=== PATIENT | female | born 1955 | race African-American/Black ===

== ENCOUNTER 2016-12-21 00:20 | Emergency (ER) | payer OTHER ==
[2016-12-21] MEDS ORDERED: HYDROCHLOROTHIAZIDE 25 MG TABLET (FP) PO ONE (00:42)
--- NOTE | 2016-12-21 00:42 | PDOC ---
[id number] 61 year old female with significant medical hx of HTN who was sent from [facility] detox for hypertension. The patient states she hasn't taken her blood pressure medication in three days. Today she went to detox from heroin use ; her last use was four bags of heroin ingested intranasally yesterday. Upon checking into detox, her blood pressure was found high and she was sent to the ED. The patient complains of photophobia and mild headache. She offers no other complaints. The patient states that she has been withdrawing from methadone treatment and relapsed with heroin use. Social Hx: Heroin use. Tobacco smoker for 30 years, now down to 1 per day. Denies ETOH use. <Lila Almanza - Last Filed: 12/21/16 00:45> <Mayda Douglas - Last Filed: 12/25/16 16:52> - General Stated Complaint: BLOOD PRESSURE PROBLEM Time Seen by Provider: 12/21/16 00:36 Past History <Lila Almanza - Last Filed: 12/21/16 00:45> - Past Medical History Anemia: No Asthma: Yes Cancer: No Cardiac Disorders: No CVA: No COPD: No CHF: No Dementia: No Diabetes: No GI Disorders: No Disorders: No HTN: Yes Hypercholesterolemia: No Liver Disease: No Psychiatric Problems: Yes (ANXIETY) Suicide Attempt (Hx): No Seizures: Yes Thyroid Disease: No - Psycho/Social/Smoking Cessation Hx Anxiety: Yes Suicidal Ideation: No Smoking Status: Yes Smoking History: Current every day smoker Have you smoked in the past 12 months: Yes Number of Cigarettes Smoked Daily: 3 Cigars Per Day: 0 'Breaking Loose' booklet given: 12/20/16 Hx Alcohol Use: No Drug/Substance Use Hx: Yes Substance Use Type: Opiates, Tranquilizers Hx Substance Use Treatment: Yes <Mayda Douglas - Last Filed: 12/25/16 16:52> - Past Medical History Allergies/Adverse Reactions: Allergies Allergy/AdvReac Type Severity Reaction Status Date / Time No Known Allergies Allergy Verified 12/21/16 00:57 Home Medications: Ambulatory Orders Valsartan/Hydrochlorothiazide [Diovan Hct 80-12.5 mg Tablet] 1 combo PO DAILY Review of Systems - Review of Systems Comments:: 12/21/16 00:50 CONSTITUTIONAL: Absent: fever, chills, diaphoresis, generalized weakness, malaise, loss of appetite HEENT: Absent: rhinorrhea, nasal congestion, throat pain, throat swelling, difficulty swallowing, mouth swelling, ear pain, eye pain, visual changes CARDIOVASCULAR: Absent: chest pain, syncope, palpitations, irregular heart rate, lightheadedness , peripheral edema RESPIRATORY: Absent: cough, shortness of breath, dyspnea with exertion, orthopnea, wheezing, stridor, hemoptysis GASTROINTESTINAL: Absent: abdominal pain, abdominal distension, nausea, vomiting, diarrhea, constipation, melena, hematochezia GENITOURINARY: Absent: dysuria, frequency, urgency, hesitancy, hematuria, flank pain, genital pain MUSCULOSKELETAL: Absent: myalgia, arthralgia, joint swelling SKIN: Absent: rash, itching, pallor HEMATOLOGIC/IMMUNOLOGIC: Absent: easy bleeding, easy bruising, lymphadenopathy, frequent infections ENDOCRINE: Absent: unexplained weight gain, unexplained weight loss, heat intolerance, cold intolerance NEUROLOGIC: Present: headache, photophobia Absent: focal weakness or paresthesia, dizziness, unsteady gait, seizure, mental status changes, bladder or bowel incontinence. PSYCHIATRIC: Absent: anxiety, depression, suicidal or homicidal ideation, hallucinations <Lila Almanza - Last Filed: 12/21/16 00:45> *Physical Exam - Physical Exam Comments: 12/21/16 00:51 GENERAL: Well developed, well nourished. Awake and alert. No acute distress. HEENT: Normocephalic, atraumatic. PERRLA, EOMI. No conjunctival pallor. Sclera are non- icteric. Moist mucous membranes. Oropharynx is clear. NECK: Supple. Full ROM. No JVD. Carotid pulses 2+ and symmetric, without bruits. No thyromegaly. No lymphadenopathy. CARDIOVASCULAR: Regular rate and rhythm. No murmurs, rubs, or gallops. Distal pulses are 2+ and symmetric. PULMONARY: No evidence of respiratory distress. Lungs clear to auscultation bilaterally. No wheezing, rales or rhonchi. ABDOMINAL: Soft. Non-tender. Non-distended. No rebound or guarding. No organomegaly. Normoactive bowel sounds. MUSCULOSKELETAL: Normal range of motion at all joints. No bony deformities or tenderness. No CVA tenderness. EXTREMITIES: No cyanosis. No clubbing. No edema. No calf tenderness. SKIN: Warm and dry. Normal capillary refill. No rashes. No jaundice. NEUROLOGICAL: Alert, awake, appropriate. Cranial nerves 2-12 intact. Normal speech. PSYCHIATRIC: Cooperative. Good eye contact. Appropriate mood and affect. <Lila Almanza - Last Filed: 12/21/16 00:45> Medical Decision Making - Medical Decision Making 12/21/16 01:26 61-year-old brought in by ambulance from [facility] because of elevated blood pressure. She normally takes hydrochlorothiazide and Diovan but has not taken any of her medications for 3 days. She denies any shortness of breath or chest pain. Does complain of a mild headache Last heroin use yesterday when she had 3 bags -pt given diovan 106mg and HCTZ 25mg plan-discharge back to [facility] at 7am when her bed will be available <Mayda Douglas - Last Filed: 12/25/16 16:52> *DC/Admit/Observation/Transfer - Attestations Scribe Attestion: 12/21/16 00:51 Documentation prepared by Lila Almanza, acting as medical receptionist for Mayda Douglas MD. <Lila Almanza - Last Filed: 12/21/16 00:45> <Mayda Douglas - Last Filed: 12/25/16 16:52> Diagnosis at time of Disposition: Hypertension - Discharge Dispostion Disposition: HOME Condition at time of disposition: Guarded - Referrals Referrals: Osmany Zayas MD [Staff Physician] - - Patient Instructions Printed Discharge Instructions: DI for High Blood Pressure
[2016-12-21] MEDS ORDERED: VALSARTAN 160 MG TABLET (UD) PO ONE (00:50)
[2016-12-21 00:57] VITALS: TEMP 98.1; BMI 24.2
[2016-12-21] MEDS ORDERED: VALSARTAN 80 MG TABLET (UD) ONE ×2 (00:58→00:59)
[2016-12-21] MEDS ORDERED: HYDROCHLOROTHIAZIDE 25 MG TABLET (FP) ONE (00:58)
[2016-12-21 08:05] VITALS: BP 162/83; PULSE 70
--- NOTE | 2016-12-21 08:09 | PDOC ---
*Physical Exam - Vital Signs Last Vital Signs Temp Pulse Resp BP Pulse Ox 98.1 F 70 19 162/83 100 12/21/16 00:48 12/21/16 08:04 12/21/16 08:04 12/21/16 08:04 12/21/16 08:04 ED Treatment Course - Medications Given in the ED: ED Medications Discontinued Medications Generic Name Dose Route Start Last Admin Trade Name Flory PRN Reason Stop Dose Admin Hydrochlorothiazide 25 mg 12/21/16 00:42 12/21/16 01:10 Hctz - PO 12/21/16 00:43 25 mg ONCE ONE Administration Valsartan 160 mg 12/21/16 00:50 12/21/16 01:10 Diovan - PO 12/21/16 00:51 160 mg ONCE ONE Administration Medical Decision Making - Medical Decision Making 12/21/16 08:05 Received signout on this 61y/o F with HTN sent from [facility] admissions for elevated BP. Pt has been asx, BP improved after home meds. Pt feels well. D/W Dr. Gerardo Candelaria and [facility] admission, pt can return for admission assessment. *DC/Admit/Observation/Transfer Diagnosis at time of Disposition: Hypertension Qualifiers: Hypertension type: essential hypertension Qualified Code(s): I10 - Essential ( primary) hypertension - Discharge Dispostion Disposition: HOME Condition at time of disposition: Guarded - Referrals Referrals: Osmany Zayas MD [Staff Physician] - - Patient Instructions Printed Discharge Instructions: DI for High Blood Pressure - Post Discharge Activity
== END 2016-12-21 08:22 | disposition home or self-care (01) ==
LOC: JER 00:20 → SUPCPDRO 00:20 → JER 08:22
DX: I10 Essential (primary) hypertension (principal); F41.9 Anxiety disorder, unspecified; F17.210 Nicotine dependence, cigarettes, uncomplicated; J45.909 Unspecified asthma, uncomplicated; F11.90 Opioid use, unspecified, uncomplicated
CPT/HCPCS: 99281-25

== ENCOUNTER 2016-12-21 08:39 | Inpatient (IN) | payer OTHER ==
[2016-12-21 11:35] VITALS: BMI 24.2
--- NOTE | 2016-12-21 13:04 | HP ---
COWS - Scale Resting Pulse: 0= [place] 80 or Below Sweatin=Flushed/Facial Moisture Restless Observation: 1= Difficult to Sit Still Pupil Size: 0= Normal to Room Light Bone or Joint Aches: 2= Severe Diffuse Aches Runny Nose/ Eye Tearin= Runny Nose/Eyes GI Upset > 30mins: 2= Nausea/Diarrhea Tremor Observation: 2= Slight Tremor Visible Yawning Observation: 2= >3x During Session Anxiety or Irritability: 2=Irritable/Anxious Goose Flesh Skin: 3=Piloerection COWS Score: 18 CIWA Score - CIWA Score Nausea/Vomitin-Mild Nausea/No Vomiting Muscle Tremors: 4-Moderate,w/Arms Extend Anxiety: 3 Agitation: 4-Moderately Restless Paroxysmal Sweats: 3 Orientation: 0-Oriented Tacttile Disturbances: 0-None Auditory Disturbances: 0-None Visual Disturbances: 0-None Headache: 2-Mild CIWA-Ar Total Score: 17 Admission ROS BHS - HPI Chief Complaint: I am here to detox and get the help I need. Allergies/Adverse Reactions: Allergies Allergy/AdvReac Type Severity Reaction Status Date / Time No Known Allergies Allergy Verified 12/21/16 11:53 History of Present Illness: pt is a 61yr old female with a history of heroin and xanax dependence seeking detox for treatment. Exam Limitations: No Limitations - Ebola screening Have you traveled outside of the country in the last 21 days: No Have you had contact with anyone from an Ebola affected area: No Have you been sick,other than usual withdrawal symptoms: No - Review of Systems Constitutional: Chills, Diaphoresis, Loss of Appetite, Night Sweats, Changes in sleep, Unintentional Wgt. Loss EENT: reports: Tearing, Nose Congestion Respiratory: reports: No Symptoms reported Cardiac: reports: No Symptoms Reported GI: reports: Poor Appetite, Poor Fluid Intake : reports: No Symptoms Reported Musculoskeletal: reports: Back Pain, Joint Pain, Muscle Pain Integumentary: reports: Flushing, Sweating Neuro: reports: Tingling, Tremors Endocrine: reports: Excessive Sweating, Flushing, Intolerance to Cold, Intolerance to Heat Hematology: reports: No Symptoms Reported Psychiatric: reports: Judgement Intact, Mood/Affect Appropiate, Orientated x3, Agitated, Anxious Other Systems: Reviewed and Negative Patient History - Patient Medical History Hx Anemia: No Hx Asthma: Yes Hx Chronic Obstructive Pulmonary Disease (COPD): No Hx Cancer: No Hx Cardiac Disorders: No Hx Congestive Heart Failure: No Hx Hypertension: Yes Hx Hypercholesterolemia: No Hx Pacemaker: No HX Cerebrovascular Accident: No Hx Seizures: No Hx Dementia: No Hx Diabetes: No Hx Gastrointestinal Disorders: No Hx Liver Disease: No Hx Genitourinary Disorders: No Hx Sexually Transmitted Disorders: No Hx Renal Disease (ESRD): No Hx Thyroid Disease: No Hx Human Immunodeficiency Virus (HIV): No (negative) Hx Hepatitis C: No (negative) Hx Depression: Yes Hx Suicide Attempt: No (denies) Hx Bipolar Disorder: No Hx Schizophrenia: No - Patient Surgical History Past Surgical History: Yes Hx Neurologic Surgery: No Hx Cataract Extraction: No Hx Cardiac Surgery: No Hx Lung Surgery: No Hx Breast Surgery: No Hx Breast Biopsy: No Hx Abdominal Surgery: No Hx Appendectomy: No Hx Cholecystectomy: No Hx Genitourinary Surgery: No Hx Section: Yes (1987) Hx Orthopedic Surgery: No Anesthesia Reaction: No - PPD History Previous Implant?: Yes Documented Results: Positive w/o proof PPD to be Administered?: No - Reproductive History Patient is a Female of Child Bearing Age (11 -55 yrs old): No - Smoking Cessation Smoking history: Current every day smoker Have you smoked in the past 12 months: Yes Aproximately how many cigarettes per day: 1 Cigars Per Day: 0 Hx Chewing Tobacco Use: No Initiated information on smoking cessation: Yes 'Breaking Loose' booklet given: 12/21/16 - Substance & Tx. History Hx Alcohol Use: No Hx Substance Use: Yes Substance Use Type: Heroin, Tranquilizers Hx Substance Use Treatment: Yes - Substances Abused Heroin Route: Inhalation Frequency: Daily Amount used: 4 bags Age of first use: 21 Date of Last Use: 12/20/16 Xanax Route: Oral Frequency: Daily Amount used: 4 mg. Age of first use: 61 Date of Last Use: 12/19/16 Family Disease History - Family Disease History Family Disease History: Diabetes: Brother Admission Physical Exam BHS - Vital Signs Vital Signs: Vital Signs - 24 hr 12/21/16 11:32 Temperature 98 F Pulse Rate 72 Respiratory 20 Rate Blood Pressure 186/97 - Physical General Appearance: Yes: Appropriately Dressed, Moderate Distress, Tremorous, Irritable, Sweating, Anxious HEENTM: Yes: Normal Voice, Nasal Congestion, Rhinorrhea Respiratory: Yes: Lungs Clear, Normal Breath Sounds Neck: Yes: No masses,lesions,Nodules Breast: Yes: Within Normal Limits Cardiology: Yes: Regular Rhythm, Regular Rate, S1, S2 Abdominal: Yes: Normal Bowel Sounds, Non Tender, Soft Genitourinary: Yes: Within Normal Limits Back: Yes: Normal Inspection Musculoskeletal: Yes: Back pain, Muscle Pain Extremities: Yes: Tremors Neurological: Yes: Fully Oriented, Alert, Normal Response Integumentary: Yes: Diaphoresis Lymphatic: Yes: Within Normal Limits - Diagnostic (1) Nicotine dependence Current Visit: Yes Status: Chronic Qualifiers: Nicotine product type: cigarettes Substance use status: uncomplicated Qualified Code(s): F17.210 - Nicotine dependence, cigarettes, uncomplicated (2) Opioid dependence with withdrawal Current Visit: Yes Status: Chronic (3) Positive PPD, treated Current Visit: Yes Status: Inactive (4) Hypertension Current Visit: Yes Status: Chronic Qualifiers: Hypertension type: essential hypertension Qualified Code(s): I10 - Essential (primary) hypertension (5) Sedative, hypnotic or anxiolytic dependence with withdrawal, uncomplicated Current Visit: Yes Status: Chronic (6) Asthma Current Visit: Yes Status: Inactive Qualifiers: Asthma complication type: uncomplicated Cleared for Admission S - Detox or Rehab [facility] Level of Care: Medically Managed Detox Regimen/Protocol: Methadone/Valium BHS Breath Alcohol Content Breath Alcohol Content: 0 Urine Pregancy Test - Result Urine Test Results: Negative- NO Line Present Urine Drug Screen - Results Drug Screen Negative: No Urine Drug Screen Results: OPI-Opiates, BZO-Benzodiazepines
[2016-12-21] MEDS ORDERED: P-EPHED 60MG/TRIPROLIDI 2.5MG TABLET PO PRN (13:10)
[2016-12-21] MEDS ORDERED: MAGNESIUM HYDROX 2400MG/30ML ORAL SUSPENSION 30 ML CUP PO PRN (13:10)
[2016-12-21] MEDS ORDERED: LOPERAMIDE HCL 2 MG CAPSULE PO PRN (13:10)
[2016-12-21] MEDS ORDERED: diazePAM 5 MG TABLET PO PRN (13:10)
[2016-12-21] MEDS ORDERED: MAG HYDROX/AL HYDROX/SIMETH 30 ML UNIT-DOSE CUP PO PRN (13:10)
[2016-12-21] MEDS ORDERED: NICOTINE POLACRILEX 2 MG GUM BC PRN (13:10)
[2016-12-21] MEDS ORDERED: hydrOXYzine PAMOATE 50 MG CAPSULE (FP) PO PRN (13:10)
[2016-12-21] MEDS ORDERED: MENTHOL/PHENOL 1 EACH UD MM PRN (13:10)
[2016-12-21] MEDS ORDERED: MAGNESIUM CITRATE 300 ML BOTTLE PO PRN (13:10)
[2016-12-21] MEDS ORDERED: guaiFENesin/D-METHORPHAN HB 10 ML UNIT-DOSE CUPS PO PRN (13:10)
[2016-12-21] MEDS ORDERED: IBUPROFEN 400 MG TABLET (FP) PO PRN (13:10)
[2016-12-21] MEDS ORDERED: ACETAMINOPHEN 325 MG TABLET (FP) PO PRN (13:10)
[2016-12-21] MEDS: diazePAM 5 MG TABLET PO SCH ×2 (13:54→22:14)
[2016-12-21] MEDS ORDERED: METHADONE HCL 10 MG TABLET (FOR DETOX USE ONLY) PO ONE ×2 (14:00→23:00)
[2016-12-21] MEDS ORDERED: diazePAM 5 MG TABLET PO ONE (14:00)
[2016-12-21] MEDS: LOSARTAN 50MG/HCTZ 12.5MG 1 TAB (FP) PO SCH (14:58)
[2016-12-21 18:15] LABS: URINE APPEARANCE SLCLOUDY; URINE BILIRUBIN NEGATIVE (NEGATIVE); URINE COLOR YELLOW; URINE GLUCOSE (UA) NEGATIVE (NEGATIVE); URINE KETONE 1+ (NEGATIVE); URINE NITRITE NEGATIVE (NEGATIVE); URINE PROTEIN NEGATIVE (NEGATIVE); URINE UROBILINOGEN NEGATIVE E.U./dl (0.2-1.0)
[2016-12-21 18:32] LABS: URINE BLOOD 1+ (NEGATIVE); URINE LEUK ESTERASE 3+ (NEGATIVE)
[2016-12-21 18:45] LABS: URINE BACTERIA RARE /hpf (NONE SEEN); URINE MUCUS RARE; URINE RBC 28 /hpf (0-3); URINE WBC 9 /hpf (3-5)
[2016-12-21] MEDS: THIAMINE HCL 100 MG TABLET (FP) PO SCH (22:13)
[2016-12-21] MEDS: diphenhydrAMINE HCL 50 MG CAPSULE PO PRN (22:13)
[2016-12-22] MEDS: diazePAM 5 MG TABLET PO SCH ×3 (05:13→22:18)
--- NOTE | 2016-12-22 08:46 | CONSULT ---
[facility] Psychiatric Consult - Data Date of interview: 12/22/16 Admission source: [facility] Identifying data: This is 61 years old female with no psychiatric hospitalization history intoxicated with: Opioids and Nicotine, Xanax Substance Abuse History: - Smoking Cessation. Smoking history: Current every day smoker. Have you smoked in the past 12 months: Yes. Aproximately how many cigarettes per day: 1. Cigars Per Day: 0. Hx Chewing Tobacco Use: No. Initiated information on smoking cessation: Yes. 'Breaking Loose' booklet given : 12/21/16. - Substance & Tx. History. Hx Alcohol Use: No. Hx Substance Use: Yes. Substance Use Type: Heroin, Tranquilizers. Hx Substance Use Treatment: Yes. - Substances Abused. Heroin. Route: Inhalation. Frequency: Daily. Amount used: 4 bags. Age of first use: 21. Date of Last Use: 12/20/16. Xanax. Route: Oral. Frequency: Daily. Amount used: 4 mg. Age of first use: 61. Date of Last Use: 12/19/16 Medical History: HTN, Asthma, Seizure history, PPD+ history Psychiatric History: Patient reports history of deporession, reports no medications taking prior to admission Physical/Sexual Abuse/Trauma History: Denies Additional Comment: Observation. Detox Unit Carte Protocol Mental Status Exam - Mental Status Exam Alert and Oriented to: Person Cognitive Function: Fair Patient Appearance: Unkempt Mood: Sad Affect: Flat Patient Behavior: Sedated Speech Pattern: Delayed Voice Loudness: Mildly Soft/Quiet Thought Process: Circumstantial Thought Disorder: Being Controlled Hallucinations: Denies Suicidal Ideation: Denies Homicidal Ideation: Denies Sleep: Difficulty falling asleep Appetite: Fair Muscle strength/Tone: Mild Hypotonicity Gait/Station: Shuffling Additional Comments: Observation. Detox Unit Carte Protocol Psychiatric Findings - Problem List ([place] 1, 2,3) (1) Nicotine dependence Current Visit: Yes Status: Chronic Qualifiers: Nicotine product type: cigarettes Substance use status: uncomplicated Qualified Code(s): F17.210 - Nicotine dependence, cigarettes, uncomplicated (2) Opioid dependence with withdrawal Current Visit: Yes Status: Chronic (3) Sedative, hypnotic or anxiolytic dependence with withdrawal, uncomplicated Current Visit: Yes Status: Chronic (4) Depression (emotion) Current Visit: No Status: Suspected Qualifiers: Depression Type: dysthymia Qualified Code(s): F34.1 - Dysthymic disorder (5) Drug-induced mood disorder Current Visit: Yes Status: Acute - Initial Treatment Plan Initial Treatment Plan: Observation. Detox Unit Carte Protocol
[2016-12-22] MEDS ORDERED: METHADONE HCL 10 MG TABLET (FOR DETOX USE ONLY) PO SCH (10:00)
[2016-12-22 10:16] LABS: MCH 28.2 pg (25.7-33.7); MCHC 32.9 g/dl (32.0-36.0); MEAN CELL VOLUME 85.7 fl (80-96); MEAN PLT VOLUME 9.5 fl (7.5-11.1); PLATELET COUNT 373 K/MM3 (134-434); WHITE BLOOD COUNT 9.7 K/mm3 (4.0-10.0)
[2016-12-22] MEDS: LOSARTAN 50MG/HCTZ 12.5MG 1 TAB (FP) PO SCH (10:34)
[2016-12-22] MEDS: NICOTINE 7 MG/24 HOURS TOPICAL PATCH TD SCH (10:35)
[2016-12-22] MEDS: PRENATAL VITAMINS W/ FOLIC ACID TABLET (FP) PO SCH (10:35)
[2016-12-22 10:40] LABS: ALBUMIN 4.3 g/dl (3.4-5.0); BILIRUBIN,TOTAL 0.7 mg/dL (0.2-1.0); CALCIUM 10.4 mg/dL (8.5-10.1); COCKROFT - GAULT 49.4785; TOT PROT 9.2 g/dl (6.4-8.2)
--- NOTE | 2016-12-22 12:26 | PN ---
[facility] CIWA - CIWA Score Nausea/Vomitin Muscle Tremors: 3 Anxiety: 3 Agitation: 2 Paroxysmal Sweats: 3 Orientation: 0-Oriented Tacttile Disturbances: 1-Very Mild Itch/Numbness Auditory Disturbances: 0-None Visual Disturbances: 0-None Headache: 0-None Present CIWA-Ar Total Score: 14 S COWS - Scale Resting Pulse: 1= [place] 81-100 Sweatin= Chills/Flushing Restless Observation: 1= Difficult to Sit Still Pupil Size: 1= Pupils >than Normal Bone or Joint Aches: 1= Mild Discomfort Runny Nose/ Eye Tearin= Nasal Congestion GI Upset > 30mins: 1= Stomach Cramp Tremor Observation of Outstretched Hands: 2= Slight Tremor Visible Yawning Observation: 0= None Anxiety or Irritability: 2=Irritable/Anxious Goose Flesh Skin: 0=Smooth Skin COWS Score: 11 [facility] Progress Note (SOAP) Subjective: interrupted sleep, sweats chills Objective: 12/22/16 12:24 Vital Signs Temperature 97.5 F L 12/22/16 09:59 Pulse Rate 90 12/22/16 09:59 Respiratory Rate 16 12/22/16 09:59 Blood Pressure 120/65 12/22/16 09:59 O2 Sat by Pulse Oximetry (%) Laboratory Tests 12/21/16 12/22/16 12/22/16 14:00 06:00 06:00 WBC 9.7 RBC 4.77 D Hgb 13.4 D Hct 40.9 D MCV 85.7 MCHC 32.9 RDW 14.0 Plt Count 373 MPV 9.5 D Sodium 141 Potassium 3.4 L D Chloride 100 Carbon Dioxide 26 Anion Gap 15 BUN 13 D Creatinine 1.0 Creat Clearance w eGFR 56.00 Random Glucose 115 H D Calcium 10.4 H D Total Bilirubin 0.7 D AST 30 ALT 49 D Alkaline Phosphatase 151 H D Total Protein 9.2 H D Albumin 4.3 D Urine Color Yellow Urine Appearance Slcloudy Urine pH 6.0 Ur Specific [place] 1.011 Urine Protein Negative Urine Glucose (UA) Negative Urine Ketones 1+ H Urine Blood 1+ H Urine Nitrite Negative Urine Bilirubin Negative Urine Urobilinogen Negative Ur Leukocyte Esterase 3+ H Urine RBC 28 Urine WBC 9 Ur Epithelial Cells Moderate Urine Bacteria Rare Urine Mucus Rare RPR Titer 12/22/16 06:00 WBC RBC Hgb Hct MCV MCHC RDW Plt Count MPV Sodium Potassium Chloride Carbon Dioxide Anion Gap BUN Creatinine Creat Clearance w eGFR Random Glucose Calcium Total Bilirubin AST ALT Alkaline Phosphatase Total Protein Albumin Urine Color Urine Appearance Urine pH Ur Specific [place] Urine Protein Urine Glucose (UA) Urine Ketones Urine Blood Urine Nitrite Urine Bilirubin Urine Urobilinogen Ur Leukocyte Esterase Urine RBC Urine WBC Ur Epithelial Cells Urine Bacteria Urine Mucus RPR Titer Nonreactive 01/26/17 09:18 pt aox3 in and ambulating Assessment: 12/22/16 12:25 withdrawal sx;s hypokalemia Plan: cont, detox increase fluids kdur 20meg/d x 3
--- NOTE | 2016-12-22 13:36 | EKG ---
Test Reason : Blood Pressure : / mmHG Vent. Rate : 081 BPM Atrial Rate : 081 BPM P-R Int : 138 ms QRS Dur : 090 ms QT Int : 428 ms P-R-T Axes : 059 003 030 degrees QTc Int : 497 ms NORMAL SINUS RHYTHM WITH SINUS ARRHYTHMIA RIGHT ATRIAL ENLARGEMENT MINIMAL VOLTAGE CRITERIA FOR LVH, MAY BE NORMAL VARIANT PROLONGED QT ABNORMAL ECG WHEN COMPARED WITH ECG OF 10-MAR-2012 20:54, NONSPECIFIC T WAVE ABNORMALITY, IMPROVED IN ANTEROLATERAL LEADS Confirmed by DOM DASILVA MD ([id number]) on 12/22/2016 1:36:09 PM Referred By: Confirmed By:DOM DASILVA MD
[2016-12-22] MEDS: POTASSIUM CHLORIDE TABS 20 MEQ TABLET.ER (FP) PO SCH (14:10)
[2016-12-22] MEDS: diphenhydrAMINE HCL 50 MG CAPSULE PO PRN (22:18)
[2016-12-22] MEDS: THIAMINE HCL 100 MG TABLET (FP) PO SCH (22:18)
[2016-12-23] MEDS ORDERED: diazePAM 5 MG TABLET PO SCH (10:00)
[2016-12-23] MEDS ORDERED: METHADONE HCL 5 MG TABLET (FOR DETOX USE ONLY) PO SCH (10:00)
[2016-12-23] MEDS: NICOTINE 7 MG/24 HOURS TOPICAL PATCH TD SCH (10:46)
[2016-12-23] MEDS: POTASSIUM CHLORIDE TABS 20 MEQ TABLET.ER (FP) PO SCH (10:47)
[2016-12-23] MEDS: PRENATAL VITAMINS W/ FOLIC ACID TABLET (FP) PO SCH (10:47)
[2016-12-23] MEDS: LOSARTAN 50MG/HCTZ 12.5MG 1 TAB (FP) PO SCH (10:47)
[2016-12-23 10:59] VITALS: BP 147/66; PULSE 91; TEMP 98
--- NOTE | 2016-12-23 11:50 | DS ---
[facility] Detox Discharge Summary Admission Date: 12/21/16 Discharge Date: 12/23/16 - History Present History: Opioid Dependence, Sedative Dependence - Physical Exam Results Vital Signs: Vital Signs Temperature 98.0 F 12/23/16 10:58 Pulse Rate 91 H 12/23/16 10:58 Respiratory Rate 18 12/23/16 10:58 Blood Pressure 147/66 12/23/16 10:58 O2 Sat by Pulse Oximetry (%) - Medication Discharge Medications: Ambulatory Orders Valsartan/Hydrochlorothiazide [Diovan Hct 80-12.5 mg Tablet] 1 combo PO DAILY - Diagnosis (1) Nicotine dependence Status: Chronic Qualifiers: Nicotine product type: cigarettes Substance use status: uncomplicated Qualified Code(s): F17.210 - Nicotine dependence, cigarettes, uncomplicated (2) Opioid dependence with withdrawal Status: Chronic (3) Positive PPD, treated Status: Inactive (4) Hypertension Status: Chronic Qualifiers: Hypertension type: essential hypertension Qualified Code(s): I10 - Essential (primary) hypertension (5) Sedative, hypnotic or anxiolytic dependence with withdrawal, uncomplicated Status: Chronic (6) Asthma Status: Inactive Qualifiers: Asthma complication type: uncomplicated - AMA Did Patient Leave Against Medical Advice: Yes (I am not ready )
[2016-12-25] MEDS ORDERED: METHADONE HCL 10 MG TABLET (FOR DETOX USE ONLY) PO SCH (10:00)
[2016-12-25] MEDS ORDERED: diazePAM 5 MG TABLET PO SCH (10:00)
[2016-12-26] MEDS ORDERED: METHADONE HCL 5 MG TABLET (FOR DETOX USE ONLY) PO SCH (06:00)
== END 2016-12-23 11:35 | disposition left against medical advice (07) | DRG 770 ==
LOC: YASAS 08:39 → Y6N 12:36
PROVIDERS: ADMIT Internal Medicine Addiction Medicine; ATTEND Internal Medicine Addiction Medicine
PROC: HZ2ZZZZ Detoxification Services for Substance Abuse Treatment (ICD-10-PCS; principal; 2016-12-23)
DX: F11.23 Opioid dependence with withdrawal (principal); F13.230 Sedative, hypnotic or anxiolytic dependence with withdrawal, uncomplicated; F17.210 Nicotine dependence, cigarettes, uncomplicated; F34.1 Dysthymic disorder; I10 Essential (primary) hypertension; J45.909 Unspecified asthma, uncomplicated; R76.11 Nonspecific reaction to tuberculin skin test without active tuberculosis
CPT/HCPCS: 36415; 71010-TC; 80053; 81003; 81015; 85027; 86593; 93005; 93010

== ENCOUNTER 2017-02-13 20:09 | Inpatient (IN) | payer OTHER ==
[2017-02-13 21:24] VITALS: BMI 30.7
--- NOTE | 2017-02-13 21:45 | HP ---
COWS - Scale Resting Pulse: 0= [place] 80 or Below Sweatin= Chills/Flushing Restless Observation: 3= Extraneous Movement Pupil Size: 0= Normal to Room Light Bone or Joint Aches: 2= Severe Diffuse Aches Runny Nose/ Eye Tearin= Runny Nose/Eyes GI Upset > 30mins: 2= Nausea/Diarrhea Tremor Observation: 2= Slight Tremor Visible Yawning Observation: 0= None Anxiety or Irritability: 2=Irritable/Anxious Goose Flesh Skin: 0=Smooth Skin COWS Score: 14 CIWA Score - CIWA Score Nausea/Vomitin-Mild Nausea/No Vomiting Muscle Tremors: 4-Moderate,w/Arms Extend Anxiety: 4-Mod. Anxious/Guarded Agitation: 4-Moderately Restless Paroxysmal Sweats: 1-Minimal Palms Moist Orientation: 0-Oriented Tacttile Disturbances: 0-None Auditory Disturbances: 0-None Visual Disturbances: 0-None Headache: 0-None Present CIWA-Ar Total Score: [address] [facility] - HPI Chief Complaint: WITHDRAWAL SX Allergies/Adverse Reactions: Allergies Allergy/AdvReac Type Severity Reaction Status Date / Time No Known Allergies Allergy Verified 12/21/16 11:53 History of Present Illness: 61 YEARS OLD FEMALE WITH LONG HISTORY OF XANAX OPIUM NICOTINE DEPENDENCE HAS HYPERTENSION AND ASTHMA AND DEPRESSION IS ADMITTED TO DETOX Exam Limitations: No Limitations - Ebola screening Have you traveled outside of the country in the last 21 days: No ([place]) Have you had contact with anyone from an Ebola affected area: No Have you been sick,other than usual withdrawal symptoms: No Do you have a fever: No - Review of Systems Constitutional: Chills, Changes in sleep, Weight Stable EENT: reports: Dental Problems (BROKEN DENTURE UPPER AND LOWER) Respiratory: reports: No Symptoms reported Cardiac: reports: No Symptoms Reported GI: reports: Nausea, Poor Fluid Intake, Abdominal cramping : reports: No Symptoms Reported Musculoskeletal: reports: Back Pain, Joint Pain, Muscle Pain, Neck Pain Integumentary: reports: No Symptoms Reported Neuro: reports: Tremors Endocrine: reports: No Symptoms Reported Hematology: reports: No Symptoms Reported Psychiatric: reports: Judgement Intact, Orientated x3, Depressed Other Systems: Reviewed and Negative Patient History - Patient Medical History Hx Anemia: No Hx Asthma: Yes Hx Chronic Obstructive Pulmonary Disease (COPD): No Hx Cancer: No Hx Cardiac Disorders: No Hx Congestive Heart Failure: No Hx Hypertension: Yes Hx Hypercholesterolemia: No Hx Pacemaker: No HX Cerebrovascular Accident: No Hx Seizures: No Hx Dementia: No Hx Diabetes: No Hx Gastrointestinal Disorders: No Hx Liver Disease: No Hx Genitourinary Disorders: No Hx Sexually Transmitted Disorders: No Hx Renal Disease (ESRD): No Hx Thyroid Disease: No Hx Human Immunodeficiency Virus (HIV): No (negative) Hx Hepatitis C: No (negative) Hx Depression: Yes Hx Suicide Attempt: No (denies) Hx Bipolar Disorder: No Hx Schizophrenia: No - Patient Surgical History Past Surgical History: Yes Hx Neurologic Surgery: No Hx Cataract Extraction: No Hx Cardiac Surgery: No Hx Lung Surgery: No Hx Breast Surgery: No Hx Breast Biopsy: No Hx Abdominal Surgery: No Hx Appendectomy: No Hx Cholecystectomy: No Hx Genitourinary Surgery: No Hx Section: Yes (1987) Hx Orthopedic Surgery: No Anesthesia Reaction: No - PPD History Previous Implant?: Yes Documented Results: Positive w/proof Implanted On Prior [facility] Admission?: No PPD to be Administered?: No - Smoking Cessation Smoking history: Current every day smoker Have you smoked in the past 12 months: Yes Aproximately how many cigarettes per day: 1 Cigars Per Day: 0 Hx Chewing Tobacco Use: No Initiated information on smoking cessation: Yes 'Breaking Loose' booklet given: 02/13/17 - Substance & Tx. History Hx Alcohol Use: No Hx Substance Use: Yes Substance Use Type: Opiates, Tranquilizers Hx Substance Use Treatment: Yes (12/21-12/23/16 [facility]) - Substances Abused Alprazolam (Xanax) Route: Oral Frequency: Daily Amount used: 4-6 MG Age of first use: 59 Date of Last Use: 02/12/17 Heroin Route: Inhalation Frequency: Daily Amount used: 5 BAGS Age of first use: 18 Date of Last Use: 02/06/17 Family Disease History - Family Disease History Family Disease History: Diabetes: Brother, Other: Father (), Mother ( ) Admission Physical Exam [facility] - Vital Signs Vital Signs: Vital Signs - 24 hr 02/13/17 21:20 Temperature 98.2 F Pulse Rate 63 Respiratory 20 Rate Blood Pressure 114/98 - Physical General Appearance: Yes: Appropriately Dressed, Moderate Distress, Obese, Tremorous, Irritable, Sweating, Anxious HEENTM: Yes: Hearing grossly Normal, Normal ENT Inspection, Normocephalic, Normal Voice Respiratory: Yes: Chest Non-Tender, Lungs Clear, Normal Breath Sounds, No Respiratory Distress, No Accessory Muscle Use Neck: Yes: Supple, Trachea in good position Breast: Yes: Breasts Symetrical Cardiology: Yes: Regular Rhythm, Regular Rate, S1, S2 Abdominal: Yes: Non Tender, Soft, Increased Bowel Sounds Genitourinary: Yes: Within Normal Limits Back: Yes: Normal Inspection Musculoskeletal: Yes: full range of Motion, Gait Steady, Back pain, Muscle Pain Extremities: Yes: Normal Inspection, Normal Range of Motion, Non-Tender, Tremors Neurological: Yes: Fully Oriented, Alert, Motor Strength 5/5, Normal Response, Depressed Affect Integumentary: Yes: Warm Lymphatic: Yes: Within Normal Limits - Diagnostic (1) Hypertension Current Visit: Yes Status: Chronic Qualifiers: Hypertension type: essential hypertension Qualified Code(s): I10 - Essential (primary) hypertension (2) Nicotine dependence Current Visit: Yes Status: Acute Qualifiers: Nicotine product type: cigarettes Substance use status: in withdrawal Qualified Code(s): F17.213 - Nicotine dependence, cigarettes, with withdrawal (3) Opioid dependence with withdrawal Current Visit: Yes Status: Acute (4) Sedative, hypnotic or anxiolytic dependence with withdrawal, uncomplicated Current Visit: Yes Status: Acute (5) Depression (emotion) Current Visit: Yes Status: Suspected Qualifiers: Depression Type: dysthymia Qualified Code(s): F34.1 - Dysthymic disorder (6) Asthma Current Visit: Yes Status: Chronic Qualifiers: Asthma severity: mild intermittent Asthma complication type: uncomplicated Qualified Code(s): J45.20 - Mild intermittent asthma, uncomplicated Cleared for Admission S - Detox or Rehab [facility] Level of Care: Medically Managed Detox Regimen/Protocol: Methadone/Valium [facility] Breath Alcohol Content Breath Alcohol Content: 0 Urine Pregancy Test - Result Urine Test Results: Negative- NO Line Present Urine Drug Screen - Results Drug Screen Negative: No Urine Drug Screen Results: OPI-Opiates, BZO-Benzodiazepines
[2017-02-13] MEDS ORDERED: ACETAMINOPHEN 325 MG TABLET (FP) PO PRN (21:49)
[2017-02-13] MEDS ORDERED: MAG HYDROX/AL HYDROX/SIMETH 30 ML UNIT-DOSE CUP PO PRN (21:49)
[2017-02-13] MEDS ORDERED: guaiFENesin/D-METHORPHAN HB 10 ML UNIT-DOSE CUPS PO PRN (21:49)
[2017-02-13] MEDS ORDERED: METHADONE HCL 10 MG TABLET (FOR DETOX USE ONLY) PO ONE ×2 (21:49→23:00)
[2017-02-13] MEDS ORDERED: IBUPROFEN 400 MG TABLET (FP) PO PRN (21:49)
[2017-02-13] MEDS ORDERED: NICOTINE POLACRILEX 2 MG GUM BC PRN (21:49)
[2017-02-13] MEDS ORDERED: diazePAM 5 MG TABLET PO ONE (21:49)
[2017-02-13] MEDS ORDERED: MAGNESIUM HYDROX 2400MG/30ML ORAL SUSPENSION 30 ML CUP PO PRN (21:49)
[2017-02-13] MEDS ORDERED: LOPERAMIDE HCL 2 MG CAPSULE PO PRN (21:49)
[2017-02-13] MEDS ORDERED: P-EPHED 60MG/TRIPROLIDI 2.5MG TABLET PO PRN (21:49)
[2017-02-13] MEDS ORDERED: MAGNESIUM CITRATE 300 ML BOTTLE PO PRN (21:49)
[2017-02-13] MEDS ORDERED: MENTHOL/PHENOL 1 EACH UD MM PRN (21:49)
[2017-02-13] MEDS ORDERED: ALBUTEROL SO4 6.7 GM HFA INHALER IH PRN (21:54)
[2017-02-13] MEDS ORDERED: VALSARTAN 80 MG TABLET (UD) PO SCH (22:00)
[2017-02-13] MEDS: diazePAM 5 MG TABLET PO SCH (23:10)
[2017-02-13] MEDS: HYDROCHLOROTHIAZIDE 12.5 MG CAPSULE (FP) PO SCH (23:11)
[2017-02-13] MEDS: THIAMINE HCL 100 MG TABLET (FP) PO SCH (23:11)
[2017-02-13] MEDS ORDERED: VALSARTAN 40 MG TABLET (FP) PO SCH (23:22)
[2017-02-13] MEDS: diphenhydrAMINE HCL 50 MG CAPSULE PO PRN (23:34)
[2017-02-14] MEDS: diazePAM 5 MG TABLET PO SCH ×3 (05:58→22:14)
[2017-02-14 09:50] LABS: MCH 28.2 pg (25.7-33.7); MEAN CELL VOLUME 85.4 fl (80-96); MEAN PLT VOLUME 8.3 fl (7.5-11.1); PLATELET COUNT 361 K/MM3 (134-434); RDW 14.2 % (11.6-15.6); WHITE BLOOD COUNT 7.2 K/mm3 (4.0-10.0)
[2017-02-14] MEDS ORDERED: METHADONE HCL 10 MG TABLET (FOR DETOX USE ONLY) PO SCH (10:00)
[2017-02-14 10:04] LABS: ALBUMIN 3.8 g/dl (3.4-5.0); ALK PHOS 106 U/L (45-117); ANION GAP 9 (8-16); BILIRUBIN,TOTAL 0.5 mg/dL (0.2-1.0); CALCIUM 9.2 mg/dL (8.5-10.1); CO2 30 mmol/L (21-32); CREATININE 1.1 mg/dL (0.55-1.02); GLUCOSE,RANDOM 86 mg/dL (74-106); SGOT/AST 17 U/L (15-37); SGPT/ALT 21 U/L (12-78); TOT PROT 7.9 g/dl (6.4-8.2)
[2017-02-14] MEDS: PRENATAL VITAMINS W/ FOLIC ACID TABLET (FP) PO SCH (10:32)
[2017-02-14] MEDS: ASPIRIN 81 MG CHEWABLE TABLETS PO SCH (10:32)
[2017-02-14] MEDS: HYDROCHLOROTHIAZIDE 12.5 MG CAPSULE (FP) PO SCH (10:32)
[2017-02-14] MEDS: diazePAM 5 MG TABLET PO PRN (10:32)
--- NOTE | 2017-02-14 10:32 | PN ---
[facility] CIWA - CIWA Score Nausea/Vomitin Muscle Tremors: 2 Anxiety: 2 Agitation: 2 Paroxysmal Sweats: 3 Orientation: 0-Oriented Tacttile Disturbances: 1-Very Mild Itch/Numbness Auditory Disturbances: 0-None Visual Disturbances: 0-None Headache: 0-None Present CIWA-Ar Total Score: 12 S COWS - Scale Resting Pulse: 0= [place] 80 or Below Sweatin= Chills/Flushing Restless Observation: 1= Difficult to Sit Still Pupil Size: 1= Pupils >than Normal Bone or Joint Aches: 2= Severe Diffuse Aches Runny Nose/ Eye Tearin= Nasal Congestion GI Upset > 30mins: 1= Stomach Cramp Tremor Observation of Outstretched Hands: 1= Tremor [place], Not Seen Yawning Observation: 0= None Anxiety or Irritability: 2=Irritable/Anxious Goose Flesh Skin: 0=Smooth Skin COWS Score: 10 S Progress Note (SOAP) Subjective: interrupted sleep, sweats, Objective: 02/14/17 10:30 Vital Signs Temperature 98.1 F 02/14/17 09:37 Pulse Rate 71 02/14/17 09:37 Respiratory Rate 16 02/14/17 09:37 Blood Pressure 134/67 02/14/17 09:37 O2 Sat by Pulse Oximetry (%) Laboratory Tests 02/14/17 07:00 WBC 7.2 RBC 4.08 Hgb 11.5 D Hct 34.9 MCV 85.4 MCHC 33.0 RDW 14.2 Plt Count 361 MPV 8.3 D pending labs pt aox3 in nad lying in bed Assessment: 02/14/17 10:31 withdrawal sx;s Plan: cont detox increase fluids f/up pending labs
[2017-02-14] MEDS: VALSARTAN 80 MG TABLET (UD) PO SCH (10:33)
[2017-02-14] MEDS: NICOTINE 14 MG/24 HOURS TOPICAL PATCH TD SCH (10:33)
[2017-02-14 14:07] LABS: URINE APPEARANCE CLEAR; URINE BILIRUBIN NEGATIVE (NEGATIVE); URINE BLOOD NEGATIVE (NEGATIVE); URINE COLOR LTYELLOW; URINE GLUCOSE (UA) NEGATIVE (NEGATIVE); URINE KETONE NEGATIVE (NEGATIVE); URINE NITRITE NEGATIVE (NEGATIVE); URINE PROTEIN NEGATIVE (NEGATIVE); URINE UROBILINOGEN NEGATIVE E.U./dl (0.2-1.0)
[2017-02-14 14:18] LABS: URINE LEUK ESTERASE 3+ (NEGATIVE)
[2017-02-14 14:39] LABS: URINE HYALINE CAST 3 /lpf; URINE MUCUS RARE; URINE RBC 10 /hpf (0-3); URINE WBC 6 /hpf (3-5)
--- NOTE | 2017-02-14 14:46 | EKG ---
Test Reason : Blood Pressure : / mmHG Vent. Rate : 057 BPM Atrial Rate : 057 BPM P-R Int : 148 ms QRS Dur : 094 ms QT Int : 420 ms P-R-T Axes : 064 023 031 degrees QTc Int : 408 ms SINUS BRADYCARDIA WITH SINUS ARRHYTHMIA OTHERWISE NORMAL ECG WHEN COMPARED WITH ECG OF 21-DEC-2016 13:31, VENT. RATE HAS DECREASED Confirmed by NELL SANCHEZ MD ([id number]) on 02/14/2017 2:46:08 PM Referred By: Sarah Beth Eli Confirmed By:NELL SANCHEZ MD
[2017-02-14] MEDS: THIAMINE HCL 100 MG TABLET (FP) PO SCH (22:14)
[2017-02-14] MEDS: diphenhydrAMINE HCL 50 MG CAPSULE PO PRN (22:14)
[2017-02-15] MEDS: diazePAM 5 MG TABLET PO PRN (07:09)
--- NOTE | 2017-02-15 09:09 | CONSULT ---
[facility] Psychiatric Consult - Data Date of interview: 02/15/17 Admission source: [facility] Identifying data: This is 61 years old female with no psychiatric hospitalization history , intoxicated with Alcohol, Opioids , Nicotine Substance Abuse History: - Smoking Cessation. Smoking history: Current every day smoker. Have you smoked in the past 12 months: Yes. Aproximately how many cigarettes per day: 1. Cigars Per Day: 0. Hx Chewing Tobacco Use: No. Initiated information on smoking cessation: Yes. 'Breaking Loose' booklet given : 02/13/17. - Substance & Tx. History. Hx Alcohol Use: No. Hx Substance Use: Yes. Substance Use Type: Opiates, Tranquilizers. Hx Substance Use Treatment: Yes (12/21-12/23/16 [facility]). - Substances Abused. Alprazolam (Xanax). Route : Oral. Frequency: Daily. Amount used: 4-6 MG. Age of first use: 59. Date of Last Use: 02/12/17. Heroin. Route: Inhalation. Frequency: Daily. Amount used: 5 BAGS. Age of first use: 18. Date of Last Use: 02/06/17 Medical History: PPD + history, aSTHMA, HTN, Seizure history Psychiatric History: Patient reports history of depression, reports no medications taking prior to admission, Physical/Sexual Abuse/Trauma History: Denies Additional Comment: Observation. Detox Unit Care Protocol Mental Status Exam - Mental Status Exam Alert and Oriented to: Person Cognitive Function: Fair Patient Appearance: Unkempt Mood: Sad Affect: Flat Patient Behavior: Sedated Speech Pattern: Delayed Voice Loudness: Mildly Soft/Quiet Thought Process: Circumstantial Thought Disorder: Being Controlled Hallucinations: Denies Suicidal Ideation: Denies Homicidal Ideation: Denies Insight/Judgement: Fair Sleep: Difficulty falling asleep Appetite: Fair Muscle strength/Tone: Mild Hypotonicity Gait/Station: Shuffling Additional Comments: Observation. Detox Unit Care Protocol Psychiatric Findings - Problem List ([place] 1, 2,3) (1) Nicotine dependence Status: Acute Qualifiers: Nicotine product type: cigarettes Substance use status: in withdrawal Qualified Code(s): F17.213 - Nicotine dependence, cigarettes, with withdrawal (2) Hypertension Status: Chronic Qualifiers: Hypertension type: essential hypertension Qualified Code(s): I10 - Essential (primary) hypertension (3) Opioid dependence with withdrawal Status: Chronic (4) Sedative, hypnotic or anxiolytic dependence with withdrawal, uncomplicated Status: Chronic (5) Drug-induced mood disorder Status: Acute - Initial Treatment Plan Initial Treatment Plan: Observation. Detox Unit Care Protocol
[2017-02-15 09:52] VITALS: BP 130/69; PULSE 64; TEMP 98.1
[2017-02-15] MEDS ORDERED: diazePAM 5 MG TABLET PO SCH (10:00)
[2017-02-15] MEDS ORDERED: METHADONE HCL 5 MG TABLET (FOR DETOX USE ONLY) PO SCH (10:00)
[2017-02-15] MEDS: ASPIRIN 81 MG CHEWABLE TABLETS PO SCH (10:08)
[2017-02-15] MEDS: PRENATAL VITAMINS W/ FOLIC ACID TABLET (FP) PO SCH (10:08)
[2017-02-15] MEDS: HYDROCHLOROTHIAZIDE 12.5 MG CAPSULE (FP) PO SCH (10:08)
[2017-02-15] MEDS: VALSARTAN 80 MG TABLET (UD) PO SCH (10:08)
[2017-02-15] MEDS: NICOTINE 14 MG/24 HOURS TOPICAL PATCH TD SCH (10:09)
--- NOTE | 2017-02-15 12:46 | DS ---
[facility] Detox Discharge Summary Admission Date: 02/13/17 - History Present History: Opioid Dependence, Sedative Dependence - Physical Exam Results Vital Signs: Vital Signs Temperature 98.1 F 02/15/17 09:51 Pulse Rate 64 02/15/17 09:51 Respiratory Rate 18 02/15/17 09:51 Blood Pressure 130/69 02/15/17 09:51 O2 Sat by Pulse Oximetry (%) - Treatment Hospital Course: Detox Protocol Followed - Medication Discharge Medications: Ambulatory Orders Valsartan/Hydrochlorothiazide [Diovan Hct 80-12.5 mg Tablet] 1 combo PO DAILY - Diagnosis (1) Nicotine dependence Current Visit: Yes Status: Acute Qualifiers: Nicotine product type: cigarettes Substance use status: in withdrawal Qualified Code(s): F17.213 - Nicotine dependence, cigarettes, with withdrawal (2) Opioid dependence with withdrawal Current Visit: Yes Status: Chronic (3) Sedative, hypnotic or anxiolytic dependence with withdrawal, uncomplicated Current Visit: Yes Status: Chronic (4) Asthma Current Visit: Yes Status: Chronic Qualifiers: Asthma severity: mild intermittent Asthma complication type: uncomplicated Qualified Code(s): J45.20 - Mild intermittent asthma, uncomplicated (5) Hypertension Current Visit: Yes Status: Chronic Qualifiers: Hypertension type: essential hypertension Qualified Code(s): I10 - Essential (primary) hypertension (6) Depression (emotion) Current Visit: Yes Status: Suspected Qualifiers: Depression Type: dysthymia Qualified Code(s): F34.1 - Dysthymic disorder (7) Asthmatic bronchitis Current Visit: Yes Status: Chronic - AMA Did Patient Leave Against Medical Advice: Yes (i'm leaving to go to [place] with my daughter. )
[2017-02-17] MEDS ORDERED: METHADONE HCL 10 MG TABLET (FOR DETOX USE ONLY) PO SCH (10:00)
[2017-02-17] MEDS ORDERED: diazePAM 5 MG TABLET PO SCH (10:00)
[2017-02-18] MEDS ORDERED: METHADONE HCL 5 MG TABLET (FOR DETOX USE ONLY) PO SCH (06:00)
== END 2017-02-15 11:41 | disposition left against medical advice (07) | DRG 770 ==
LOC: YASAS 20:09 → Y6N 22:02
PROVIDERS: ADMIT Internal Medicine; ATTEND Internal Medicine
PROC: HZ2ZZZZ Detoxification Services for Substance Abuse Treatment (ICD-10-PCS; principal; 2017-02-13)
DX: F11.23 Opioid dependence with withdrawal (principal); F13.230 Sedative, hypnotic or anxiolytic dependence with withdrawal, uncomplicated; F17.213 Nicotine dependence, cigarettes, with withdrawal; F34.1 Dysthymic disorder; J45.20 Mild intermittent asthma, uncomplicated; I10 Essential (primary) hypertension; E66.9 Obesity, unspecified; Z86.69 Personal history of other diseases of the nervous system and sense organs
CPT/HCPCS: 36415; 80053; 81003; 81015; 85027; 86593; 93005; 93010

== ENCOUNTER 2017-03-17 09:43 | Inpatient (IN) | payer OTHER ==
[2017-03-17 13:42] VITALS: BMI 28.7
--- NOTE | 2017-03-17 14:05 | HP ---
COWS - Scale Resting Pulse: 0= [place] 80 or Below Sweatin= Chills/Flushing Restless Observation: 3= Extraneous Movement Pupil Size: 2= Moderately Dilated Bone or Joint Aches: 4=Acute Joint/Muscle Pain Runny Nose/ Eye Tearin= Nasal Congestion GI Upset > 30mins: 1= Stomach Cramp Tremor Observation: 1= Tremor [place], Not Seen Yawning Observation: 4= Several Times/Minute Anxiety or Irritability: 2=Irritable/Anxious Goose Flesh Skin: 0=Smooth Skin COWS Score: 19 CIWA Score - CIWA Score Nausea/Vomitin (N/V/D) Muscle Tremors: 4-Moderate,w/Arms Extend Anxiety: 4-Mod. Anxious/Guarded Agitation: 4-Moderately Restless Paroxysmal Sweats: 1-Minimal Palms Moist Orientation: 0-Oriented Tacttile Disturbances: 3-Moderate Itch/Numb/Burn Auditory Disturbances: 0-None Visual Disturbances: 0-None Headache: 0-None Present CIWA-Ar Total Score: 21 Admission ROS S - HPI Chief Complaint: DETOX TX FOR HEROIN AND XANAX DEPENDENCE Allergies/Adverse Reactions: Allergies Allergy/AdvReac Type Severity Reaction Status Date / Time No Known Allergies Allergy Verified 02/13/17 22:33 History of Present Illness: 61 Y/O AA/FEMALE WITH A HX OF HEROIN AND XANAX DEPENDENCE SEEKING DETOX [place] Exam Limitations: No Limitations - Ebola screening Have you traveled outside of the country in the last 21 days: No Have you had contact with anyone from an Ebola affected area: No Have you been sick,other than usual withdrawal symptoms: No Do you have a fever: No - Review of Systems Constitutional: Chills, Loss of Appetite, Night Sweats, Changes in sleep, Unintentional Wgt. Loss EENT: reports: Blurred Vision (WEARS GLASSES), Tearing, Dental Problems ( MISSING TEETH/UPPER/LOWER DENTURES) Respiratory: reports: Shortness of Breath (HX ASTHMA), Wheezing Cardiac: reports: Palpitations GI: reports: Constipated, Diarrhea, Nausea, Vomiting, Abdominal cramping : reports: Urgency Musculoskeletal: reports: Muscle Pain, Joint Stiffness (ESPECIALLY FINGERS) Integumentary: reports: No Symptoms Reported Neuro: reports: Headache, Seizure (EPISODE 13 YRS AGO.) Endocrine: reports: No Symptoms Reported Hematology: reports: Anemia (MANY YEARS AGO) Psychiatric: reports: Orientated x3, Anxious, Depressed Other Systems: Reviewed and Negative Patient History - Patient Medical History Hx Anemia: No Hx Asthma: Yes (MDI) Hx Chronic Obstructive Pulmonary Disease (COPD): No Hx Cancer: No Hx Cardiac Disorders: No Hx Congestive Heart Failure: No Hx Hypertension: Yes (ON MED) Hx Hypercholesterolemia: No Hx Pacemaker: No HX Cerebrovascular Accident: No Hx Seizures: No Hx Dementia: No Hx Diabetes: No Hx Gastrointestinal Disorders: No Hx Liver Disease: No Hx Genitourinary Disorders: No Hx Sexually Transmitted Disorders: No Hx Renal Disease (ESRD): No Hx Thyroid Disease: No Hx Human Immunodeficiency Virus (HIV): No (NEGATIVE HX) Hx Hepatitis C: No (NEGATIVE) Hx Depression: Yes (AND ANXIETY; NOT CURRENTLY ON MED) Hx Suicide Attempt: No (DENIES) Hx Bipolar Disorder: No Hx Schizophrenia: No - Patient Surgical History Past Surgical History: Yes Hx Neurologic Surgery: No Hx Cataract Extraction: No Hx Cardiac Surgery: No Hx Lung Surgery: No Hx Breast Surgery: No Hx Breast Biopsy: No Hx Abdominal Surgery: No Hx Appendectomy: No Hx Cholecystectomy: No Hx Genitourinary Surgery: No Hx Section: Yes (1987) Hx Orthopedic Surgery: No Anesthesia Reaction: No - PPD History Previous Implant?: Yes Documented Results: Positive w/proof Implanted On Prior [facility] Admission?: No Results: CXR(-)12/22/16 PPD to be Administered?: No - Reproductive History Patient is a Female of Child Bearing Age (11 -55 yrs old): Yes (POST MENOPAUSAL WOMAN) LMP comment: 13 YRS AGO Patient : No - Smoking Cessation Smoking history: Current every day smoker Have you smoked in the past 12 months: Yes Aproximately how many cigarettes per day: 1 Cigars Per Day: 0 Hx Chewing Tobacco Use: No Initiated information on smoking cessation: Yes 'Breaking Loose' booklet given: 03/17/17 - Substance & Tx. History Hx Alcohol Use: No (DENIES) Hx Substance Use: Yes (HEROIN/XANAX) Substance Use Type: Heroin, Tranquilizers Hx Substance Use Treatment: Yes (LAST TX AT [facility]) - Substances Abused Alprazolam (Xanax) Route: Oral Frequency: Daily Amount used: 5 STIX Age of first use: 60 Date of Last Use: 03/16/17 Heroin Route: Inhalation Frequency: Daily Amount used: 3-4 BAGS Age of first use: 33 Date of Last Use: 03/16/17 Family Disease History - Family Disease History Family Disease History: Diabetes: Brother, Other: Father (), Mother ( ) Admission Physical Exam [facility] - Vital Signs Vital Signs: Vital Signs - 24 hr 03/17/17 13:39 Temperature 97.6 F Pulse Rate 80 Respiratory 20 Rate Blood Pressure 155/87 - Physical General Appearance: Yes: Moderate Distress, Irritable, Anxious HEENTM: Yes: EOMI, Normocephalic, MEÑO, Pharynx Normal Respiratory: Yes: Chest Non-Tender, Lungs Clear, Normal Breath Sounds, No Respiratory Distress Neck: Yes: No masses,lesions,Nodules, Supple, Trachea in good position Breast: Yes: Breast Exam Deferred Cardiology: Yes: Regular Rhythm, Regular Rate, S1, S2 Abdominal: Yes: Normal Bowel Sounds, Non Tender, Soft, Protuberent Genitourinary: Yes: Other (N/C) Back: Yes: Within Normal Limits Musculoskeletal: Yes: full range of Motion, Gait Steady Extremities: Yes: Normal Range of Motion, Non-Tender Neurological: Yes: freight brakeman II-XII NML intact, Fully Oriented, Alert Integumentary: Yes: Dry, Warm Lymphatic: Yes: Within Normal Limits - Diagnostic (1) Nicotine dependence Current Visit: Yes Status: Acute Qualifiers: Nicotine product type: cigarettes Substance use status: in withdrawal Qualified Code(s): F17.213 - Nicotine dependence, cigarettes, with withdrawal (2) Asthma Current Visit: Yes Status: Chronic Qualifiers: Asthma severity: mild intermittent Asthma complication type: uncomplicated Qualified Code(s): J45.20 - Mild intermittent asthma, uncomplicated (3) Hypertension Current Visit: Yes Status: Chronic Qualifiers: Hypertension type: essential hypertension Qualified Code(s): I10 - Essential (primary) hypertension (4) Opioid dependence with withdrawal Current Visit: Yes Status: Acute (5) Sedative, hypnotic or anxiolytic dependence with withdrawal, uncomplicated Current Visit: Yes Status: Acute (6) Anxiety and depression Current Visit: Yes Status: Chronic Cleared for Admission [facility] - Detox or Rehab [facility] Level of Care: Medically Managed Detox Regimen/Protocol: Methadone/Valium S Breath Alcohol Content Breath Alcohol Content: 0 Urine Pregancy Test - Result Urine Test Results: Negative- NO Line Present Urine Drug Screen - Results Drug Screen Negative: No Urine Drug Screen Results: OPI-Opiates, BZO-Benzodiazepines
[2017-03-17] MEDS ORDERED: LOPERAMIDE HCL 2 MG CAPSULE PO PRN (16:44)
[2017-03-17] MEDS ORDERED: P-EPHED 60MG/TRIPROLIDI 2.5MG TABLET PO PRN (16:44)
[2017-03-17] MEDS ORDERED: diphenhydrAMINE HCL 50 MG CAPSULE PO PRN (16:44)
[2017-03-17] MEDS ORDERED: guaiFENesin/D-METHORPHAN HB 10 ML UNIT-DOSE CUPS PO PRN (16:44)
[2017-03-17] MEDS ORDERED: MAGNESIUM HYDROX 2400MG/30ML ORAL SUSPENSION 30 ML CUP PO PRN (16:44)
[2017-03-17] MEDS ORDERED: IBUPROFEN 400 MG TABLET (FP) PO PRN (16:44)
[2017-03-17] MEDS ORDERED: ACETAMINOPHEN 325 MG TABLET (FP) PO PRN (16:44)
[2017-03-17] MEDS ORDERED: MENTHOL/PHENOL 1 EACH UD MM PRN (16:44)
[2017-03-17] MEDS ORDERED: MAGNESIUM CITRATE 300 ML BOTTLE PO PRN (16:44)
[2017-03-17] MEDS ORDERED: MAG HYDROX/AL HYDROX/SIMETH 30 ML UNIT-DOSE CUP PO PRN (16:44)
[2017-03-17] MEDS ORDERED: hydrOXYzine PAMOATE 25 MG CAPSULE (FP) PO PRN (16:44)
[2017-03-17] MEDS ORDERED: diazePAM 5 MG TABLET PO ONE (17:00)
[2017-03-17] MEDS ORDERED: METHADONE HCL 10 MG TABLET (FOR DETOX USE ONLY) PO ONE ×2 (17:00→23:00)
[2017-03-17] MEDS: THIAMINE HCL 100 MG TABLET (FP) PO SCH (22:26)
[2017-03-17] MEDS: diazePAM 5 MG TABLET PO SCH (22:26)
[2017-03-17 22:38] LABS: URINE APPEARANCE CLEAR; URINE BILIRUBIN NEGATIVE (NEGATIVE); URINE BLOOD NEGATIVE (NEGATIVE); URINE COLOR LTYELLOW; URINE GLUCOSE (UA) NEGATIVE (NEGATIVE); URINE KETONE NEGATIVE (NEGATIVE); URINE NITRITE NEGATIVE (NEGATIVE); URINE PROTEIN NEGATIVE (NEGATIVE); URINE UROBILINOGEN NEGATIVE mg/dL (0.2-1.0)
[2017-03-17 22:46] LABS: URINE LEUK ESTERASE 3+ (NEGATIVE)
[2017-03-17 23:19] LABS: URINE BACTERIA RARE /hpf (NONE SEEN); URINE HYALINE CAST 1 /lpf; URINE RBC 8 /hpf (0-3); URINE WBC 3 /hpf (3-5)
[2017-03-18] MEDS: diazePAM 5 MG TABLET PO SCH ×3 (05:54→22:33)
[2017-03-18] MEDS ORDERED: METHADONE HCL 10 MG TABLET (FOR DETOX USE ONLY) PO SCH (10:00)
[2017-03-18] MEDS: VALSARTAN 80 MG TABLET (UD) PO SCH (10:45)
[2017-03-18] MEDS: cloNIDine HCL 0.1 MG TABLET PO SCH ×2 (10:45→22:33)
[2017-03-18] MEDS: HYDROCHLOROTHIAZIDE 25 MG TABLET (FP) PO SCH (10:45)
[2017-03-18] MEDS: CYCLOBENZAPRINE HCL 10 MG TABLET (FP) PO PRN ×2 (10:45→22:33)
[2017-03-18] MEDS: PRENATAL VITAMINS W/ FOLIC ACID TABLET (FP) PO SCH (10:45)
[2017-03-18] MEDS: diazePAM 5 MG TABLET PO PRN (10:46)
[2017-03-18 10:58] LABS: ALBUMIN 3.9 g/dl (3.4-5.0); ANION GAP 7 (8-16); CALCIUM 9.5 mg/dL (8.5-10.1); CO2 29 mmol/L (21-32); CREATININE 1.1 mg/dL (0.55-1.02); GLUCOSE,RANDOM 126 mg/dL (74-106); SGOT/AST 16 U/L (15-37); SGPT/ALT 36 U/L (12-78)
[2017-03-18 11:00] LABS: ALK PHOS 115 U/L (45-117); BILIRUBIN,TOTAL 0.3 mg/dL (0.2-1.0)
[2017-03-18 11:02] LABS: MCHC 32.5 g/dl (32.0-36.0); MEAN CELL VOLUME 86.2 fl (80-96); MEAN PLT VOLUME 9.3 fl (7.5-11.1); PLATELET COUNT 306 K/MM3 (134-434); RDW 14.1 % (11.6-15.6); WHITE BLOOD COUNT 6.3 K/mm3 (4.0-10.0)
--- NOTE | 2017-03-18 14:59 | CONSULT ---
[facility] Psychiatric Consult - Data Date of interview: 03/18/17 Admission source: [facility] Identifying data: [facility]admission to [facility] [place] for this 61 y/o AA female seeking detox treatment on for xanax and heroin dependence.Patient is single,a mother of two,domiciled,retired from [employer] and supported on her pension benefits. Substance Abuse History: Presents with a history of xanax abuse (started at age 60) and heroin (onset at age 28).Uses both substances daily.Just prior to this [facility] visit. Medical History: Bronchial asthma and hypertension. Psychiatric History: Patient denies. Physical/Sexual Abuse/Trauma History: Patient denies. Additional Comment: Urine Drug Screen Results: OPI-Opiates, BZO- Benzodiazepines.Noted. Mental Status Exam - Mental Status Exam Alert and Oriented to: Time, Place, Person Cognitive Function: Good Patient Appearance: Well Groomed Mood: Hopeful, Euthymic Affect: Appropriate, Normal Range Patient Behavior: Fatigued, Appropriate, Cooperative Speech Pattern: Clear Voice Loudness: Normal Thought Process: Intact, Goal Oriented Thought Disorder: Not Present Hallucinations: Denies Suicidal Ideation: Denies Homicidal Ideation: Denies Insight/Judgement: Poor Sleep: Poorly, Difficulty falling asleep Appetite: Good Muscle strength/Tone: Normal Gait/Station: Normal Psychiatric Findings - Problem List ([place] 1, 2,3) (1) Opioid dependence with withdrawal Current Visit: Yes Status: Acute (2) Sedative, hypnotic or anxiolytic dependence with withdrawal, uncomplicated Current Visit: Yes Status: Acute (3) Nicotine dependence Current Visit: Yes Status: Acute Qualifiers: Nicotine product type: cigarettes Substance use status: in withdrawal Qualified Code(s): F17.213 - Nicotine dependence, cigarettes, with withdrawal (4) Drug-induced mood disorder Current Visit: Yes Status: Acute (5) Asthma Current Visit: Yes Status: Chronic Qualifiers: Asthma severity: mild intermittent Asthma complication type: uncomplicated Qualified Code(s): J45.20 - Mild intermittent asthma, uncomplicated (6) Insomnia Current Visit: Yes Status: Acute - Initial Treatment Plan Initial Treatment Plan: Psychoeducation.Detoxification.Ambien 5 mg po hs.Patient is made aware of potential for parasomnias.She agrees with careplan.Observation.
--- NOTE | 2017-03-18 15:21 | PN ---
[facility] CIWA - CIWA Score Nausea/Vomitin Muscle Tremors: 3 Anxiety: 3 Agitation: 2 Paroxysmal Sweats: 1-Minimal Palms Moist Orientation: 0-Oriented Tacttile Disturbances: 1-Very Mild Itch/Numbness Auditory Disturbances: 1-Very Mild Visual Disturbances: 1-Very Mild Sensitivity Headache: 2-Mild CIWA-Ar Total Score: 17 BHS COWS - Scale Resting Pulse: 0= IN 80 or Below Sweatin= Chills/Flushing Restless Observation: 3= Extraneous Movement Pupil Size: 1= Pupils >than Normal Bone or Joint Aches: 2= Severe Diffuse Aches Runny Nose/ Eye Tearin= Runny Nose/Eyes GI Upset > 30mins: 2= Nausea/Diarrhea Tremor Observation of Outstretched Hands: 2= Slight Tremor Visible Yawning Observation: 1= 1-2x During Session Anxiety or Irritability: 2=Irritable/Anxious Goose Flesh Skin: 0=Smooth Skin COWS Score: 16 S Progress Note (SOAP) Subjective: alert,irritable,anxious,interrupted sleep,tremor,pain in the body and back Objective: 03/18/17 15:19 Vital Signs Temperature 98.2 F 03/18/17 14:32 Pulse Rate 54 L 03/18/17 14:32 Respiratory Rate 16 03/18/17 14:32 Blood Pressure 108/63 03/18/17 14:32 O2 Sat by Pulse Oximetry (%) ekg sinus bradycardia 58/min no chest pain,no sob,no dizziness Laboratory Last Values WBC 6.3 K/mm3 (4.0-10.0) 03/18/17 06:00 RBC 4.22 M/mm3 (3.60-5.2) 03/18/17 06:00 Hgb 11.8 GM/dL (10.7-15.3) 03/18/17 06:00 Hct 36.4 % (32.4-45.2) 03/18/17 06:00 MCV 86.2 fl (80-96) 03/18/17 06:00 MCH 28.0 pg (25.7-33.7) 03/18/17 06:00 MCHC 32.5 g/dl (32.0-36.0) 03/18/17 06:00 RDW 14.1 % (11.6-15.6) 03/18/17 06:00 Plt Count 306 K/MM3 (134-434) 03/18/17 06:00 MPV 9.3 fl (7.5-11.1) D 03/18/17 06:00 Sodium 141 mmol/L (136-145) 03/18/17 06:00 Potassium 4.4 mmol/L (3.5-5.1) D 03/18/17 06:00 Chloride 105 mmol/L (98-107) 03/18/17 06:00 Carbon Dioxide 29 mmol/L (21-32) 03/18/17 06:00 Anion Gap 7 (8-16) L 03/18/17 06:00 BUN 14 mg/dL (7-18) D 03/18/17 06:00 Creatinine 1.1 mg/dL (0.55-1.02) H 03/18/17 06:00 Creat Clearance w eGFR 50.17 (>60) 03/18/17 06:00 Random Glucose 126 mg/dL (74-106) H D 03/18/17 06:00 Calcium 9.5 mg/dL (8.5-10.1) 03/18/17 06:00 Total Bilirubin 0.3 mg/dL (0.2-1.0) D 03/18/17 06:00 AST 16 U/L (15-37) 03/18/17 06:00 ALT 36 U/L (12-78) D 03/18/17 06:00 Alkaline Phosphatase 115 U/L (45-117) 03/18/17 06:00 Total Protein 8.0 g/dl (6.4-8.2) 03/18/17 06:00 Albumin 3.9 g/dl (3.4-5.0) 03/18/17 06:00 Urine Color Ltyellow 03/17/17 16:15 Urine Appearance Clear 03/17/17 16:15 Urine pH 6.0 (5.0-8.0) 03/17/17 16:15 Ur Specific [place] 1.015 (1.005-1.025) 03/17/17 16:15 Urine Protein Negative (NEGATIVE) 03/17/17 16:15 Urine Glucose (UA) Negative (NEGATIVE) 03/17/17 16:15 Urine Ketones Negative (NEGATIVE) 03/17/17 16:15 Urine Blood Negative (NEGATIVE) 03/17/17 16:15 Urine Nitrite Negative (NEGATIVE) 03/17/17 16:15 Urine Bilirubin Negative (NEGATIVE) 03/17/17 16:15 Urine Urobilinogen Negative mg/dL (0.2-1.0) 03/17/17 16:15 Ur Leukocyte Esterase 3+ (NEGATIVE) H 03/17/17 16:15 Urine RBC 8 /hpf (0-3) 03/17/17 16:15 Urine WBC 3 /hpf (3-5) 03/17/17 16:15 Ur Epithelial Cells Rare /hpf (FEW) 03/17/17 16:15 Urine Bacteria Rare /hpf (NONE SEEN) 03/17/17 16:15 Hyaline Casts 1 /lpf 03/17/17 16:15 RPR Titer Nonreactive (NONREACTIVE) 03/18/17 06:00 Assessment: 03/18/17 15:21 withdrawal symptom Plan: continue detox,repeat ua,fasting blood glucose in am
[2017-03-18] MEDS: ZOLPIDEM TARTRATE 5 MG TABLET PO SCH (22:33)
[2017-03-18] MEDS: THIAMINE HCL 100 MG TABLET (FP) PO SCH (22:33)
[2017-03-19] MEDS ORDERED: METHADONE HCL 5 MG TABLET (FOR DETOX USE ONLY) PO SCH (10:00)
[2017-03-19] MEDS: diazePAM 5 MG TABLET PO SCH ×2 (10:31→22:14)
[2017-03-19] MEDS: HYDROCHLOROTHIAZIDE 25 MG TABLET (FP) PO SCH (10:31)
[2017-03-19] MEDS: PRENATAL VITAMINS W/ FOLIC ACID TABLET (FP) PO SCH (10:31)
[2017-03-19] MEDS: cloNIDine HCL 0.1 MG TABLET PO SCH ×2 (10:31→22:14)
[2017-03-19] MEDS: VALSARTAN 80 MG TABLET (UD) PO SCH (10:31)
[2017-03-19] MEDS: CYCLOBENZAPRINE HCL 10 MG TABLET (FP) PO PRN (10:31)
--- NOTE | 2017-03-19 11:50 | PN ---
[facility] CIWA - CIWA Score Nausea/Vomitin Muscle Tremors: 3 Anxiety: 2 Agitation: 2 Paroxysmal Sweats: 1-Minimal Palms Moist Orientation: 0-Oriented Tacttile Disturbances: 1-Very Mild Itch/Numbness Auditory Disturbances: 1-Very Mild Visual Disturbances: 1-Very Mild Sensitivity Headache: 2-Mild CIWA-Ar Total Score: 16 BHS COWS - Scale Resting Pulse: 0= [place] 80 or Below Sweatin= Chills/Flushing Restless Observation: 3= Extraneous Movement Pupil Size: 1= Pupils >than Normal Bone or Joint Aches: 2= Severe Diffuse Aches Runny Nose/ Eye Tearin= Runny Nose/Eyes GI Upset > 30mins: 2= Nausea/Diarrhea Tremor Observation of Outstretched Hands: 2= Slight Tremor Visible Yawning Observation: 1= 1-2x During Session Anxiety or Irritability: 2=Irritable/Anxious Goose Flesh Skin: 0=Smooth Skin COWS Score: 16 S Progress Note (SOAP) Subjective: ALERT,IRRITABLE,ANXIOUS,INTERRUPTED SLEEP,PAIN IN THE BODY AND BACK,EXTREMITY Objective: 03/19/17 11:47 Vital Signs Temperature 97.5 F L 03/19/17 10:00 Pulse Rate 53 L 03/19/17 10:00 Respiratory Rate 16 03/19/17 10:00 Blood Pressure 136/70 03/19/17 10:00 O2 Sat by Pulse Oximetry (%) Laboratory Last Values WBC 6.3 K/mm3 (4.0-10.0) 03/18/17 06:00 RBC 4.22 M/mm3 (3.60-5.2) 03/18/17 06:00 Hgb 11.8 GM/dL (10.7-15.3) 03/18/17 06:00 Hct 36.4 % (32.4-45.2) 03/18/17 06:00 MCV 86.2 fl (80-96) 03/18/17 06:00 MCH 28.0 pg (25.7-33.7) 03/18/17 06:00 MCHC 32.5 g/dl (32.0-36.0) 03/18/17 06:00 RDW 14.1 % (11.6-15.6) 03/18/17 06:00 Plt Count 306 K/MM3 (134-434) 03/18/17 06:00 MPV 9.3 fl (7.5-11.1) D 03/18/17 06:00 Sodium 141 mmol/L (136-145) 03/18/17 06:00 Potassium 4.4 mmol/L (3.5-5.1) D 03/18/17 06:00 Chloride 105 mmol/L (98-107) 03/18/17 06:00 Carbon Dioxide 29 mmol/L (21-32) 03/18/17 06:00 Anion Gap 7 (8-16) L 03/18/17 06:00 BUN 14 mg/dL (7-18) D 03/18/17 06:00 Creatinine 1.1 mg/dL (0.55-1.02) H 03/18/17 06:00 Creat Clearance w eGFR 50.17 (>60) 03/18/17 06:00 Random Glucose 126 mg/dL (74-106) H D 03/18/17 06:00 Calcium 9.5 mg/dL (8.5-10.1) 03/18/17 06:00 Total Bilirubin 0.3 mg/dL (0.2-1.0) D 03/18/17 06:00 AST 16 U/L (15-37) 03/18/17 06:00 ALT 36 U/L (12-78) D 03/18/17 06:00 Alkaline Phosphatase 115 U/L (45-117) 03/18/17 06:00 Total Protein 8.0 g/dl (6.4-8.2) 03/18/17 06:00 Albumin 3.9 g/dl (3.4-5.0) 03/18/17 06:00 Urine Color Ltyellow 03/17/17 16:15 Urine Appearance Clear 03/17/17 16:15 Urine pH 6.0 (5.0-8.0) 03/17/17 16:15 Ur Specific [place] 1.015 (1.005-1.025) 03/17/17 16:15 Urine Protein Negative (NEGATIVE) 03/17/17 16:15 Urine Glucose (UA) Negative (NEGATIVE) 03/17/17 16:15 Urine Ketones Negative (NEGATIVE) 03/17/17 16:15 Urine Blood Negative (NEGATIVE) 03/17/17 16:15 Urine Nitrite Negative (NEGATIVE) 03/17/17 16:15 Urine Bilirubin Negative (NEGATIVE) 03/17/17 16:15 Urine Urobilinogen Negative mg/dL (0.2-1.0) 03/17/17 16:15 Ur Leukocyte Esterase 3+ (NEGATIVE) H 03/17/17 16:15 Urine RBC 8 /hpf (0-3) 03/17/17 16:15 Urine WBC 3 /hpf (3-5) 03/17/17 16:15 Ur Epithelial Cells Rare /hpf (FEW) 03/17/17 16:15 Urine Bacteria Rare /hpf (NONE SEEN) 03/17/17 16:15 Hyaline Casts 1 /lpf 03/17/17 16:15 RPR Titer Nonreactive (NONREACTIVE) 03/18/17 06:00 Assessment: 03/19/17 11:50 WITHDRAWAL SYMPTOM Plan: CONTINUE DETOX,REPEAT UA
[2017-03-19 12:38] LABS: URINE APPEARANCE CLEAR; URINE BILIRUBIN NEGATIVE (NEGATIVE); URINE BLOOD NEGATIVE (NEGATIVE); URINE COLOR STRAW; URINE GLUCOSE (UA) NEGATIVE (NEGATIVE); URINE KETONE NEGATIVE (NEGATIVE); URINE NITRITE NEGATIVE (NEGATIVE); URINE PROTEIN NEGATIVE (NEGATIVE); URINE UROBILINOGEN NEGATIVE mg/dL (0.2-1.0)
[2017-03-19 12:41] LABS: URINE LEUK ESTERASE 3+ (NEGATIVE)
[2017-03-19 12:43] LABS: URINE BACTERIA RARE /hpf (NONE SEEN); URINE HYALINE CAST 1 /lpf; URINE MUCUS RARE; URINE RBC 8 /hpf (0-3); URINE WBC 7 /hpf (3-5)
[2017-03-19] MEDS: diazePAM 5 MG TABLET PO PRN (13:55)
[2017-03-19] MEDS: ZOLPIDEM TARTRATE 5 MG TABLET PO SCH (22:13)
[2017-03-19] MEDS: THIAMINE HCL 100 MG TABLET (FP) PO SCH (22:14)
[2017-03-20] MEDS: diazePAM 5 MG TABLET PO PRN ×2 (05:38→14:25)
--- NOTE | 2017-03-20 08:53 | PN ---
S Progress Note (SOAP) Subjective: ALERT,IRRITABLE,ANXIOUS,INTERRUPTED SLEEP,PAIN IN THE BODY AND BACK Objective: 03/20/17 08:51 Vital Signs Temperature 97.7 F 03/20/17 06:21 Pulse Rate 50 L 03/20/17 06:21 Respiratory Rate 16 03/20/17 06:21 Blood Pressure 125/75 03/20/17 06:21 O2 Sat by Pulse Oximetry (%) Assessment: 03/20/17 08:52 WITHDRAWAL SYMPTOM Plan: CONTINUE DETOX,LESS WITHDRAWAL,METHADONE ADJUSTED
[2017-03-20] MEDS ORDERED: METHADONE HCL 10 MG TABLET (FOR DETOX USE ONLY) PO ONE (10:00)
[2017-03-20] MEDS: HYDROCHLOROTHIAZIDE 25 MG TABLET (FP) PO SCH (10:14)
[2017-03-20] MEDS: PRENATAL VITAMINS W/ FOLIC ACID TABLET (FP) PO SCH (10:14)
[2017-03-20] MEDS: cloNIDine HCL 0.1 MG TABLET PO SCH ×2 (10:14→22:07)
[2017-03-20] MEDS: VALSARTAN 80 MG TABLET (UD) PO SCH (10:14)
[2017-03-20] MEDS: CYCLOBENZAPRINE HCL 10 MG TABLET (FP) PO PRN ×2 (10:14→22:07)
[2017-03-20] MEDS: diazePAM 5 MG TABLET PO SCH ×2 (10:15→22:07)
--- NOTE | 2017-03-20 12:01 | EKG ---
Test Reason : Blood Pressure : / mmHG Vent. Rate : 058 BPM Atrial Rate : 058 BPM P-R Int : 128 ms QRS Dur : 090 ms QT Int : 426 ms P-R-T Axes : 013 009 016 degrees QTc Int : 418 ms SINUS BRADYCARDIA OTHERWISE NORMAL ECG WHEN COMPARED WITH ECG OF 13-FEB-2017 22:20, NO SIGNIFICANT CHANGE WAS FOUND Confirmed by DOM DASILVA MD ([id number]) on 03/20/2017 12:01:52 PM Referred By: Confirmed By:DOM DASILVA MD
[2017-03-20] MEDS: ZOLPIDEM TARTRATE 5 MG TABLET PO SCH (22:06)
[2017-03-20] MEDS: THIAMINE HCL 100 MG TABLET (FP) PO SCH (22:07)
[2017-03-21] MEDS ORDERED: METHADONE HCL 5 MG TABLET (FOR DETOX USE ONLY) PO ONE (06:00)
[2017-03-21 06:14] VITALS: BP 136/68; PULSE 42; TEMP 97.7
--- NOTE | 2017-03-21 08:42 | DS ---
[facility] Detox Discharge Summary Admission Date: 03/17/17 Discharge Date: 03/21/17 - History Present History: Opioid Dependence, Sedative Dependence - Physical Exam Results Vital Signs: Vital Signs Temperature 97.7 F 03/21/17 06:00 Pulse Rate 42 L 03/21/17 06:00 Respiratory Rate 16 03/21/17 06:00 Blood Pressure 136/68 03/21/17 06:00 O2 Sat by Pulse Oximetry (%) - Treatment Hospital Course: Detox Protocol Followed, Detoxed Safely, Responded well, Discharged Condition Good, Rehab Referral Accepted - Medication Discharge Medications: Ambulatory Orders Valsartan/Hydrochlorothiazide [Diovan Hct 80-12.5 mg Tablet] 1 combo PO DAILY - Diagnosis (1) Drug-induced mood disorder Current Visit: Yes Status: Chronic (2) Insomnia Current Visit: Yes Status: Chronic Qualifiers: Insomnia type: primary Qualified Code(s): F51.01 - Primary insomnia (3) Nicotine dependence Current Visit: Yes Status: Chronic Qualifiers: Nicotine product type: cigarettes Substance use status: uncomplicated Qualified Code(s): F17.210 - Nicotine dependence, cigarettes, uncomplicated (4) Opioid dependence with withdrawal Current Visit: Yes Status: Chronic (5) Sedative, hypnotic or anxiolytic dependence with withdrawal, uncomplicated Current Visit: Yes Status: Chronic (6) Anxiety and depression Current Visit: Yes Status: Chronic (7) Asthma Current Visit: Yes Status: Chronic Qualifiers: Asthma severity: mild intermittent Asthma complication type: uncomplicated Qualified Code(s): J45.20 - Mild intermittent asthma, uncomplicated (8) Hypertension Current Visit: Yes Status: Chronic Qualifiers: Hypertension type: essential hypertension Qualified Code(s): I10 - Essential (primary) hypertension (9) Asthmatic bronchitis Current Visit: No Status: Chronic (10) Depression (emotion) Current Visit: No Status: Suspected Qualifiers: Depression Type: dysthymia Qualified Code(s): F34.1 - Dysthymic disorder - AMA Did Patient Leave Against Medical Advice: No (pt is going to speak to Salima to start MMTP)
[2017-03-21] MEDS ORDERED: diazePAM 5 MG TABLET PO SCH (10:00)
[2017-03-21] MEDS ORDERED: METHADONE HCL 10 MG TABLET (FOR DETOX USE ONLY) PO SCH (10:00)
[2017-03-22] MEDS ORDERED: METHADONE HCL 5 MG TABLET (FOR DETOX USE ONLY) PO SCH (06:00)
== END 2017-03-21 09:02 | disposition home or self-care (01) | DRG 773 ==
LOC: YASAS 09:43 → Y6N 15:53
PROVIDERS: ADMIT Internal Medicine Addiction Medicine; ATTEND Internal Medicine Addiction Medicine
PROC: HZ2ZZZZ Detoxification Services for Substance Abuse Treatment (ICD-10-PCS; principal; 2017-03-21)
DX: F11.23 Opioid dependence with withdrawal (principal); F13.230 Sedative, hypnotic or anxiolytic dependence with withdrawal, uncomplicated; F17.210 Nicotine dependence, cigarettes, uncomplicated; F19.24 Other psychoactive substance dependence with psychoactive substance-induced mood disorder; F41.8 Other specified anxiety disorders; I10 Essential (primary) hypertension; F51.01 Primary insomnia; F34.1 Dysthymic disorder; J45.20 Mild intermittent asthma, uncomplicated
CPT/HCPCS: 36415; 80053; 81003; 81015; 85027; 86593; 93005; 93010

== ENCOUNTER 2017-05-16 23:00 | Emergency (ER) | payer OTHER ==
[2017-05-16 23:22] VITALS: TEMP 97.9; BMI 29.2
[2017-05-16] MEDS ORDERED: cloNIDine HCL 0.1 MG TABLET PO ONE (23:25)
[2017-05-16] MEDS ORDERED: HYDROCHLOROTHIAZIDE 25 MG TABLET (FP) PO ONE (23:26)
[2017-05-16] MEDS ORDERED: VALSARTAN 160 MG TABLET (UD) PO ONE (23:28)
[2017-05-16] MEDS ORDERED: cloNIDine HCL 0.1 MG TABLET ONE (23:31)
[2017-05-16] MEDS ORDERED: HYDROCHLOROTHIAZIDE 25 MG TABLET (FP) ONE (23:31)
[2017-05-16] MEDS ORDERED: VALSARTAN 80 MG TABLET (UD) ONE (23:31)
--- NOTE | 2017-05-16 23:36 | PDOC ---
History of Present Illness - General History Source: Patient Exam Limitations: No Limitations - History of Present Illness Initial Comments: 05/17/17 00:02 Patient is a 61 year old female, from [facility], with a significant past medical history of opiate nicotine dependence,seizure,hypertension, asthma, anxiety and depression who presents to the ED with complaints of high blood pressure of 210/200 that began earlier tonight. Patient reports sudden onset of hypertension that began today with no relief. She reports taking garlic to subside her HTN. Patient has not been compliant with her medication Denies chest pain, SOB. Denies fever, chills. Denies nausea, vomiting. Jorge L any other symptoms. Allergies: None Social history: No alcohol, No smoking. No illicit drugs. Surgical history: No surgeries. PMD: Dr. Moore. <Joe Hardy - Last Filed: 05/17/17 00:02> <Mayda Douglas - Last Filed: 05/17/17 00:40> - General Chief Complaint: Blood Pressure Problem Stated Complaint: HYPERTENSION Time Seen by Provider: 05/16/17 23:18 Past History <Joe Hardy - Last Filed: 05/17/17 00:02> - Past Medical History Anemia: No Asthma: Yes (MDI) Cancer: No Cardiac Disorders: No CVA: No COPD: No CHF: No Dementia: No Diabetes: No GI Disorders: No Disorders: No HTN: Yes (ON MED) Hypercholesterolemia: No Kidney Stones: No Liver Disease: No Psychiatric Problems: Yes (ANXIETY) Seizures: No Thyroid Disease: No - Surgical History Abdominal Surgery: No Appendectomy: No Cardiac Surgery: No Cholecystectomy: No Lung Surgery: No Neurologic Surgery: No Orthopedic Surgery: No - Reproductive History PID: No - Immunization History Immunization Up to Date: No - Suicide/Smoking/Psychosocial Hx Smoking Status: Yes Smoking History: Current every day smoker Have you smoked in the past 12 months: Yes Number of Cigarettes Smoked Daily: 1 Cigars Per Day: 0 Information on smoking cessation initiated: No 'Breaking Loose' booklet given: 03/17/17 Hx Alcohol Use: Yes Drug/Substance Use Hx: Yes (HEROIN/XANAX) Substance Use Type: Heroin, Tranquilizers Hx Substance Use Treatment: Yes (LAST TX AT [facility]) <Mayda Douglas - Last Filed: 05/17/17 00:40> - Past Medical History Allergies/Adverse Reactions: Allergies Allergy/AdvReac Type Severity Reaction Status Date / Time No Known Drug Allergies Allergy Verified 05/16/17 23:18 NKDA Allergy Uncoded 05/16/17 23:18 Home Medications: Ambulatory Orders Valsartan/Hydrochlorothiazide [Diovan Hct 80-12.5 mg Tablet] 1 combo PO DAILY Review of Systems - Review of Systems Able to Perform ROS?: Yes Comments:: 05/17/17 00:02 CONSTITUTIONAL: Absent: fever, chills, diaphoresis, generalized weakness, malaise, loss of appetite HEENT: Absent: rhinorrhea, nasal congestion, throat pain, throat swelling, difficulty swallowing, mouth swelling, ear pain, eye pain, visual Changes CARDIOVASCULAR: +HTN Absent: chest pain, syncope, palpitations, irregular heart rate, lightheadedness , peripheral edema RESPIRATORY: Absent: cough, shortness of breath, dyspnea with exertion, orthopnea, wheezing, stridor, hemoptysis GASTROINTESTINAL: Absent: abdominal pain, abdominal distension, nausea, vomiting, diarrhea, constipation, melena, hematochezia GENITOURINARY: Absent: dysuria, frequency, urgency, hesitancy, hematuria, flank pain, genital pain MUSCULOSKELETAL: Absent: myalgia, arthralgia, joint swelling SKIN: Absent: rash, itching, pallor HEMATOLOGIC/IMMUNOLOGIC: Absent: easy bleeding, easy bruising, lymphadenopathy, frequent infections ENDOCRINE: Absent: unexplained weight gain, unexplained weight loss, heat intolerance, cold intolerance NEUROLOGIC: Absent: headache, focal weakness or paresthesias, dizziness, unsteady gait, seizure, mental status changes, bladder or bowel incontinence PSYCHIATRIC: Absent: anxiety, depression, suicidal or homicidal ideation, hallucinations. All Other Systems: Reviewed and Negative <Joe Hardy - Last Filed: 05/17/17 00:02> *Physical Exam - Vital Signs Last Vital Signs Temp Pulse Resp BP Pulse Ox 97.9 F 73 17 210/100 98 05/16/17 23:18 05/16/17 23:18 05/16/17 23:18 05/16/17 23:18 05/16/17 23:18 - Physical Exam Comments: 05/17/17 00:02 GENERAL: + Non-compliant with medications. +Completely Asymptomatic. Well developed, well nourished. Awake and alert. No acute distress. HEENT: Normocephalic, atraumatic. PERRLA, EOMI. No conjunctival pallor. Sclera are non- icteric. Moist mucous membranes. Oropharynx is clear. NECK: Supple. Full ROM. No JVD. Carotid pulses 2+ and symmetric, without bruits. No thyromegaly. No lymphadenopathy. CARDIOVASCULAR: +BP 188/99. +HTN Regular rate and rhythm. No murmurs, rubs, or gallops. Distal pulses are 2+ and symmetric. PULMONARY: No evidence of respiratory distress. Lungs clear to auscultation bilaterally. No wheezing, rales or rhonchi. ABDOMINAL: Soft. Non-tender. Non-distended. No rebound or guarding. No organomegaly. Normoactive bowel sounds. MUSCULOSKELETAL Normal range of motion at all joints. No bony deformities or tenderness. No CVA tenderness. EXTREMITIES: NO pitting edema. No cyanosis. No clubbing. No edema. No calf tenderness. SKIN: Warm and dry. Normal capillary refill. No rashes. No jaundice. NEUROLOGICAL: +Opioid depention. +Anxiety. Alert, awake, appropriate. Cranial nerves 2-12 intact. No deficits to light touch and temperature in face, upper extremities and lower extremities. No motor deficits in the in face, upper extremities and lower extremities. Normoreflexic in the upper and lower extremities. Normal speech. Toes are down- going bilaterally. Gait is normal without ataxia. PSYCHIATRIC: Cooperative. Good eye contact. Appropriate mood and affect. <Joe Hardy - Last Filed: 05/17/17 00:02> - Vital Signs Last Vital Signs Temp Pulse Resp BP Pulse Ox 97.9 F 73 17 210/100 98 05/16/17 23:18 05/16/17 23:18 05/16/17 23:18 05/16/17 23:18 05/16/17 23:18 <Mayda Douglas - Last Filed: 05/17/17 00:40> ED Treatment Course - Medications Given in the ED: ED Medications Discontinued Medications Generic Name Dose Route Start Last Admin Trade Name Freq PRN Reason Stop Dose Admin Clonidine 0.2 mg 05/16/17 23:25 05/16/17 23:35 Catapres - PO 05/16/17 23:26 0.2 mg ONCE ONE Administration Hydrochlorothiazide 25 mg 05/16/17 23:26 05/16/17 23:35 Hctz - PO 05/16/17 23:27 25 mg ONCE ONE Administration Valsartan 160 mg 05/16/17 23:28 05/16/17 23:35 Diovan - PO 05/16/17 23:29 160 mg ONCE ONE Administration <Joe Hardy - Last Filed: 05/17/17 00:02> - Medications Given in the ED: ED Medications Discontinued Medications Generic Name Dose Route Start Last Admin Trade Name Flory PRN Reason Stop Dose Admin Clonidine 0.2 mg 05/16/17 23:25 05/16/17 23:35 Catapres - PO 05/16/17 23:26 0.2 mg ONCE ONE Administration Hydrochlorothiazide 25 mg 05/16/17 23:26 05/16/17 23:35 Hctz - PO 05/16/17 23:27 25 mg ONCE ONE Administration Valsartan 160 mg 05/16/17 23:28 05/16/17 23:35 Diovan - PO 05/16/17 23:29 160 mg ONCE ONE Administration <Mayda Douglas - Last Filed: 05/17/17 00:40> Medical Decision Making - Medical Decision Making 05/16/17 23:37 61 yo female was at [facility] and had her bp taken and it was elevated to 200/110 -she has no symptoms -she DENIES headache,visual changes,nausea or vomiting or chest pain She has been noncompliant and she has not take her diovan/ hydrochlorthoazide medications in some time -she said she was drinking "garlic water " to control her blood pressure repeat blood pressure was 189/99 -pt will be given diovan,HCTZ and then will retake her BP plan d/c home when BP decreases 05/17/17 00:38 her WI=817/90 pt totally asymptomatic -she was encouraged to take her regular blood pressure medications <Mayda Douglas - Last Filed: 05/17/17 00:40> *DC/Admit/Observation/Transfer - Attestations Scribe Attestion: 05/17/17 00:03 Documentation prepared by Joe Hardy, acting as hospital medical biller for Mayda Douglas MD/DO. <Joe Hardy - Last Filed: 05/17/17 00:02> <Mayda Douglas - Last Filed: 05/17/17 00:40> Diagnosis at time of Disposition: Hypertension Qualifiers: Hypertension type: essential hypertension Qualified Code(s): I10 - Essential ( primary) hypertension - Discharge Dispostion Disposition: HOME Condition at time of disposition: Stable - Referrals Referrals: Rehana Moore [Primary Care Provider] - - Patient Instructions Printed Discharge Instructions: DI for High Blood Pressure Additional Instructions: it is very important to take your regular blood pressure medications
[2017-05-17 00:38] VITALS: BP 160/90; PULSE 68
== END 2017-05-17 00:53 | disposition home or self-care (01) ==
LOC: JER 23:00
DX: I10 Essential (primary) hypertension (principal); F10.20 Alcohol dependence, uncomplicated; F17.210 Nicotine dependence, cigarettes, uncomplicated
CPT/HCPCS: 99282-25

== ENCOUNTER 2017-05-17 02:02 | Inpatient (IN) | payer OTHER ==
--- NOTE | 2017-05-17 02:11 | HP ---
COWS - Scale Resting Pulse: 0= [place] 80 or Below Sweatin= Chills/Flushing Restless Observation: 5= Unable to Sit Still Pupil Size: 1= Pupils >than Normal Bone or Joint Aches: 4=Acute Joint/Muscle Pain Runny Nose/ Eye Tearin= Runny Nose/Eyes GI Upset > 30mins: 2= Nausea/Diarrhea Tremor Observation: 2= Slight Tremor Visible Yawning Observation: 0= None Anxiety or Irritability: 2=Irritable/Anxious Goose Flesh Skin: 0=Smooth Skin COWS Score: 19 CIWA Score - CIWA Score Nausea/Vomitin Muscle Tremors: 3 Anxiety: 3 Agitation: 3 Paroxysmal Sweats: No Perspiration Orientation: 1-Uncertain about Date Tacttile Disturbances: 0-None Auditory Disturbances: 0-None Visual Disturbances: 0-None Headache: 2-Mild CIWA-Ar Total Score: 15 Admission ROS S - HPI Chief Complaint: c/o withdrawal sx's; seeking detox Allergies/Adverse Reactions: Allergies Allergy/AdvReac Type Severity Reaction Status Date / Time No Known Drug Allergies Allergy Verified 05/16/17 23:18 NKDA Allergy Uncoded 05/16/17 23:18 History of Present Illness: 61 Y.O FEMALE WITH OPIATE AND BENZO DEPENDENCE ADMITTED TO DETOX. CLIENT RETURNS FROM [facility] AFTER BEING SENT THERE FOR ELEVATED B/P. SHE WAS EVALUATED/ TX'ED AND MEDICALLY CLEAR. CLIENT IS A POOR HISTORIAN AND NON COMPLIANT WITH MEDS. SHE IS SELF REFERRED. REPORTS LONGEST CLEAN TIME 4 YEARS RELAPSING EARLIER THIS YEAR. DENIES ANY DETOX SERVICES SINCE LAST ADMISSION Exam Limitations: No Limitations - Ebola screening Have you traveled outside of the country in the last 21 days: No Have you had contact with anyone from an Ebola affected area: No Have you been sick,other than usual withdrawal symptoms: No Do you have a fever: No - Review of Systems Constitutional: Chills, Malaise, Night Sweats, Changes in sleep EENT: reports: Dental Problems (MISSING TEETH) Respiratory: reports: No Symptoms reported Cardiac: reports: No Symptoms Reported GI: reports: Diarrhea : reports: No Symptoms Reported Musculoskeletal: reports: Back Pain, Joint Pain Integumentary: reports: No Symptoms Reported Neuro: reports: No Symptoms reported Endocrine: reports: No Symptoms Reported Hematology: reports: No Symptoms Reported Psychiatric: reports: Anxious Other Systems: Reviewed and Negative Patient History - Patient Medical History Hx Anemia: No Hx Asthma: No Hx Chronic Obstructive Pulmonary Disease (COPD): No Hx Cancer: No Hx Cardiac Disorders: No Hx Congestive Heart Failure: No Hx Hypertension: Yes (NON COMPLIANT W/ MEDS) Hx Hypercholesterolemia: No Hx Pacemaker: No HX Cerebrovascular Accident: No Hx Seizures: No Hx Dementia: No Hx Diabetes: No Hx Gastrointestinal Disorders: No Hx Liver Disease: No Hx Genitourinary Disorders: No Hx Sexually Transmitted Disorders: No Hx Renal Disease (ESRD): No Hx Thyroid Disease: No Hx Human Immunodeficiency Virus (HIV): No Hx Hepatitis C: No Hx Depression: Yes (AND ANXIETY; NOT CURRENTLY ON MED) Hx Suicide Attempt: No Hx Bipolar Disorder: No Hx Schizophrenia: No Other Medical History: DENIES - Patient Surgical History Past Surgical History: Yes Hx Neurologic Surgery: No Hx Cataract Extraction: No Hx Cardiac Surgery: No Hx Lung Surgery: No Hx Breast Surgery: No Hx Breast Biopsy: No Hx Abdominal Surgery: No Hx Appendectomy: No Hx Cholecystectomy: No Hx Genitourinary Surgery: No Hx Section: Yes (1987) Hx Orthopedic Surgery: No Anesthesia Reaction: No - PPD History Previous Implant?: Yes Documented Results: Positive w/o proof Implanted On Prior [facility] Admission?: No Results: CXR(-)12/22/16 PPD to be Administered?: No - Smoking Cessation Smoking history: Current every day smoker Have you smoked in the past 12 months: Yes Aproximately how many cigarettes per day: 3 Cigars Per Day: 0 Hx Chewing Tobacco Use: No Initiated information on smoking cessation: Yes 'Breaking Loose' booklet given: 05/17/17 - Substance & Tx. History Hx Alcohol Use: No Hx Substance Use: Yes Substance Use Type: Heroin, Tranquilizers (XANAX) Hx Substance Use [facility]: [facility] - Substances Abused HEROIN Route: Inhalation Frequency: Daily Amount used: 3 BAGS Age of first use: 26 Date of Last Use: 05/16/17 XANA Route: Oral Frequency: 3-6 times per week Amount used: 4MG Age of first use: 60 Date of Last Use: 05/16/17 Family Disease History - Family Disease History Family Disease History: Diabetes: Brother, Other: Father (), Mother ( ) Admission Physical Exam BHS - Physical General Appearance: Yes: Appropriately Dressed, Irritable, Anxious HEENTM: Yes: EOMI, Normocephalic, MEÑO, Pharynx Normal, Other (EDENTULOUS) Respiratory: Yes: Chest Non-Tender, Lungs Clear, Normal Breath Sounds, No Respiratory Distress, No Accessory Muscle Use Neck: Yes: No masses,lesions,Nodules, Supple, Trachea in good position Breast: Yes: Breast Exam Deferred Cardiology: Yes: Regular Rhythm, Regular Rate, S1, S2 Abdominal: Yes: Normal Bowel Sounds, Non Tender, Soft, Surgical Scar Genitourinary: Yes: Within Normal Limits Back: Yes: Normal Inspection Musculoskeletal: Yes: full range of Motion, Gait Steady, Joint Stiffness Extremities: Yes: Normal Capillary Refill, Normal Range of Motion, Non-Tender, Tremors Neurological: Yes: mechanic recovery II-XII NML intact, Fully Oriented, Alert, Motor Strength 5/5 Integumentary: Yes: Normal Color, Dry, Warm Lymphatic: Yes: Within Normal Limits - Diagnostic (1) Hypertension Current Visit: No Status: Chronic Qualifiers: Hypertension type: essential hypertension Qualified Code(s): I10 - Essential (primary) hypertension (2) Nicotine dependence Current Visit: No Status: Chronic Qualifiers: Nicotine product type: cigarettes Substance use status: uncomplicated Qualified Code(s): F17.210 - Nicotine dependence, cigarettes, uncomplicated (3) Opioid dependence with withdrawal Current Visit: No Status: Chronic (4) Sedative, hypnotic or anxiolytic dependence with withdrawal, uncomplicated Current Visit: No Status: Chronic Cleared for Admission S - Detox or Rehab [facility] Level of Care: Medically Managed Detox Regimen/Protocol: Methadone/Valium S Breath Alcohol Content Breath Alcohol Content: 0 Vital Signs - Vital Signs Vital Signs Refused: No Temperature: 96.4 F Temperature Source: Oral Pulse Rate: 67 Respiratory Rate: 20 Blood Pressure: 158/93 BP Location: Right Arm Blood Pressure Position: Sitting - Height Height: 4 ft 11 in - Weight Weight: 64.41 kg Weight Measurement Method: Standing Scale Body Mass Index (BMI): 28.6 Urine Pregancy Test - Test Device Lot Number: [id number] Expiration Date: 11/25/18 - Control Horizontal Line in Upper Control Window?: Yes - Result Urine Test Results: Negative- NO Line Present Urine Drug Screen - Test Device Lot Number: [id number] Expiration Date: 05/31/19 - Control Is Test Valid: Yes - Results Drug Screen Negative: No Urine Drug Screen Results: OPI-Opiates, BZO-Benzodiazepines
[2017-05-17 02:18] VITALS: BMI 28.6
[2017-05-17] MEDS ORDERED: MAGNESIUM CITRATE 300 ML BOTTLE PO PRN (02:18)
[2017-05-17] MEDS ORDERED: IBUPROFEN 400 MG TABLET (FP) PO PRN (02:18)
[2017-05-17] MEDS ORDERED: diazePAM 5 MG TABLET PO ONE (02:18)
[2017-05-17] MEDS ORDERED: ACETAMINOPHEN 325 MG TABLET (FP) PO PRN (02:18)
[2017-05-17] MEDS ORDERED: guaiFENesin/D-METHORPHAN HB 10 ML UNIT-DOSE CUPS PO PRN (02:18)
[2017-05-17] MEDS ORDERED: MAGNESIUM HYDROX 2400MG/30ML ORAL SUSPENSION 30 ML CUP PO PRN (02:18)
[2017-05-17] MEDS ORDERED: LOPERAMIDE HCL 2 MG CAPSULE PO PRN (02:18)
[2017-05-17] MEDS ORDERED: hydrOXYzine PAMOATE 50 MG CAPSULE (FP) PO PRN (02:18)
[2017-05-17] MEDS ORDERED: NICOTINE POLACRILEX 2 MG GUM BC PRN (02:18)
[2017-05-17] MEDS ORDERED: METHADONE HCL 10 MG TABLET (FOR DETOX USE ONLY) PO ONE ×3 (02:18→23:00)
[2017-05-17] MEDS ORDERED: MENTHOL/PHENOL 1 EACH UD MM PRN (02:18)
[2017-05-17] MEDS ORDERED: diazePAM 5 MG TABLET PO PRN (02:18)
[2017-05-17] MEDS ORDERED: diphenhydrAMINE HCL 50 MG CAPSULE PO PRN (02:18)
[2017-05-17] MEDS ORDERED: MAG HYDROX/AL HYDROX/SIMETH 30 ML UNIT-DOSE CUP PO PRN (02:18)
[2017-05-17] MEDS ORDERED: P-EPHED 60MG/TRIPROLIDI 2.5MG TABLET PO PRN (02:18)
[2017-05-17] MEDS: diazePAM 5 MG TABLET PO SCH ×3 (07:26→22:23)
--- NOTE | 2017-05-17 09:23 | CONSULT ---
[facility] Psychiatric Consult - Data Date of interview: 05/17/17 Admission source: [facility] Identifying data: This is 61 years old female with psychiatric hospitalization history intoxicated with: Opiopids, Xanax and Nicotine Substance Abuse History: Smoking history: Current every day smoker. Have you smoked in the past 12 months: Yes. Aproximately how many cigarettes per day: 3. Cigars Per Day: 0. Hx Chewing Tobacco Use: No. Initiated information on smoking cessation: Yes. 'Breaking Loose' booklet given: 05/17/17. - Substance & Tx. History. Hx Alcohol Use: No. Hx Substance Use: Yes. Substance Use Type : Heroin, Tranquilizers (XANAX). Hx Substance Use Treatment: Yes ([facility] - Substances Abused. HEROIN. Route: Inhalation. Frequency: Daily. Amount used: 3 BAGS. Age of first use: 26. Date of Last Use: 05/16/17. XANA. Route: Oral. Frequency: 3-6 times per week. Amount used: 4MG. Age of first use: 60. Date of Last Use: 05/16/17 Medical History: Weight loss history Psychiatric History: Patient reprots history of depression, reports no medications takijng prior to admission, reports psychiatric admission on 2016 at [facility] for deprssed mood, denies suicidal history, reports no medications taking prior to admission Physical/Sexual Abuse/Trauma History: Denies Additional Comment: Observation. Detox Unit Carte Protocol Mental Status Exam - Mental Status Exam Alert and Oriented to: Person Cognitive Function: Fair Patient Appearance: Unkempt Mood: Sad Affect: Flat Patient Behavior: Sedated Speech Pattern: Delayed Voice Loudness: Mildly Soft/Quiet Thought Process: Circumstantial Thought Disorder: Being Controlled Hallucinations: Denies Suicidal Ideation: Denies Homicidal Ideation: Denies Insight/Judgement: Fair Sleep: Difficulty falling asleep Appetite: Weight loss Muscle strength/Tone: Mild Hypotonicity Gait/Station: Normal Additional Comments: Observation. Detox Unit Carte Protocol Psychiatric Findings - Problem List ([employer] 1, 2,3) (1) Anxiety and depression Current Visit: No Status: Chronic (2) Drug-induced mood disorder Current Visit: No Status: Chronic (3) Nicotine dependence Current Visit: No Status: Chronic Qualifiers: Nicotine product type: cigarettes Substance use status: uncomplicated Qualified Code(s): F17.210 - Nicotine dependence, cigarettes, uncomplicated (4) Opioid dependence with withdrawal Current Visit: No Status: Chronic (5) Sedative, hypnotic or anxiolytic dependence with withdrawal, uncomplicated Current Visit: No Status: Chronic - Initial Treatment Plan Initial Treatment Plan: Observation. Detox Unit Carte Protocol
[2017-05-17 10:11] LABS: MCH 28.2 pg (25.7-33.7); MCHC 33.2 g/dl (32.0-36.0); MEAN CELL VOLUME 85.2 fl (80-96); PLATELET COUNT 350 K/MM3 (134-434); RDW 13.7 % (11.6-15.6); WHITE BLOOD COUNT 7.1 K/mm3 (4.0-10.0)
[2017-05-17] MEDS: HYDROCHLOROTHIAZIDE 12.5 MG CAPSULE (FP) PO SCH (10:29)
[2017-05-17] MEDS: NICOTINE 14 MG/24 HOURS TOPICAL PATCH TD SCH (10:29)
[2017-05-17] MEDS: PRENATAL VITAMINS W/ FOLIC ACID TABLET (FP) PO SCH (10:29)
[2017-05-17] MEDS: cloNIDine HCL 0.1 MG TABLET PO SCH ×2 (10:30→22:23)
[2017-05-17 10:31] LABS: ALBUMIN 3.9 g/dl (3.4-5.0); ALK PHOS 106 U/L (45-117); ANION GAP 5 (8-16); BILIRUBIN,TOTAL 0.5 mg/dL (0.2-1.0); CALCIUM 9.8 mg/dL (8.5-10.1); CO2 31 mmol/L (21-32); CREATININE 0.8 mg/dL (0.55-1.02); GLUCOSE,RANDOM 98 mg/dL (74-106); SGOT/AST 23 U/L (15-37); SGPT/ALT 30 U/L (12-78); TOT PROT 8.1 g/dl (6.4-8.2)
--- NOTE | 2017-05-17 11:29 | PN ---
S CIWA - CIWA Score Nausea/Vomitin Muscle Tremors: 3 Anxiety: 3 Agitation: 2 Paroxysmal Sweats: 1-Minimal Palms Moist Orientation: 0-Oriented Tacttile Disturbances: 1-Very Mild Itch/Numbness Auditory Disturbances: 1-Very Mild Visual Disturbances: 1-Very Mild Sensitivity Headache: 2-Mild CIWA-Ar Total Score: 17 BHS COWS - Scale Resting Pulse: 0= [place] 80 or Below Sweatin= Chills/Flushing Restless Observation: 3= Extraneous Movement Pupil Size: 1= Pupils >than Normal Bone or Joint Aches: 2= Severe Diffuse Aches Runny Nose/ Eye Tearin= Nasal Congestion GI Upset > 30mins: 3= Vomiting/Diarrhea Tremor Observation of Outstretched Hands: 2= Slight Tremor Visible Yawning Observation: 1= 1-2x During Session Anxiety or Irritability: 2=Irritable/Anxious Goose Flesh Skin: 0=Smooth Skin COWS Score: 16 BHS Progress Note (SOAP) Subjective: alert,irritable,anxious,interrupted sleep,pain in the body and back Objective: 05/17/17 11:27 Vital Signs Temperature 97.9 F 05/17/17 09:30 Pulse Rate 71 05/17/17 09:30 Respiratory Rate 16 05/17/17 09:30 Blood Pressure 146/94 05/17/17 09:30 O2 Sat by Pulse Oximetry (%) Laboratory Last Values WBC 7.1 K/mm3 (4.0-10.0) 05/17/17 07:00 RBC 4.16 M/mm3 (3.60-5.2) 05/17/17 07:00 Hgb 11.7 GM/dL (10.7-15.3) 05/17/17 07:00 Hct 35.4 % (32.4-45.2) 05/17/17 07:00 MCV 85.2 fl (80-96) 05/17/17 07:00 MCH 28.2 pg (25.7-33.7) 05/17/17 07:00 MCHC 33.2 g/dl (32.0-36.0) 05/17/17 07:00 RDW 13.7 % (11.6-15.6) 05/17/17 07:00 Plt Count 350 K/MM3 (134-434) 05/17/17 07:00 MPV 9.0 fl (7.5-11.1) 05/17/17 07:00 Sodium 141 mmol/L (136-145) 05/17/17 07:00 Potassium 4.0 mmol/L (3.5-5.1) 05/17/17 07:00 Chloride 105 mmol/L (98-107) 05/17/17 07:00 Carbon Dioxide 31 mmol/L (21-32) 05/17/17 07:00 Anion Gap 5 (8-16) L 05/17/17 07:00 BUN 12 mg/dL (7-18) 05/17/17 07:00 Creatinine 0.8 mg/dL (0.55-1.02) D 05/17/17 07:00 Creat Clearance w eGFR > 60 (>60) 05/17/17 07:00 Random Glucose 98 mg/dL (74-106) D 05/17/17 07:00 Calcium 9.8 mg/dL (8.5-10.1) 05/17/17 07:00 Total Bilirubin 0.5 mg/dL (0.2-1.0) D 05/17/17 07:00 AST 23 U/L (15-37) D 05/17/17 07:00 ALT 30 U/L (12-78) 05/17/17 07:00 Alkaline Phosphatase 106 U/L (45-117) 05/17/17 07:00 Total Protein 8.1 g/dl (6.4-8.2) 05/17/17 07:00 Albumin 3.9 g/dl (3.4-5.0) 05/17/17 07:00 labs pending Assessment: 05/17/17 11:29 withdrawal symptom Plan: continue detox
[2017-05-17] MEDS: VALSARTAN 80 MG TABLET (UD) PO SCH (12:26)
[2017-05-17] MEDS ORDERED: THIAMINE HCL 100 MG TABLET (FP) PO SCH (22:00)
[2017-05-18] MEDS: diazePAM 5 MG TABLET PO SCH (05:20)
[2017-05-18 09:45] VITALS: BP 149/76; PULSE 70; TEMP 98.1
[2017-05-18] MEDS ORDERED: METHADONE HCL 10 MG TABLET (FOR DETOX USE ONLY) PO SCH (10:00)
[2017-05-18] MEDS: cloNIDine HCL 0.1 MG TABLET PO SCH (10:22)
[2017-05-18] MEDS: HYDROCHLOROTHIAZIDE 12.5 MG CAPSULE (FP) PO SCH (10:22)
[2017-05-18] MEDS: VALSARTAN 80 MG TABLET (UD) PO SCH (10:22)
[2017-05-18] MEDS: NICOTINE 14 MG/24 HOURS TOPICAL PATCH TD SCH (10:22)
[2017-05-18] MEDS: PRENATAL VITAMINS W/ FOLIC ACID TABLET (FP) PO SCH (10:22)
--- NOTE | 2017-05-18 11:13 | PN ---
S CIWA - CIWA Score Nausea/Vomitin Muscle Tremors: 3 Anxiety: 3 Agitation: 2 Paroxysmal Sweats: 1-Minimal Palms Moist Orientation: 0-Oriented Tacttile Disturbances: 1-Very Mild Itch/Numbness Auditory Disturbances: 1-Very Mild Visual Disturbances: 1-Very Mild Sensitivity Headache: 2-Mild CIWA-Ar Total Score: 17 BHS COWS - Scale Resting Pulse: 0= [place] 80 or Below Sweatin= Chills/Flushing Restless Observation: 3= Extraneous Movement Pupil Size: 1= Pupils >than Normal Bone or Joint Aches: 2= Severe Diffuse Aches Runny Nose/ Eye Tearin= Nasal Congestion GI Upset > 30mins: 2= Nausea/Diarrhea Tremor Observation of Outstretched Hands: 2= Slight Tremor Visible Yawning Observation: 1= 1-2x During Session Anxiety or Irritability: 2=Irritable/Anxious Goose Flesh Skin: 0=Smooth Skin COWS Score: 15 BHS Progress Note (SOAP) Subjective: alert,irritable,anxious,interrupted sleep,pain in the body and back Objective: 05/18/17 11:12 Vital Signs Temperature 98.1 F 05/18/17 09:45 Pulse Rate 70 05/18/17 09:45 Respiratory Rate 20 05/18/17 09:45 Blood Pressure 149/76 05/18/17 09:45 O2 Sat by Pulse Oximetry (%) Laboratory Last Values WBC 7.1 K/mm3 (4.0-10.0) 05/17/17 07:00 RBC 4.16 M/mm3 (3.60-5.2) 05/17/17 07:00 Hgb 11.7 GM/dL (10.7-15.3) 05/17/17 07:00 Hct 35.4 % (32.4-45.2) 05/17/17 07:00 MCV 85.2 fl (80-96) 05/17/17 07:00 MCH 28.2 pg (25.7-33.7) 05/17/17 07:00 MCHC 33.2 g/dl (32.0-36.0) 05/17/17 07:00 RDW 13.7 % (11.6-15.6) 05/17/17 07:00 Plt Count 350 K/MM3 (134-434) 05/17/17 07:00 MPV 9.0 fl (7.5-11.1) 05/17/17 07:00 Sodium 141 mmol/L (136-145) 05/17/17 07:00 Potassium 4.0 mmol/L (3.5-5.1) 05/17/17 07:00 Chloride 105 mmol/L (98-107) 05/17/17 07:00 Carbon Dioxide 31 mmol/L (21-32) 05/17/17 07:00 Anion Gap 5 (8-16) L 05/17/17 07:00 BUN 12 mg/dL (7-18) 05/17/17 07:00 Creatinine 0.8 mg/dL (0.55-1.02) D 05/17/17 07:00 Creat Clearance w eGFR > 60 (>60) 05/17/17 07:00 Random Glucose 98 mg/dL (74-106) D 05/17/17 07:00 Calcium 9.8 mg/dL (8.5-10.1) 05/17/17 07:00 Total Bilirubin 0.5 mg/dL (0.2-1.0) D 05/17/17 07:00 AST 23 U/L (15-37) D 05/17/17 07:00 ALT 30 U/L (12-78) 05/17/17 07:00 Alkaline Phosphatase 106 U/L (45-117) 05/17/17 07:00 Total Protein 8.1 g/dl (6.4-8.2) 05/17/17 07:00 Albumin 3.9 g/dl (3.4-5.0) 05/17/17 07:00 RPR Titer Nonreactive (NONREACTIVE) 05/17/17 07:00 Assessment: 05/18/17 11:12 withdrawal symptom Plan: continue detox
--- NOTE | 2017-05-18 11:17 | PN ---
S Progress Note Note: patient did not want to complete treatment,seen by counselor,did not want to give reason,signed release ama
--- NOTE | 2017-05-18 11:22 | DS ---
[facility] Detox Discharge Summary Admission Date: 05/17/17 Discharge Date: 05/18/17 - History Present History: Opioid Dependence, Sedative Dependence Additional Comments: patient did not want to complete treatment,seen by counselor,did not want to give reason,signed release ama Pertinent Past History: hypertension nicotine dependence - Physical Exam Results Vital Signs: Vital Signs Temperature 98.1 F 05/18/17 09:45 Pulse Rate 70 05/18/17 09:45 Respiratory Rate 20 05/18/17 09:45 Blood Pressure 149/76 05/18/17 09:45 O2 Sat by Pulse Oximetry (%) Pertinent Admission Physical Exam Findings: withdrawal symptom - Treatment Patient has Accepted a Rehab Referral to: declined - Medication Discharge Medications: Ambulatory Orders Valsartan/Hydrochlorothiazide [Diovan Hct 80-12.5 mg Tablet] 1 combo PO DAILY - Diagnosis (1) Opioid dependence with withdrawal Current Visit: No Status: Chronic (2) Asthma Current Visit: No Status: Chronic Qualifiers: Asthma severity: mild intermittent Asthma complication type: uncomplicated Qualified Code(s): J45.20 - Mild intermittent asthma, uncomplicated (3) Hypertension Current Visit: No Status: Chronic Qualifiers: Hypertension type: essential hypertension Qualified Code(s): I10 - Essential (primary) hypertension (4) Sedative, hypnotic or anxiolytic dependence with withdrawal, uncomplicated Current Visit: No Status: Chronic - AMA Did Patient Leave Against Medical Advice: Yes
--- NOTE | 2017-05-18 16:01 | EKG ---
Test Reason : Blood Pressure : / mmHG Vent. Rate : 046 BPM Atrial Rate : 046 BPM P-R Int : 140 ms QRS Dur : 096 ms QT Int : 494 ms P-R-T Axes : 062 020 047 degrees QTc Int : 432 ms SINUS BRADYCARDIA OTHERWISE NORMAL ECG WHEN COMPARED WITH ECG OF 17-MAR-2017 15:56, NO SIGNIFICANT CHANGE WAS FOUND Confirmed by DOM DASILVA MD ([id number]) on 05/18/2017 4:01:23 PM Referred By: Confirmed By:DOM DASILVA MD
[2017-05-19] MEDS ORDERED: diazePAM 5 MG TABLET PO SCH (10:00)
[2017-05-19] MEDS ORDERED: METHADONE HCL 5 MG TABLET (FOR DETOX USE ONLY) PO SCH (10:00)
[2017-05-21] MEDS ORDERED: diazePAM 5 MG TABLET PO SCH (10:00)
[2017-05-21] MEDS ORDERED: METHADONE HCL 10 MG TABLET (FOR DETOX USE ONLY) PO SCH (10:00)
[2017-05-22] MEDS ORDERED: METHADONE HCL 5 MG TABLET (FOR DETOX USE ONLY) PO SCH (06:00)
== END 2017-05-18 11:30 | disposition left against medical advice (07) | DRG 770 ==
LOC: YASAS 02:02 → Y6N 02:06
PROVIDERS: ADMIT Internal Medicine; ATTEND Internal Medicine
PROC: HZ2ZZZZ Detoxification Services for Substance Abuse Treatment (ICD-10-PCS; principal; 2017-05-17)
DX: F11.23 Opioid dependence with withdrawal (principal); F13.230 Sedative, hypnotic or anxiolytic dependence with withdrawal, uncomplicated; F17.210 Nicotine dependence, cigarettes, uncomplicated; F19.24 Other psychoactive substance dependence with psychoactive substance-induced mood disorder; F41.8 Other specified anxiety disorders; I10 Essential (primary) hypertension; J45.20 Mild intermittent asthma, uncomplicated
CPT/HCPCS: 36415; 80053; 85027; 86593; 93005; 93010

== ENCOUNTER 2017-07-21 10:27 | Inpatient (IN) | payer OTHER ==
[2017-07-21 11:03] VITALS: BMI 30.1
--- NOTE | 2017-07-21 13:16 | HP ---
COWS - Scale Resting Pulse: 1= [place] 81-100 Sweatin= Chills/Flushing Restless Observation: 3= Extraneous Movement Pupil Size: 0= Normal to Room Light Bone or Joint Aches: 4=Acute Joint/Muscle Pain Runny Nose/ Eye Tearin= Nasal Congestion GI Upset > 30mins: 3= Vomiting/Diarrhea Tremor Observation: 1= Tremor [place], Not Seen Yawning Observation: 1= 1-2x During Session Anxiety or Irritability: 2=Irritable/Anxious Goose Flesh Skin: 0=Smooth Skin COWS Score: 17 CIWA Score - CIWA Score Nausea/Vomitin (DIARRHEA) Muscle Tremors: 4-Moderate,w/Arms Extend Anxiety: 4-Mod. Anxious/Guarded Agitation: 4-Moderately Restless Paroxysmal Sweats: 1-Minimal Palms Moist Orientation: 0-Oriented Tacttile Disturbances: 3-Moderate Itch/Numb/Burn Auditory Disturbances: 0-None Visual Disturbances: 0-None Headache: 0-None Present CIWA-Ar Total Score: 18 Admission ROS S - HPI Chief Complaint: DETOX TX FOR WITHDRAWAL SX Allergies/Adverse Reactions: Allergies Allergy/AdvReac Type Severity Reaction Status Date / Time No Known Drug Allergies Allergy Verified 07/21/17 12:35 NKDA Allergy Uncoded 05/16/17 23:18 Exam Limitations: No Limitations - Ebola screening Have you traveled outside of the country in the last 21 days: No (N) Have you had contact with anyone from an Ebola affected area: No Have you been sick,other than usual withdrawal symptoms: No Do you have a fever: No - Review of Systems Constitutional: Chills, Loss of Appetite, Night Sweats, Changes in sleep EENT: reports: Tearing, Nose Congestion, Dental Problems (MISSING TEETH) Respiratory: reports: No Symptoms reported Cardiac: reports: Lightheadedness GI: reports: Diarrhea, Nausea, Poor Appetite, Poor Fluid Intake, Vomiting : reports: No Symptoms Reported Musculoskeletal: reports: Back Pain, Joint Pain, Muscle Pain Integumentary: reports: No Symptoms Reported Neuro: reports: Seizure (ALCOHOL RELATED.), Tremors, Dizziness Endocrine: reports: No Symptoms Reported Hematology: reports: No Symptoms Reported Psychiatric: reports: Orientated x3, Anxious, Depressed Other Systems: Reviewed and Negative Patient History - Patient Medical History Hx Anemia: No Hx Asthma: No Hx Chronic Obstructive Pulmonary Disease (COPD): No Hx Cancer: No Hx Cardiac Disorders: No Hx Congestive Heart Failure: No Hx Hypertension: Yes (HYDROCHLOROTHIAZIDE DAILY) Hx Hypercholesterolemia: No Hx Pacemaker: No HX Cerebrovascular Accident: No Hx Seizures: Yes (alcohol related-last episode was in 2006) Hx Dementia: No Hx Diabetes: No Hx Gastrointestinal Disorders: No Hx Liver Disease: No Hx Genitourinary Disorders: No Hx Sexually Transmitted Disorders: No (DENIES) Hx Renal Disease (ESRD): No Hx Thyroid Disease: No Hx Human Immunodeficiency Virus (HIV): No (NEGATIVE HX) Hx Hepatitis C: No Hx Depression: Yes (NO MEDS NOW BUT YEARS AGO) Hx Suicide Attempt: No (DENIES) Hx Bipolar Disorder: No Hx Schizophrenia: No - Patient Surgical History Past Surgical History: Yes Hx Neurologic Surgery: No Hx Cataract Extraction: No Hx Cardiac Surgery: No Hx Lung Surgery: No Hx Breast Surgery: No Hx Breast Biopsy: No Hx Abdominal Surgery: No Hx Appendectomy: No Hx Cholecystectomy: No Hx Genitourinary Surgery: No Hx Section: Yes (1987) Hx Orthopedic Surgery: No Anesthesia Reaction: No - PPD History Previous Implant?: Yes Documented Results: Positive w/o proof Implanted On Prior [facility] Admission?: No Results: CXR(-)12/22/16 - Reproductive History Patient : No - Smoking Cessation Smoking history: Current every day smoker Have you smoked in the past 12 months: Yes Aproximately how many cigarettes per day: 3 Cigars Per Day: 0 Hx Chewing Tobacco Use: No Initiated information on smoking cessation: Yes 'Breaking Loose' booklet given: 07/21/17 - Substance & Tx. History Hx Alcohol Use: Yes (BEER/VODKA) Hx Substance Use: Yes (XANAX/HEROIN) Substance Use Type: Alcohol, Heroin, Tranquilizers Hx Substance Use Treatment: Yes (LAST TX AT [facility]) - Substances Abused Heroin Route: Inhalation Frequency: Daily Amount used: 3 bags Age of first use: 21 Date of Last Use: 07/20/17 Alcohol-beer/vodka Route: Oral Frequency: 3-6 times per week Amount used: 2 (40 oz.)/1 pt. Age of first use: 61 Date of Last Use: 07/19/17 Xanax Route: Oral Frequency: 1-2 times per week Amount used: 4 mg. Age of first use: 62 Date of Last Use: 07/19/17 Family Disease History - Family Disease History Family Disease History: Diabetes: Brother, Other: Father (), Mother ( ) Admission Physical Exam [facility] - Vital Signs Vital Signs: Vital Signs - 24 hr 07/21/17 10:54 Temperature 97.9 F Pulse Rate 98 H Respiratory 18 Rate Blood Pressure 150/90 - Physical General Appearance: Yes: Moderate Distress, Irritable, Anxious HEENTM: Yes: EOMI, Normocephalic, MEÑO, Pharynx Normal Respiratory: Yes: Chest Non-Tender, Lungs Clear, Normal Breath Sounds, No Respiratory Distress Breast: Yes: Breast Exam Deferred Cardiology: Yes: Regular Rhythm, Regular Rate, S1, S2 Abdominal: Yes: Normal Bowel Sounds, Non Tender Genitourinary: Yes: Other (N/C) Back: Yes: Within Normal Limits Musculoskeletal: Yes: full range of Motion, Gait Steady Extremities: Yes: Normal Range of Motion, Non-Tender Neurological: Yes: fuel storage technician II-XII NML intact, Fully Oriented, Alert, Motor Strength 5/5 Integumentary: Yes: Dry, Warm Lymphatic: Yes: Within Normal Limits - Diagnostic (1) Asthma Current Visit: Yes Status: Chronic Qualifiers: Asthma severity: mild intermittent Asthma complication type: uncomplicated (2) Hypertension Current Visit: Yes Status: Chronic Qualifiers: Hypertension type: essential hypertension Qualified Code(s): I10 - Essential (primary) hypertension (3) Nicotine dependence Current Visit: Yes Status: Acute Qualifiers: Nicotine product type: cigarettes Substance use status: in withdrawal Qualified Code(s): F17.213 - Nicotine dependence, cigarettes, with withdrawal (4) Opioid dependence with withdrawal Current Visit: Yes Status: Acute (5) Sedative, hypnotic or anxiolytic dependence with withdrawal, uncomplicated Current Visit: Yes Status: Acute (6) Alcohol dependence with uncomplicated withdrawal Current Visit: Yes Status: Acute Cleared for Admission [facility] - Detox or Rehab [facility] Level of Care: Medically Managed Detox Regimen/Protocol: Methadone/Librium [facility] Breath Alcohol Content Breath Alcohol Content: 0 Urine Pregancy Test - Result Urine Test Results: Negative- NO Line Present Urine Drug Screen - Results Drug Screen Negative: No Urine Drug Screen Results: OPI-Opiates, BZO-Benzodiazepines
[2017-07-21] MEDS ORDERED: IBUPROFEN 400 MG TABLET (FP) PO PRN (13:33)
[2017-07-21] MEDS ORDERED: MAGNESIUM CITRATE 300 ML BOTTLE PO PRN (13:33)
[2017-07-21] MEDS ORDERED: MAGNESIUM HYDROX 2400MG/30ML ORAL SUSPENSION 30 ML CUP PO PRN (13:33)
[2017-07-21] MEDS ORDERED: P-EPHED 60MG/TRIPROLIDI 2.5MG TABLET PO PRN (13:33)
[2017-07-21] MEDS ORDERED: NICOTINE POLACRILEX 2 MG GUM BC PRN (13:33)
[2017-07-21] MEDS ORDERED: MAG HYDROX/AL HYDROX/SIMETH 30 ML UNIT-DOSE CUP PO PRN (13:33)
[2017-07-21] MEDS ORDERED: LOPERAMIDE HCL 2 MG CAPSULE PO PRN (13:33)
[2017-07-21] MEDS ORDERED: MENTHOL/PHENOL 1 EACH UD MM PRN (13:33)
[2017-07-21] MEDS ORDERED: chlordiazePOXIDE HCL 25 MG CAPSULE PO PRN (13:33)
[2017-07-21] MEDS ORDERED: ACETAMINOPHEN 325 MG TABLET (FP) PO PRN (13:33)
[2017-07-21] MEDS ORDERED: guaiFENesin/D-METHORPHAN HB 10 ML UNIT-DOSE CUPS PO PRN (13:33)
[2017-07-21] MEDS ORDERED: VALSARTAN PO SCH ×2 (13:45)
[2017-07-21] MEDS ORDERED: [UNRECOGNIZED DRUG - OTHER] PO SCH ×2 (13:45)
[2017-07-21] MEDS ORDERED: METHADONE HCL 10 MG TABLET (FOR DETOX USE ONLY) PO ONE ×2 (14:15→23:00)
[2017-07-21] MEDS ORDERED: VALSARTAN 80 MG TABLET (UD) PO ONE (14:15)
[2017-07-21] MEDS ORDERED: HYDROCHLOROTHIAZIDE 12.5 MG CAPSULE (FP) PO ONE (14:15)
[2017-07-21] MEDS: NICOTINE 14 MG/24 HOURS TOPICAL PATCH TD SCH (15:29)
[2017-07-21] MEDS ORDERED: ONDANSETRON *ODT* 4 MG TABLET SL ONE (16:45)
[2017-07-21] MEDS ORDERED: RANITIDINE HCL 150 MG TABLET (FP) PO ONE (16:45)
--- NOTE | 2017-07-21 17:04 | CONSULT ---
[facility] Psychiatric Consult - Data Date of interview: 07/21/17 Admission source: [facility] Identifying data: One of multiple admissions to [facility] for this 62 y/o AA female seeking detox treatment on for alcohol,xanax and heroin dependence.Patient is single,a mother of two,domiciled,a retiree from [employer],currently unemployed and supported on her pension benefits. Substance Abuse History: Discussed with patient in this session.Ms Browne endorses active use of heroin,alcohol and xanax as detailed in [facility] report.See details below: Smoking history: Current every day smoker. Have you smoked in the past 12 months: Yes. Aproximately how many cigarettes per day: 3. Cigars Per Day: 0. Hx Chewing Tobacco Use: No. Initiated information on smoking cessation: Yes. 'Breaking Loose' booklet given: 07/21/17. - Substance & Tx. History. Hx Alcohol Use: Yes (BEER/VODKA). Hx Substance Use: Yes (XANAX/HEROIN ). Substance Use Type: Alcohol, Heroin, Tranquilizers. Hx Substance Use Treatment: Yes (LAST TX AT [facility]). - Substances Abused. Heroin. Route: Inhalation. Frequency: Daily. Amount used: 3 bags. Age of first use: 21. Date of Last Use: 07/20/17. Alcohol-beer/vodka. Route: Oral. Frequency: 3- 6 times per week. Amount used: 2 (40 oz.)/1 pt. Age of first use: 61. Date of Last Use: 07/19/17. Xanax. Route: Oral. Frequency: 1-2 times per week. Amount used: 4 mg. Age of first use: 62. Date of Last Use: 07/19/17 Medical History: Hypertension,bronchial asthma and a distant history of seizures (withdrawal-related). Psychiatric History: Patient denies history of psychiatric hospitalizations but she admits to past treatment with xanax and amitryptiline.Brief course of OPD care as per self-report (year not recalled).Ms Browne endorses a heavy dependence on heroin,alcohol and xanax.Dnies history of suicide attempts. Physical/Sexual Abuse/Trauma History: Patient denies. Additional Comment: Urine Drug Screen Results: OPI-Opiates, BZO- Benzodiazepines.Noted. Mental Status Exam - Mental Status Exam Alert and Oriented to: Time, Place, Person Cognitive Function: Good Patient Appearance: Well Groomed (petite,small habitus) Mood: Hopeful, Euthymic Affect: Appropriate, Normal Range Patient Behavior: Fatigued, Appropriate, Cooperative Speech Pattern: Clear Voice Loudness: Normal Thought Process: Intact, Goal Oriented Thought Disorder: Not Present Hallucinations: Denies Suicidal Ideation: Denies Homicidal Ideation: Denies Insight/Judgement: Poor Sleep: Poorly, Difficulty falling asleep Appetite: Good Muscle strength/Tone: Normal Gait/Station: Normal Psychiatric Findings - Problem List ([place] 1, 2,3) (1) Alcohol dependence with uncomplicated withdrawal Current Visit: Yes Status: Acute (2) Opioid dependence with withdrawal Current Visit: Yes Status: Acute (3) Sedative, hypnotic or anxiolytic dependence with withdrawal, uncomplicated Current Visit: Yes Status: Acute (4) Nicotine dependence Current Visit: Yes Status: Acute Qualifiers: Nicotine product type: cigarettes Substance use status: in withdrawal Qualified Code(s): F17.213 - Nicotine dependence, cigarettes, with withdrawal (5) Drug-induced mood disorder Current Visit: Yes Status: Acute (6) Insomnia Current Visit: Yes Status: Acute Qualifiers: Insomnia type: primary Qualified Code(s): F51.01 - Primary insomnia - Initial Treatment Plan Initial Treatment Plan: Psychoeducation.Detoxification.Sleep hygiene.Ambien 5 mg po hs prn (patient's request).Patient is made aware of risk of parasomnias.Agrees with careplan.Observation.
[2017-07-21] MEDS: chlordiazePOXIDE HCL 25 MG CAPSULE PO SCH ×2 (17:34→22:26)
[2017-07-21] MEDS: ZOLPIDEM TARTRATE 5 MG TABLET PO PRN (22:26)
[2017-07-21] MEDS: THIAMINE HCL 100 MG TABLET (FP) PO SCH (22:27)
[2017-07-22 02:01] LABS: URINE APPEARANCE SLCLOUDY; URINE BILIRUBIN NEGATIVE (NEGATIVE); URINE BLOOD NEGATIVE (NEGATIVE); URINE COLOR YELLOW; URINE GLUCOSE (UA) NEGATIVE (NEGATIVE); URINE KETONE NEGATIVE (NEGATIVE); URINE NITRITE NEGATIVE (NEGATIVE); URINE PROTEIN NEGATIVE (NEGATIVE); URINE UROBILINOGEN NEGATIVE mg/dL (0.2-1.0)
[2017-07-22] MEDS: chlordiazePOXIDE HCL 25 MG CAPSULE PO SCH ×4 (05:29→22:24)
[2017-07-22] MEDS ORDERED: METHADONE HCL 10 MG TABLET (FOR DETOX USE ONLY) PO SCH (10:00)
[2017-07-22] MEDS: VALSARTAN 80 MG TABLET (UD) PO SCH (10:37)
[2017-07-22] MEDS: HYDROCHLOROTHIAZIDE 12.5 MG CAPSULE (FP) PO SCH (10:37)
[2017-07-22] MEDS: PRENATAL VITAMINS W/ FOLIC ACID TABLET (FP) PO SCH (10:37)
[2017-07-22] MEDS: NICOTINE 14 MG/24 HOURS TOPICAL PATCH TD SCH (10:39)
[2017-07-22 10:51] LABS: ALBUMIN 4.2 g/dl (3.4-5.0); ALK PHOS 120 U/L (45-117); ANION GAP 8 (8-16); BILIRUBIN,TOTAL 0.5 mg/dL (0.2-1.0); CALCIUM 9.6 mg/dL (8.5-10.1); CO2 28 mmol/L (21-32); CREATININE 1.2 mg/dL (0.55-1.02); GLUCOSE,RANDOM 97 mg/dL (74-106); SGOT/AST 14 U/L (15-37); SGPT/ALT 19 U/L (12-78); TOT PROT 8.8 g/dl (6.4-8.2)
[2017-07-22 11:16] LABS: WHITE BLOOD COUNT 10.9 K/mm3 (4.0-10.0)
[2017-07-22 11:23] LABS: MCH 28.7 pg (25.7-33.7); MCHC 33.3 g/dl (32.0-36.0); RDW 13.5 % (11.6-15.6)
[2017-07-22 11:25] LABS: PLATELET COUNT 348 K/MM3 (134-434)
[2017-07-22 12:15] LABS: URINE LEUK ESTERASE Negative (NEGATIVE)
--- NOTE | 2017-07-22 14:46 | PN ---
[facility] CIWA - CIWA Score Nausea/Vomitin Muscle Tremors: 3 Anxiety: 3 Agitation: 2 Paroxysmal Sweats: 1-Minimal Palms Moist Orientation: 0-Oriented Tacttile Disturbances: 1-Very Mild Itch/Numbness Auditory Disturbances: 1-Very Mild Visual Disturbances: 1-Very Mild Sensitivity Headache: 2-Mild CIWA-Ar Total Score: 17 BHS COWS - Scale Resting Pulse: 0= [place] 80 or Below Sweatin= Chills/Flushing Restless Observation: 3= Extraneous Movement Pupil Size: 1= Pupils >than Normal Bone or Joint Aches: 2= Severe Diffuse Aches Runny Nose/ Eye Tearin= Runny Nose/Eyes GI Upset > 30mins: 2= Nausea/Diarrhea Tremor Observation of Outstretched Hands: 2= Slight Tremor Visible Yawning Observation: 2= >3x During Session Anxiety or Irritability: 2=Irritable/Anxious Goose Flesh Skin: 0=Smooth Skin COWS Score: 17 S Progress Note (SOAP) Subjective: alert,irritable,anxious,tremor,pain in the body and back, Objective: 07/22/17 14:43 Vital Signs Temperature 98.1 F 07/22/17 11:39 Pulse Rate 58 L 07/22/17 11:39 Respiratory Rate 16 07/22/17 11:39 Blood Pressure 108/72 07/22/17 11:39 O2 Sat by Pulse Oximetry (%) ekg sinus bradycardia with sinus arrhythmia no chest pain,no sob,no dizziness Laboratory Last Values WBC 10.9 K/mm3 (4.0-10.0) H D 07/22/17 06:00 Corrected WBC (auto) 10.90 K/mm3 07/22/17 06:00 RBC 4.43 M/mm3 (3.60-5.2) 07/22/17 06:00 Hgb 12.7 GM/dL (10.7-15.3) 07/22/17 06:00 Hct 38.1 % (32.4-45.2) 07/22/17 06:00 MCV 86.0 fl (80-96) 07/22/17 06:00 MCH 28.7 pg (25.7-33.7) 07/22/17 06:00 MCHC 33.3 g/dl (32.0-36.0) 07/22/17 06:00 RDW 13.5 % (11.6-15.6) 07/22/17 06:00 Plt Count 348 K/MM3 (134-434) 07/22/17 06:00 MPV 10.0 fl (7.5-11.1) D 07/22/17 06:00 Sodium 139 mmol/L (136-145) 07/22/17 06:00 Potassium 4.5 mmol/L (3.5-5.1) 07/22/17 06:00 Chloride 103 mmol/L (98-107) 07/22/17 06:00 Carbon Dioxide 28 mmol/L (21-32) 07/22/17 06:00 Anion Gap 8 (8-16) 07/22/17 06:00 BUN 10 mg/dL (7-18) 07/22/17 06:00 Creatinine 1.2 mg/dL (0.55-1.02) H D 07/22/17 06:00 Creat Clearance w eGFR 45.23 (>60) 07/22/17 06:00 Random Glucose 97 mg/dL (74-106) 07/22/17 06:00 Calcium 9.6 mg/dL (8.5-10.1) 07/22/17 06:00 Total Bilirubin 0.5 mg/dL (0.2-1.0) 07/22/17 06:00 AST 14 U/L (15-37) L D 07/22/17 06:00 ALT 19 U/L (12-78) D 07/22/17 06:00 Alkaline Phosphatase 120 U/L (45-117) H 07/22/17 06:00 Total Protein 8.8 g/dl (6.4-8.2) H 07/22/17 06:00 Albumin 4.2 g/dl (3.4-5.0) 07/22/17 06:00 Urine Color Yellow 07/21/17 18:11 Urine Appearance Slcloudy 07/21/17 18:11 Urine pH 8.0 (5.0-8.0) D 07/21/17 18:11 Ur Specific [place] 1.011 (1.001-1.035) 07/21/17 18:11 Urine Protein Negative (NEGATIVE) 07/21/17 18:11 Urine Glucose (UA) Negative (NEGATIVE) 07/21/17 18:11 Urine Ketones Negative (NEGATIVE) 07/21/17 18:11 Urine Blood Negative (NEGATIVE) 07/21/17 18:11 Urine Nitrite Negative (NEGATIVE) 07/21/17 18:11 Urine Bilirubin Negative (NEGATIVE) 07/21/17 18:11 Urine Urobilinogen Negative mg/dL (0.2-1.0) 07/21/17 18:11 Ur Leukocyte Esterase Negative (NEGATIVE) 07/21/17 18:11 RPR Titer Nonreactive (NONREACTIVE) 07/22/17 06:00 Assessment: 07/22/17 14:46 withdrawal symptom Plan: continue detox,encourage oral fluid
[2017-07-22] MEDS: cloNIDine HCL 0.1 MG TABLET PO SCH ×2 (15:06→22:25)
[2017-07-22] MEDS: THIAMINE HCL 100 MG TABLET (FP) PO SCH (22:24)
[2017-07-22] MEDS: CYCLOBENZAPRINE HCL 10 MG TABLET (FP) PO PRN (22:24)
[2017-07-22] MEDS: ZOLPIDEM TARTRATE 5 MG TABLET PO PRN (22:25)
[2017-07-23] MEDS: chlordiazePOXIDE HCL 25 MG CAPSULE PO SCH ×2 (05:33→10:46)
[2017-07-23] MEDS: METHADONE HCL 5 MG TABLET (FOR DETOX USE ONLY) PO SCH (10:45)
[2017-07-23] MEDS: NICOTINE 14 MG/24 HOURS TOPICAL PATCH TD SCH (10:46)
[2017-07-23] MEDS: HYDROCHLOROTHIAZIDE 12.5 MG CAPSULE (FP) PO SCH (10:46)
[2017-07-23] MEDS: CYCLOBENZAPRINE HCL 10 MG TABLET (FP) PO PRN (10:46)
[2017-07-23] MEDS: VALSARTAN 80 MG TABLET (UD) PO SCH (10:46)
[2017-07-23] MEDS: PRENATAL VITAMINS W/ FOLIC ACID TABLET (FP) PO SCH (10:46)
[2017-07-23] MEDS: cloNIDine HCL 0.1 MG TABLET PO SCH ×2 (10:46→22:33)
--- NOTE | 2017-07-23 11:14 | PN ---
[facility] CIWA - CIWA Score Nausea/Vomitin Muscle Tremors: 3 Anxiety: 3 Agitation: 2 Paroxysmal Sweats: 1-Minimal Palms Moist Orientation: 0-Oriented Tacttile Disturbances: 1-Very Mild Itch/Numbness Auditory Disturbances: 1-Very Mild Visual Disturbances: 0-None Headache: 2-Mild CIWA-Ar Total Score: 16 BHS COWS - Scale Resting Pulse: 0= [place] 80 or Below Sweatin= Chills/Flushing Restless Observation: 3= Extraneous Movement Pupil Size: 1= Pupils >than Normal Bone or Joint Aches: 2= Severe Diffuse Aches Runny Nose/ Eye Tearin= Runny Nose/Eyes GI Upset > 30mins: 2= Nausea/Diarrhea Tremor Observation of Outstretched Hands: 2= Slight Tremor Visible Yawning Observation: 1= 1-2x During Session Anxiety or Irritability: 2=Irritable/Anxious Goose Flesh Skin: 0=Smooth Skin COWS Score: 16 [facility] Progress Note (SOAP) Subjective: alert,irritable,anxious,interrupted sleep,tremor,pain in the body and back Objective: 07/23/17 11:12 Vital Signs Temperature 98 F 07/23/17 09:47 Pulse Rate 71 07/23/17 09:47 Respiratory Rate 16 07/23/17 09:47 Blood Pressure 103/67 07/23/17 09:47 O2 Sat by Pulse Oximetry (%) 07/23/17 11:13 Laboratory Last Values WBC 10.9 K/mm3 (4.0-10.0) H D 07/22/17 06:00 Corrected WBC (auto) 10.90 K/mm3 07/22/17 06:00 RBC 4.43 M/mm3 (3.60-5.2) 07/22/17 06:00 Hgb 12.7 GM/dL (10.7-15.3) 07/22/17 06:00 Hct 38.1 % (32.4-45.2) 07/22/17 06:00 MCV 86.0 fl (80-96) 07/22/17 06:00 MCH 28.7 pg (25.7-33.7) 07/22/17 06:00 MCHC 33.3 g/dl (32.0-36.0) 07/22/17 06:00 RDW 13.5 % (11.6-15.6) 07/22/17 06:00 Plt Count 348 K/MM3 (134-434) 07/22/17 06:00 MPV 10.0 fl (7.5-11.1) D 07/22/17 06:00 Sodium 139 mmol/L (136-145) 07/22/17 06:00 Potassium 4.5 mmol/L (3.5-5.1) 07/22/17 06:00 Chloride 103 mmol/L (98-107) 07/22/17 06:00 Carbon Dioxide 28 mmol/L (21-32) 07/22/17 06:00 Anion Gap 8 (8-16) 07/22/17 06:00 BUN 10 mg/dL (7-18) 07/22/17 06:00 Creatinine 1.2 mg/dL (0.55-1.02) H D 07/22/17 06:00 Creat Clearance w eGFR 45.23 (>60) 07/22/17 06:00 Random Glucose 97 mg/dL (74-106) 07/22/17 06:00 Calcium 9.6 mg/dL (8.5-10.1) 07/22/17 06:00 Total Bilirubin 0.5 mg/dL (0.2-1.0) 07/22/17 06:00 AST 14 U/L (15-37) L D 07/22/17 06:00 ALT 19 U/L (12-78) D 07/22/17 06:00 Alkaline Phosphatase 120 U/L (45-117) H 07/22/17 06:00 Total Protein 8.8 g/dl (6.4-8.2) H 07/22/17 06:00 Albumin 4.2 g/dl (3.4-5.0) 07/22/17 06:00 Urine Color Yellow 07/21/17 18:11 Urine Appearance Slcloudy 07/21/17 18:11 Urine pH 8.0 (5.0-8.0) D 07/21/17 18:11 Ur Specific [place] 1.011 (1.001-1.035) 07/21/17 18:11 Urine Protein Negative (NEGATIVE) 07/21/17 18:11 Urine Glucose (UA) Negative (NEGATIVE) 07/21/17 18:11 Urine Ketones Negative (NEGATIVE) 07/21/17 18:11 Urine Blood Negative (NEGATIVE) 07/21/17 18:11 Urine Nitrite Negative (NEGATIVE) 07/21/17 18:11 Urine Bilirubin Negative (NEGATIVE) 07/21/17 18:11 Urine Urobilinogen Negative mg/dL (0.2-1.0) 07/21/17 18:11 Ur Leukocyte Esterase Negative (NEGATIVE) 07/21/17 18:11 RPR Titer Nonreactive (NONREACTIVE) 07/22/17 06:00 Assessment: 07/23/17 11:13 withdrawal symptom Plan: continue detox,encourage oral fluid,repeat cbc in am
[2017-07-23] MEDS: chlordiazePOXIDE 5 MG CAPSULE PO SCH ×2 (18:13→22:33)
[2017-07-23] MEDS: THIAMINE HCL 100 MG TABLET (FP) PO SCH (22:33)
[2017-07-23] MEDS: ZOLPIDEM TARTRATE 5 MG TABLET PO PRN (22:33)
[2017-07-24] MEDS: chlordiazePOXIDE 5 MG CAPSULE PO SCH ×2 (05:44→10:34)
[2017-07-24 09:59] LABS: EOSINOPHIL 1.7 % (0-4.5); MCH 28.1 pg (25.7-33.7); MCHC 32.5 g/dl (32.0-36.0); MEAN CELL VOLUME 86.5 fl (80-96); MEAN PLT VOLUME 8.3 fl (7.5-11.1); NEUTROPHILS 29.4 % (42.8-82.8); PLATELET COUNT 328 K/MM3 (134-434); RDW 13.8 % (11.6-15.6); WHITE BLOOD COUNT 6.8 K/mm3 (4.0-10.0)
[2017-07-24] MEDS: METHADONE HCL 5 MG TABLET (FOR DETOX USE ONLY) PO SCH (10:26)
[2017-07-24] MEDS: PRENATAL VITAMINS W/ FOLIC ACID TABLET (FP) PO SCH (10:26)
[2017-07-24] MEDS: HYDROCHLOROTHIAZIDE 12.5 MG CAPSULE (FP) PO SCH (10:26)
[2017-07-24] MEDS: VALSARTAN 80 MG TABLET (UD) PO SCH (10:26)
[2017-07-24] MEDS: cloNIDine HCL 0.1 MG TABLET PO SCH (10:27)
--- NOTE | 2017-07-24 11:42 | PN ---
BHS Progress Note (SOAP) Subjective: weak sweats chills interrupted sleep Objective: 07/24/17 11:41 Vital Signs Temperature 97.9 F 07/24/17 09:41 Pulse Rate 70 07/24/17 09:41 Respiratory Rate 18 07/24/17 09:41 Blood Pressure 115/54 07/24/17 09:41 O2 Sat by Pulse Oximetry (%) repeated labs pending aaox3 lying in bed no acute distress Assessment: 07/24/17 11:41 withdrawal sx Plan: continue detox increase fluids f/u pending labs
[2017-07-24 13:18] VITALS: BP 99/54; PULSE 65; TEMP 97.7
[2017-07-24] MEDS: NICOTINE 14 MG/24 HOURS TOPICAL PATCH TD SCH (13:37)
[2017-07-24] MEDS ORDERED: chlordiazePOXIDE HCL 10 MG CAPSULE PO SCH (17:00)
--- NOTE | 2017-07-25 00:05 | DS ---
[facility] Detox Discharge Summary Admission Date: 07/21/17 Discharge Date: 07/24/17 - History Present History: Alcohol Dependence, Opioid Dependence, Sedative Dependence Pertinent Past History: asthma hypertension - Physical Exam Results Vital Signs: Vital Signs Temperature 97.7 F 07/24/17 13:18 Pulse Rate 65 07/24/17 13:18 Respiratory Rate 16 07/24/17 13:18 Blood Pressure 99/54 07/24/17 13:18 O2 Sat by Pulse Oximetry (%) Pertinent Admission Physical Exam Findings: withdrawal sx Laboratory Last Values WBC 6.8 K/mm3 (4.0-10.0) D 07/24/17 07:00 Corrected WBC (auto) 10.90 K/mm3 07/22/17 06:00 RBC 3.91 M/mm3 (3.60-5.2) 07/24/17 07:00 Hgb 11.0 GM/dL (10.7-15.3) D 07/24/17 07:00 Hct 33.8 % (32.4-45.2) 07/24/17 07:00 MCV 86.5 fl (80-96) 07/24/17 07:00 MCH 28.1 pg (25.7-33.7) 07/24/17 07:00 MCHC 32.5 g/dl (32.0-36.0) 07/24/17 07:00 RDW 13.8 % (11.6-15.6) 07/24/17 07:00 Plt Count 328 K/MM3 (134-434) 07/24/17 07:00 MPV 8.3 fl (7.5-11.1) D 07/24/17 07:00 Neutrophils % 29.4 % (42.8-82.8) L D 07/24/17 07:00 Lymphocytes % 62.6 % (8-40) H D 07/24/17 07:00 Monocytes % 5.3 % (3.8-10.2) 07/24/17 07:00 Eosinophils % 1.7 % (0-4.5) 07/24/17 07:00 Basophils % 1.0 % (0-2.0) 07/24/17 07:00 Sodium 139 mmol/L (136-145) 07/22/17 06:00 Potassium 4.5 mmol/L (3.5-5.1) 07/22/17 06:00 Chloride 103 mmol/L (98-107) 07/22/17 06:00 Carbon Dioxide 28 mmol/L (21-32) 07/22/17 06:00 Anion Gap 8 (8-16) 07/22/17 06:00 BUN 10 mg/dL (7-18) 07/22/17 06:00 Creatinine 1.2 mg/dL (0.55-1.02) H D 07/22/17 06:00 Creat Clearance w eGFR 45.23 (>60) 07/22/17 06:00 Random Glucose 97 mg/dL (74-106) 07/22/17 06:00 Calcium 9.6 mg/dL (8.5-10.1) 07/22/17 06:00 Total Bilirubin 0.5 mg/dL (0.2-1.0) 07/22/17 06:00 AST 14 U/L (15-37) L D 07/22/17 06:00 ALT 19 U/L (12-78) D 07/22/17 06:00 Alkaline Phosphatase 120 U/L (45-117) H 07/22/17 06:00 Total Protein 8.8 g/dl (6.4-8.2) H 07/22/17 06:00 Albumin 4.2 g/dl (3.4-5.0) 07/22/17 06:00 Urine Color Yellow 07/21/17 18:11 Urine Appearance Slcloudy 07/21/17 18:11 Urine pH 8.0 (5.0-8.0) D 07/21/17 18:11 Ur Specific [place] 1.011 (1.001-1.035) 07/21/17 18:11 Urine Protein Negative (NEGATIVE) 07/21/17 18:11 Urine Glucose (UA) Negative (NEGATIVE) 07/21/17 18:11 Urine Ketones Negative (NEGATIVE) 07/21/17 18:11 Urine Blood Negative (NEGATIVE) 07/21/17 18:11 Urine Nitrite Negative (NEGATIVE) 07/21/17 18:11 Urine Bilirubin Negative (NEGATIVE) 07/21/17 18:11 Urine Urobilinogen Negative mg/dL (0.2-1.0) 07/21/17 18:11 Ur Leukocyte Esterase Negative (NEGATIVE) 07/21/17 18:11 RPR Titer Nonreactive (NONREACTIVE) 07/22/17 06:00 lab noted - Treatment Hospital Course: Detox Protocol Followed, Responded well - Medication Discharge Medications: Ambulatory Orders Valsartan/Hydrochlorothiazide [Diovan Hct 80-12.5 mg Tablet] 1 combo PO DAILY - Diagnosis (1) Nicotine dependence Status: Acute Qualifiers: Nicotine product type: cigarettes Substance use status: in withdrawal Qualified Code(s): F17.213 - Nicotine dependence, cigarettes, with withdrawal (2) Alcohol dependence with uncomplicated withdrawal Status: Acute (3) Asthma Status: Chronic Qualifiers: Asthma severity: mild Asthma complication type: uncomplicated (4) Hypertension Status: Chronic Qualifiers: Hypertension type: essential hypertension Qualified Code(s): I10 - Essential (primary) hypertension - AMA Did Patient Leave Against Medical Advice: Yes
--- NOTE | 2017-07-25 01:05 | EKG ---
Test Reason : Blood Pressure : / mmHG Vent. Rate : 058 BPM Atrial Rate : 058 BPM P-R Int : 124 ms QRS Dur : 096 ms QT Int : 428 ms P-R-T Axes : 023 004 021 degrees QTc Int : 420 ms SINUS BRADYCARDIA WITH SINUS ARRHYTHMIA OTHERWISE NORMAL ECG WHEN COMPARED WITH ECG OF 17-MAY-2017 11:05, NO SIGNIFICANT CHANGE WAS FOUND Confirmed by NELL SANCHEZ MD ([id number]) on 07/25/2017 1:05:14 AM Referred By: Confirmed By:NELL SANCHEZ MD
[2017-07-25] MEDS ORDERED: METHADONE HCL 10 MG TABLET (FOR DETOX USE ONLY) PO SCH (10:00)
[2017-07-26] MEDS ORDERED: METHADONE HCL 5 MG TABLET (FOR DETOX USE ONLY) PO SCH (06:00)
== END 2017-07-24 17:41 | disposition left against medical advice (07) | DRG 770 ==
LOC: YASAS 10:27 → Y6N 13:19
PROVIDERS: ADMIT Internal Medicine; ATTEND Internal Medicine
PROC: HZ2ZZZZ Detoxification Services for Substance Abuse Treatment (ICD-10-PCS; principal; 2017-07-21)
DX: F11.23 Opioid dependence with withdrawal (principal); F10.230 Alcohol dependence with withdrawal, uncomplicated; F13.230 Sedative, hypnotic or anxiolytic dependence with withdrawal, uncomplicated; F17.213 Nicotine dependence, cigarettes, with withdrawal; F19.24 Other psychoactive substance dependence with psychoactive substance-induced mood disorder; F41.8 Other specified anxiety disorders; F34.1 Dysthymic disorder; J45.30 Mild persistent asthma, uncomplicated; I10 Essential (primary) hypertension; G47.00 Insomnia, unspecified; R00.1 Bradycardia, unspecified; I49.9 Cardiac arrhythmia, unspecified; Z86.69 Personal history of other diseases of the nervous system and sense organs
CPT/HCPCS: 36415; 80053; 81003; 85025; 85027; 86593; 93005; 93010

== ENCOUNTER 2017-09-12 10:23 | Inpatient (IN) | payer OTHER ==
[2017-09-12 12:49] VITALS: BMI 27.0
--- NOTE | 2017-09-12 13:26 | HP ---
COWS - Scale Resting Pulse: 0= [place] 80 or Below Sweatin=Flushed/Facial Moisture Restless Observation: 1= Difficult to Sit Still Pupil Size: 0= Normal to Room Light Bone or Joint Aches: 2= Severe Diffuse Aches Runny Nose/ Eye Tearin= Runny Nose/Eyes GI Upset > 30mins: 2= Nausea/Diarrhea Tremor Observation: 2= Slight Tremor Visible Yawning Observation: 2= >3x During Session Anxiety or Irritability: 2=Irritable/Anxious Goose Flesh Skin: 3=Piloerection COWS Score: 18 CIWA Score - CIWA Score Nausea/Vomitin-Mild Nausea/No Vomiting Muscle Tremors: 4-Moderate,w/Arms Extend Anxiety: 4-Mod. Anxious/Guarded Agitation: 4-Moderately Restless Paroxysmal Sweats: 3 Orientation: 0-Oriented Tacttile Disturbances: 0-None Auditory Disturbances: 0-None Visual Disturbances: 0-None Headache: 0-None Present CIWA-Ar Total Score: 16 Admission ROS S - HPI Chief Complaint: I am here to detox. Allergies/Adverse Reactions: Allergies Allergy/AdvReac Type Severity Reaction Status Date / Time No Known Drug Allergies Allergy Verified 09/12/17 13:17 NKDA Allergy Uncoded 09/12/17 13:17 History of Present Illness: pt is a 62yr old female with a history of heroin, xananx and alcohol dependence seeking detox for treatment. Exam Limitations: No Limitations - Ebola screening Have you traveled outside of the country in the last 21 days: No Have you had contact with anyone from an Ebola affected area: No Have you been sick,other than usual withdrawal symptoms: No Do you have a fever: No - Review of Systems Constitutional: Chills, Diaphoresis, Loss of Appetite, Night Sweats, Changes in sleep EENT: reports: Tearing, Nose Congestion Respiratory: reports: No Symptoms reported, Cough Cardiac: reports: Lightheadedness GI: reports: Diarrhea, Nausea, Poor Appetite, Poor Fluid Intake : reports: No Symptoms Reported Musculoskeletal: reports: Back Pain Integumentary: reports: Flushing, Sweating Neuro: reports: Headache, Tingling, Tremors Endocrine: reports: Excessive Sweating, Flushing, Intolerance to Cold, Intolerance to Heat Hematology: reports: No Symptoms Reported Psychiatric: reports: Judgement Intact, Mood/Affect Appropiate, Orientated x3, Agitated, Anxious Other Systems: Reviewed and Negative Patient History - Patient Medical History Hx Anemia: No Hx Asthma: No Hx Chronic Obstructive Pulmonary Disease (COPD): No Hx Cancer: No Hx Cardiac Disorders: No Hx Congestive Heart Failure: No Hx Hypertension: Yes (HYDROCHLOROTHIAZIDE DAILY) Hx Hypercholesterolemia: No Hx Pacemaker: No HX Cerebrovascular Accident: No Hx Seizures: Yes (alcohol related-last episode was in 2006) Hx Dementia: No Hx Diabetes: No Hx Gastrointestinal Disorders: No Hx Liver Disease: No Hx Genitourinary Disorders: No Hx Sexually Transmitted Disorders: No (DENIES) Hx Renal Disease (ESRD): No Hx Thyroid Disease: No Hx Human Immunodeficiency Virus (HIV): No (NEGATIVE HX) Hx Hepatitis C: No Hx Depression: Yes (NO MEDS NOW BUT YEARS AGO) Hx Suicide Attempt: No (DENIES) Hx Bipolar Disorder: No Hx Schizophrenia: No - Patient Surgical History Past Surgical History: Yes Hx Neurologic Surgery: No Hx Cataract Extraction: No Hx Cardiac Surgery: No Hx Lung Surgery: No Hx Breast Surgery: No Hx Breast Biopsy: No Hx Abdominal Surgery: No Hx Appendectomy: No Hx Cholecystectomy: No Hx Genitourinary Surgery: No Hx Section: Yes (1987) Hx Orthopedic Surgery: No Anesthesia Reaction: No - PPD History Previous Implant?: No Documented Results: Positive w/proof Results: CXR(-)12/22/16 PPD to be Administered?: No - Reproductive History Patient is a Female of Child Bearing Age (11 -55 yrs old): No - Smoking Cessation Smoking history: Current every day smoker Have you smoked in the past 12 months: Yes Aproximately how many cigarettes per day: 3 Cigars Per Day: 0 Hx Chewing Tobacco Use: No Initiated information on smoking cessation: Yes 'Breaking Loose' booklet given: 09/12/17 - Substance & Tx. History Hx Alcohol Use: Yes Hx Substance Use: Yes Substance Use Type: Alcohol, Heroin, Tranquilizers Hx Substance Use Treatment: Yes (last detox [facility] 06/2017) - Substances Abused Heroin Route: Inhalation Frequency: Daily Amount used: 3 BAGS Age of first use: 34 Date of Last Use: 09/11/17 Alcohol Route: Oral Frequency: Daily Amount used: 2-3 16 OZ BEERS Age of first use: 62 Date of Last Use: 09/11/17 Alprazolam (Xanax) Route: Oral Frequency: Daily Amount used: 4MG Age of first use: 60 Date of Last Use: 09/10/17 Family Disease History - Family Disease History Family Disease History: Diabetes: Brother, Other: Father (), Mother ( ) Admission Physical Exam [facility] - Vital Signs Vital Signs: Vital Signs - 24 hr 09/12/17 12:40 Temperature 97.4 F L Pulse Rate 84 Respiratory 18 Rate Blood Pressure 161/99 - Physical General Appearance: Yes: Appropriately Dressed, Moderate Distress, Tremorous, Irritable, Sweating, Anxious HEENTM: Yes: Normal Voice, Nasal Congestion, Rhinorrhea Respiratory: Yes: Lungs Clear, Normal Breath Sounds, No Respiratory Distress Neck: Yes: No masses,lesions,Nodules Breast: Yes: Within Normal Limits Cardiology: Yes: Regular Rhythm, Regular Rate, S1, S2 Abdominal: Yes: Normal Bowel Sounds, Non Tender, Soft Genitourinary: Yes: Within Normal Limits Back: Yes: Normal Inspection Musculoskeletal: Yes: full range of Motion, Back pain Extremities: Yes: Normal Capillary Refill, Normal Inspection, Non-Tender, Tremors Neurological: Yes: Fully Oriented, Alert, Normal Response Integumentary: Yes: Normal Color, Diaphoresis Lymphatic: Yes: Within Normal Limits - Diagnostic (1) Alcohol dependence with uncomplicated withdrawal Current Visit: Yes Status: Chronic (2) Nicotine dependence Current Visit: Yes Status: Chronic Qualifiers: Nicotine product type: cigarettes Substance use status: uncomplicated Qualified Code(s): F17.210 - Nicotine dependence, cigarettes, uncomplicated (3) Asthma Current Visit: Yes Status: Chronic Qualifiers: Asthma severity: mild Asthma persistence: unspecified Asthma complication type: uncomplicated Qualified Code(s): J45.909 - Unspecified asthma, uncomplicated (4) Hypertension Current Visit: Yes Status: Chronic Qualifiers: Hypertension type: essential hypertension (5) Opioid dependence with withdrawal Current Visit: Yes Status: Chronic (6) Sedative, hypnotic or anxiolytic dependence with withdrawal, uncomplicated Current Visit: Yes Status: Chronic Cleared for Admission S - Detox or Rehab [facility] Level of Care: Medically Managed Detox Regimen/Protocol: Methadone/Valium [facility] Breath Alcohol Content Breath Alcohol Content: 0 Urine Drug Screen - Results Drug Screen Negative: No Urine Drug Screen Results: OPI-Opiates, BZO-Benzodiazepines
[2017-09-12] MEDS ORDERED: MENTHOL/PHENOL 1 EACH UD MM PRN (13:38)
[2017-09-12] MEDS ORDERED: guaiFENesin/D-METHORPHAN HB 10 ML UNIT-DOSE CUPS PO PRN (13:38)
[2017-09-12] MEDS ORDERED: ACETAMINOPHEN 325 MG TABLET (FP) PO PRN (13:38)
[2017-09-12] MEDS ORDERED: NICOTINE POLACRILEX 4 MG GUM BUC PRN (13:38)
[2017-09-12] MEDS ORDERED: P-EPHED 60MG/TRIPROLIDI 2.5MG TABLET PO PRN (13:38)
[2017-09-12] MEDS ORDERED: hydrOXYzine PAMOATE 50 MG CAPSULE (FP) PO PRN (13:38)
[2017-09-12] MEDS ORDERED: MAGNESIUM HYDROX 2400MG/30ML ORAL SUSPENSION 30 ML CUP PO PRN (13:38)
[2017-09-12] MEDS ORDERED: IBUPROFEN 400 MG TABLET (FP) PO PRN (13:38)
[2017-09-12] MEDS ORDERED: MAG HYDROX/AL HYDROX/SIMETH 30 ML UNIT-DOSE CUP PO PRN (13:38)
[2017-09-12] MEDS ORDERED: MAGNESIUM CITRATE 300 ML BOTTLE PO PRN (13:38)
[2017-09-12] MEDS ORDERED: LOPERAMIDE HCL 2 MG CAPSULE PO PRN (13:38)
[2017-09-12] MEDS ORDERED: VALSARTAN PO SCH (13:45)
[2017-09-12] MEDS ORDERED: [UNRECOGNIZED DRUG - OTHER] PO SCH (13:45)
[2017-09-12] MEDS ORDERED: diazePAM 5 MG TABLET PO ONE (14:24)
[2017-09-12] MEDS ORDERED: LIDOCAINE 5% TOPICAL PATCH TP ONE (14:26)
[2017-09-12] MEDS ORDERED: METHADONE HCL 10 MG TABLET (FOR DETOX USE ONLY) PO ONE ×2 (14:27→23:00)
[2017-09-12] MEDS: HYDROCHLOROTHIAZIDE 12.5 MG CAPSULE (FP) PO SCH (15:30)
[2017-09-12] MEDS: VALSARTAN 80 MG TABLET (UD) PO SCH (15:30)
[2017-09-12] MEDS: diazePAM 5 MG TABLET PO PRN (18:29)
[2017-09-12] MEDS: THIAMINE HCL 100 MG TABLET (FP) PO SCH (22:38)
[2017-09-12] MEDS: diazePAM 5 MG TABLET PO SCH (22:39)
[2017-09-12] MEDS: CYCLOBENZAPRINE HCL 10 MG TABLET (FP) PO PRN (22:39)
[2017-09-12] MEDS: LIDOCAINE PATCH REMOVAL MC SCH (22:58)
[2017-09-12 23:30] LABS: URINE APPEARANCE CLOUDY; URINE BILIRUBIN NEGATIVE (NEGATIVE); URINE BLOOD 1+ (NEGATIVE); URINE COLOR YELLOW; URINE GLUCOSE (UA) NEGATIVE (NEGATIVE); URINE KETONE 1+ (NEGATIVE); URINE NITRITE NEGATIVE (NEGATIVE); URINE UROBILINOGEN 4.0 E.U/dl mg/dL (0.2-1.0)
[2017-09-12 23:36] LABS: URINE LEUK ESTERASE 3+ (NEGATIVE); URINE PROTEIN 2+ (NEGATIVE)
[2017-09-12 23:43] LABS: EPI CELLS MANY /HPF (FEW); URINE MUCUS RARE
[2017-09-13] MEDS: diazePAM 5 MG TABLET PO SCH ×3 (06:29→22:39)
--- NOTE | 2017-09-13 09:55 | PN ---
[facility] CIWA - CIWA Score Nausea/Vomitin Muscle Tremors: 3 Anxiety: 3 Agitation: 1-Slight > Activity Paroxysmal Sweats: 3 Orientation: 0-Oriented Tacttile Disturbances: 0-None Auditory Disturbances: 0-None Visual Disturbances: 1-Very Mild Sensitivity Headache: 0-None Present CIWA-Ar Total Score: 14 S COWS - Scale Resting Pulse: 0= [place] 80 or Below Sweatin= Chills/Flushing Restless Observation: 1= Difficult to Sit Still Pupil Size: 0= Normal to Room Light Bone or Joint Aches: 2= Severe Diffuse Aches Runny Nose/ Eye Tearin= None GI Upset > 30mins: 2= Nausea/Diarrhea Tremor Observation of Outstretched Hands: 2= Slight Tremor Visible Yawning Observation: 2= >3x During Session Anxiety or Irritability: 2=Irritable/Anxious Goose Flesh Skin: 3=Piloerection COWS Score: 15 [facility] Progress Note (SOAP) Subjective: Alert, irritable, body aches, interrupted sleep, chills, sweats, nausea Objective: 09/13/17 10:24 Last Vital Signs Temp Pulse Resp BP Pulse Ox 98.1 F 46 L 20 142/70 09/13/17 08:08 09/13/17 08:08 09/13/17 08:08 09/13/17 08:08 Laboratory Tests 09/12/17 19:44 Urine Color Yellow Urine Appearance Cloudy Urine pH 7.0 Ur Specific [place] 1.014 Urine Protein 2+ H Urine Glucose (UA) Negative Urine Ketones 1+ H Urine Blood 1+ H Urine Nitrite Negative Urine Bilirubin Negative Urine Urobilinogen 4.0 e.u/dl H Ur Leukocyte Esterase 3+ H Urine WBC (Auto) 170 Urine RBC (Auto) 23 Ur Epithelial Cells Many Urine Mucus Rare Labs noted Assessment: 09/13/17 10:25 withdrawal symptoms Plan: Continue detox Increase fluids
[2017-09-13] MEDS ORDERED: METHADONE HCL 10 MG TABLET (FOR DETOX USE ONLY) PO SCH (10:00)
[2017-09-13] MEDS: PRENATAL VITAMINS W/ FOLIC ACID TABLET (FP) PO SCH (10:36)
[2017-09-13] MEDS: VALSARTAN 80 MG TABLET (UD) PO SCH (10:36)
[2017-09-13] MEDS: HYDROCHLOROTHIAZIDE 12.5 MG CAPSULE (FP) PO SCH (10:36)
[2017-09-13 10:38] LABS: CHLORIDE 102 mmol/L (98-107); POTASSIUM 3.6 mmol/L (3.5-5.1); SODIUM 138 mmol/L (136-145)
[2017-09-13 10:39] LABS: HEMATOCRIT 37.8 % (32.4-45.2); HEMOGLOBIN 12.2 GM/dL (10.7-15.3); MCH 28.1 pg (25.7-33.7); MCHC 32.4 g/dl (32.0-36.0); MEAN CELL VOLUME 86.8 fl (80-96); MEAN PLT VOLUME 9.3 fl (7.5-11.1); PLATELET COUNT 368 K/MM3 (134-434); RBC 4.35 M/mm3 (3.60-5.2); RDW 13.3 % (11.6-15.6); WHITE BLOOD COUNT 6.4 K/mm3 (4.0-10.0)
--- NOTE | 2017-09-13 10:40 | EKG ---
Test Reason : Blood Pressure : / mmHG Vent. Rate : 069 BPM Atrial Rate : 069 BPM P-R Int : 150 ms QRS Dur : 094 ms QT Int : 418 ms P-R-T Axes : 066 014 059 degrees QTc Int : 447 ms SINUS RHYTHM WITH MARKED SINUS ARRHYTHMIA OTHERWISE NORMAL ECG WHEN COMPARED WITH ECG OF 21-JUL-2017 15:50, NO SIGNIFICANT CHANGE WAS FOUND Confirmed by WENDI VALDEZ, ADELA ([id number]) on 09/13/2017 10:40:21 AM Referred By: Confirmed By:ADELA ADAME MD
[2017-09-13] MEDS: NICOTINE 21 MG/24 HOURS TOPICAL PATCH TD SCH (10:43)
[2017-09-13] MEDS: LIDOCAINE 5% TOPICAL PATCH TP SCH (10:43)
[2017-09-13 10:51] LABS: ALBUMIN 4.4 g/dl (3.4-5.0); ALK PHOS 115 U/L (45-117); ANION GAP 10 (8-16); BILIRUBIN,TOTAL 0.6 mg/dL (0.2-1.0); BLOOD UREA NITROGEN 9 mg/dL (7-18); CALCIUM 9.1 mg/dL (8.5-10.1); CO2 26 mmol/L (21-32); CREATININE 0.9 mg/dL (0.55-1.02); GLUCOSE,RANDOM 92 mg/dL (74-106); SGOT/AST 14 U/L (15-37); SGPT/ALT 17 U/L (12-78); TOT PROT 8.8 g/dl (6.4-8.2)
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
[2017-09-13] MEDS ORDERED: ZOLPIDEM TARTRATE 5 MG TABLET PO PRN (22:00)
[2017-09-13] MEDS: CYCLOBENZAPRINE HCL 10 MG TABLET (FP) PO PRN (22:39)
[2017-09-13] MEDS: THIAMINE HCL 100 MG TABLET (FP) PO SCH (22:39)
[2017-09-13] MEDS: LIDOCAINE PATCH REMOVAL MC SCH (22:49)
[2017-09-14] MEDS: METHADONE HCL 5 MG TABLET (FOR DETOX USE ONLY) PO SCH (10:55)
[2017-09-14] MEDS: HYDROCHLOROTHIAZIDE 12.5 MG CAPSULE (FP) PO SCH (10:55)
[2017-09-14] MEDS: PRENATAL VITAMINS W/ FOLIC ACID TABLET (FP) PO SCH (10:56)
[2017-09-14] MEDS: diazePAM 5 MG TABLET PO SCH ×2 (10:56→22:32)
[2017-09-14] MEDS: VALSARTAN 80 MG TABLET (UD) PO SCH (10:56)
[2017-09-14] MEDS: NICOTINE 21 MG/24 HOURS TOPICAL PATCH TD SCH (11:01)
[2017-09-14] MEDS: LIDOCAINE 5% TOPICAL PATCH TP SCH (11:01)
--- NOTE | 2017-09-14 11:07 | PN ---
S CIWA - CIWA Score Nausea/Vomitin-Mild Nausea/No Vomiting Muscle Tremors: 3 Anxiety: 3 Agitation: 0-Normal Activity Paroxysmal Sweats: 2 Orientation: 0-Oriented Tacttile Disturbances: 1-Very Mild Itch/Numbness Auditory Disturbances: 0-None Visual Disturbances: 1-Very Mild Sensitivity Headache: 1-Very Mild CIWA-Ar Total Score: 12 [facility] COWS - Scale Resting Pulse: 0= GA 80 or Below Sweatin= Chills/Flushing Restless Observation: 1= Difficult to Sit Still Pupil Size: 0= Normal to Room Light Bone or Joint Aches: 1= Mild Discomfort Runny Nose/ Eye Tearin= Nasal Congestion GI Upset > 30mins: 2= Nausea/Diarrhea Tremor Observation of Outstretched Hands: 2= Slight Tremor Visible Yawning Observation: 2= >3x During Session Anxiety or Irritability: 1=Feels Anxious/Irritable Goose Flesh Skin: 0=Smooth Skin COWS Score: 11 S Progress Note (SOAP) Subjective: Interrupted sleep, anxious, decrease appetite, body aches, chills, dark urine, fatigue Objective: 09/14/17 11:06 Last Vital Signs Temp Pulse Resp BP Pulse Ox 97.7 F 70 18 138/83 09/14/17 09:31 09/14/17 09:31 09/14/17 09:31 09/14/17 09:31 Laboratory Last Values WBC 6.4 K/mm3 (4.0-10.0) 09/13/17 05:45 RBC 4.35 M/mm3 (3.60-5.2) 09/13/17 05:45 Hgb 12.2 GM/dL (10.7-15.3) D 09/13/17 05:45 Hct 37.8 % (32.4-45.2) 09/13/17 05:45 MCV 86.8 fl (80-96) 09/13/17 05:45 MCH 28.1 pg (25.7-33.7) 09/13/17 05:45 MCHC 32.4 g/dl (32.0-36.0) 09/13/17 05:45 RDW 13.3 % (11.6-15.6) 09/13/17 05:45 Plt Count 368 K/MM3 (134-434) 09/13/17 05:45 MPV 9.3 fl (7.5-11.1) D 09/13/17 05:45 Sodium 138 mmol/L (136-145) 09/13/17 05:45 Potassium 3.6 mmol/L (3.5-5.1) 09/13/17 05:45 Chloride 102 mmol/L (98-107) 09/13/17 05:45 Carbon Dioxide 26 mmol/L (21-32) 09/13/17 05:45 Anion Gap 10 (8-16) 09/13/17 05:45 BUN 9 mg/dL (7-18) 09/13/17 05:45 Creatinine 0.9 mg/dL (0.55-1.02) 09/13/17 05:45 Creat Clearance w eGFR > 60 (>60) 09/13/17 05:45 Random Glucose 92 mg/dL (74-106) 09/13/17 05:45 Calcium 9.1 mg/dL (8.5-10.1) 09/13/17 05:45 Total Bilirubin 0.6 mg/dL (0.2-1.0) 09/13/17 05:45 AST 14 U/L (15-37) L 09/13/17 05:45 ALT 17 U/L (12-78) 09/13/17 05:45 Alkaline Phosphatase 115 U/L (45-117) 09/13/17 05:45 Total Protein 8.8 g/dl (6.4-8.2) H 09/13/17 05:45 Albumin 4.4 g/dl (3.4-5.0) 09/13/17 05:45 Urine Color Yellow 09/12/17 19:44 Urine Appearance Cloudy 09/12/17 19:44 Urine pH 7.0 (5.0-8.0) 09/12/17 19:44 Ur Specific [place] 1.014 (1.001-1.035) 09/12/17 19:44 Urine Protein 2+ (NEGATIVE) H 09/12/17 19:44 Urine Glucose (UA) Negative (NEGATIVE) 09/12/17 19:44 Urine Ketones 1+ (NEGATIVE) H 09/12/17 19:44 Urine Blood 1+ (NEGATIVE) H 09/12/17 19:44 Urine Nitrite Negative (NEGATIVE) 09/12/17 19:44 Urine Bilirubin Negative (NEGATIVE) 09/12/17 19:44 Urine Urobilinogen 4.0 e.u/dl mg/dL (0.2-1.0) H 09/12/17 19:44 Ur Leukocyte Esterase 3+ (NEGATIVE) H 09/12/17 19:44 Urine WBC (Auto) 170 /hpf (3-5) 09/12/17 19:44 Urine RBC (Auto) 23 /hpf (0-3) 09/12/17 19:44 Ur Epithelial Cells Many /HPF (FEW) 09/12/17 19:44 Urine Mucus Rare 09/12/17 19:44 RPR Titer Nonreactive (NONREACTIVE) 09/13/17 05:45 09/14/17 11:08 Labs noted. Hematuria, repeat U/A, Culture, Abx tx . 09/14/17 11:21 Assessment: 09/14/17 11:22 Patient AOx3 Ambulatory No sign or symptoms of acute distress Plan: 1. Continue Detox 2. UTI with Hematuria: Increase Fluids, keep water pitcher by the bedside Repeat U/A Urine Culture Bactrim 100mg BID Continue to monitor
[2017-09-14] MEDS: SULFAMETHOXAZOLE/TRIMETHOPRIM 800MG/160MG D.S. TABLET PO SCH ×2 (13:04→22:31)
[2017-09-14] MEDS: diazePAM 5 MG TABLET PO PRN (15:18)
--- NOTE | 2017-09-14 17:02 | PN ---
[facility] Progress Note Note: Psychiatric nurse practitioner: Spoke to patient bedside concerning Ambien 5mg . Pt reports poor sleep and requesting Ambien to be increased to 10mg. Pt. reports favorable effect from previously taking Ambien 10mg. Benefits and side effects (sleep walking) discussed. Ambien increased to 10mg.
[2017-09-14 20:14] LABS: URINE APPEARANCE CLOUDY; URINE BILIRUBIN NEGATIVE (NEGATIVE); URINE BLOOD NEGATIVE (NEGATIVE); URINE COLOR LTYELLOW; URINE GLUCOSE (UA) NEGATIVE (NEGATIVE); URINE KETONE NEGATIVE (NEGATIVE); URINE NITRITE NEGATIVE (NEGATIVE); URINE PROTEIN NEGATIVE (NEGATIVE); URINE UROBILINOGEN NEGATIVE mg/dL (0.2-1.0)
[2017-09-14 20:46] LABS: URINE LEUK ESTERASE 3+ (NEGATIVE)
[2017-09-14 21:45] LABS: EPI CELLS FEW /HPF (FEW); URINE BACTERIA RARE /hpf (NONE SEEN); URINE HYALINE CAST 10 /lpf; URINE MUCUS RARE
[2017-09-14] MEDS: CYCLOBENZAPRINE HCL 10 MG TABLET (FP) PO PRN (22:31)
[2017-09-14] MEDS: ZOLPIDEM TARTRATE 10 MG TABLET (PARK CARE ONLY) PO PRN (22:31)
[2017-09-14] MEDS: THIAMINE HCL 100 MG TABLET (FP) PO SCH (22:32)
[2017-09-14] MEDS: LIDOCAINE PATCH REMOVAL MC SCH (22:32)
[2017-09-15] MEDS: SULFAMETHOXAZOLE/TRIMETHOPRIM 800MG/160MG D.S. TABLET PO SCH ×2 (11:01→22:41)
[2017-09-15] MEDS: PRENATAL VITAMINS W/ FOLIC ACID TABLET (FP) PO SCH (11:02)
[2017-09-15] MEDS: METHADONE HCL 5 MG TABLET (FOR DETOX USE ONLY) PO SCH (11:02)
[2017-09-15] MEDS: diazePAM 5 MG TABLET PO SCH ×2 (11:02→22:40)
[2017-09-15] MEDS: VALSARTAN 80 MG TABLET (UD) PO SCH (11:02)
[2017-09-15] MEDS: HYDROCHLOROTHIAZIDE 12.5 MG CAPSULE (FP) PO SCH (11:02)
[2017-09-15] MEDS: LIDOCAINE 5% TOPICAL PATCH TP SCH (11:02)
[2017-09-15] MEDS: NICOTINE 21 MG/24 HOURS TOPICAL PATCH TD SCH (11:03)
--- NOTE | 2017-09-15 13:12 | PN ---
[facility] Progress Note (SOAP) Subjective: feels better sweats interrupted sleep Objective: 09/15/17 13:11 Vital Signs Temperature 97.9 F 09/15/17 10:00 Pulse Rate 70 09/15/17 10:00 Respiratory Rate 18 09/15/17 10:00 Blood Pressure 136/82 09/15/17 10:00 O2 Sat by Pulse Oximetry (%) [id number] ambulating no acute distress Assessment: 09/15/17 13:11 withdrawals sx Plan: continue detox increase fluids d/c in am
[2017-09-15] MEDS: CYCLOBENZAPRINE HCL 10 MG TABLET (FP) PO PRN (22:41)
[2017-09-15] MEDS: ZOLPIDEM TARTRATE 10 MG TABLET (PARK CARE ONLY) PO PRN (22:41)
[2017-09-15] MEDS: THIAMINE HCL 100 MG TABLET (FP) PO SCH (22:43)
[2017-09-15] MEDS: LIDOCAINE PATCH REMOVAL MC SCH (22:43)
[2017-09-16 06:32] VITALS: TEMP 98
[2017-09-16] MEDS: SULFAMETHOXAZOLE/TRIMETHOPRIM 800MG/160MG D.S. TABLET PO SCH (09:07)
[2017-09-16] MEDS: VALSARTAN 80 MG TABLET (UD) PO SCH (09:07)
[2017-09-16] MEDS: PRENATAL VITAMINS W/ FOLIC ACID TABLET (FP) PO SCH (09:08)
[2017-09-16] MEDS: HYDROCHLOROTHIAZIDE 12.5 MG CAPSULE (FP) PO SCH (09:08)
[2017-09-16] MEDS: LIDOCAINE 5% TOPICAL PATCH TP SCH (09:09)
[2017-09-16] MEDS: NICOTINE 21 MG/24 HOURS TOPICAL PATCH TD SCH (09:09)
[2017-09-16] MEDS ORDERED: diazePAM 5 MG TABLET PO SCH (10:00)
[2017-09-16] MEDS ORDERED: METHADONE HCL 10 MG TABLET (FOR DETOX USE ONLY) PO SCH (10:00)
[2017-09-16 11:02] VITALS: BP 128/69; PULSE 67
--- NOTE | 2017-09-16 12:22 | DS ---
[facility] Detox Discharge Summary Admission Date: 09/12/17 Discharge Date: 09/16/17 - History Present History: Alcohol Dependence, Opioid Dependence, Sedative Dependence Pertinent Past History: Asthma HTN - Physical Exam Results Vital Signs: Vital Signs Temperature 98 F 09/16/17 11:01 Pulse Rate 67 09/16/17 11:01 Respiratory Rate 16 09/16/17 11:01 Blood Pressure 128/69 09/16/17 11:01 O2 Sat by Pulse Oximetry (%) Pertinent Admission Physical Exam Findings: withdrawal symptoms - Treatment Hospital Course: Detox Protocol Followed, Detoxed Safely, Responded well, Discharged Condition Good, Rehab Referral Accepted Patient has Accepted a Rehab Referral to: Patient to follow up with self help groups - Medication Discharge Medications: Ambulatory Orders Valsartan/Hydrochlorothiazide [Diovan Hct 80-12.5 mg Tablet -] 1 combo PO DAILY 03/10/12 Sulfamethoxazole/Trimethoprim [Bactrim DS -] 1 each PO BID #2 tablet 09/16/17 - Diagnosis (1) Alcohol dependence with uncomplicated withdrawal Status: Chronic (2) Asthma Status: Chronic Qualifiers: Asthma severity: mild Asthma persistence: unspecified Asthma complication type: uncomplicated Qualified Code(s): J45.909 - Unspecified asthma, uncomplicated (3) Hypertension Status: Chronic Qualifiers: Hypertension type: essential hypertension (4) Nicotine dependence Status: Chronic Qualifiers: Nicotine product type: cigarettes Substance use status: uncomplicated Qualified Code(s): F17.210 - Nicotine dependence, cigarettes, uncomplicated (5) Opioid dependence with withdrawal Status: Acute (6) Sedative, hypnotic or anxiolytic dependence with withdrawal, uncomplicated Status: Chronic (7) Urinary tract infection with hematuria Status: Acute Qualifiers: Urinary tract infection type: site unspecified Qualified Code(s): N39.0 - Urinary tract infection, site not specified; R31.9 - Hematuria, unspecified; R31.9 - Hematuria, unspecified - AMA Did Patient Leave Against Medical Advice: No
[2017-09-17] MEDS ORDERED: METHADONE HCL 5 MG TABLET (FOR DETOX USE ONLY) PO SCH (06:00)
== END 2017-09-16 11:23 | disposition home or self-care (01) | DRG 773 ==
LOC: YASAS 10:23 → Y6N 14:21
PROVIDERS: ADMIT Internal Medicine; ATTEND Internal Medicine
PROC: HZ2ZZZZ Detoxification Services for Substance Abuse Treatment (ICD-10-PCS; principal; 2017-09-12)
DX: F11.23 Opioid dependence with withdrawal (principal); F13.230 Sedative, hypnotic or anxiolytic dependence with withdrawal, uncomplicated; F10.230 Alcohol dependence with withdrawal, uncomplicated; F17.210 Nicotine dependence, cigarettes, uncomplicated; F51.01 Primary insomnia; I10 Essential (primary) hypertension; J45.909 Unspecified asthma, uncomplicated; N39.0 Urinary tract infection, site not specified; R31.9 Hematuria, unspecified; Z86.69 Personal history of other diseases of the nervous system and sense organs
CPT/HCPCS: 36415; 80053; 81003; 81015; 85027; 86593; 87086; 93005; 93010

== ENCOUNTER 2018-02-14 12:40 | Inpatient (IN) | payer OTHER ==
[2018-02-14 13:36] VITALS: BMI 26.2
--- NOTE | 2018-02-14 15:02 | PN ---
[facility] Progress Note Note: 62 y/o f pt comes to [facility] for detox from heroin, alcohol and xanax. Pt states she last used heroin yesterday evening , alcohol this am and xanax 3 days ago. Vital Signs Temperature 100.1 F H 02/14/18 13:30 Pulse Rate 84 02/14/18 13:30 Respiratory Rate 18 02/14/18 13:30 Blood Pressure 186/113 02/14/18 13:30 O2 Sat by Pulse Oximetry (%) repeat bp 196/112, p 85, Pt reports h/o htn on diovan-hctz 80/12.mg/d and asa 81mg/d; last took meds yesterday. imp: uncontrolled htn low grade temp. 101.1 withdrawal sx's Plan: ED referral - pt signed out to Dr. Lopez [id number] activated -transported to ED.
--- NOTE | 2018-02-14 21:12 | PN ---
[facility] Progress Note Note: Reports received from Dr. Gonzales at [facility], patient medically cleared to return for evaluation for detox.
--- NOTE | 2018-02-15 00:01 | HP ---
COWS - Scale Resting Pulse: 1= [place] 81-100 Sweatin=Flushed/Facial Moisture Restless Observation: 0= Sits Still Pupil Size: 1= Pupils >than Normal Bone or Joint Aches: 4=Acute Joint/Muscle Pain Runny Nose/ Eye Tearin= Runny Nose/Eyes GI Upset > 30mins: 1= Stomach Cramp Tremor Observation: 2= Slight Tremor Visible Yawning Observation: 0= None Anxiety or Irritability: 0= None Goose Flesh Skin: 0=Smooth Skin COWS Score: 13 Admission [facility] Chief Complaint: Heroin and benzodiazepine withdrawal symptoms Allergies/Adverse Reactions: Allergies Allergy/AdvReac Type Severity Reaction Status Date / Time No Known Drug Allergies Allergy Verified 02/14/18 23:11 History of Present Illness: 62 years old female with a 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 Patient has been to previous detox and reports 2 years of sobriety. She has medical history of HTN, seizures, asthma, depression and anxiety. She denies suicide attempt and suicidal ideation at this time Exam Limitations: No Limitations - Ebola screening Have you traveled outside of the country in the last 21 days: No Have you had contact with anyone from an Ebola affected area: No Have you been sick,other than usual withdrawal symptoms: No Do you have a fever: No - Review of Systems Constitutional: Chills, Loss of Appetite, Malaise, Night Sweats, Changes in sleep EENT: reports: No Symptoms Reported Respiratory: reports: No Symptoms reported Cardiac: reports: No Symptoms Reported GI: reports: Nausea, Poor Appetite, Poor Fluid Intake, Abdominal cramping : reports: No Symptoms Reported Musculoskeletal: reports: Back Pain, Muscle Pain, Muscle Weakness, Neck Pain Integumentary: reports: Dryness Neuro: reports: Headache, Tremors Endocrine: reports: No Symptoms Reported Hematology: reports: No Symptoms Reported Psychiatric: reports: Orientated x3, Anxious, Depressed Other Systems: Reviewed and Negative Patient History - Patient Medical History Hx Anemia: No Hx Asthma: Yes (ALBUTEROL) Hx Chronic Obstructive Pulmonary Disease (COPD): No Hx Cancer: No Hx Cardiac Disorders: No Hx Congestive Heart Failure: No Hx Hypertension: Yes (HYDROCHLOROTHIAZIDE ) Hx Hypercholesterolemia: No Hx Pacemaker: No HX Cerebrovascular Accident: No Hx Seizures: Yes (alcohol related-last episode was in 2006- NOT ON MEDICATION) Hx Dementia: No Hx Diabetes: No Hx Gastrointestinal Disorders: No Hx Liver Disease: No Hx Genitourinary Disorders: No Hx Sexually Transmitted Disorders: No Hx Renal Disease (ESRD): No Hx Thyroid Disease: No Hx Human Immunodeficiency Virus (HIV): No (NEGATIVE HX LAST 2015) Hx Hepatitis C: No Hx Depression: Yes (SEROQUEL) Hx Suicide Attempt: No Hx Bipolar Disorder: No Hx Schizophrenia: No Other Medical History: ANXIETY - SEROQUEL - Patient Surgical History Past Surgical History: Yes Hx Neurologic Surgery: No Hx Cataract Extraction: No Hx Cardiac Surgery: No Hx Lung Surgery: No Hx Breast Surgery: No Hx Breast Biopsy: No Hx Abdominal Surgery: No Hx Appendectomy: No Hx Cholecystectomy: No Hx Genitourinary Surgery: No Hx Section: Yes (1987) Hx Orthopedic Surgery: No Anesthesia Reaction: No - PPD History Previous Implant?: Yes (PPD POSITIVE. TREATED WITH INH) Documented Results: Positive w/o proof Results: CXR(-)12/22/16 - Reproductive History Patient is a Female of Child Bearing Age (11 -55 yrs old): Yes LMP comment: MENOPAUSAL Patient : No - Smoking Cessation Smoking history: Current every day smoker Have you smoked in the past 12 months: Yes Aproximately how many cigarettes per day: 1 Cigars Per Day: 0 Hx Chewing Tobacco Use: No Initiated information on smoking cessation: Yes 'Breaking Loose' booklet given: 02/15/18 - Substance & Tx. History Hx Alcohol Use: No Hx Substance Use: Yes Substance Use Type: Cocaine, Heroin, Opiates Hx Substance Use Treatment: Yes ([facility]) - Substances Abused Alprazolam (Xanax) Route: Oral Frequency: Daily Amount used: 4mg Age of first use: 55 Date of Last Use: 02/12/18 Heroin Route: Inhalation Frequency: Daily Amount used: 4 bags Age of first use: 58 Date of Last Use: 02/13/18 Family Disease History - Family Disease History Family Disease History: Diabetes: Brother, Other: Father (), Mother ( ) Admission Physical Exam BHS - Vital Signs Vital Signs: Vital Signs - 24 hr 02/14/18 13:30 Temperature 100.1 F H Pulse Rate 84 Respiratory 18 Rate Blood Pressure 186/113 - Physical General Appearance: Yes: Moderate Distress, Tremorous, Irritable, Sweating, Anxious HEENTM: Yes: EOMI, Normal ENT Inspection, Normocephalic, Normal Voice, MEÑO Respiratory: Yes: Lungs Clear, Normal Breath Sounds, No Respiratory Distress Neck: Yes: Supple Breast: Yes: Breast Exam Deferred Cardiology: Yes: Regular Rhythm, Regular Rate, S1, S2 Abdominal: Yes: Normal Bowel Sounds, Soft Back: Yes: Normal Inspection Musculoskeletal: Yes: Back pain, Muscle Pain Extremities: Yes: Normal Inspection Neurological: Yes: Alert, Normal Mood/Affect Integumentary: Yes: Warm Lymphatic: Yes: Within Normal Limits - Diagnostic (1) Anxiety and depression Current Visit: Yes Status: Chronic (2) Asthma Current Visit: Yes Status: Chronic Qualifiers: Asthma severity: mild Asthma persistence: unspecified Asthma complication type: uncomplicated Qualified Code(s): J45.909 - Unspecified asthma, uncomplicated (3) Asthmatic bronchitis Current Visit: Yes Status: Chronic (4) Hypertension Current Visit: Yes Status: Chronic Qualifiers: Hypertension type: essential hypertension Qualified Code(s): I10 - Essential (primary) hypertension (5) Nicotine dependence Current Visit: Yes Status: Chronic Qualifiers: Nicotine product type: cigarettes Substance use status: uncomplicated Qualified Code(s): F17.210 - Nicotine dependence, cigarettes, uncomplicated (6) Opioid dependence with withdrawal Current Visit: Yes Status: Chronic (7) Sedative, hypnotic or anxiolytic dependence with withdrawal, uncomplicated Current Visit: Yes Status: Chronic BHS Breath Alcohol Content Breath Alcohol Content: 0.027 Urine Pregancy Test - Result Urine Test Results: Negative- NO Line Present Urine Drug Screen - Results Drug Screen Negative: No Urine Drug Screen Results: PAL-Cocaine, OPI-Opiates, BZO-Benzodiazepines, OXY- Oxycodone
[2018-02-15] MEDS ORDERED: LOPERAMIDE HCL 2 MG CAPSULE PO PRN (00:09)
[2018-02-15] MEDS ORDERED: MENTHOL/PHENOL 1 EACH UD MM PRN (00:09)
[2018-02-15] MEDS ORDERED: IBUPROFEN 400 MG TABLET (FP) PO PRN (00:09)
[2018-02-15] MEDS ORDERED: guaiFENesin/D-METHORPHAN HB 10 ML UNIT-DOSE CUPS PO PRN (00:09)
[2018-02-15] MEDS ORDERED: MAG HYDROX/AL HYDROX/SIMETH 30 ML UNIT-DOSE CUP PO PRN (00:09)
[2018-02-15] MEDS ORDERED: ACETAMINOPHEN 325 MG TABLET (FP) PO PRN (00:09)
[2018-02-15] MEDS ORDERED: diazePAM 5 MG TABLET PO ONE (00:09)
[2018-02-15] MEDS ORDERED: P-EPHED 60MG/TRIPROLIDI 2.5MG TABLET PO PRN (00:09)
[2018-02-15] MEDS ORDERED: METHADONE HCL 10 MG TABLET (FOR DETOX USE ONLY) PO ONE ×3 (00:09→23:00)
[2018-02-15] MEDS ORDERED: MAGNESIUM HYDROX 2400MG/30ML ORAL SUSPENSION 30 ML CUP PO PRN (00:09)
[2018-02-15] MEDS ORDERED: NICOTINE POLACRILEX 2 MG GUM BC PRN (00:09)
[2018-02-15] MEDS ORDERED: diazePAM 5 MG TABLET PO PRN (00:09)
[2018-02-15] MEDS ORDERED: MAGNESIUM CITRATE 300 ML BOTTLE PO PRN (00:09)
[2018-02-15] MEDS: diazePAM 5 MG TABLET PO SCH ×2 (06:08→14:20)
--- NOTE | 2018-02-15 09:35 | PN ---
[facility] CIWA - CIWA Score Nausea/Vomitin-Mild Nausea/No Vomiting Muscle Tremors: 4-Moderate,w/Arms Extend Anxiety: 3 Agitation: 3 Paroxysmal Sweats: 1-Minimal Palms Moist Orientation: 0-Oriented Tacttile Disturbances: 0-None Auditory Disturbances: 0-None Visual Disturbances: 0-None Headache: 0-None Present CIWA-Ar Total Score: 12 S COWS - Scale Resting Pulse: 0= [place] 80 or Below Sweatin= Chills/Flushing Restless Observation: 1= Difficult to Sit Still Pupil Size: 0= Normal to Room Light Bone or Joint Aches: 2= Severe Diffuse Aches Runny Nose/ Eye Tearin= Nasal Congestion GI Upset > 30mins: 2= Nausea/Diarrhea Tremor Observation of Outstretched Hands: 2= Slight Tremor Visible Yawning Observation: 1= 1-2x During Session Anxiety or Irritability: 2=Irritable/Anxious Goose Flesh Skin: 0=Smooth Skin COWS Score: 12 [facility] Progress Note (SOAP) Subjective: anxiety restlessness irritable low energy joints pain body aches Objective: 02/15/18 09:41 Vital Signs Temperature 98.1 F 02/15/18 06:48 Pulse Rate 50 L 02/15/18 06:48 Respiratory Rate 18 02/15/18 06:48 Blood Pressure 146/72 02/15/18 06:48 O2 Sat by Pulse Oximetry (%) lab results unable to be pasted into today's progress note 02/15/18 09:45 Assessment: 02/15/18 09:48 benzo and opiate withdrawal sx Plan: continue detox ensure psy referral
[2018-02-15 09:58] LABS: URINE APPEARANCE CLEAR; URINE BILIRUBIN NEGATIVE (<2.0 mg/dL); URINE COLOR LTYELLOW; URINE GLUCOSE (UA) NEGATIVE (NEGATIVE); URINE KETONE NEGATIVE (NEGATIVE); URINE NITRITE NEGATIVE (NEGATIVE); URINE UROBILINOGEN 4.0 E.U/dl mg/dL (0.2-1.0)
[2018-02-15] MEDS ORDERED: NICOTINE 14 MG/24 HOURS TOPICAL PATCH TD SCH (10:00)
[2018-02-15] MEDS ORDERED: [UNRECOGNIZED DRUG - OTHER] PO SCH (10:00)
[2018-02-15] MEDS ORDERED: PRENATAL VITAMINS W/ FOLIC ACID TABLET (FP) PO SCH (10:00)
[2018-02-15] MEDS ORDERED: ASPIRIN 81 MG CHEWABLE TABLETS PO SCH (10:00)
[2018-02-15] MEDS ORDERED: VALSARTAN PO SCH (10:00)
[2018-02-15 10:08] LABS: URINE LEUK ESTERASE 3+ (NEGATIVE); URINE PROTEIN 1+ (NEGATIVE)
[2018-02-15 10:15] VITALS: TEMP 98.2
--- NOTE | 2018-02-15 10:36 | CONSULT ---
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 Patient has been to previous detox and reports 2 years of sobriety. Substance Abuse History: - Smoking Cessation. Smoking history: Current every day smoker. Have you smoked in the past 12 months: Yes. Aproximately how many cigarettes per day: 1. Cigars Per Day: 0. Hx Chewing Tobacco Use: No. Initiated information on smoking cessation: Yes. 'Breaking Loose' booklet given : 02/15/18. - Substance & Tx. History. Hx Alcohol Use: No. Hx Substance Use: Yes. Substance Use Type: Cocaine, Heroin, Opiates. Hx Substance Use Treatment : Yes ([facility]). - Substances Abused. Alprazolam (Xanax). Route: Oral. Frequency: Daily. Amount used: 4mg. Age of first use: 55. Date of Last Use: 02/12/18. Heroin. Route: Inhalation. Frequency: Daily. Amount used: 4 bags. Age of first use: 58. Date of Last Use: 02/13/18 Medical History: She has medical history of HTN, GERD, LBP, Weight loss, seizures, asthma, She denies suicide attempt and suicidal ideation at this time Psychiatric History: Patient reports history od anxiety and insimnia, reports taking prior to admission:'. Seroquel 100mg po qhs Physical/Sexual Abuse/Trauma History: Denies Additional Comment: Seroquel 100mg po qhs Mental Status Exam - Mental Status Exam Alert and Oriented to: Place, Person Cognitive Function: Fair Patient Appearance: Unkempt Mood: Apprehensive Affect: Mood Congruent Speech Pattern: Delayed Voice Loudness: Normal Thought Process: Goal Oriented Thought Disorder: Being Controlled Hallucinations: Denies Suicidal Ideation: Denies Homicidal Ideation: Denies Insight/Judgement: Fair Sleep: Fair Appetite: Fair Muscle strength/Tone: Mild Hypertonicity Gait/Station: Normal Additional Comments: Seroquel 100mg po qhs Psychiatric Findings - Problem List ([place] 1, 2,3) (1) Anxiety and depression Current Visit: Yes Status: Chronic (2) Asthma Current Visit: Yes Status: Chronic Qualifiers: Asthma severity: mild Asthma persistence: unspecified Asthma complication type: uncomplicated Qualified Code(s): J45.909 - Unspecified asthma, uncomplicated (3) Asthmatic bronchitis Current Visit: Yes Status: Chronic (4) Hypertension Current Visit: Yes Status: Chronic Qualifiers: Hypertension type: essential hypertension Qualified Code(s): I10 - Essential (primary) hypertension (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 Current Visit: Yes Status: Chronic (6) Nicotine dependence Current Visit: Yes Status: Chronic Qualifiers: Nicotine product type: cigarettes Substance use status: uncomplicated Qualified Code(s): F17.210 - Nicotine dependence, cigarettes, uncomplicated (7) Opioid dependence with withdrawal Current Visit: Yes Status: Chronic (8) Sedative, hypnotic or anxiolytic dependence with withdrawal, uncomplicated Current Visit: Yes Status: Chronic (9) Drug-induced mood disorder Current Visit: No Status: Acute (10) Drug-induced mood disorder Current Visit: No Status: Acute (11) Hypertensive urgency Current Visit: No Status: Acute (12) Urinary tract infection with hematuria Current Visit: No Status: Acute Qualifiers: Urinary tract infection type: site unspecified Qualified Code(s): N39.0 - Urinary tract infection, site not specified; R31.9 - Hematuria, unspecified; R31.9 - Hematuria, unspecified (13) Weight loss Current Visit: No Status: Acute (14) Alcohol dependence with uncomplicated withdrawal Current Visit: No Status: Chronic - Initial Treatment Plan Initial Treatment Plan: Seroquel 100mg po qhs
[2018-02-15 10:58] LABS: EPI CELLS RARE /HPF (FEW); URINE HYALINE CAST 3 /lpf
[2018-02-15] MEDS ORDERED: HYDROCHLOROTHIAZIDE 12.5 MG CAPSULE (FP) PO SCH ×2 (11:00)
[2018-02-15] MEDS ORDERED: VALSARTAN 80 MG TABLET (UD) PO SCH (11:00)
--- NOTE | 2018-02-15 11:58 | EKG ---
Test Reason : Blood Pressure : / mmHG Vent. Rate : 056 BPM Atrial Rate : 056 BPM P-R Int : 146 ms QRS Dur : 094 ms QT Int : 468 ms P-R-T Axes : 055 009 037 degrees QTc Int : 451 ms SINUS BRADYCARDIA OTHERWISE NORMAL ECG WHEN COMPARED WITH ECG OF 14-FEB-2018 19:39, NONSPECIFIC T WAVE ABNORMALITY NO LONGER EVIDENT IN ANTERIOR LEADS Confirmed by VIDYA VALDEZ, DOM ([id number]) on 02/15/2018 11:58:42 AM Referred By: Confirmed By:DOM DASILVA MD
[2018-02-15 13:24] VITALS: BP 125/70; PULSE 56
--- NOTE | 2018-02-15 17:10 | PN ---
[facility] Progress Note Note: Vital Signs Temperature 98.2 F 02/15/18 13:23 Pulse Rate 56 L 02/15/18 13:23 Respiratory Rate 16 02/15/18 13:23 Blood Pressure 125/70 02/15/18 13:23 O2 Sat by Pulse Oximetry (%) Patient wishes to leave AMA, because she will like Percocet for her back pain. Alternative pain treatment was offered an patient declined. Patient reports she asked her son to pick her up and take her to [facility]. Patient currently stable, no suicidal / homicidal ideation. Patient advise on the risk of not completing treatment which can include . patient verbalizes understanding.
--- NOTE | 2018-02-15 17:10 | DS ---
[facility] Detox Discharge Summary Admission Date: 02/14/18 Discharge Date: 02/15/18 - History Present History: Opioid Dependence, Sedative Dependence Additional Comments: Patient left AMA. Patient medically stable, no suicidal / homicidal ideation. Patient to follow up with PMD upon discharge. If worsening symptoms are present to seek medical attention at local Ed, urgent care or PMD. Pertinent Past History: Vital Signs Temperature 98.2 F 02/15/18 13:23 Pulse Rate 56 L 02/15/18 13:23 Respiratory Rate 16 02/15/18 13:23 Blood Pressure 125/70 02/15/18 13:23 O2 Sat by Pulse Oximetry (%) Laboratory Last Values Urine Color Ltyellow 02/15/18 08:00 Urine Appearance Clear 02/15/18 08:00 Urine pH 7.0 (5.0-8.0) 02/15/18 08:00 Ur Specific [place] 1.012 (1.001-1.035) 02/15/18 08:00 Urine Protein 1+ (NEGATIVE) H 02/15/18 08:00 Urine Glucose (UA) Negative (NEGATIVE) 02/15/18 08:00 Urine Ketones Negative (NEGATIVE) 02/15/18 08:00 Urine Blood Negative (NEGATIVE) 02/15/18 08:00 Urine Nitrite Negative (NEGATIVE) 02/15/18 08:00 Urine Bilirubin Negative (<2.0 mg/dL) 02/15/18 08:00 Urine Urobilinogen 4.0 e.u/dl mg/dL (0.2-1.0) H 02/15/18 08:00 Ur Leukocyte Esterase 3+ (NEGATIVE) H 02/15/18 08:00 Urine WBC (Auto) 37 /hpf (3-5) 02/15/18 08:00 Urine RBC (Auto) None /hpf (0-3) 02/15/18 08:00 Ur Epithelial Cells Rare /HPF (FEW) 02/15/18 08:00 Hyaline Casts 3 /lpf 02/15/18 08:00 RPR Titer Nonreactive (NONREACTIVE) 02/15/18 08:00 - Physical Exam Results Vital Signs: Vital Signs Temperature 98.2 F 02/15/18 13:23 Pulse Rate 56 L 02/15/18 13:23 Respiratory Rate 16 02/15/18 13:23 Blood Pressure 125/70 02/15/18 13:23 O2 Sat by Pulse Oximetry (%) Pertinent Admission Physical Exam Findings: Asthma HTN - Medication Discharge Medications: Ambulatory Orders Valsartan/Hydrochlorothiazide [Diovan Hct 80-12.5 mg Tablet -] 1 combo PO DAILY 03/10/12 Aspirin [ASA -] 81 mg PO DAILY #30 tab.chew 11/17/17 Quetiapine Fumarate [Seroquel] 100 mg PO HS #30 tablet 02/15/18 - Diagnosis (1) Anxiety and depression Current Visit: Yes Status: Chronic (2) Asthma Current Visit: Yes Status: Chronic Qualifiers: Asthma severity: mild Asthma persistence: unspecified Asthma complication type: uncomplicated Qualified Code(s): J45.909 - Unspecified asthma, uncomplicated (3) Hypertension Current Visit: Yes Status: Chronic Qualifiers: Hypertension type: essential hypertension Qualified Code(s): I10 - Essential (primary) hypertension (4) Nicotine dependence Current Visit: Yes Status: Chronic Qualifiers: Nicotine product type: cigarettes Substance use status: uncomplicated Qualified Code(s): F17.210 - Nicotine dependence, cigarettes, uncomplicated (5) Opioid dependence with withdrawal Current Visit: Yes Status: Chronic (6) Sedative, hypnotic or anxiolytic dependence with withdrawal, uncomplicated Current Visit: Yes Status: Chronic - AMA Did Patient Leave Against Medical Advice: Yes
[2018-02-15] MEDS ORDERED: THIAMINE HCL 100 MG TABLET (FP) PO SCH (22:00)
[2018-02-15] MEDS ORDERED: MELATONIN 5 MG TABLETS PO PRN (22:00)
[2018-02-15] MEDS ORDERED: QUEtiapine FUMARATE 100 MG TABLET (FP) PO SCH (22:00)
[2018-02-16] MEDS ORDERED: METHADONE HCL 10 MG TABLET (FOR DETOX USE ONLY) PO SCH (10:00)
[2018-02-17] MEDS ORDERED: diazePAM 5 MG TABLET PO SCH (10:00)
[2018-02-17] MEDS ORDERED: METHADONE HCL 5 MG TABLET (FOR DETOX USE ONLY) PO SCH (10:00)
[2018-02-19] MEDS ORDERED: diazePAM 5 MG TABLET PO SCH (10:00)
[2018-02-19] MEDS ORDERED: METHADONE HCL 10 MG TABLET (FOR DETOX USE ONLY) PO SCH (10:00)
[2018-02-20] MEDS ORDERED: METHADONE HCL 5 MG TABLET (FOR DETOX USE ONLY) PO SCH (06:00)
== END 2018-02-15 18:07 | disposition left against medical advice (07) | DRG 770 ==
LOC: YASAS 12:40 → Y6N 23:22
PROVIDERS: ADMIT Family Medicine Addiction Medicine; ATTEND Family Medicine Addiction Medicine
PROC: HZ2ZZZZ Detoxification Services for Substance Abuse Treatment (ICD-10-PCS; principal; 2018-02-14)
DX: F11.23 Opioid dependence with withdrawal (principal); F13.230 Sedative, hypnotic or anxiolytic dependence with withdrawal, uncomplicated; F17.210 Nicotine dependence, cigarettes, uncomplicated; F41.8 Other specified anxiety disorders; F19.24 Other psychoactive substance dependence with psychoactive substance-induced mood disorder; F51.05 Insomnia due to other mental disorder; I10 Essential (primary) hypertension; J45.909 Unspecified asthma, uncomplicated; N39.0 Urinary tract infection, site not specified; R31.9 Hematuria, unspecified; R63.4 Abnormal weight loss; Z68.27 Body mass index [BMI] 27.0-27.9, adult
CPT/HCPCS: 36415; 81003; 81015; 86593; 93005; 93010

== ENCOUNTER 2018-02-14 15:09 | Emergency (ER) | payer OTHER ==
[2018-02-14 15:31] VITALS: TEMP 98.3; BMI 25.4
--- NOTE | 2018-02-14 15:50 | PDOC ---
History of Present Illness - General Chief Complaint: Blood Pressure Problem Stated Complaint: HIGH BP Time Seen by Provider: 02/14/18 15:50 - History of Present Illness Initial Comments: 62 year old female, from [facility], with PMH of opiate/ nicotine dependence , seizure, HTN, asthma, anxiety and depression who presents to the ED with complaints of high blood pressure of 190s /100s. She states that she did not take her medication this AM because she was in a lopez to get to detox for heroin abuse (insufflation, last use yesterday). Denies any symptoms including headache, fevers, chills, nausea, visual symptoms, chest pain, urianry symptoms , or other issues. She has history of HTN urgency in the setting of medication non-compliance. 02/14/18 15:51 Past History - Past Medical History Allergies/Adverse Reactions: Allergies Allergy/AdvReac Type Severity Reaction Status Date / Time No Known Drug Allergies Allergy Verified 02/14/18 15:31 Home Medications: Ambulatory Orders Valsartan/Hydrochlorothiazide [Diovan Hct 80-12.5 mg Tablet -] 1 combo PO DAILY 03/10/12 Quetiapine Fumarate [Seroquel] 100 mg PO HS #30 tablet 11/13/17 Amoxicillin - [Amoxicillin 500mg Capsule -] 500 mg PO TID #15 capsule 11/17/17 Aspirin [ASA -] 81 mg PO DAILY #30 tab.chew 11/17/17 Anemia: No Asthma: No Cancer: No Cardiac Disorders: No CVA: No COPD: No CHF: No Dementia: No Diabetes: No GI Disorders: No Disorders: No HTN: Yes (HYDROCHLOROTHIAZIDE DAILY) Hypercholesterolemia: No Kidney Stones: No Liver Disease: No Psychiatric Problems: Yes (ANXIETY) Seizures: Yes (alcohol related-last episode was in 2006) Thyroid Disease: No - Surgical History Abdominal Surgery: No Appendectomy: No Cardiac Surgery: No Cholecystectomy: No Lung Surgery: No Neurologic Surgery: No Orthopedic Surgery: No - Reproductive History PID: No - Immunization History Immunization Up to Date: No - Suicide/Smoking/Psychosocial Hx Smoking Status: Yes Smoking History: Current every day smoker Have you smoked in the past 12 months: Yes Number of Cigarettes Smoked Daily: 1 Cigars Per Day: 0 Information on smoking cessation initiated: No 'Breaking Loose' booklet given: 11/12/17 Hx Alcohol Use: No Drug/Substance Use Hx: Yes Substance Use Type: Alcohol, Heroin, Tranquilizers Hx Substance Use Treatment: Yes ([facility] 09/12/17 TO 09/16/17) Review of Systems - Review of Systems Constitutional: No: Chills, Diaphoresis, Fever HEENTM: No: Blurred Vision, Tearing Respiratory: No: Cough, Shortness of Breath Cardiac (ROS): No: Chest Pain, Irregular Heart Rate ABD/GI: No: Diarrhea, Nausea, Poor Appetite, Vomiting : No: Dysuria, Discharge, Hematuria Musculoskeletal: No: Joint Pain, Muscle Pain Integumentary: No: Bruising, Erythema, Flushing Neurological: No: Headache, Numbness, Paresthesia, Tingling Psychiatric: No: Anxiety, Depression, Frequent Crying Hematologic/Lymphatic: No: Anemia, Blood Clots *Physical Exam - Vital Signs Last Vital Signs Temp Pulse Resp BP Pulse Ox 98.3 F 78 20 188/93 95 02/14/18 15:29 02/14/18 15:29 02/14/18 15:29 02/14/18 15:29 02/14/18 15:29 - Physical Exam General Appearance: Yes: Nourished, Appropriately Dressed. No: Apparent Distress HEENT: positive: EOMI, MEÑO, Normal ENT Inspection, Normal Voice Neck: positive: Trachea midline, Normal Thyroid, Supple. negative: Tender, Rigid Respiratory/Chest: positive: Lungs Clear, Normal Breath Sounds. negative: Chest Tender, Respiratory Distress, Accessory Muscle Use Cardiovascular: positive: Regular Rhythm, Regular Rate Gastrointestinal/Abdominal: positive: Normal Bowel Sounds, Flat, Soft. negative : Tender Musculoskeletal: positive: Normal Inspection. negative: CVA Tenderness Extremity: positive: Normal Capillary Refill, Normal Inspection, Normal Range of Motion. negative: Tender Integumentary: positive: Normal Color, Dry, Warm Neurologic: positive: crew supervisor II-XII NML intact, Fully Oriented, Alert, Normal Mood/ Affect, Normal Response, Motor Strength 5/5 ED Treatment Course - LABORATORY CBC & Chemistry Diagram: 02/14/18 17:50 02/14/18 16:59 Medical Decision Making - Medical Decision Making 62 year old medically non-compliant female presenting with elevated blood pressure and labs WNL without symptoms of end organ ischemia. Patient's pressures improved after 10 PO hydral, home dose diavan 80, and amlodipine 5MG. Her Utox retunred positive for cocaine, benzos, and opiates. Spoke to LABORATORY ANIMAL CARETAKER at [facility] and we relayed the fact that she was medically stable for admission for heroin detox. 02/14/18 21:12 *DC/Admit/Observation/Transfer Diagnosis at time of Disposition: Hypertensive urgency, Nonadherence to medication - Discharge Dispostion Disposition: HOME Condition at time of disposition: Improved Decision to Admit order: No - Referrals Referrals: [facility] [place] [Provider Group] - Patient Instructions Printed Discharge Instructions: DI for High Blood Pressure Additional Instructions: You need to take you blood pressure medication and stop using drugs. Please get better in rehab. Please return to the ED if you have new or worsening symptoms. - Post Discharge Activity
--- NOTE | 2018-02-14 16:07 | PDOC ---
Attending Attestation - HPI HPI: 02/14/18 17:21 The patient is a 62 year old female brought via EMS from [facility], with a significant past medical history of opiate/ nicotine dependence, seizure, HTN , asthma, anxiety and depression, who presents to the emergency department complaining of high blood pressure as high as 216/99. But she denies any Semitic complaints. She notes that she has not taken her blood pressure meds since this morning due to her lopez to get to detox (last use yesterday). She notes that she has been using 2 bags of heroin every day for the past year since her mom . Currently her blood pressure is 180/102 after being giving medication. The patient denies chest pain, shortness of breath, headache or dizziness. Denies fever, chills, nausea, vomiting, diarrhea and constipation. Denies dysuria, frequency, urgency and hematuria. Allergies: None Past surgical history: None reported Social History: Alcohol, Heroin, Tranquilizers - Physicial Exam PE: 02/14/18 17:21 Constitutional: Awake, alert, oriented. No acute distress. Head: Normocephalic. Atraumatic Eyes: PERRL. EOMI. Conjunctivae are not pale. ENT: Mucous membranes are moist and intact. Posterior pharynx without exudates or erythema. Uvula midline. Neck: Supple. Full ROM. No lymphadenopathy. Cardiovascular: Regular rate. Regular rhythm. S1, S2 regular. Distal pulses are 2+ and symmetric. Pulmonary/Chest: No evidence of respiratory distress. Clear to auscultation bilaterally No wheezing, rales or rhonchi. Abdominal: Soft and non-distended. There is no tenderness. No rebound, guarding or rigidity. No organomegaly. No palpable masses. Good bowel sounds. Back: No CVA tenderness. Musculoskeletal: No edema. No cyanosis. No clubbing. Full range of motion in all extremities. Nocalf tenderness. Radial/pedal pulses are intact and 2+ bilaterally Skin: Skin is warm and dry. No petechiae. No purpura. Neurological: Alert and oriented to person, place, and time. Cranial nerves II -XII are grossly intact. Normal speech. Strength is grossly symmetric. No sensory deficits. Psychiatric: Good eye contact. Normal interaction, affect and behavior. <Ethan Mckay - Last Filed: 02/14/18 17:21> - Resident Resident Name: ChristianArnaud - ED Attending Attestation I have performed the following: I have examined & evaluated the patient, The case was reviewed & discussed with the resident, I agree w/resident's findings & plan, Exceptions are as noted - Medical Decision Making 02/14/18 16:07 I, Dr. Gely Chapman, DO, attest that this document has been prepared under my direction and personally reviewed by me in its entirety. I further attest, that it accurately reflects all work, treatment, procedures and medical decision -making performed by me. 02/14/18 17:17 62yo female sent from [facility] for medical clearance for elevated BP -hx of heroin use, uses 2 bags a day -has been using x 1 year since her mother at 89yo -bp elevated, has missed 2 days of her bp meds -will check labs, repeat bp checks -will dose bp med in the ED 02/14/18 17:25 02/14/18 21:40 pts labs reviewed and stable bp improved tox screen + cocaine, benzo, opiates discussed with [facility] and accepted for detox 02/14/18 21:41 noncompliant with BP meds <Gely Chapman - Last Filed: 02/14/18 21:41> Heart Score/ECG Review - ECG Intrepretation Comment:: 02/14/18 19:43 sinus at 61 with sinus arrythmia, nl axis, nl interval, no acute st/t wave findings <Gely Chapman - Last Filed: 02/14/18 21:41>
[2018-02-14] MEDS ORDERED: VALSARTAN 80 MG TABLET (UD) PO ONE (16:15)
[2018-02-14] MEDS ORDERED: VALSARTAN 80 MG TABLET (UD) ONE (16:44)
[2018-02-14 18:11] LABS: BASO % 0.3 % (0-2.0); HEMATOCRIT 36.7 % (32.4-45.2); HEMOGLOBIN 12.2 GM/dL (10.7-15.3); LYMPH % 22.1 % (8-40); MCH 28.5 pg (25.7-33.7); MCHC 33.2 g/dl (32.0-36.0); MEAN CELL VOLUME 85.7 fl (80-96); MEAN PLT VOLUME 8.5 fl (7.5-11.1); MONO % 4.4 % (3.8-10.2); NEUT % 73.2 % (42.8-82.8); PLATELET COUNT 475 K/MM3 (134-434); RBC 4.28 M/mm3 (3.60-5.2); RDW 13.5 % (11.6-15.6); WHITE BLOOD COUNT 8.4 K/mm3 (4.0-10.0)
[2018-02-14 18:12] LABS: URINE APPEARANCE CLEAR; URINE BILIRUBIN NEGATIVE (<2.0 mg/dL); URINE COLOR YELLOW; URINE GLUCOSE (UA) NEGATIVE (NEGATIVE); URINE KETONE NEGATIVE (NEGATIVE); URINE LEUK ESTERASE NEGATIVE (NEGATIVE); URINE NITRITE NEGATIVE (NEGATIVE); URINE PROTEIN 2+ (NEGATIVE)
[2018-02-14 18:26] LABS: INR 1.1 (0.82-1.09); PROTHROMBIN TIME (PATIENT) 12.4 SEC (9.7-13.0)
[2018-02-14 18:27] LABS: URINE HYALINE CAST 3 /lpf
[2018-02-14 18:32] LABS: METHADONE, UR NEGATIVE ng/ml (CUTOFF=300); PHENCYCLIDINE,URINE NEGATIVE ng/ml (CUTOFF=25); URINE AMPHETAMINES NEGATIVE ng/ml (CUTOFF=500); URINE BARBITURATES NEGATIVE ng/ml (CUTOFF=200)
[2018-02-14 18:33] LABS: URINE BENZODIAZEPINES POSITIVE ng/ml (CUTOFF=200)
[2018-02-14 18:34] LABS: COCAINE, UR POSITIVE ng/ml (CUTOFF=300); OPIATES, URI POSITIVE ng/ml (CUTOFF=300)
[2018-02-14 18:55] LABS: ALBUMIN 4.1 g/dl (3.4-5.0); ANION GAP 10 (8-16); BLOOD UREA NITROGEN 16 mg/dL (7-18); CALCIUM 9.4 mg/dL (8.5-10.1); CHLORIDE 105 mmol/L (98-107); CO2 26 mmol/L (21-32); GLUCOSE,RANDOM 93 mg/dL (74-106); POTASSIUM 4.4 mmol/L (3.5-5.1); SODIUM 141 mmol/L (136-145)
[2018-02-14 19:00] LABS: ALK PHOS 114 U/L (45-117); BILIRUBIN,TOTAL 0.4 mg/dL (0.2-1.0); CREATININE 1.1 mg/dL (0.55-1.02); SGOT/AST 25 U/L (15-37); SGPT/ALT 29 U/L (12-78); TOT PROT 9.2 g/dl (6.4-8.2)
[2018-02-14] MEDS ORDERED: amLODIPine BESYLATE 5 MG TABLET (FP) PO ONE (19:00)
[2018-02-14] MEDS ORDERED: hydrALAZINE HCL 20 MG/ML VIAL IVPUSH ONE (19:03)
[2018-02-14] MEDS ORDERED: hydrALAZINE HCL 20 MG/ML VIAL ONE (20:03)
[2018-02-14] MEDS ORDERED: amLODIPine BESYLATE 5 MG TABLET (FP) ONE (20:03)
[2018-02-14] MEDS ORDERED: hydrALAZINE HCL 10 MG TABLET PO ONE (20:13)
[2018-02-14 20:15] VITALS: BP 187/77; PULSE 65
[2018-02-14] MEDS ORDERED: hydrALAZINE HCL 25 MG TABLET (FP) ONE (20:17)
[2018-02-14] MEDS ORDERED: hydrALAZINE HCL 25 MG TABLET (FP) PO ONE (20:18)
--- NOTE | 2018-02-15 11:53 | EKG ---
Test Reason : Blood Pressure : / mmHG Vent. Rate : 061 BPM Atrial Rate : 061 BPM P-R Int : 146 ms QRS Dur : 094 ms QT Int : 426 ms P-R-T Axes : 060 009 040 degrees QTc Int : 428 ms POOR DATA QUALITY, INTERPRETATION MAY BE ADVERSELY AFFECTED NORMAL SINUS RHYTHM WITH SINUS ARRHYTHMIA POSSIBLE LEFT ATRIAL ENLARGEMENT BORDERLINE ECG WHEN COMPARED WITH ECG OF 12-NOV-2017 11:13, NO SIGNIFICANT CHANGE WAS FOUND Confirmed by DOM DASILVA MD ([id number]) on 02/15/2018 11:53:27 AM Referred By: Confirmed By:DOM DASILVA MD
== END 2018-02-14 22:43 | disposition home or self-care (01) ==
LOC: JER 15:09
DX: I16.0 Hypertensive urgency (principal); F41.9 Anxiety disorder, unspecified
CPT/HCPCS: 36415; 70450-TC; 80053; 80307; 81003; 81015; 82550; 82553; 84484; 85025; 85610; 93005; 93010; 99284-25

== ENCOUNTER 2019-10-06 11:27 | Inpatient (IN) | payer MEDICARE, OTHER ==
[2019-10-06 12:58] VITALS: BMI 32.3
--- NOTE | 2019-10-06 15:19 | HP ---
COWS - Scale Resting Pulse: 0= [place] 80 or Below Sweatin= Chills/Flushing Restless Observation: 1= Difficult to Sit Still Pupil Size: 1= Pupils >than Normal Bone or Joint Aches: 1= Mild Discomfort Runny Nose/ Eye Tearin= Nasal Congestion GI Upset > 30mins: 2= Nausea/Diarrhea Tremor Observation: 2= Slight Tremor Visible Yawning Observation: 1= 1-2x During Session Anxiety or Irritability: 1=Feels Anxious/Irritable Goose Flesh Skin: 3=Piloerection COWS Score: 14 CIWA Score Nausea/Vomitin Muscle Tremors: 2 Anxiety: 2 Agitation: 2 Paroxysmal Sweats: 2 Orientation: 0-Oriented Tacttile Disturbances: 2-Mild Itch/Numbness/Burn Auditory Disturbances: 0-None Visual Disturbances: 0-None Headache: 2-Mild CIWA-Ar Total Score: 14 - Admission Criteria OASAS Guidelines: Admission for Medically Managed Detox: Requires at least one of the followin. CIWA greater than 12 2. Seizures within the past 24 hours 3. Delirium tremens within the past 24 hours 4. Hallucinations within the past 24 hours 5. Acute intervention needed for co occurring medical disorder 6. Acute intervention needed for co occurring psychiatric disorder 7. Severe withdrawal that cannot be handled at a lower level of care (continued vomiting, continued diarrhea, abnormal vital signs) requiring intravenous medication and/or fluids 8. Patient presents the following: CIWA greater than 12 Admission Criteria Met: Admission criteria met Admitting History and Physical - Smoking History Smoking history: Current every day smoker Have you smoked in the past 12 months: Yes Aproximately how many cigarettes per day: 3 - Alcohol/Substance Use Hx Alcohol Use: Yes (BEER/RUM) Admission ROS [facility] Chief Complaint: I need to detox off the benzos, heroin and alcohol Allergies/Adverse Reactions: Allergies Allergy/AdvReac Type Severity Reaction Status Date / Time No Known Drug Allergies Allergy Verified 10/06/19 12:52 History of Present Illness: 64 year old woman with alcohol, heroin and xanax use presents for detox. Her last detox at [facility] was from 04/24/18-04/27/18. She signed out AMA after 3 days' stay. She is on methadone maintenance 60mg at [facility] and continues to use heroin. Exam Limitations: No Limitations - Ebola screening Have you traveled outside of the country in the last 21 days: No Have you had contact with anyone from an Ebola affected area: No Have you been sick,other than usual withdrawal symptoms: No Do you have a fever: No - Review of Systems Constitutional: Chills, Loss of Appetite, Changes in sleep EENT: reports: Nose Congestion, Dental Problems (edentulous) Respiratory: reports: No Symptoms reported Cardiac: reports: No Symptoms Reported GI: reports: Diarrhea, Nausea, Poor Appetite, Abdominal cramping : reports: No Symptoms Reported Musculoskeletal: reports: Back Pain, Joint Pain, Muscle Pain Integumentary: reports: Sweating Neuro: reports: Headache, Numbness, Tremors Endocrine: reports: No Symptoms Reported Hematology: reports: No Symptoms Reported Psychiatric: reports: Anxious (not on medication), Depressed (not on medication) Other Systems: Reviewed and Negative Patient History - Patient Medical History Hx Anemia: No Hx Asthma: Yes (MDI) Hx Chronic Obstructive Pulmonary Disease (COPD): No Hx Cancer: No Hx Cardiac Disorders: No Hx Congestive Heart Failure: No Hx Hypertension: Yes Hx Hypercholesterolemia: No Hx Pacemaker: No HX Cerebrovascular Accident: No Hx Seizures: Yes Hx Dementia: No Hx Diabetes: No Hx Gastrointestinal Disorders: No Hx Liver Disease: No Hx Genitourinary Disorders: No Hx Sexually Transmitted Disorders: No Hx Renal Disease (ESRD): No Hx Thyroid Disease: No Hx Human Immunodeficiency Virus (HIV): No Hx Hepatitis C: No Hx Depression: Yes Hx Suicide Attempt: No Hx Bipolar Disorder: No Hx Schizophrenia: No - Patient Surgical History Past Surgical History: Yes Hx Neurologic Surgery: No Hx Cataract Extraction: No Hx Cardiac Surgery: No Hx Lung Surgery: No Hx Breast Surgery: No Hx Breast Biopsy: No Hx Abdominal Surgery: No Hx Appendectomy: No Hx Cholecystectomy: No Hx Genitourinary Surgery: No Hx Section: Yes (1987) Hx Orthopedic Surgery: No Anesthesia Reaction: No - PPD History Previous Implant?: No Implanted On Prior R Admission?: No Results: CXR(-)12/22/16 PPD to be Administered?: No - Smoking Cessation Smoking history: Current every day smoker Have you smoked in the past 12 months: Yes Aproximately how many cigarettes per day: 10 Cigars Per Day: 0 Hx Chewing Tobacco Use: No Initiated information on smoking cessation: Yes 'Breaking Loose' booklet given: 10/06/19 - Substances abused Alcohol Substance route: Oral Frequency: Daily Amount used: 3 (12oz beers) Age of first use: 28 Date of last use: 10/05/19 Heroin Substance route: Inhalation Frequency: Daily Amount used: 3 bags Age of first use: 21 Date of last use: 10/06/19 Alprazolam (Xanax) Substance route: Oral Frequency: Daily Amount used: 3 bars Age of first use: 55 Date of last use: 10/05/19 Admission Physical Exam [facility] - Vital Signs Vital Signs: Vital Signs - 24 hr 10/06/19 12:54 Temperature 97.6 F Pulse Rate 61 Respiratory 16 Rate Blood Pressure 155/65 - Physical General Appearance: Yes: No Apparent Distress HEENTM: Yes: EOMI, Hearing grossly Normal, Normocephalic, Pharynx Normal, Other (edentulous-missing dentures) Respiratory: Yes: Chest Non-Tender, Lungs Clear, Normal Breath Sounds, No Respiratory Distress, No Accessory Muscle Use Neck: Yes: No masses,lesions,Nodules, Supple Breast: Yes: Breast Exam Deferred Cardiology: Yes: Regular Rhythm, Regular Rate, S1, S2 Abdominal: Yes: Normal Bowel Sounds, Soft Genitourinary: Yes: Within Normal Limits Back: Yes: Normal Inspection Musculoskeletal: Yes: Back pain, Muscle Pain, Muscle weakness Extremities: Yes: Tremors Neurological: Yes: slurry man II-XII NML intact, Fully Oriented, Alert, Normal Mood/ Affect, Normal Response Integumentary: Yes: Moist Lymphatic: Yes: Within Normal Limits - Diagnostic (1) Alcohol dependence with uncomplicated withdrawal Current Visit: Yes Status: Acute (2) Asthma Current Visit: Yes Status: Chronic Qualifiers: Asthma severity: mild Asthma persistence: intermittent Asthma complication type: uncomplicated Qualified Code(s): J45.20 - Mild intermittent asthma, uncomplicated (3) Hypertension Current Visit: Yes Status: Chronic Qualifiers: Hypertension type: essential hypertension Qualified Code(s): I10 - Essential (primary) hypertension (4) Nicotine dependence Current Visit: Yes Status: Acute Qualifiers: Nicotine product type: cigarettes Substance use status: uncomplicated Qualified Code(s): F17.210 - Nicotine dependence, cigarettes, uncomplicated (5) Sedative, hypnotic or anxiolytic dependence with withdrawal, uncomplicated Current Visit: No Status: Chronic (6) History of positive PPD Current Visit: Yes Status: Chronic Comment: TREATED (7) Methadone maintenance therapy patient Current Visit: Yes Status: Chronic Cleared for Admission [facility] - Detox or Rehab [facility] Level of Care: Medically Managed Detox Regimen/Protocol: Ativan Claeared for Rehab Admission: No Breathalyzer - Breathalyzer Breathalyzer: 0 Urine Drug Screen - Test Device Lot number: [id number] Expiration date: 07/27/21 - Control Is test valid?: Yes - Results Drug screen NEGATIVE: No Urine drug screen results: PAL-Cocaine, MOP-Opiates, MTD-Methadone, BZO- Benzodiazepines Inpatient Rehab Admission - Rehab Decision to Admit Inpatient rehab admission?: No
[2019-10-06] MEDS ORDERED: MAGNESIUM CITRATE 300 ML BOTTLE PO PRN (15:27)
[2019-10-06] MEDS ORDERED: NICOTINE POLACRILEX 2 MG GUM BUC PRN (15:27)
[2019-10-06] MEDS ORDERED: MAG HYDROX/AL HYDROX/SIMETH 30 ML UNIT-DOSE CUP PO PRN (15:27)
[2019-10-06] MEDS ORDERED: MENTHOL/PHENOL 1 EACH UD MM PRN (15:27)
[2019-10-06] MEDS ORDERED: METHOCARBAMOL 500 MG TABLET PO PRN (15:27)
[2019-10-06] MEDS ORDERED: LORazepam 1 MG TABLET PO PRN (15:27)
[2019-10-06] MEDS ORDERED: BISMUTH SUBSALICYLATE 524 MG/30 ML UD PO PRN (15:27)
[2019-10-06] MEDS ORDERED: MAGNESIUM HYDROX 2400MG/30ML ORAL SUSPENSION 30 ML CUP PO PRN (15:27)
[2019-10-06] MEDS ORDERED: ACETAMINOPHEN 325 MG TABLET (FP) PO PRN ×2 (15:27)
[2019-10-06] MEDS ORDERED: IBUPROFEN 400 MG TABLET (FP) PO PRN (15:27)
[2019-10-06] MEDS ORDERED: ALBUTEROL SO4 HFA INHALER IH PRN (15:29)
[2019-10-06] MEDS: NICOTINE 7 MG/24 HOURS TOPICAL PATCH TD SCH (17:36)
[2019-10-06] MEDS: LORazepam 2 MG TABLET PO SCH ×2 (17:39→22:33)
[2019-10-06] MEDS: hydrOXYzine PAMOATE 25 MG CAPSULE (FP) PO PRN (17:39)
[2019-10-06] MEDS: MELATONIN 5 MG TABLETS PO PRN (22:33)
[2019-10-06] MEDS: THIAMINE HCL 100 MG TABLET (FP) PO SCH (22:33)
[2019-10-07] MEDS: LORazepam 2 MG TABLET PO SCH ×4 (06:40→22:27)
[2019-10-07] MEDS ORDERED: METHADONE HCL 10 MG TABLET PO ONE (08:45)
[2019-10-07] MEDS ORDERED: METHADONE 40 MG, METHADONE 20 MG PO ONE (09:00)
[2019-10-07] MEDS ORDERED: METHADONE HCL 10 MG TABLET ONE (09:29)
[2019-10-07] MEDS ORDERED: METHADONE HCL 40 MG DISPERSABLE TABLET ONE (09:30)
[2019-10-07] MEDS ORDERED: [UNRECOGNIZED DRUG - OTHER] PO SCH (10:00)
[2019-10-07] MEDS ORDERED: VALSARTAN PO SCH (10:00)
[2019-10-07 10:16] LABS: HEMATOCRIT 32.5 % (32.4-45.2); HEMOGLOBIN 10.8 GM/dL (10.7-15.3); MCH 28.9 pg (25.7-33.7); MCHC 33.2 g/dl (32.0-36.0); MEAN CELL VOLUME 87.1 fl (80-96); MEAN PLT VOLUME 8.7 fl (7.5-11.1); PLATELET COUNT 337 K/MM3 (134-434); RBC 3.73 M/mm3 (3.60-5.2); RDW 15.2 % (11.6-15.6); WHITE BLOOD COUNT 5.5 K/mm3 (4.0-10.0)
[2019-10-07 10:22] LABS: ALBUMIN 3.3 g/dl (3.4-5.0); BILIRUBIN,TOTAL 0.8 mg/dL (0.2-1); BLOOD UREA NITROGEN 8.4 mg/dL (7-18); CREATININE 1.1 mg/dL (0.55-1.3); POTASSIUM 4.3 mmol/L (3.5-5.1); TOT PROT 7.7 g/dl (6.4-8.2)
[2019-10-07] MEDS: HYDROCHLOROTHIAZIDE 12.5 MG CAPSULE (FP) PO SCH (11:14)
[2019-10-07] MEDS: NICOTINE 7 MG/24 HOURS TOPICAL PATCH TD SCH (11:15)
[2019-10-07] MEDS: PRENATAL VITAMINS W/ FOLIC ACID TABLET (FP) PO SCH (11:15)
--- NOTE | 2019-10-07 11:50 | PN ---
S CIWA - CIWA Score Nausea/Vomitin-No Nausea/No Vomiting Muscle Tremors: 3 Anxiety: 2 Agitation: 3 Paroxysmal Sweats: 2 Orientation: 0-Oriented Tacttile Disturbances: 0-None Auditory Disturbances: 0-None Visual Disturbances: 0-None Headache: 2-Mild CIWA-Ar Total Score: 12 S Progress Note (SOAP) Subjective: sweats headache restless interrupted sleep Objective: 10/07/19 11:49 Vital Signs Temperature 98.1 F 10/07/19 09:33 Pulse Rate 56 L 10/07/19 09:33 Respiratory Rate 18 10/07/19 09:33 Blood Pressure 145/94 10/07/19 09:33 O2 Sat by Pulse Oximetry (%) Laboratory Tests 10/07/19 10/07/19 10/07/19 08:00 08:00 08:00 WBC 5.5 RBC 3.73 Hgb 10.8 Hct 32.5 MCV 87.1 MCH 28.9 MCHC 33.2 RDW 15.2 Plt Count 337 MPV 8.7 Sodium 138 Potassium 4.3 Chloride 102 Carbon Dioxide 30 Anion Gap 5 L BUN 8.4 Creatinine 1.1 Est GFR (CKD-EPI)AfAm 60.59 Est GFR (CKD-EPI)NonAf 52.28 Random Glucose 105 Calcium 9.0 Total Bilirubin 0.8 AST 15 ALT 16 Alkaline Phosphatase 133 H Total Protein 7.7 Albumin 3.3 L RPR Titer Nonreactive aaox3 lying in bed no acute distress Assessment: 10/07/19 11:50 withdrawals Plan: continue detox tylenol/motrin for KERN
[2019-10-07] MEDS: VALSARTAN 80 MG TABLET (UD) PO SCH (15:55)
[2019-10-07] MEDS: hydrOXYzine PAMOATE 25 MG CAPSULE (FP) PO PRN (22:26)
[2019-10-07] MEDS: THIAMINE HCL 100 MG TABLET (FP) PO SCH (22:26)
[2019-10-07] MEDS: MELATONIN 5 MG TABLETS PO PRN (22:27)
[2019-10-08] MEDS ORDERED: METHADONE HCL 10 MG TABLET ONE (05:01)
[2019-10-08] MEDS ORDERED: METHADONE HCL 40 MG DISPERSABLE TABLET ONE (05:02)
[2019-10-08] MEDS: LORazepam 1 MG TABLET PO SCH ×4 (05:31→22:14)
[2019-10-08] MEDS: METHADONE 40 MG, METHADONE 20 MG PO SCH (05:31)
[2019-10-08] MEDS ORDERED: METHADONE HCL 40 MG DISPERSABLE TABLET PO SCH (06:00)
[2019-10-08] MEDS: VALSARTAN 80 MG TABLET (UD) PO SCH (10:50)
[2019-10-08] MEDS: HYDROCHLOROTHIAZIDE 12.5 MG CAPSULE (FP) PO SCH (10:50)
[2019-10-08] MEDS: NICOTINE 7 MG/24 HOURS TOPICAL PATCH TD SCH (10:51)
[2019-10-08] MEDS: PRENATAL VITAMINS W/ FOLIC ACID TABLET (FP) PO SCH (10:51)
--- NOTE | 2019-10-08 12:20 | PN ---
S CIWA - CIWA Score Nausea/Vomitin-No Nausea/No Vomiting Muscle Tremors: 3 Anxiety: 2 Agitation: 2 Paroxysmal Sweats: 2 Orientation: 0-Oriented Tacttile Disturbances: 0-None Auditory Disturbances: 0-None Visual Disturbances: 0-None Headache: 0-None Present CIWA-Ar Total Score: 9 S Progress Note (SOAP) Subjective: insomnia sweats Objective: 10/08/19 12:19 Vital Signs Temperature 98.1 F 10/08/19 08:44 Pulse Rate 56 L 10/08/19 08:44 Respiratory Rate 19 10/08/19 08:44 Blood Pressure 133/75 10/08/19 08:44 O2 Sat by Pulse Oximetry (%) Laboratory Tests 10/07/19 10/07/19 10/07/19 08:00 08:00 08:00 WBC 5.5 RBC 3.73 Hgb 10.8 Hct 32.5 MCV 87.1 MCH 28.9 MCHC 33.2 RDW 15.2 Plt Count 337 MPV 8.7 Sodium 138 Potassium 4.3 Chloride 102 Carbon Dioxide 30 Anion Gap 5 L BUN 8.4 Creatinine 1.1 Est GFR (CKD-EPI)AfAm 60.59 Est GFR (CKD-EPI)NonAf 52.28 Random Glucose 105 Calcium 9.0 Total Bilirubin 0.8 AST 15 ALT 16 Alkaline Phosphatase 133 H Total Protein 7.7 Albumin 3.3 L RPR Titer Nonreactive aaox3 ambulating no acute distress Assessment: 10/08/19 12:19 withdrawals Plan: continue detox trazadone 50mg qhs only while in detox increase fluids
--- NOTE | 2019-10-08 12:23 | PN ---
S CIWA - CIWA Score Nausea/Vomitin-No Nausea/No Vomiting Muscle Tremors: 2 Anxiety: 2 Agitation: 1-Slight > Activity Paroxysmal Sweats: 1-Minimal Palms Moist Orientation: 0-Oriented Tacttile Disturbances: 0-None Auditory Disturbances: 0-None Visual Disturbances: 0-None Headache: 0-None Present CIWA-Ar Total Score: 6
[2019-10-08] MEDS: hydrOXYzine PAMOATE 25 MG CAPSULE (FP) PO PRN (22:16)
[2019-10-08] MEDS: THIAMINE HCL 100 MG TABLET (FP) PO SCH (23:14)
[2019-10-09] MEDS ORDERED: LORazepam 0.5 MG TABLET PO PRN
[2019-10-09] MEDS ORDERED: METHADONE HCL 40 MG DISPERSABLE TABLET ONE (04:48)
[2019-10-09] MEDS ORDERED: METHADONE HCL 10 MG TABLET ONE (04:48)
[2019-10-09] MEDS: METHADONE 40 MG, METHADONE 20 MG PO SCH (06:04)
[2019-10-09] MEDS: LORazepam 0.5 MG TABLET PO SCH ×4 (06:04→22:44)
[2019-10-09] MEDS: VALSARTAN 80 MG TABLET (UD) PO SCH (10:38)
[2019-10-09] MEDS: HYDROCHLOROTHIAZIDE 12.5 MG CAPSULE (FP) PO SCH (10:38)
[2019-10-09] MEDS: NICOTINE 7 MG/24 HOURS TOPICAL PATCH TD SCH (10:41)
[2019-10-09] MEDS: PRENATAL VITAMINS W/ FOLIC ACID TABLET (FP) PO SCH (10:41)
--- NOTE | 2019-10-09 11:35 | PN ---
S CIWA - CIWA Score Nausea/Vomitin-No Nausea/No Vomiting Muscle Tremors: 2 Anxiety: 1-Mildly Anxious Agitation: 2 Paroxysmal Sweats: No Perspiration Orientation: 0-Oriented Tacttile Disturbances: 0-None Auditory Disturbances: 0-None Visual Disturbances: 0-None Headache: 0-None Present CIWA-Ar Total Score: 5 [facility] Progress Note (SOAP) Subjective: feeling better got better sleep last night Objective: 10/09/19 11:34 Vital Signs Temperature 98.4 F 10/08/19 20:43 Pulse Rate 50 L 10/08/19 20:43 Respiratory Rate 18 10/09/19 03:46 Blood Pressure 142/84 10/08/19 20:43 O2 Sat by Pulse Oximetry (%) aaox3 ambulating no acute distress Assessment: 10/09/19 11:34 mild withdrawals Plan: continue detox d/c in am
[2019-10-09] MEDS: THIAMINE HCL 100 MG TABLET (FP) PO SCH (22:43)
[2019-10-09] MEDS: hydrOXYzine PAMOATE 25 MG CAPSULE (FP) PO PRN (22:45)
[2019-10-10] MEDS ORDERED: LORazepam 0.5 MG TABLET PO ONE (05:00)
[2019-10-10] MEDS ORDERED: METHADONE HCL 10 MG TABLET ONE (06:44)
[2019-10-10] MEDS ORDERED: METHADONE HCL 40 MG DISPERSABLE TABLET ONE (06:45)
[2019-10-10] MEDS: METHADONE 40 MG, METHADONE 20 MG PO SCH (06:46)
[2019-10-10 08:42] VITALS: BP 133/58; PULSE 53; TEMP 98.1
--- NOTE | 2019-10-10 11:00 | PN ---
S CIWA - CIWA Score Nausea/Vomitin-Mild Nausea/No Vomiting Muscle Tremors: 1-None Visible, but [place] Anxiety: 1-Mildly Anxious Agitation: 0-Normal Activity Paroxysmal Sweats: No Perspiration Orientation: 0-Oriented Tacttile Disturbances: 0-None Auditory Disturbances: 0-None Visual Disturbances: 0-None Headache: 1-Very Mild CIWA-Ar Total Score: 4 [facility] Progress Note (SOAP) Subjective: alert,no complaint Objective: 10/10/19 10:59 Vital Signs Temperature 98.1 F 10/10/19 06:22 Pulse Rate 53 L 10/10/19 06:22 Respiratory Rate 17 10/10/19 06:22 Blood Pressure 133/58 L 10/10/19 06:22 O2 Sat by Pulse Oximetry (%) 10/10/19 10:59 detox completed,no withdrawal symptom Assessment: 10/10/19 11:00 no withdrawal Plan: discharge today,follow up with [facility]
--- NOTE | 2019-10-10 11:06 | DS ---
[facility] Detox Discharge Summary Admission Date: 10/06/19 Discharge Date: 10/10/19 - History Present History: Alcohol Dependence, Opioid Dependence, Sedative Dependence, MMTP Additional Comments: alert,oriented x 3 ambulation without difficulty lung clear no abdominal pain stable for discharged follow up with [facility] and medical provider time for discharge 30 mins Pertinent Past History: asthma hypertension - Physical Exam Results Vital Signs: Vital Signs Temperature 98.1 F 10/10/19 06:22 Pulse Rate 53 L 10/10/19 06:22 Respiratory Rate 17 10/10/19 06:22 Blood Pressure 133/58 L 10/10/19 06:22 O2 Sat by Pulse Oximetry (%) Pertinent Admission Physical Exam Findings: withdrawal symptom Vital Signs Temperature 98.1 F 10/10/19 06:22 Pulse Rate 53 L 10/10/19 06:22 Respiratory Rate 17 10/10/19 06:22 Blood Pressure 133/58 L 10/10/19 06:22 O2 Sat by Pulse Oximetry (%) Laboratory Last Values WBC 5.5 K/mm3 (4.0-10.0) 10/07/19 08:00 RBC 3.73 M/mm3 (3.60-5.2) 10/07/19 08:00 Hgb 10.8 GM/dL (10.7-15.3) 10/07/19 08:00 Hct 32.5 % (32.4-45.2) 10/07/19 08:00 MCV 87.1 fl (80-96) 10/07/19 08:00 MCH 28.9 pg (25.7-33.7) 10/07/19 08:00 MCHC 33.2 g/dl (32.0-36.0) 10/07/19 08:00 RDW 15.2 % (11.6-15.6) 10/07/19 08:00 Plt Count 337 K/MM3 (134-434) 10/07/19 08:00 MPV 8.7 fl (7.5-11.1) 10/07/19 08:00 Sodium 138 mmol/L (136-145) 10/07/19 08:00 Potassium 4.3 mmol/L (3.5-5.1) 10/07/19 08:00 Chloride 102 mmol/L (98-107) 10/07/19 08:00 Carbon Dioxide 30 mmol/L (21-32) 10/07/19 08:00 Anion Gap 5 MMOL/L (8-16) L 10/07/19 08:00 BUN 8.4 mg/dL (7-18) 10/07/19 08:00 Creatinine 1.1 mg/dL (0.55-1.3) 10/07/19 08:00 Est GFR (CKD-EPI)AfAm 60.59 10/07/19 08:00 Est GFR (CKD-EPI)NonAf 52.28 10/07/19 08:00 Random Glucose 105 mg/dL (74-106) 10/07/19 08:00 Calcium 9.0 mg/dL (8.5-10.1) 10/07/19 08:00 Total Bilirubin 0.8 mg/dL (0.2-1) 10/07/19 08:00 AST 15 U/L (15-37) 10/07/19 08:00 ALT 16 U/L (13-61) 10/07/19 08:00 Alkaline Phosphatase 133 U/L (45-117) H 10/07/19 08:00 Total Protein 7.7 g/dl (6.4-8.2) 10/07/19 08:00 Albumin 3.3 g/dl (3.4-5.0) L 10/07/19 08:00 RPR Titer Nonreactive (NONREACTIVE) 10/07/19 08:00 - Treatment Hospital Course: Detox Protocol Followed, Detoxed Safely, Responded well, Discharged Condition Good Patient has Accepted a Rehab Referral to: declined - Medication Discharge Medications: Ambulatory Orders Albuterol Sulfate Inhaler - [Ventolin HFA Inhaler -] 2 puff IH Q4H PRN #1 inhaler 04/27/18 Valsartan/Hydrochlorothiazide [Diovan Hct 80-12.5 mg Tablet -] 1 combo PO DAILY #30 tablet 04/27/18 - Diagnosis (1) Alcohol dependence with uncomplicated withdrawal Current Visit: Yes Status: Acute (2) Asthma Current Visit: Yes Status: Chronic Qualifiers: Asthma severity: mild Asthma persistence: intermittent Asthma complication type: uncomplicated Qualified Code(s): J45.20 - Mild intermittent asthma, uncomplicated (3) History of positive PPD Current Visit: Yes Status: Chronic (4) Hypertension Current Visit: Yes Status: Chronic Qualifiers: Hypertension type: essential hypertension Qualified Code(s): I10 - Essential (primary) hypertension (5) Methadone maintenance therapy patient Current Visit: Yes Status: Chronic (6) Insomnia secondary to depression with anxiety Current Visit: No Status: Chronic - AMA Did Patient Leave Against Medical Advice: No
== END 2019-10-10 13:03 | disposition home or self-care (01) | DRG 897 ==
LOC: YASAS 11:27 → Y6N 15:44
PROVIDERS: ADMIT Allergy & Immunology; ATTEND Allergy & Immunology
PROC: HZ2ZZZZ Detoxification Services for Substance Abuse Treatment (ICD-10-PCS; principal; 2019-10-06)
DX: F10.230 Alcohol dependence with withdrawal, uncomplicated (principal); F11.20 Opioid dependence, uncomplicated; J45.22 Mild intermittent asthma with status asthmaticus; F13.230 Sedative, hypnotic or anxiolytic dependence with withdrawal, uncomplicated; F51.05 Insomnia due to other mental disorder; F32.9 Major depressive disorder, single episode, unspecified; I10 Essential (primary) hypertension; R76.11 Nonspecific reaction to tuberculin skin test without active tuberculosis
CPT/HCPCS: 36415; 71045-TC-FY; 80053; 85027; 86593

== ENCOUNTER 2021-02-28 16:31 | Inpatient (IN) | payer OTHER ==
[2021-02-28 18:13] VITALS: BMI 27.0
[2021-03-01] MEDS ORDERED: LOPERAMIDE HCL 2 MG CAPSULE PO PRN (00:50)
[2021-03-01] MEDS ORDERED: guaiFENesin 200 MG/10 ML 10 ML UNIT-DOSE CUPS PO PRN (00:50)
[2021-03-01] MEDS ORDERED: MAGNESIUM CITRATE 300 ML BOTTLE PO PRN (00:50)
[2021-03-01] MEDS ORDERED: IBUPROFEN 400 MG TABLET (FP) PO PRN (00:50)
[2021-03-01] MEDS ORDERED: ACETAMINOPHEN 325 MG TABLET (FP) PO PRN (00:50)
[2021-03-01] MEDS ORDERED: MAG HYDROX/AL HYDROX/SIMETH 30 ML UNIT-DOSE CUP PO PRN (00:50)
[2021-03-01] MEDS ORDERED: NICOTINE POLACRILEX 2 MG GUM BC PRN (00:50)
[2021-03-01] MEDS ORDERED: MAGNESIUM HYDROX 2400MG/30ML ORAL SUSPENSION 30 ML CUP PO PRN (00:50)
[2021-03-01] MEDS ORDERED: P-EPHED 60MG/TRIPROLIDI 2.5MG TABLET PO PRN (00:50)
[2021-03-01] MEDS: hydrOXYzine PAMOATE 25 MG CAPSULE (FP) PO SCH ×5 (06:34→21:33)
[2021-03-01] MEDS ORDERED: NICOTINE 7 MG/24 HOURS TOPICAL PATCH TD SCH (10:00)
[2021-03-01] MEDS: PRENATAL VITAMINS W/ FOLIC ACID TABLET (FP) PO SCH (10:31)
[2021-03-01] MEDS: NICOTINE 7 MG/24 HOURS TOPICAL PATCH TD SCH (10:31)
[2021-03-01] MEDS: MELATONIN 5 MG TABLETS PO SCH (21:32)
[2021-03-01] MEDS: THIAMINE HCL 100 MG TABLET (FP) PO SCH (21:32)
[2021-03-02] MEDS: hydrOXYzine PAMOATE 25 MG CAPSULE (FP) PO SCH ×5 (05:56→21:09)
[2021-03-02] MEDS ORDERED: METHADONE HCL 10 MG TABLET PO ONE (09:13)
[2021-03-02] MEDS ORDERED: METHADONE 40 MG, METHADONE 20 MG PO ONE (09:20)
[2021-03-02] MEDS ORDERED: METHADONE HCL 40 MG DISPERSABLE TABLET ONE (10:15)
[2021-03-02] MEDS ORDERED: METHADONE HCL 10 MG TABLET ONE (10:15)
[2021-03-02] MEDS: NICOTINE 7 MG/24 HOURS TOPICAL PATCH TD SCH (10:16)
[2021-03-02] MEDS: PRENATAL VITAMINS W/ FOLIC ACID TABLET (FP) PO SCH (10:16)
[2021-03-02] MEDS: MELATONIN 5 MG TABLETS PO SCH (21:09)
[2021-03-02] MEDS: THIAMINE HCL 100 MG TABLET (FP) PO SCH (21:09)
[2021-03-03] MEDS ORDERED: METHADONE HCL 10 MG TABLET ONE (04:14)
[2021-03-03] MEDS ORDERED: METHADONE HCL 40 MG DISPERSABLE TABLET ONE (04:14)
[2021-03-03] MEDS ORDERED: METHADONE HCL 10 MG TABLET PO SCH (06:00)
[2021-03-03] MEDS: METHADONE 40 MG, METHADONE 30 MG PO SCH (06:52)
[2021-03-03] MEDS: hydrOXYzine PAMOATE 25 MG CAPSULE (FP) PO SCH ×5 (06:54→21:26)
[2021-03-03] MEDS: PRENATAL VITAMINS W/ FOLIC ACID TABLET (FP) PO SCH (10:27)
[2021-03-03] MEDS: NICOTINE 7 MG/24 HOURS TOPICAL PATCH TD SCH (10:28)
[2021-03-03] MEDS ORDERED: ALBUTEROL SO4 HFA INHALER IH PRN (11:35)
[2021-03-03] MEDS: HYDROCHLOROTHIAZIDE 12.5 MG CAPSULE (FP) PO SCH ×2 (14:31→21:26)
[2021-03-03] MEDS: VALSARTAN 80 MG TABLET PO SCH ×2 (14:31→21:25)
[2021-03-03] MEDS: MELATONIN 5 MG TABLETS PO SCH (21:25)
[2021-03-03] MEDS: THIAMINE HCL 100 MG TABLET (FP) PO SCH (21:25)
[2021-03-04] MEDS ORDERED: METHADONE HCL 40 MG DISPERSABLE TABLET ONE (03:40)
[2021-03-04] MEDS ORDERED: METHADONE HCL 10 MG TABLET ONE (03:40)
[2021-03-04] MEDS: METHADONE 40 MG, METHADONE 30 MG PO SCH (06:58)
[2021-03-04] MEDS: hydrOXYzine PAMOATE 25 MG CAPSULE (FP) PO SCH ×5 (06:58→21:44)
[2021-03-04] MEDS: PRENATAL VITAMINS W/ FOLIC ACID TABLET (FP) PO SCH (10:13)
[2021-03-04] MEDS: VALSARTAN 80 MG TABLET PO SCH ×2 (10:13→21:43)
[2021-03-04] MEDS: NICOTINE 7 MG/24 HOURS TOPICAL PATCH TD SCH (10:13)
[2021-03-04] MEDS: HYDROCHLOROTHIAZIDE 12.5 MG CAPSULE (FP) PO SCH ×2 (10:13→21:44)
[2021-03-04] MEDS: MELATONIN 5 MG TABLETS PO SCH (21:44)
[2021-03-04] MEDS: THIAMINE HCL 100 MG TABLET (FP) PO SCH (21:44)
[2021-03-04] MEDS ORDERED: MIRTAZAPINE 15 MG TABLET (FP) PO SCH (22:00)
[2021-03-05] MEDS ORDERED: METHADONE HCL 10 MG TABLET ONE (04:14)
[2021-03-05] MEDS ORDERED: METHADONE HCL 40 MG DISPERSABLE TABLET ONE (04:14)
[2021-03-05] MEDS: hydrOXYzine PAMOATE 25 MG CAPSULE (FP) PO SCH ×3 (06:27→14:03)
[2021-03-05] MEDS: METHADONE 40 MG, METHADONE 30 MG PO SCH (06:27)
[2021-03-05 08:41] VITALS: TEMP 98
[2021-03-05] MEDS: PRENATAL VITAMINS W/ FOLIC ACID TABLET (FP) PO SCH (10:25)
[2021-03-05] MEDS: VALSARTAN 80 MG TABLET PO SCH (10:26)
[2021-03-05] MEDS: NICOTINE 7 MG/24 HOURS TOPICAL PATCH TD SCH (10:26)
[2021-03-05] MEDS: HYDROCHLOROTHIAZIDE 12.5 MG CAPSULE (FP) PO SCH (10:26)
[2021-03-05 11:46] VITALS: BP 160/74; PULSE 51
== END 2021-03-05 14:35 | disposition left against medical advice (07) | DRG 894 ==
LOC: YASAS 16:31 → Y3W 03-01 00:46
PROVIDERS: ADMIT Allergy & Immunology; ATTEND Allergy & Immunology
PROC: HZ42ZZZ Group Counseling for Substance Abuse Treatment, Cognitive-Behavioral (ICD-10-PCS; principal; 2021-03-01)
DX: F14.20 Cocaine dependence, uncomplicated (principal); F11.20 Opioid dependence, uncomplicated; F13.20 Sedative, hypnotic or anxiolytic dependence, uncomplicated; F19.282 Other psychoactive substance dependence with psychoactive substance-induced sleep disorder; F17.210 Nicotine dependence, cigarettes, uncomplicated; F19.24 Other psychoactive substance dependence with psychoactive substance-induced mood disorder; F51.01 Primary insomnia; F34.1 Dysthymic disorder; I10 Essential (primary) hypertension; J45.20 Mild intermittent asthma, uncomplicated; R76.11 Nonspecific reaction to tuberculin skin test without active tuberculosis; Z62.810 Personal history of physical and sexual abuse in childhood; Z87.440 Personal history of urinary (tract) infections; Z91.410 Personal history of adult physical and sexual abuse; Z91.14 Patient's other noncompliance with medication regimen
CPT/HCPCS: 71046-TC-FY; C9803; U0003; U0005

== ENCOUNTER 2021-05-04 11:05 | Inpatient (IN) | payer OTHER ==
[2021-05-04 11:33] VITALS: BMI 37.5
[2021-05-04] MEDS ORDERED: cloNIDine HCL 0.1 MG TABLET PO ONE (11:45)
[2021-05-04] MEDS ORDERED: IBUPROFEN 400 MG TABLET (FP) PO PRN (15:16)
[2021-05-04] MEDS ORDERED: LOPERAMIDE HCL 2 MG CAPSULE PO PRN (15:16)
[2021-05-04] MEDS ORDERED: P-EPHED 60MG/TRIPROLIDI 2.5MG TABLET PO PRN (15:16)
[2021-05-04] MEDS ORDERED: MAGNESIUM CITRATE 300 ML BOTTLE PO PRN (15:16)
[2021-05-04] MEDS ORDERED: guaiFENesin 200 MG/10 ML 10 ML UNIT-DOSE CUPS PO PRN (15:16)
[2021-05-04] MEDS ORDERED: MAGNESIUM HYDROX 2400MG/30ML ORAL SUSPENSION 30 ML CUP PO PRN (15:16)
[2021-05-04] MEDS ORDERED: MAG HYDROX/AL HYDROX/SIMETH 30 ML UNIT-DOSE CUP PO PRN (15:16)
[2021-05-04] MEDS ORDERED: ACETAMINOPHEN 325 MG TABLET (FP) PO PRN (15:16)
[2021-05-04] MEDS ORDERED: NICOTINE 10 MG CARTRIDGE (INHALER) IH PRN (15:16)
[2021-05-04] MEDS ORDERED: ALBUTEROL SO4 HFA INHALER IH PRN (15:18)
[2021-05-04] MEDS: MELATONIN 5 MG TABLETS PO SCH (22:09)
[2021-05-04] MEDS: THIAMINE HCL 100 MG TABLET (FP) PO SCH (22:10)
[2021-05-04] MEDS: hydrOXYzine PAMOATE 25 MG CAPSULE (FP) PO PRN (22:11)
[2021-05-05] MEDS: hydrOXYzine PAMOATE 25 MG CAPSULE (FP) PO PRN (06:48)
[2021-05-05] MEDS ORDERED: HYDROCHLOROTHIAZIDE 12.5 MG CAPSULE (FP) PO SCH (10:00)
[2021-05-05] MEDS ORDERED: PRENATAL VITAMINS W/ FOLIC ACID TABLET (FP) PO SCH (10:00)
[2021-05-05] MEDS ORDERED: VALSARTAN 80 MG TABLET PO SCH (10:00)
[2021-05-05] MEDS ORDERED: VALSARTAN PO SCH (10:00)
[2021-05-05] MEDS ORDERED: HYDROCHLOROTHIAZIDE PO SCH (10:00)
[2021-05-05] MEDS ORDERED: NICOTINE 7 MG/24 HOURS TOPICAL PATCH TD SCH (10:00)
[2021-05-05] MEDS: THIAMINE HCL 100 MG TABLET (FP) PO SCH (21:25)
[2021-05-05] MEDS: MELATONIN 5 MG TABLETS PO SCH (21:25)
[2021-05-05 22:52] VITALS: TEMP 97.3
[2021-05-05 22:54] VITALS: BP 197/71; PULSE 40
== END 2021-05-06 06:30 | disposition short-term general hospital (02) | DRG 895 ==
LOC: YASAS 11:05 → Y5N 15:44
PROVIDERS: ADMIT Allergy & Immunology; ATTEND Allergy & Immunology
PROC: HZ42ZZZ Group Counseling for Substance Abuse Treatment, Cognitive-Behavioral (ICD-10-PCS; principal; 2021-05-04)
DX: F14.10 Cocaine abuse, uncomplicated (principal); F11.20 Opioid dependence, uncomplicated; F17.210 Nicotine dependence, cigarettes, uncomplicated; F32.9 Major depressive disorder, single episode, unspecified; F51.01 Primary insomnia; F19.24 Other psychoactive substance dependence with psychoactive substance-induced mood disorder; R00.1 Bradycardia, unspecified; I10 Essential (primary) hypertension; J45.20 Mild intermittent asthma, uncomplicated; R76.11 Nonspecific reaction to tuberculin skin test without active tuberculosis; Z91.14 Patient's other noncompliance with medication regimen
CPT/HCPCS: C9803; J0735; U0003; U0005

== ENCOUNTER 2021-05-06 00:03 | Observation (INO) | payer OTHER ==
[2021-05-06 00:14] VITALS: BMI 25.2
[2021-05-06] MEDS ORDERED: hydrALAZINE HCL 25 MG TABLET (FP) PO ONE (02:51)
[2021-05-06] MEDS ORDERED: HYDROCHLOROTHIAZIDE 12.5 MG CAPSULE (FP) PO ONE (02:52)
[2021-05-06] MEDS ORDERED: hydrALAZINE HCL 25 MG TABLET (FP) ONE (03:00)
[2021-05-06 05:07] LABS: EPI CELLS 7 /uL (0-25.1); HYALINE CASTS 0 /uL (0-3.1); PH,URINE 5.5 (5.0-8.0); URINE APPEARANCE CLEAR; URINE BACTERIA 497 /uL (0-1359); URINE BILIRUBIN NEGATIVE (NEGATIVE); URINE COLOR YELLOW; URINE GLUCOSE (UA) NEGATIVE (NEGATIVE); URINE KETONE NEGATIVE (NEGATIVE); URINE LEUK ESTERASE 3+ (NEGATIVE); URINE NITRITE NEGATIVE (NEGATIVE); URINE PROTEIN NEGATIVE (NEGATIVE); URINE RBC 4 /uL (0-23.9); URINE UROBILINOGEN 0.2 mg/dL (0.2-1.0); URINE WBC 141 /uL (0-25.8)
[2021-05-06] MEDS ORDERED: VALSARTAN 160 MG TABLET PO ONE (06:25)
[2021-05-06] MEDS ORDERED: VALSARTAN 80 MG TABLET ONE (06:38)
[2021-05-06] MEDS ORDERED: VALSARTAN 160 MG TABLET PO SCH (10:00)
[2021-05-06] MEDS ORDERED: HYDROCHLOROTHIAZIDE 12.5 MG CAPSULE (FP) PO SCH (10:00)
[2021-05-06] MEDS ORDERED: amLODIPine BESYLATE 5 MG TABLET (FP) PO ONE (14:05)
[2021-05-06] MEDS ORDERED: amLODIPine BESYLATE 2.5 MG TABLET (FP) ONE (14:14)
[2021-05-06 14:18] VITALS: TEMP 98
[2021-05-06 16:54] VITALS: BP 169/84; PULSE 80
[2021-05-07] MEDS ORDERED: VALSARTAN 160 MG TABLET PO SCH (10:00)
[2021-05-07] MEDS ORDERED: amLODIPine BESYLATE 5 MG TABLET (FP) PO SCH (10:00)
[2021-05-07] MEDS ORDERED: HYDROCHLOROTHIAZIDE 25 MG TABLET (FP) PO SCH (10:00)
== END 2021-05-06 16:55 | disposition other institution (70) ==
LOC: JER 00:03 → UNDOADMIN 00:36 → JERBED 00:36 → INTOOBSV 16:25
PROVIDERS: ADMIT Internal Medicine; ATTEND Nurse Practitioner Acute Care
DX: R00.1 Bradycardia, unspecified (principal); I10 Essential (primary) hypertension; F11.20 Opioid dependence, uncomplicated; F10.20 Alcohol dependence, uncomplicated; F14.20 Cocaine dependence, uncomplicated; F32.9 Major depressive disorder, single episode, unspecified; J45.909 Unspecified asthma, uncomplicated; G47.00 Insomnia, unspecified; Z91.14 Patient's other noncompliance with medication regimen; F17.210 Nicotine dependence, cigarettes, uncomplicated
CPT/HCPCS: 71045-TC-FY; 81003; 93005; 93010; 99285-25; G0378

== ENCOUNTER 2021-05-06 17:58 | Inpatient (IN) | payer OTHER ==
[2021-05-06] MEDS ORDERED: P-EPHED 60MG/TRIPROLIDI 2.5MG TABLET PO PRN (19:01)
[2021-05-06] MEDS ORDERED: MAG HYDROX/AL HYDROX/SIMETH 30 ML UNIT-DOSE CUP PO PRN (19:01)
[2021-05-06] MEDS ORDERED: IBUPROFEN 400 MG TABLET (FP) PO PRN (19:01)
[2021-05-06] MEDS ORDERED: MAGNESIUM HYDROX 2400MG/30ML ORAL SUSPENSION 30 ML CUP PO PRN (19:01)
[2021-05-06] MEDS ORDERED: LOPERAMIDE HCL 2 MG CAPSULE PO PRN (19:01)
[2021-05-06] MEDS ORDERED: ACETAMINOPHEN 325 MG TABLET (FP) PO PRN (19:01)
[2021-05-06] MEDS ORDERED: MAGNESIUM CITRATE 300 ML BOTTLE PO PRN (19:01)
[2021-05-06] MEDS ORDERED: guaiFENesin 200 MG/10 ML 10 ML UNIT-DOSE CUPS PO PRN (19:01)
[2021-05-06] MEDS ORDERED: NICOTINE 10 MG CARTRIDGE (INHALER) IH PRN (19:01)
[2021-05-06] MEDS: hydrOXYzine PAMOATE 25 MG CAPSULE (FP) PO SCH (22:23)
[2021-05-06] MEDS: THIAMINE HCL 100 MG TABLET (FP) PO SCH (22:23)
[2021-05-06] MEDS: MELATONIN 5 MG TABLETS PO SCH (22:23)
[2021-05-07] MEDS: hydrOXYzine PAMOATE 25 MG CAPSULE (FP) PO SCH ×5 (06:31→22:01)
[2021-05-07] MEDS ORDERED: PATIENT'S OWN MEDICATION (NON-FORMULARY) (Valsartan/Hydrochlorothiazide [Diovan Hct 160-12 PO SCH (10:00)
[2021-05-07] MEDS: HYDROCHLOROTHIAZIDE 12.5 MG CAPSULE (FP) PO SCH (10:56)
[2021-05-07] MEDS: VALSARTAN 80 MG TABLET PO SCH (10:56)
[2021-05-07] MEDS: NICOTINE 7 MG/24 HOURS TOPICAL PATCH TD SCH (10:57)
[2021-05-07] MEDS: PRENATAL VITAMINS W/ FOLIC ACID TABLET (FP) PO SCH (10:57)
[2021-05-07] MEDS ORDERED: methaDONE HCL 10 MG TABLET PO ONE (11:15)
[2021-05-07 11:21] LABS: HEMATOCRIT 35.4 % (32.4-45.2); HEMOGLOBIN 11.9 GM/dL (10.7-15.3); MCH 29.4 pg (25.7-33.7); MCHC 33.7 g/dl (32.0-36.0); MEAN CELL VOLUME 87.4 fl (80-96); PLATELET COUNT 211 10^3/uL (134-434); RBC 4.05 M/mm3 (3.60-5.2); RDW 12.9 % (11.6-15.6); WHITE BLOOD COUNT 5.3 K/mm3 (4.0-10.0)
[2021-05-07 11:30] LABS: ALBUMIN 3.7 g/dl (3.4-5.0); BLOOD UREA NITROGEN 17.2 mg/dL (7-18); CALCIUM 9.4 mg/dL (8.5-10.1)
[2021-05-07 11:33] LABS: CREATININE 2.1 mg/dL (0.55-1.3)
[2021-05-07 11:35] LABS: BILIRUBIN,TOTAL 0.3 mg/dL (0.2-1)
[2021-05-07 11:38] LABS: TOT PROT 7.9 g/dl (6.4-8.2)
[2021-05-07] MEDS ORDERED: methaDONE HCL 10 MG TABLET ONE (11:54)
[2021-05-07] MEDS ORDERED: methaDONE HCL 40 MG DISPERSABLE TABLET ONE (11:55)
[2021-05-07] MEDS: amLODIPine BESYLATE 5 MG TABLET (FP) PO SCH (22:00)
[2021-05-07] MEDS: THIAMINE HCL 100 MG TABLET (FP) PO SCH (22:00)
[2021-05-07] MEDS: MELATONIN 5 MG TABLETS PO SCH (22:00)
[2021-05-08] MEDS ORDERED: methaDONE HCL 10 MG TABLET PO SCH (06:00)
[2021-05-08] MEDS ORDERED: methaDONE HCL 10 MG TABLET ONE (06:24)
[2021-05-08] MEDS ORDERED: methaDONE HCL 40 MG DISPERSABLE TABLET ONE (06:24)
[2021-05-08] MEDS: hydrOXYzine PAMOATE 25 MG CAPSULE (FP) PO SCH ×5 (06:25→21:26)
[2021-05-08] MEDS: HYDROCHLOROTHIAZIDE 12.5 MG CAPSULE (FP) PO SCH (10:54)
[2021-05-08] MEDS: amLODIPine BESYLATE 5 MG TABLET (FP) PO SCH (10:54)
[2021-05-08] MEDS: PRENATAL VITAMINS W/ FOLIC ACID TABLET (FP) PO SCH (10:54)
[2021-05-08] MEDS: VALSARTAN 80 MG TABLET PO SCH (10:55)
[2021-05-08] MEDS: NICOTINE 7 MG/24 HOURS TOPICAL PATCH TD SCH (10:55)
[2021-05-08] MEDS: MELATONIN 5 MG TABLETS PO SCH (21:26)
[2021-05-08] MEDS: THIAMINE HCL 100 MG TABLET (FP) PO SCH (21:26)
[2021-05-09] MEDS ORDERED: methaDONE HCL 10 MG TABLET ONE (03:32)
[2021-05-09] MEDS ORDERED: methaDONE HCL 40 MG DISPERSABLE TABLET ONE (03:32)
[2021-05-09] MEDS: hydrOXYzine PAMOATE 25 MG CAPSULE (FP) PO SCH ×5 (06:02→21:11)
[2021-05-09] MEDS: NICOTINE 7 MG/24 HOURS TOPICAL PATCH TD SCH (10:08)
[2021-05-09] MEDS: amLODIPine BESYLATE 5 MG TABLET (FP) PO SCH (10:08)
[2021-05-09] MEDS: HYDROCHLOROTHIAZIDE 12.5 MG CAPSULE (FP) PO SCH (10:08)
[2021-05-09] MEDS: PRENATAL VITAMINS W/ FOLIC ACID TABLET (FP) PO SCH (10:08)
[2021-05-09] MEDS: VALSARTAN 80 MG TABLET PO SCH (13:24)
[2021-05-09] MEDS: THIAMINE HCL 100 MG TABLET (FP) PO SCH (21:10)
[2021-05-09] MEDS: MELATONIN 5 MG TABLETS PO SCH (21:10)
[2021-05-10] MEDS ORDERED: methaDONE HCL 10 MG TABLET ONE (02:48)
[2021-05-10] MEDS ORDERED: methaDONE HCL 40 MG DISPERSABLE TABLET ONE (02:48)
[2021-05-10] MEDS: hydrOXYzine PAMOATE 25 MG CAPSULE (FP) PO SCH ×2 (06:21→10:44)
[2021-05-10 07:12] VITALS: BP 139/81; PULSE 51; TEMP 97.5
[2021-05-10] MEDS ORDERED: hydrOXYzine PAMOATE 25 MG CAPSULE (FP) PO PRN (10:24)
[2021-05-10] MEDS: amLODIPine BESYLATE 5 MG TABLET (FP) PO SCH (10:26)
[2021-05-10] MEDS: VALSARTAN 80 MG TABLET PO SCH (10:26)
[2021-05-10] MEDS: HYDROCHLOROTHIAZIDE 12.5 MG CAPSULE (FP) PO SCH (10:26)
[2021-05-10] MEDS: NICOTINE 7 MG/24 HOURS TOPICAL PATCH TD SCH (10:26)
[2021-05-10] MEDS: PRENATAL VITAMINS W/ FOLIC ACID TABLET (FP) PO SCH (10:26)
== END 2021-05-10 14:00 | disposition home or self-care (01) | DRG 895 ==
LOC: YASAS 17:58 → Y5N 18:06
PROVIDERS: ADMIT Allergy & Immunology; ATTEND Allergy & Immunology
PROC: HZ42ZZZ Group Counseling for Substance Abuse Treatment, Cognitive-Behavioral (ICD-10-PCS; principal; 2021-05-06)
DX: F10.20 Alcohol dependence, uncomplicated (principal); F11.20 Opioid dependence, uncomplicated; F14.20 Cocaine dependence, uncomplicated; F17.210 Nicotine dependence, cigarettes, uncomplicated; F41.8 Other specified anxiety disorders; I10 Essential (primary) hypertension; R00.1 Bradycardia, unspecified; Z91.14 Patient's other noncompliance with medication regimen
CPT/HCPCS: 36415; 80053; 85027; 86780

== ENCOUNTER 2021-07-07 17:43 | Inpatient (IN) | payer OTHER ==
[2021-07-07 19:14] VITALS: BMI 26.6
[2021-07-07] MEDS ORDERED: guaiFENesin 200 MG/10 ML 10 ML UNIT-DOSE CUPS PO PRN (20:14)
[2021-07-07] MEDS ORDERED: LOPERAMIDE HCL 2 MG CAPSULE PO PRN (20:14)
[2021-07-07] MEDS ORDERED: P-EPHED 60MG/TRIPROLIDI 2.5MG TABLET PO PRN (20:14)
[2021-07-07] MEDS ORDERED: MAGNESIUM HYDROX 2400MG/30ML ORAL SUSPENSION 30 ML CUP PO PRN (20:14)
[2021-07-07] MEDS ORDERED: MAG HYDROX/AL HYDROX/SIMETH 30 ML UNIT-DOSE CUP PO PRN (20:14)
[2021-07-07] MEDS ORDERED: IBUPROFEN 400 MG TABLET (FP) PO PRN (20:14)
[2021-07-07] MEDS ORDERED: MAGNESIUM CITRATE 300 ML BOTTLE PO PRN (20:14)
[2021-07-07] MEDS ORDERED: ACETAMINOPHEN 325 MG TABLET (FP) PO PRN (20:14)
[2021-07-07] MEDS ORDERED: ALBUTEROL SO4 HFA INHALER IH PRN (20:17)
[2021-07-08] MEDS ORDERED: hydrOXYzine PAMOATE 25 MG CAPSULE (FP) PO ONE (00:41)
[2021-07-08] MEDS: THIAMINE HCL 100 MG TABLET (FP) PO SCH ×2 (00:43→21:32)
[2021-07-08] MEDS: hydrOXYzine PAMOATE 25 MG CAPSULE (FP) PO SCH ×2 (00:43→06:36)
[2021-07-08] MEDS: MELATONIN 5 MG TABLETS PO SCH ×2 (00:43→21:32)
[2021-07-08] MEDS ORDERED: methaDONE HCL 10 MG TABLET PO SCH (09:30)
[2021-07-08] MEDS ORDERED: methaDONE HCL 10 MG TABLET ONE (10:00)
[2021-07-08] MEDS ORDERED: methaDONE HCL 40 MG DISPERSABLE TABLET ONE (10:01)
[2021-07-08] MEDS ORDERED: PATIENT'S OWN MEDICATION (NON-FORMULARY) (Valsartan/Hydrochlorothiazide 1 TAB Tablet) PO SCH (10:15)
[2021-07-08 10:17] LABS: HEMATOCRIT 29.3 % (32.4-45.2); HEMOGLOBIN 9.8 GM/dL (10.7-15.3); MCHC 33.5 g/dl (32.0-36.0); MEAN CELL VOLUME 86.7 fl (80-96); MEAN PLT VOLUME 9.1 fl (7.5-11.1); PLATELET COUNT 188 10^3/uL (134-434); RBC 3.38 M/mm3 (3.60-5.2); RDW 13.4 % (11.6-15.6); WHITE BLOOD COUNT 5.6 K/mm3 (4.0-10.0)
[2021-07-08] MEDS: PRENATAL VITAMINS W/ FOLIC ACID TABLET (FP) PO SCH (10:23)
[2021-07-08] MEDS: methaDONE 40 MG, methaDONE 30 MG PO SCH (10:24)
[2021-07-08 10:29] LABS: ALBUMIN 3.4 g/dl (3.4-5.0)
[2021-07-08 10:32] LABS: BILIRUBIN,TOTAL 0.2 mg/dL (0.2-1); CALCIUM 8.5 mg/dL (8.5-10.1)
[2021-07-08 10:33] LABS: CREATININE 2.3 mg/dL (0.55-1.3)
[2021-07-08 10:34] LABS: TOT PROT 6.8 g/dl (6.4-8.2)
[2021-07-08] MEDS: HYDROCHLOROTHIAZIDE 12.5 MG CAPSULE (FP) PO SCH (11:21)
[2021-07-08] MEDS: VALSARTAN 80 MG TABLET PO SCH (11:21)
[2021-07-08 17:54] LABS: EPI CELLS 18 /uL (0-25.1); HYALINE CASTS 0 /uL (0-3.1); URINE APPEARANCE CLEAR; URINE BACTERIA 830 /uL (0-1359); URINE BILIRUBIN NEGATIVE (NEGATIVE); URINE COLOR YELLOW; URINE GLUCOSE (UA) NEGATIVE (NEGATIVE); URINE KETONE NEGATIVE (NEGATIVE); URINE LEUK ESTERASE 3+ (NEGATIVE); URINE NITRITE NEGATIVE (NEGATIVE); URINE PROTEIN TRACE (NEGATIVE); URINE RBC 0 /uL (0-23.9); URINE UROBILINOGEN 0.2 mg/dL (0.2-1.0); URINE WBC 131 /uL (0-25.8)
[2021-07-08] MEDS: hydrOXYzine PAMOATE 25 MG CAPSULE (FP) PO PRN (21:32)
[2021-07-09] MEDS ORDERED: methaDONE HCL 10 MG TABLET ONE (03:55)
[2021-07-09] MEDS ORDERED: methaDONE HCL 40 MG DISPERSABLE TABLET ONE (03:55)
[2021-07-09] MEDS: methaDONE 40 MG, methaDONE 30 MG PO SCH (06:56)
[2021-07-09] MEDS: PRENATAL VITAMINS W/ FOLIC ACID TABLET (FP) PO SCH (09:41)
[2021-07-09] MEDS: hydrOXYzine PAMOATE 25 MG CAPSULE (FP) PO PRN ×2 (09:42→17:31)
[2021-07-09] MEDS: VALSARTAN 80 MG TABLET PO SCH (09:42)
[2021-07-09] MEDS: HYDROCHLOROTHIAZIDE 12.5 MG CAPSULE (FP) PO SCH (09:42)
[2021-07-09 10:19] LABS: EPI CELLS 20 /uL (0-25.1); HYALINE CASTS 0 /uL (0-3.1); URINE APPEARANCE CLEAR; URINE BACTERIA 230 /uL (0-1359); URINE BILIRUBIN NEGATIVE (NEGATIVE); URINE COLOR YELLOW; URINE GLUCOSE (UA) NEGATIVE (NEGATIVE); URINE KETONE NEGATIVE (NEGATIVE); URINE LEUK ESTERASE 2+ (NEGATIVE); URINE NITRITE NEGATIVE (NEGATIVE); URINE PROTEIN TRACE (NEGATIVE); URINE RBC 3 /uL (0-23.9); URINE UROBILINOGEN 0.2 mg/dL (0.2-1.0); URINE WBC 60 /uL (0-25.8)
[2021-07-09] MEDS ORDERED: cloNIDine HCL 0.1 MG TABLET PO ONE (16:53)
[2021-07-09] MEDS: THIAMINE HCL 100 MG TABLET (FP) PO SCH (21:45)
[2021-07-09] MEDS: MELATONIN 5 MG TABLETS PO SCH (21:45)
[2021-07-10] MEDS ORDERED: methaDONE HCL 10 MG TABLET ONE (03:12)
[2021-07-10] MEDS ORDERED: methaDONE HCL 40 MG DISPERSABLE TABLET ONE (03:12)
[2021-07-10] MEDS ORDERED: cloNIDine HCL 0.1 MG TABLET PO PRN (06:00)
[2021-07-10] MEDS: amLODIPine BESYLATE 5 MG TABLET (FP) PO SCH (09:13)
[2021-07-10] MEDS: VALSARTAN 80 MG TABLET PO SCH (09:18)
[2021-07-10] MEDS: methaDONE 40 MG, methaDONE 30 MG PO SCH (11:28)
[2021-07-10] MEDS: FERROUS SO4 325 MG TABLET (FP) PO SCH (11:28)
[2021-07-10] MEDS: PRENATAL VITAMINS W/ FOLIC ACID TABLET (FP) PO SCH (11:28)
[2021-07-10] MEDS: THIAMINE HCL 100 MG TABLET (FP) PO SCH (21:21)
[2021-07-10] MEDS: MELATONIN 5 MG TABLETS PO SCH (21:21)
[2021-07-11] MEDS ORDERED: methaDONE HCL 10 MG TABLET ONE (03:17)
[2021-07-11] MEDS ORDERED: methaDONE HCL 40 MG DISPERSABLE TABLET ONE (03:18)
[2021-07-11] MEDS: methaDONE 40 MG, methaDONE 30 MG PO SCH (06:29)
[2021-07-11] MEDS: HYDROCHLOROTHIAZIDE 12.5 MG CAPSULE (FP) PO SCH (10:21)
[2021-07-11] MEDS: FERROUS SO4 325 MG TABLET (FP) PO SCH (10:21)
[2021-07-11] MEDS: amLODIPine BESYLATE 5 MG TABLET (FP) PO SCH (10:21)
[2021-07-11] MEDS: PRENATAL VITAMINS W/ FOLIC ACID TABLET (FP) PO SCH (10:21)
[2021-07-11] MEDS: VALSARTAN 80 MG TABLET PO SCH (10:22)
[2021-07-11] MEDS: THIAMINE HCL 100 MG TABLET (FP) PO SCH (21:29)
[2021-07-11] MEDS: MELATONIN 5 MG TABLETS PO SCH (21:29)
[2021-07-12] MEDS ORDERED: methaDONE HCL 10 MG TABLET ONE (02:59)
[2021-07-12] MEDS ORDERED: methaDONE HCL 40 MG DISPERSABLE TABLET ONE (02:59)
[2021-07-12] MEDS: methaDONE 40 MG, methaDONE 30 MG PO SCH (06:15)
[2021-07-12 07:23] VITALS: TEMP 98
[2021-07-12 09:44] VITALS: BP 174/89; PULSE 58
[2021-07-12] MEDS: PRENATAL VITAMINS W/ FOLIC ACID TABLET (FP) PO SCH (10:18)
[2021-07-12] MEDS: FERROUS SO4 325 MG TABLET (FP) PO SCH (10:18)
[2021-07-12] MEDS: VALSARTAN 80 MG TABLET PO SCH (10:18)
[2021-07-12] MEDS: HYDROCHLOROTHIAZIDE 12.5 MG CAPSULE (FP) PO SCH (10:18)
[2021-07-12] MEDS: amLODIPine BESYLATE 5 MG TABLET (FP) PO SCH (10:19)
== END 2021-07-12 10:20 | disposition home or self-care (01) | DRG 895 ==
LOC: YASAS 17:43 → Y5N 23:16
PROVIDERS: ADMIT Allergy & Immunology; ATTEND Allergy & Immunology
PROC: HZ42ZZZ Group Counseling for Substance Abuse Treatment, Cognitive-Behavioral (ICD-10-PCS; principal; 2021-07-07)
DX: F10.20 Alcohol dependence, uncomplicated (principal); F11.20 Opioid dependence, uncomplicated; F14.20 Cocaine dependence, uncomplicated; F17.210 Nicotine dependence, cigarettes, uncomplicated; F51.05 Insomnia due to other mental disorder; F41.8 Other specified anxiety disorders; F32.9 Major depressive disorder, single episode, unspecified; D64.9 Anemia, unspecified; G47.00 Insomnia, unspecified; I10 Essential (primary) hypertension; J45.909 Unspecified asthma, uncomplicated; R00.1 Bradycardia, unspecified; Z91.14 Patient's other noncompliance with medication regimen
CPT/HCPCS: 36415; 80053; 81003; 85027; 86780; 86803; 87811; J0735

== ENCOUNTER 2021-08-11 16:39 | Inpatient (IN) | payer OTHER ==
[2021-08-11 17:15] VITALS: BMI 25.8
[2021-08-11] MEDS ORDERED: MAGNESIUM HYDROX 2400MG/30ML ORAL SUSPENSION 30 ML CUP PO PRN (18:35)
[2021-08-11] MEDS ORDERED: LOPERAMIDE HCL 2 MG CAPSULE PO PRN (18:35)
[2021-08-11] MEDS ORDERED: MAGNESIUM CITRATE 300 ML BOTTLE PO PRN (18:35)
[2021-08-11] MEDS ORDERED: IBUPROFEN 400 MG TABLET (FP) PO PRN (18:35)
[2021-08-11] MEDS ORDERED: P-EPHED 60MG/TRIPROLIDI 2.5MG TABLET PO PRN (18:35)
[2021-08-11] MEDS ORDERED: ACETAMINOPHEN 325 MG TABLET (FP) PO PRN (18:35)
[2021-08-11] MEDS ORDERED: NICOTINE 10 MG CARTRIDGE (INHALER) IH PRN (18:35)
[2021-08-11] MEDS ORDERED: guaiFENesin 200 MG/10 ML 10 ML UNIT-DOSE CUPS PO PRN (18:35)
[2021-08-11] MEDS ORDERED: MAG HYDROX/AL HYDROX/SIMETH 30 ML UNIT-DOSE CUP PO PRN (18:35)
[2021-08-11] MEDS ORDERED: ALBUTEROL SO4 HFA INHALER IH PRN (18:37)
[2021-08-11] MEDS: hydrOXYzine PAMOATE 25 MG CAPSULE (FP) PO SCH (21:54)
[2021-08-11] MEDS: THIAMINE HCL 100 MG TABLET (FP) PO SCH (21:54)
[2021-08-11] MEDS: MELATONIN 5 MG TABLETS PO SCH (21:54)
[2021-08-12] MEDS: hydrOXYzine PAMOATE 25 MG CAPSULE (FP) PO SCH ×5 (06:17→22:05)
[2021-08-12] MEDS ORDERED: methaDONE HCL 10 MG TABLET PO SCH (08:15)
[2021-08-12] MEDS ORDERED: methaDONE HCL 40 MG DISPERSABLE TABLET ONE (08:40)
[2021-08-12] MEDS ORDERED: methaDONE HCL 10 MG TABLET ONE (08:40)
[2021-08-12 10:09] LABS: HEMATOCRIT 29.5 % (32.4-45.2); MCH 29.5 pg (25.7-33.7); MEAN CELL VOLUME 86.8 fl (80-96); MEAN PLT VOLUME 8.4 fl (7.5-11.1); PLATELET COUNT 249 10^3/uL (134-434); RDW 13.2 % (11.6-15.6); WHITE BLOOD COUNT 5.8 K/mm3 (4.0-10.0)
[2021-08-12 10:10] LABS: ALBUMIN 3.2 g/dl (3.4-5.0); CALCIUM 8.9 mg/dL (8.5-10.1)
[2021-08-12 10:11] LABS: BLOOD UREA NITROGEN 20.6 mg/dL (7-18)
[2021-08-12 10:13] LABS: CREATININE 2.4 mg/dL (0.55-1.3)
[2021-08-12 10:15] LABS: BILIRUBIN,TOTAL 0.3 mg/dL (0.2-1)
[2021-08-12] MEDS: methaDONE 40 MG, methaDONE 30 MG PO SCH (10:39)
[2021-08-12] MEDS: HYDROCHLOROTHIAZIDE 12.5 MG CAPSULE (FP) PO SCH (10:41)
[2021-08-12] MEDS: NICOTINE 7 MG/24 HOURS TOPICAL PATCH TD SCH (10:41)
[2021-08-12] MEDS: VALSARTAN 80 MG TABLET PO SCH (10:41)
[2021-08-12] MEDS: amLODIPine BESYLATE 5 MG TABLET (FP) PO SCH (10:42)
[2021-08-12] MEDS: PRENATAL VITAMINS W/ FOLIC ACID TABLET (FP) PO SCH (10:42)
[2021-08-12] MEDS: FERROUS SO4 325 MG TABLET (FP) PO SCH (17:09)
[2021-08-12 19:19] LABS: URINE APPEARANCE CLEAR; URINE BILIRUBIN NEGATIVE (NEGATIVE); URINE COLOR YELLOW; URINE GLUCOSE (UA) NEGATIVE (NEGATIVE); URINE KETONE NEGATIVE (NEGATIVE); URINE LEUK ESTERASE NEGATIVE (NEGATIVE); URINE NITRITE NEGATIVE (NEGATIVE); URINE PROTEIN NEGATIVE (NEGATIVE); URINE UROBILINOGEN 0.2 mg/dL (0.2-1.0)
[2021-08-12] MEDS: MELATONIN 5 MG TABLETS PO SCH (22:05)
[2021-08-12] MEDS: THIAMINE HCL 100 MG TABLET (FP) PO SCH (22:05)
[2021-08-13] MEDS ORDERED: methaDONE HCL 40 MG DISPERSABLE TABLET ONE (02:08)
[2021-08-13] MEDS ORDERED: methaDONE HCL 10 MG TABLET ONE (02:08)
[2021-08-13] MEDS: methaDONE 40 MG, methaDONE 30 MG PO SCH (06:23)
[2021-08-13] MEDS: hydrOXYzine PAMOATE 25 MG CAPSULE (FP) PO SCH ×5 (06:24→21:52)
[2021-08-13] MEDS: FERROUS SO4 325 MG TABLET (FP) PO SCH ×2 (07:19→17:43)
[2021-08-13] MEDS: amLODIPine BESYLATE 5 MG TABLET (FP) PO SCH (11:01)
[2021-08-13] MEDS: PRENATAL VITAMINS W/ FOLIC ACID TABLET (FP) PO SCH (11:02)
[2021-08-13] MEDS: NICOTINE 7 MG/24 HOURS TOPICAL PATCH TD SCH (11:02)
[2021-08-13] MEDS: HYDROCHLOROTHIAZIDE 12.5 MG CAPSULE (FP) PO SCH (11:02)
[2021-08-13] MEDS: VALSARTAN 80 MG TABLET PO SCH (11:03)
[2021-08-13] MEDS: THIAMINE HCL 100 MG TABLET (FP) PO SCH (21:52)
[2021-08-14] MEDS ORDERED: methaDONE HCL 10 MG TABLET ONE (04:22)
[2021-08-14] MEDS ORDERED: methaDONE HCL 40 MG DISPERSABLE TABLET ONE (04:22)
[2021-08-14] MEDS: methaDONE 40 MG, methaDONE 30 MG PO SCH (06:10)
[2021-08-14] MEDS: hydrOXYzine PAMOATE 25 MG CAPSULE (FP) PO SCH ×5 (06:10→21:47)
[2021-08-14] MEDS: FERROUS SO4 325 MG TABLET (FP) PO SCH ×2 (07:02→16:47)
[2021-08-14] MEDS: PRENATAL VITAMINS W/ FOLIC ACID TABLET (FP) PO SCH (10:36)
[2021-08-14] MEDS: amLODIPine BESYLATE 5 MG TABLET (FP) PO SCH (10:36)
[2021-08-14] MEDS: HYDROCHLOROTHIAZIDE 12.5 MG CAPSULE (FP) PO SCH (10:36)
[2021-08-14] MEDS: VALSARTAN 80 MG TABLET PO SCH (10:37)
[2021-08-14] MEDS: NICOTINE 7 MG/24 HOURS TOPICAL PATCH TD SCH (10:37)
[2021-08-14] MEDS: THIAMINE HCL 100 MG TABLET (FP) PO SCH (21:47)
[2021-08-14] MEDS: SUVOREXANT 5 MG TABLET PO PRN (21:49)
[2021-08-15] MEDS ORDERED: methaDONE HCL 10 MG TABLET ONE (03:38)
[2021-08-15] MEDS ORDERED: methaDONE HCL 40 MG DISPERSABLE TABLET ONE (03:38)
[2021-08-15] MEDS: methaDONE 40 MG, methaDONE 30 MG PO SCH (06:46)
[2021-08-15] MEDS: hydrOXYzine PAMOATE 25 MG CAPSULE (FP) PO SCH ×5 (06:46→22:00)
[2021-08-15] MEDS: FERROUS SO4 325 MG TABLET (FP) PO SCH ×2 (07:00→17:24)
[2021-08-15] MEDS: HYDROCHLOROTHIAZIDE 12.5 MG CAPSULE (FP) PO SCH (10:36)
[2021-08-15] MEDS: amLODIPine BESYLATE 5 MG TABLET (FP) PO SCH (10:36)
[2021-08-15] MEDS: VALSARTAN 80 MG TABLET PO SCH (10:37)
[2021-08-15] MEDS: NICOTINE 7 MG/24 HOURS TOPICAL PATCH TD SCH (10:38)
[2021-08-15] MEDS: PRENATAL VITAMINS W/ FOLIC ACID TABLET (FP) PO SCH (10:38)
[2021-08-15] MEDS: THIAMINE HCL 100 MG TABLET (FP) PO SCH (22:00)
[2021-08-15] MEDS: SUVOREXANT 5 MG TABLET PO PRN (22:01)
[2021-08-16] MEDS ORDERED: methaDONE HCL 10 MG TABLET ONE (02:25)
[2021-08-16] MEDS ORDERED: methaDONE HCL 40 MG DISPERSABLE TABLET ONE (02:25)
[2021-08-16] MEDS: methaDONE 40 MG, methaDONE 30 MG PO SCH (06:03)
[2021-08-16] MEDS: hydrOXYzine PAMOATE 25 MG CAPSULE (FP) PO SCH ×5 (06:04→21:54)
[2021-08-16] MEDS: FERROUS SO4 325 MG TABLET (FP) PO SCH ×2 (07:31→17:36)
[2021-08-16 07:39] VITALS: TEMP 98.2
[2021-08-16] MEDS: VALSARTAN 80 MG TABLET PO SCH (11:05)
[2021-08-16] MEDS: HYDROCHLOROTHIAZIDE 12.5 MG CAPSULE (FP) PO SCH (11:05)
[2021-08-16] MEDS: amLODIPine BESYLATE 5 MG TABLET (FP) PO SCH (11:05)
[2021-08-16] MEDS: NICOTINE 7 MG/24 HOURS TOPICAL PATCH TD SCH (11:06)
[2021-08-16] MEDS: PRENATAL VITAMINS W/ FOLIC ACID TABLET (FP) PO SCH (11:07)
[2021-08-16] MEDS: THIAMINE HCL 100 MG TABLET (FP) PO SCH (21:55)
[2021-08-16] MEDS ORDERED: SUVOREXANT 5 MG TABLET PO PRN (22:00)
[2021-08-17] MEDS ORDERED: methaDONE HCL 10 MG TABLET ONE (03:21)
[2021-08-17] MEDS ORDERED: methaDONE HCL 40 MG DISPERSABLE TABLET ONE (03:21)
[2021-08-17] MEDS: methaDONE 40 MG, methaDONE 30 MG PO SCH (06:11)
[2021-08-17] MEDS: hydrOXYzine PAMOATE 25 MG CAPSULE (FP) PO SCH ×2 (06:12→09:15)
[2021-08-17] MEDS: FERROUS SO4 325 MG TABLET (FP) PO SCH (07:47)
[2021-08-17] MEDS: NICOTINE 7 MG/24 HOURS TOPICAL PATCH TD SCH (09:15)
[2021-08-17] MEDS: VALSARTAN 80 MG TABLET PO SCH (09:15)
[2021-08-17] MEDS: amLODIPine BESYLATE 5 MG TABLET (FP) PO SCH (09:15)
[2021-08-17] MEDS: PRENATAL VITAMINS W/ FOLIC ACID TABLET (FP) PO SCH (09:15)
[2021-08-17] MEDS: HYDROCHLOROTHIAZIDE 12.5 MG CAPSULE (FP) PO SCH (09:15)
[2021-08-17 09:41] VITALS: BP 153/95; PULSE 52
== END 2021-08-17 10:35 | disposition home or self-care (01) | DRG 895 ==
LOC: YASAS 16:39 → Y5N 19:40
PROVIDERS: ADMIT Allergy & Immunology; ATTEND Allergy & Immunology
PROC: HZ42ZZZ Group Counseling for Substance Abuse Treatment, Cognitive-Behavioral (ICD-10-PCS; principal; 2021-08-11)
DX: F14.20 Cocaine dependence, uncomplicated (principal); F11.20 Opioid dependence, uncomplicated; F19.282 Other psychoactive substance dependence with psychoactive substance-induced sleep disorder; F17.210 Nicotine dependence, cigarettes, uncomplicated; F41.9 Anxiety disorder, unspecified; F32.A Depression, unspecified; F19.24 Other psychoactive substance dependence with psychoactive substance-induced mood disorder; I10 Essential (primary) hypertension; J45.909 Unspecified asthma, uncomplicated; D64.9 Anemia, unspecified; M54.59 Other low back pain; G89.29 Other chronic pain; Z62.810 Personal history of physical and sexual abuse in childhood
CPT/HCPCS: 36415; 80053; 81003; 85027; 86780; 87811; C9803; U0003; U0005

== ENCOUNTER 2021-11-05 17:26 | Emergency (ER) | payer OTHER ==
[2021-11-05 18:02] VITALS: TEMP 98.2; BMI 23.0
[2021-11-05] MEDS ORDERED: LOSARTAN 50MG/HCTZ 12.5MG 1 TAB PO ONE (18:40)
[2021-11-05] MEDS ORDERED: LOSARTAN POTASSIUM 50 MG TABLET ONE (18:50)
[2021-11-05 20:05] VITALS: BP 217/90; PULSE 82
== END 2021-11-05 20:39 | disposition home or self-care (01) ==
LOC: JER 17:26
DX: I10 Essential (primary) hypertension (principal)
CPT/HCPCS: 93005; 93010; 99283-25

== ENCOUNTER 2021-11-09 13:15 | Inpatient (IN) | payer OTHER ==
[2021-11-09] MEDS ORDERED: SODIUM CHLORIDE 0.9% 1000 ML INFUS.BAG IV ONE (14:03)
[2021-11-09 15:05] LABS: EOS % 0.3 % (0-4.5); HEMATOCRIT 33.9 % (32.4-45.2); HEMOGLOBIN 11.1 GM/dL (10.7-15.3); LYMPH % 33.6 % (8-40); MCHC 32.9 g/dl (32.0-36.0); MEAN CELL VOLUME 85.1 fl (80-96); MEAN PLT VOLUME 8.6 fl (7.5-11.1); MONO % 4.9 % (3.8-10.2); NEUT % 60.2 % (42.8-82.8); PLATELET COUNT 311 10^3/uL (134-434); RBC 3.98 M/mm3 (3.60-5.2); RDW 13.4 % (11.6-15.6); WHITE BLOOD COUNT 5.1 K/mm3 (4.0-10.0)
[2021-11-09 15:27] LABS: ALBUMIN 4.1 g/dl (3.4-5.0); BLOOD UREA NITROGEN 17.9 mg/dL (7-18)
[2021-11-09 15:30] LABS: CREATININE 2.6 mg/dL (0.55-1.3)
[2021-11-09 15:31] LABS: BILIRUBIN,TOTAL 0.9 mg/dL (0.2-1); TOT PROT 8.3 g/dl (6.4-8.2)
[2021-11-09] MEDS ORDERED: ASPIRIN 81 MG CHEWABLE TABLETS PO ONE (15:37)
[2021-11-09] MEDS ORDERED: ACETAMINOPHEN 325 MG TABLET (FP) PO PRN (15:45)
[2021-11-09] MEDS ORDERED: ASPIRIN 81 MG CHEWABLE TABLETS ONE (16:02)
[2021-11-10 01:24] LABS: INR 1.08 (0.83-1.09); PROTHROMBIN TIME (PATIENT) 12.4 SEC (9.7-13.0)
[2021-11-10 04:28] LABS: HEMATOCRIT 32.7 % (32.4-45.2); HEMOGLOBIN 10.8 GM/dL (10.7-15.3); MCHC 33.1 g/dl (32.0-36.0); MEAN CELL VOLUME 84.7 fl (80-96); MEAN PLT VOLUME 8.3 fl (7.5-11.1); PLATELET COUNT 284 10^3/uL (134-434); RBC 3.86 M/mm3 (3.60-5.2); RDW 13.5 % (11.6-15.6); WHITE BLOOD COUNT 5.8 K/mm3 (4.0-10.0)
[2021-11-10 04:29] LABS: VENOUS BASE EXCESS 4.4 mmol/L (-2-2); VENOUS O2 SATURATION 61.5 % (70-80); VENOUS PCO2 50.8 mmHg (38-52); VENOUS PH 7.393 (7.310-7.410)
[2021-11-10 04:50] LABS: CALCIUM 9.7 mg/dL (8.5-10.1)
[2021-11-10 04:51] LABS: ALBUMIN 3.9 g/dl (3.4-5.0); BLOOD UREA NITROGEN 19.1 mg/dL (7-18); MAGNESIUM 2.4 mg/dL (1.8-2.4)
[2021-11-10 04:53] LABS: PHOSPHOROUS 4.2 mg/dL (2.5-4.9)
[2021-11-10 04:54] LABS: CREATININE 2.4 mg/dL (0.55-1.3)
[2021-11-10 04:55] LABS: BILIRUBIN,TOTAL 0.6 mg/dL (0.2-1)
[2021-11-10] MEDS ORDERED: HEPARIN NA (PORCINE) 5,000 UNITS/ML 1ML VIAL IVPUSH PRN ×2 (06:27)
[2021-11-10] MEDS ORDERED: CLOPIDOGREL BISULFATE 300 MG TABLET PO ONE (06:29)
[2021-11-10] MEDS ORDERED: CLOPIDOGREL BISULFATE 300 MG TABLET ONE (06:33)
[2021-11-10] MEDS ORDERED: HEPARIN INFUSION - 25,000 UNITS/500 ML INFUS.BAG IVPB ONE (06:33)
[2021-11-10] MEDS: HEPARIN INFUSION - 25,000 UNITS/500 ML INFUS.BAG IVPB SCH (06:42)
[2021-11-10] MEDS ORDERED: CLOPIDOGREL BISULFATE 75 MG TABLET (FP) ONE (09:35)
[2021-11-10] MEDS ORDERED: amLODIPine BESYLATE 5 MG TABLET (FP) ONE (09:35)
[2021-11-10] MEDS ORDERED: ASPIRIN 81 MG CHEWABLE TABLETS ONE (09:36)
[2021-11-10] MEDS: ASPIRIN 81 MG CHEWABLE TABLETS PO SCH (09:42)
[2021-11-10] MEDS: amLODIPine BESYLATE 5 MG TABLET (FP) PO SCH (09:42)
[2021-11-10] MEDS ORDERED: methaDONE HCL 10 MG TABLET PO SCH (15:45)
[2021-11-10] MEDS ORDERED: hydrALAZINE HCL 25 MG TABLET (FP) ONE ×2 (15:54→22:31)
[2021-11-10] MEDS ORDERED: methaDONE HCL 40 MG DISPERSABLE TABLET ONE (15:54)
[2021-11-10] MEDS ORDERED: methaDONE HCL 10 MG TABLET ONE (15:54)
[2021-11-10] MEDS: hydrALAZINE HCL 25 MG TABLET (FP) PO SCH ×2 (16:01→22:39)
[2021-11-10] MEDS: methaDONE 40 MG, methaDONE 30 MG PO SCH (16:01)
[2021-11-10 18:24] LABS: INR 1.19 (0.83-1.09); PROTHROMBIN TIME (PATIENT) 13.7 SEC (9.7-13.0)
[2021-11-10 18:27] LABS: ACTIVATED PTT 104.6 SECONDS (25.2-36.5)
[2021-11-11 03:04] LABS: ACTIVATED PTT 76.9 SECONDS (25.2-36.5); INR 1.16 (0.83-1.09); PROTHROMBIN TIME (PATIENT) 13.4 SEC (9.7-13.0)
[2021-11-11] MEDS ORDERED: methaDONE HCL 40 MG DISPERSABLE TABLET ONE (05:35)
[2021-11-11] MEDS ORDERED: methaDONE HCL 10 MG TABLET ONE (05:36)
[2021-11-11] MEDS: methaDONE 40 MG, methaDONE 30 MG PO SCH (05:40)
[2021-11-11] MEDS: hydrALAZINE HCL 25 MG TABLET (FP) PO SCH ×3 (05:40→21:57)
[2021-11-11] MEDS: HEPARIN INFUSION - 25,000 UNITS/500 ML INFUS.BAG IVPB SCH ×2 (06:50→06:52)
[2021-11-11] MEDS: CLOPIDOGREL BISULFATE 75 MG TABLET (FP) PO SCH (10:04)
[2021-11-11] MEDS: ASPIRIN 81 MG CHEWABLE TABLETS PO SCH (10:04)
[2021-11-11] MEDS: amLODIPine BESYLATE 5 MG TABLET (FP) PO SCH (10:04)
[2021-11-11 11:49] LABS: HEMATOCRIT 30.9 % (32.4-45.2); HEMOGLOBIN 10.3 GM/dL (10.7-15.3); MCH 28.2 pg (25.7-33.7); MCHC 33.2 g/dl (32.0-36.0); MEAN CELL VOLUME 84.9 fl (80-96); MEAN PLT VOLUME 8.5 fl (7.5-11.1); PLATELET COUNT 290 10^3/uL (134-434); RBC 3.64 M/mm3 (3.60-5.2); RDW 13.5 % (11.6-15.6); WHITE BLOOD COUNT 9.7 K/mm3 (4.0-10.0)
[2021-11-12] MEDS ORDERED: methaDONE HCL 40 MG DISPERSABLE TABLET ONE (05:49)
[2021-11-12] MEDS ORDERED: methaDONE HCL 10 MG TABLET ONE (05:49)
[2021-11-12] MEDS: hydrALAZINE HCL 25 MG TABLET (FP) PO SCH ×3 (05:52→21:42)
[2021-11-12] MEDS: methaDONE 40 MG, methaDONE 30 MG PO SCH (05:52)
[2021-11-12 07:12] LABS: HEMATOCRIT 32.7 % (32.4-45.2); HEMOGLOBIN 11.1 GM/dL (10.7-15.3); MCH 28.7 pg (25.7-33.7); MCHC 33.8 g/dl (32.0-36.0); MEAN CELL VOLUME 84.8 fl (80-96); MEAN PLT VOLUME 8.5 fl (7.5-11.1); PLATELET COUNT 268 10^3/uL (134-434); RBC 3.86 M/mm3 (3.60-5.2); RDW 13.8 % (11.6-15.6); WHITE BLOOD COUNT 9.3 K/mm3 (4.0-10.0)
[2021-11-12 07:33] LABS: ALBUMIN 3.3 g/dl (3.4-5.0); CHOLESTEROL 199 mg/dL (50-200)
[2021-11-12 07:35] LABS: TRIGLYCERIDES 65 mg/dL (0-150)
[2021-11-12 07:36] LABS: LDL CHOLESTEROL (ONLY SJRH) 120 mg/dL (5-100)
[2021-11-12 07:37] LABS: BILIRUBIN,DIRECT 2.4 mg/dL (0.0-0.2); HDL CHOLESTEROL 57 mg/dL (40-60)
[2021-11-12 07:38] LABS: BILIRUBIN,TOTAL 3.2 mg/dL (0.2-1); TOT PROT 7.5 g/dl (6.4-8.2)
[2021-11-12] MEDS: ASPIRIN 81 MG CHEWABLE TABLETS PO SCH (10:15)
[2021-11-12] MEDS: CLOPIDOGREL BISULFATE 75 MG TABLET (FP) PO SCH (10:15)
[2021-11-12] MEDS: amLODIPine BESYLATE 5 MG TABLET (FP) PO SCH (10:25)
[2021-11-12 14:38] VITALS: BMI 20.7
[2021-11-13] MEDS ORDERED: methaDONE HCL 10 MG TABLET ONE (05:47)
[2021-11-13] MEDS ORDERED: methaDONE HCL 40 MG DISPERSABLE TABLET ONE (05:47)
[2021-11-13] MEDS: methaDONE 40 MG, methaDONE 30 MG PO SCH (06:02)
[2021-11-13] MEDS: hydrALAZINE HCL 25 MG TABLET (FP) PO SCH ×3 (06:03→22:24)
[2021-11-13] MEDS: amLODIPine BESYLATE 5 MG TABLET (FP) PO SCH (09:11)
[2021-11-13] MEDS: ASPIRIN 81 MG CHEWABLE TABLETS PO SCH (09:11)
[2021-11-13] MEDS: MULTIVITAMINS (DAILY MVI) TABLET (FP) PO SCH (09:11)
[2021-11-13] MEDS: CLOPIDOGREL BISULFATE 75 MG TABLET (FP) PO SCH (09:11)
[2021-11-14] MEDS ORDERED: methaDONE HCL 10 MG TABLET ONE (05:55)
[2021-11-14] MEDS ORDERED: methaDONE HCL 40 MG DISPERSABLE TABLET ONE (05:55)
[2021-11-14] MEDS: methaDONE 40 MG, methaDONE 30 MG PO SCH (06:09)
[2021-11-14] MEDS: hydrALAZINE HCL 25 MG TABLET (FP) PO SCH ×3 (06:10→21:14)
[2021-11-14] MEDS: ASPIRIN 81 MG CHEWABLE TABLETS PO SCH (10:29)
[2021-11-14] MEDS: CLOPIDOGREL BISULFATE 75 MG TABLET (FP) PO SCH (10:29)
[2021-11-14] MEDS: amLODIPine BESYLATE 5 MG TABLET (FP) PO SCH (10:29)
[2021-11-14] MEDS: MULTIVITAMINS (DAILY MVI) TABLET (FP) PO SCH (10:29)
[2021-11-14 15:17] LABS: CALCIUM 9.1 mg/dL (8.5-10.1)
[2021-11-14 15:19] LABS: ALBUMIN 3.1 g/dl (3.4-5.0); BLOOD UREA NITROGEN 39.8 mg/dL (7-18)
[2021-11-14 15:21] LABS: CREATININE 2.2 mg/dL (0.55-1.3)
[2021-11-14 15:22] LABS: TOT PROT 7.2 g/dl (6.4-8.2)
[2021-11-14 15:23] LABS: BILIRUBIN,TOTAL 0.6 mg/dL (0.2-1)
[2021-11-15] MEDS ORDERED: methaDONE HCL 40 MG DISPERSABLE TABLET ONE (05:53)
[2021-11-15] MEDS ORDERED: methaDONE HCL 10 MG TABLET ONE (05:53)
[2021-11-15] MEDS: methaDONE 40 MG, methaDONE 30 MG PO SCH (06:08)
[2021-11-15] MEDS: hydrALAZINE HCL 25 MG TABLET (FP) PO SCH ×3 (06:08→21:48)
[2021-11-15] MEDS: amLODIPine BESYLATE 5 MG TABLET (FP) PO SCH (09:51)
[2021-11-15] MEDS: MULTIVITAMINS (DAILY MVI) TABLET (FP) PO SCH (09:51)
[2021-11-15] MEDS: ASPIRIN 81 MG CHEWABLE TABLETS PO SCH (09:51)
[2021-11-15] MEDS: CLOPIDOGREL BISULFATE 75 MG TABLET (FP) PO SCH (09:51)
[2021-11-15 13:13] LABS: HEMATOCRIT 30.2 % (32.4-45.2); HEMOGLOBIN 9.8 GM/dL (10.7-15.3); MCH 28.2 pg (25.7-33.7); MCHC 32.5 g/dl (32.0-36.0); MEAN CELL VOLUME 86.7 fl (80-96); MEAN PLT VOLUME 9.2 fl (7.5-11.1); PLATELET COUNT 358 10^3/uL (134-434); RBC 3.48 M/mm3 (3.60-5.2); WHITE BLOOD COUNT 7.3 K/mm3 (4.0-10.0)
[2021-11-15 13:48] LABS: CHLORIDE 100 mmol/L (98-107); SODIUM 140 mmol/L (136-145)
[2021-11-15 13:52] LABS: CALCIUM 9.1 mg/dL (8.5-10.1)
[2021-11-15 13:53] LABS: ALBUMIN 3.2 g/dl (3.4-5.0); ANION GAP 7 MMOL/L (8-16); CO2 33 mmol/L (21-32); GLUCOSE,RANDOM 105 mg/dL (74-106)
[2021-11-15 13:56] LABS: SGOT/AST 59 U/L (15-37); SGPT/ALT 135 U/L (13-61)
[2021-11-15 13:58] LABS: BILIRUBIN,TOTAL 0.6 mg/dL (0.2-1); TOT PROT 7.6 g/dl (6.4-8.2)
[2021-11-15 14:00] LABS: ALK PHOS 252 U/L (45-117)
[2021-11-16] MEDS: MELATONIN 1 MG TABLET PO PRN ×2 (01:00→21:08)
[2021-11-16] MEDS ORDERED: methaDONE HCL 10 MG TABLET ONE (09:55)
[2021-11-16] MEDS ORDERED: methaDONE HCL 40 MG DISPERSABLE TABLET ONE (09:55)
[2021-11-16] MEDS: amLODIPine BESYLATE 5 MG TABLET (FP) PO SCH (10:31)
[2021-11-16] MEDS: hydrALAZINE HCL 25 MG TABLET (FP) PO SCH ×3 (10:31→21:08)
[2021-11-16] MEDS: CLOPIDOGREL BISULFATE 75 MG TABLET (FP) PO SCH (10:31)
[2021-11-16] MEDS: ASPIRIN 81 MG CHEWABLE TABLETS PO SCH (10:31)
[2021-11-16] MEDS: MULTIVITAMINS (DAILY MVI) TABLET (FP) PO SCH (10:32)
[2021-11-16] MEDS: methaDONE 40 MG, methaDONE 30 MG PO SCH (10:32)
[2021-11-17] MEDS ORDERED: methaDONE HCL 10 MG TABLET ONE (06:05)
[2021-11-17] MEDS ORDERED: methaDONE HCL 40 MG DISPERSABLE TABLET ONE (06:05)
[2021-11-17] MEDS: methaDONE 40 MG, methaDONE 30 MG PO SCH (06:14)
[2021-11-17] MEDS: hydrALAZINE HCL 25 MG TABLET (FP) PO SCH (06:14)
[2021-11-17] MEDS: ASPIRIN 81 MG CHEWABLE TABLETS PO SCH (09:19)
[2021-11-17] MEDS: CLOPIDOGREL BISULFATE 75 MG TABLET (FP) PO SCH (09:19)
[2021-11-17] MEDS: amLODIPine BESYLATE 5 MG TABLET (FP) PO SCH (09:19)
[2021-11-17] MEDS: MULTIVITAMINS (DAILY MVI) TABLET (FP) PO SCH (09:19)
[2021-11-17 12:02] VITALS: BP 148/74; PULSE 58; TEMP 98.5
== END 2021-11-17 12:03 | disposition left against medical advice (07) | DRG 917 ==
LOC: JER 13:15 → JERBED 15:41 → OBSVTOIN 11-10 13:43 → J4W 11-11 05:23
PROVIDERS: ADMIT Family Medicine; ATTEND Family Medicine
DX: T40.5X4A Poisoning by cocaine, undetermined, initial encounter (principal); I21.3 ST elevation (STEMI) myocardial infarction of unspecified site; K72.00 Acute and subacute hepatic failure without coma; N18.4 Chronic kidney disease, stage 4 (severe); F11.20 Opioid dependence, uncomplicated; F19.20 Other psychoactive substance dependence, uncomplicated; F14.20 Cocaine dependence, uncomplicated; Y92.89 Other specified places as the place of occurrence of the external cause; I12.9 Hypertensive chronic kidney disease with stage 1 through stage 4 chronic kidney disease, or unspecified chronic kidney disease; I16.0 Hypertensive urgency; F41.8 Other specified anxiety disorders; R00.1 Bradycardia, unspecified; F17.210 Nicotine dependence, cigarettes, uncomplicated
CPT/HCPCS: 36415; 71045-TC-FY; 76700-TC; 80053; 80061; 80076; 82803; 83735; 84100; 84484; 85025; 85027; 85610; 85730; 93005; 93010; 93306-TC; 99285-25; C9803-CS; G0378; J1644; U0003; U0005

== ENCOUNTER 2022-06-08 16:19 | Inpatient (IN) | payer OTHER ==
[2022-06-08 18:00] VITALS: BMI 19.0
[2022-06-08] MEDS ORDERED: guaiFENesin 200 MG/10 ML 10 ML UNIT-DOSE CUPS PO PRN (20:32)
[2022-06-08] MEDS ORDERED: MAG HYDROX/AL HYDROX/SIMETH 30 ML UNIT-DOSE CUP PO PRN (20:32)
[2022-06-08] MEDS ORDERED: MAGNESIUM CITRATE 300 ML BOTTLE PO PRN (20:32)
[2022-06-08] MEDS ORDERED: P-EPHED 60MG/TRIPROLIDI 2.5MG TABLET PO PRN (20:32)
[2022-06-08] MEDS ORDERED: IBUPROFEN 400 MG TABLET (FP) PO PRN (20:32)
[2022-06-08] MEDS ORDERED: LOPERAMIDE HCL 2 MG CAPSULE PO PRN (20:32)
[2022-06-08] MEDS ORDERED: MAGNESIUM HYDROX 2400MG/30ML ORAL SUSPENSION 30 ML CUP PO PRN (20:32)
[2022-06-09] MEDS: THIAMINE HCL 100 MG TABLET (FP) PO SCH ×2 (01:01→21:27)
[2022-06-09] MEDS: PRENATAL VITAMINS W/ FOLIC ACID TABLET (FP) PO SCH (10:51)
[2022-06-09 10:56] LABS: EPI CELLS 5 /uL (0-25.1); HYALINE CASTS 0 /uL (0-3.1); PH,URINE 6.5 (5.0-8.0); URINE APPEARANCE CLEAR; URINE BACTERIA 74 /uL (0-1359); URINE BILIRUBIN NEGATIVE (NEGATIVE); URINE COLOR YELLOW; URINE GLUCOSE (UA) NEGATIVE (NEGATIVE); URINE KETONE NEGATIVE (NEGATIVE); URINE LEUK ESTERASE TRACE (NEGATIVE); URINE NITRITE NEGATIVE (NEGATIVE); URINE PROTEIN 2+ (NEGATIVE); URINE RBC 0 /uL (0-23.9); URINE UROBILINOGEN 0.2 mg/dL (0.2-1.0); URINE WBC 9 /uL (0-25.8)
[2022-06-09] MEDS ORDERED: methaDONE HCL 10 MG TABLET PO ONE (11:49)
[2022-06-09 12:41] LABS: HEMATOCRIT 32.5 % (32.4-45.2); HEMOGLOBIN 10.4 GM/dL (10.7-15.3); MCH 27.9 pg (25.7-33.7); MCHC 31.9 g/dl (32.0-36.0); MEAN CELL VOLUME 87.4 fl (80-96); MEAN PLT VOLUME 9.2 fl (7.5-11.1); PLATELET COUNT 320 10^3/uL (134-434); RBC 3.72 M/mm3 (3.60-5.2); RDW 13.6 % (11.6-15.6)
[2022-06-09 13:11] LABS: ALBUMIN 3.7 g/dl (3.4-5.0); BLOOD UREA NITROGEN 38.8 mg/dL (7-18); CALCIUM 9.3 mg/dL (8.5-10.1)
[2022-06-09 13:15] LABS: CREATININE 2.7 mg/dL (0.55-1.3)
[2022-06-09 13:16] LABS: BILIRUBIN,TOTAL 0.6 mg/dL (0.2-1)
[2022-06-09] MEDS ORDERED: ALBUTEROL SO4 HFA INHALER IH PRN (14:27)
[2022-06-09] MEDS ORDERED: MULTIVITAMINS (DAILY MVI) TABLET (FP) PO SCH (14:45)
[2022-06-09] MEDS: CLOPIDOGREL BISULFATE 75 MG TABLET (FP) PO SCH (16:34)
[2022-06-09] MEDS: amLODIPine BESYLATE 5 MG TABLET (FP) PO SCH (16:34)
[2022-06-09] MEDS: ASPIRIN 81 MG CHEWABLE TABLETS PO SCH (16:34)
[2022-06-09] MEDS: MELATONIN 5 MG TABLETS PO PRN (21:27)
[2022-06-10] MEDS: amLODIPine BESYLATE 5 MG TABLET (FP) PO SCH (10:35)
[2022-06-10] MEDS: CLOPIDOGREL BISULFATE 75 MG TABLET (FP) PO SCH (10:35)
[2022-06-10] MEDS: levETIRAcetam 500 MG TABLET (FP) PO SCH ×2 (10:35→21:39)
[2022-06-10] MEDS: PRENATAL VITAMINS W/ FOLIC ACID TABLET (FP) PO SCH (10:35)
[2022-06-10] MEDS: ASPIRIN 81 MG CHEWABLE TABLETS PO SCH (10:35)
[2022-06-10] MEDS ORDERED: methaDONE HCL 10 MG TABLET PO SCH (12:00)
[2022-06-10] MEDS: hydrALAZINE HCL 25 MG TABLET (FP) PO SCH ×2 (14:06→21:40)
[2022-06-10] MEDS: MELATONIN 5 MG TABLETS PO PRN (21:39)
[2022-06-10] MEDS: THIAMINE HCL 100 MG TABLET (FP) PO SCH (21:40)
[2022-06-11] MEDS: hydrALAZINE HCL 25 MG TABLET (FP) PO SCH ×3 (06:29→21:15)
[2022-06-11] MEDS: ASPIRIN 81 MG CHEWABLE TABLETS PO SCH (09:13)
[2022-06-11] MEDS: PRENATAL VITAMINS W/ FOLIC ACID TABLET (FP) PO SCH (09:13)
[2022-06-11] MEDS: amLODIPine BESYLATE 5 MG TABLET (FP) PO SCH (09:14)
[2022-06-11] MEDS: CLOPIDOGREL BISULFATE 75 MG TABLET (FP) PO SCH (09:14)
[2022-06-11] MEDS: levETIRAcetam 500 MG TABLET (FP) PO SCH ×2 (09:14→21:14)
[2022-06-11] MEDS: THIAMINE HCL 100 MG TABLET (FP) PO SCH (21:14)
[2022-06-11] MEDS: MELATONIN 5 MG TABLETS PO PRN (21:14)
[2022-06-12] MEDS: hydrALAZINE HCL 25 MG TABLET (FP) PO SCH ×3 (06:34→22:33)
[2022-06-12] MEDS: ACETAMINOPHEN 325 MG TABLET (FP) PO PRN ×2 (06:37→14:49)
[2022-06-12] MEDS: amLODIPine BESYLATE 5 MG TABLET (FP) PO SCH (10:15)
[2022-06-12] MEDS: CLOPIDOGREL BISULFATE 75 MG TABLET (FP) PO SCH (10:15)
[2022-06-12] MEDS: ASPIRIN 81 MG CHEWABLE TABLETS PO SCH (10:15)
[2022-06-12] MEDS: levETIRAcetam 500 MG TABLET (FP) PO SCH ×2 (10:15→22:33)
[2022-06-12] MEDS: PRENATAL VITAMINS W/ FOLIC ACID TABLET (FP) PO SCH (10:15)
[2022-06-12] MEDS: MELATONIN 5 MG TABLETS PO PRN (22:33)
[2022-06-12] MEDS: THIAMINE HCL 100 MG TABLET (FP) PO SCH (22:33)
[2022-06-13] MEDS: hydrALAZINE HCL 25 MG TABLET (FP) PO SCH (06:17)
[2022-06-13 07:25] VITALS: RESP 16; TEMP 97.8
[2022-06-13] MEDS: PRENATAL VITAMINS W/ FOLIC ACID TABLET (FP) PO SCH (10:36)
[2022-06-13] MEDS: amLODIPine BESYLATE 5 MG TABLET (FP) PO SCH (10:37)
[2022-06-13] MEDS: ASPIRIN 81 MG CHEWABLE TABLETS PO SCH (10:37)
[2022-06-13] MEDS: levETIRAcetam 500 MG TABLET (FP) PO SCH (10:37)
[2022-06-13] MEDS: CLOPIDOGREL BISULFATE 75 MG TABLET (FP) PO SCH (10:37)
[2022-06-13 10:56] VITALS: BP 140/74; PULSE 61
== END 2022-06-13 14:00 | disposition left against medical advice (07) | DRG 894 ==
LOC: YASAS 16:19 → Y5N 06-09 00:19
PROVIDERS: ADMIT Allergy & Immunology; ATTEND Psychiatry & Neurology Pain Medicine
PROC: HZ42ZZZ Group Counseling for Substance Abuse Treatment, Cognitive-Behavioral (ICD-10-PCS; principal; 2022-06-09)
DX: F14.20 Cocaine dependence, uncomplicated (principal); F11.20 Opioid dependence, uncomplicated; F41.9 Anxiety disorder, unspecified; F32.A Depression, unspecified; G40.909 Epilepsy, unspecified, not intractable, without status epilepticus; I10 Essential (primary) hypertension; J45.909 Unspecified asthma, uncomplicated; R94.4 Abnormal results of kidney function studies; Z28.310 Unvaccinated for COVID-19; Z28.21 Immunization not carried out because of patient refusal
CPT/HCPCS: 36415; 71046-TC-FY; 80053; 80177; 81003; 85027; 86780; 87811; C9803-CS; U0003; U0005

== ENCOUNTER 2022-07-12 22:28 | Inpatient (IN) | payer OTHER ==
[2022-07-12 23:32] VITALS: BMI 19.5
[2022-07-12] MEDS ORDERED: MAG HYDROX/AL HYDROX/SIMETH 30 ML UNIT-DOSE CUP PO PRN (23:59)
[2022-07-12] MEDS ORDERED: MAGNESIUM HYDROX 2400MG/30ML ORAL SUSPENSION 30 ML CUP PO PRN (23:59)
[2022-07-12] MEDS ORDERED: IBUPROFEN 400 MG TABLET (FP) PO PRN (23:59)
[2022-07-12] MEDS ORDERED: MAGNESIUM CITRATE 300 ML BOTTLE PO PRN (23:59)
[2022-07-12] MEDS ORDERED: LOPERAMIDE HCL 2 MG CAPSULE PO PRN (23:59)
[2022-07-12] MEDS ORDERED: NICOTINE 10 MG CARTRIDGE (INHALER) IH PRN (23:59)
[2022-07-12] MEDS ORDERED: guaiFENesin 200 MG/10 ML 10 ML UNIT-DOSE CUPS PO PRN (23:59)
[2022-07-12] MEDS ORDERED: P-EPHED 60MG/TRIPROLIDI 2.5MG TABLET PO PRN (23:59)
[2022-07-13] MEDS: MELATONIN 5 MG TABLETS PO SCH ×2 (03:51→21:18)
[2022-07-13] MEDS: PRENATAL VITAMINS W/ FOLIC ACID TABLET (FP) PO SCH (10:32)
[2022-07-13] MEDS: NICOTINE 14 MG/24 HOURS TOPICAL PATCH TD SCH (10:32)
[2022-07-13] MEDS: ACETAMINOPHEN 325 MG TABLET (FP) PO PRN (10:33)
[2022-07-13 10:56] LABS: HEMATOCRIT 26.7 % (32.4-45.2); HEMOGLOBIN 8.9 GM/dL (10.7-15.3); MCH 29.1 pg (25.7-33.7); MCHC 33.2 g/dl (32.0-36.0); MEAN CELL VOLUME 87.8 fl (80-96); MEAN PLT VOLUME 8.5 fl (7.5-11.1); PLATELET COUNT 215 10^3/uL (134-434); RBC 3.04 M/mm3 (3.60-5.2); RDW 13.6 % (11.6-15.6); WHITE BLOOD COUNT 5.6 K/mm3 (4.0-10.0)
[2022-07-13] MEDS ORDERED: methaDONE HCL 10 MG TABLET PO ONE (11:08)
[2022-07-13] MEDS ORDERED: ALBUTEROL SO4 HFA INHALER IH PRN (11:16)
[2022-07-13 11:36] LABS: ALBUMIN 3.1 g/dl (3.4-5.0); BLOOD UREA NITROGEN 19.6 mg/dL (7-18); CALCIUM 8.5 mg/dL (8.5-10.1)
[2022-07-13 11:40] LABS: CREATININE 2.3 mg/dL (0.55-1.3)
[2022-07-13 11:42] LABS: BILIRUBIN,TOTAL 0.2 mg/dL (0.2-1); TOT PROT 6.4 g/dl (6.4-8.2)
[2022-07-13] MEDS ORDERED: CIPROFLOXACIN HCL 0.3% OPHTH 2.5ML BOTTLE OS SCH ×3 (12:15→14:45)
[2022-07-13] MEDS ORDERED: hydrALAZINE HCL 25 MG TABLET (FP) PO SCH (14:00)
[2022-07-13] MEDS: hydrALAZINE HCL 25 MG TABLET (FP) PO SCH ×2 (14:31→21:19)
[2022-07-13] MEDS: FERROUS SO4 325 MG TABLET (FP) PO SCH (14:31)
[2022-07-13] MEDS: CIPROFLOXACIN HCL 0.3% OPHTH 2.5ML BOTTLE OS SCH ×5 (14:49→23:31)
[2022-07-13 18:03] LABS: EPI CELLS 31 /uL (0-25.1); HYALINE CASTS 1 /uL (0-3.1); URINE APPEARANCE CLEAR; URINE BACTERIA 2640 /uL (0-1359); URINE BILIRUBIN NEGATIVE (NEGATIVE); URINE COLOR YELLOW; URINE GLUCOSE (UA) NEGATIVE (NEGATIVE); URINE KETONE NEGATIVE (NEGATIVE); URINE LEUK ESTERASE 2+ (NEGATIVE); URINE NITRITE NEGATIVE (NEGATIVE); URINE PROTEIN 2+ (NEGATIVE); URINE RBC 5 /uL (0-23.9); URINE WBC 278 /uL (0-25.8)
[2022-07-13] MEDS: THIAMINE HCL 100 MG TABLET (FP) PO SCH (21:18)
[2022-07-13] MEDS: levETIRAcetam 500 MG TABLET (FP) PO SCH (21:20)
[2022-07-14] MEDS: CIPROFLOXACIN HCL 0.3% OPHTH 2.5ML BOTTLE OS SCH ×9 (00:35→21:45)
[2022-07-14] MEDS ORDERED: methaDONE HCL 10 MG TABLET PO SCH (06:00)
[2022-07-14] MEDS: amLODIPine BESYLATE 5 MG TABLET (FP) PO SCH (06:46)
[2022-07-14] MEDS: hydrALAZINE HCL 25 MG TABLET (FP) PO SCH ×3 (06:46→21:42)
[2022-07-14] MEDS ORDERED: amLODIPine BESYLATE 5 MG TABLET (FP) PO SCH (10:00)
[2022-07-14] MEDS: levETIRAcetam 500 MG TABLET (FP) PO SCH ×2 (10:03→21:42)
[2022-07-14] MEDS: FERROUS SO4 325 MG TABLET (FP) PO SCH (10:03)
[2022-07-14] MEDS: CLOPIDOGREL BISULFATE 75 MG TABLET (FP) PO SCH (10:03)
[2022-07-14] MEDS: ASPIRIN 81 MG CHEWABLE TABLETS PO SCH (10:03)
[2022-07-14] MEDS: PRENATAL VITAMINS W/ FOLIC ACID TABLET (FP) PO SCH (10:03)
[2022-07-14] MEDS: NICOTINE 14 MG/24 HOURS TOPICAL PATCH TD SCH (10:09)
[2022-07-14 10:50] LABS: BLOOD UREA NITROGEN 32.7 mg/dL (7-18)
[2022-07-14 10:53] LABS: CREATININE 2.2 mg/dL (0.55-1.3)
[2022-07-14] MEDS: MELATONIN 5 MG TABLETS PO SCH (21:42)
[2022-07-14] MEDS: THIAMINE HCL 100 MG TABLET (FP) PO SCH (21:42)
[2022-07-14] MEDS: ACETAMINOPHEN 325 MG TABLET (FP) PO PRN (21:43)
[2022-07-14] MEDS ORDERED: cloNIDine HCL 0.1 MG TABLET PO ONE (23:55)
[2022-07-15] MEDS: hydrALAZINE HCL 25 MG TABLET (FP) PO SCH ×3 (06:48→21:29)
[2022-07-15] MEDS: amLODIPine BESYLATE 5 MG TABLET (FP) PO SCH (06:48)
[2022-07-15] MEDS: CIPROFLOXACIN HCL 0.3% OPHTH 2.5ML BOTTLE OS SCH ×5 (06:51→21:33)
[2022-07-15] MEDS: ASPIRIN 81 MG CHEWABLE TABLETS PO SCH (10:37)
[2022-07-15] MEDS: FERROUS SO4 325 MG TABLET (FP) PO SCH (10:37)
[2022-07-15] MEDS: levETIRAcetam 500 MG TABLET (FP) PO SCH ×2 (10:37→21:29)
[2022-07-15] MEDS: PRENATAL VITAMINS W/ FOLIC ACID TABLET (FP) PO SCH (10:37)
[2022-07-15] MEDS: CLOPIDOGREL BISULFATE 75 MG TABLET (FP) PO SCH (10:37)
[2022-07-15] MEDS: NICOTINE 14 MG/24 HOURS TOPICAL PATCH TD SCH (10:38)
[2022-07-15] MEDS: CARBAMIDE PEROXIDE 6.5% OTIC 15 ML BOTTLE AS SCH ×2 (12:13→21:34)
[2022-07-15] MEDS ORDERED: CIPROFLOXACIN HCL 0.3% OPHTH 2.5ML BOTTLE OS SCH (15:00)
[2022-07-15] MEDS: BENZOCAINE/MENTH/CETYLPYRD CL 1 EACH LOZENGE MM PRN ×2 (16:40→22:29)
[2022-07-15] MEDS: THIAMINE HCL 100 MG TABLET (FP) PO SCH (21:29)
[2022-07-15] MEDS: MELATONIN 5 MG TABLETS PO SCH (21:37)
[2022-07-16] MEDS: amLODIPine BESYLATE 5 MG TABLET (FP) PO SCH (06:02)
[2022-07-16] MEDS: CIPROFLOXACIN HCL 0.3% OPHTH 2.5ML BOTTLE OS SCH ×5 (06:02→21:05)
[2022-07-16] MEDS: hydrALAZINE HCL 25 MG TABLET (FP) PO SCH ×3 (06:02→21:03)
[2022-07-16] MEDS: ASPIRIN 81 MG CHEWABLE TABLETS PO SCH (10:03)
[2022-07-16] MEDS: FERROUS SO4 325 MG TABLET (FP) PO SCH (10:03)
[2022-07-16] MEDS: CLOPIDOGREL BISULFATE 75 MG TABLET (FP) PO SCH (10:03)
[2022-07-16] MEDS: PRENATAL VITAMINS W/ FOLIC ACID TABLET (FP) PO SCH (10:03)
[2022-07-16] MEDS: levETIRAcetam 500 MG TABLET (FP) PO SCH ×2 (10:03→21:03)
[2022-07-16] MEDS: NICOTINE 14 MG/24 HOURS TOPICAL PATCH TD SCH (10:04)
[2022-07-16] MEDS: CARBAMIDE PEROXIDE 6.5% OTIC 15 ML BOTTLE AS SCH ×2 (10:06→21:04)
[2022-07-16] MEDS: MELATONIN 5 MG TABLETS PO SCH (21:03)
[2022-07-16] MEDS: THIAMINE HCL 100 MG TABLET (FP) PO SCH (21:03)
[2022-07-16] MEDS: BENZOCAINE/MENTH/CETYLPYRD CL 1 EACH LOZENGE MM PRN (21:06)
[2022-07-16] MEDS: ACETAMINOPHEN 325 MG TABLET (FP) PO PRN (23:17)
[2022-07-17] MEDS: hydrALAZINE HCL 25 MG TABLET (FP) PO SCH ×3 (06:33→21:20)
[2022-07-17] MEDS: amLODIPine BESYLATE 5 MG TABLET (FP) PO SCH (06:33)
[2022-07-17] MEDS: CIPROFLOXACIN HCL 0.3% OPHTH 2.5ML BOTTLE OS SCH ×5 (06:36→21:21)
[2022-07-17 07:40] VITALS: RESP 18
[2022-07-17] MEDS: PRENATAL VITAMINS W/ FOLIC ACID TABLET (FP) PO SCH (10:07)
[2022-07-17] MEDS: FERROUS SO4 325 MG TABLET (FP) PO SCH (10:08)
[2022-07-17] MEDS: CARBAMIDE PEROXIDE 6.5% OTIC 15 ML BOTTLE AS SCH ×2 (10:08→21:21)
[2022-07-17] MEDS: ASPIRIN 81 MG CHEWABLE TABLETS PO SCH (10:08)
[2022-07-17] MEDS: levETIRAcetam 500 MG TABLET (FP) PO SCH ×2 (10:08→21:19)
[2022-07-17] MEDS: CLOPIDOGREL BISULFATE 75 MG TABLET (FP) PO SCH (10:08)
[2022-07-17] MEDS: NICOTINE 14 MG/24 HOURS TOPICAL PATCH TD SCH (11:19)
[2022-07-17] MEDS: THIAMINE HCL 100 MG TABLET (FP) PO SCH (21:19)
[2022-07-17] MEDS: MELATONIN 5 MG TABLETS PO SCH (21:20)
[2022-07-17] MEDS: BENZOCAINE/MENTH/CETYLPYRD CL 1 EACH LOZENGE MM PRN (22:47)
[2022-07-18] MEDS: amLODIPine BESYLATE 5 MG TABLET (FP) PO SCH (06:36)
[2022-07-18] MEDS: CIPROFLOXACIN HCL 0.3% OPHTH 2.5ML BOTTLE OS SCH ×3 (06:36→14:04)
[2022-07-18] MEDS: hydrALAZINE HCL 25 MG TABLET (FP) PO SCH ×3 (06:36→21:25)
[2022-07-18] MEDS: FERROUS SO4 325 MG TABLET (FP) PO SCH (10:00)
[2022-07-18] MEDS: PRENATAL VITAMINS W/ FOLIC ACID TABLET (FP) PO SCH (10:00)
[2022-07-18] MEDS: ASPIRIN 81 MG CHEWABLE TABLETS PO SCH (10:00)
[2022-07-18] MEDS: CLOPIDOGREL BISULFATE 75 MG TABLET (FP) PO SCH (10:00)
[2022-07-18] MEDS: NICOTINE 14 MG/24 HOURS TOPICAL PATCH TD SCH (10:01)
[2022-07-18] MEDS: CARBAMIDE PEROXIDE 6.5% OTIC 15 ML BOTTLE AS SCH ×2 (10:03→21:26)
[2022-07-18] MEDS: levETIRAcetam 500 MG TABLET (FP) PO SCH ×2 (10:14→21:25)
[2022-07-18] MEDS ORDERED: cloNIDine HCL 0.1 MG TABLET PO ONE (16:03)
[2022-07-18] MEDS: THIAMINE HCL 100 MG TABLET (FP) PO SCH (21:25)
[2022-07-18] MEDS: MELATONIN 5 MG TABLETS PO SCH (21:26)
[2022-07-19] MEDS: amLODIPine BESYLATE 10 MG TABLET (FP) PO SCH (08:36)
[2022-07-19] MEDS: hydrALAZINE HCL 25 MG TABLET (FP) PO SCH ×3 (08:37→21:16)
[2022-07-19] MEDS: ASPIRIN 81 MG CHEWABLE TABLETS PO SCH (10:14)
[2022-07-19] MEDS: levETIRAcetam 500 MG TABLET (FP) PO SCH ×2 (10:14→21:16)
[2022-07-19] MEDS: CLOPIDOGREL BISULFATE 75 MG TABLET (FP) PO SCH (10:14)
[2022-07-19] MEDS: FERROUS SO4 325 MG TABLET (FP) PO SCH (10:14)
[2022-07-19] MEDS: CARBAMIDE PEROXIDE 6.5% OTIC 15 ML BOTTLE AS SCH ×2 (10:15→21:18)
[2022-07-19] MEDS: NICOTINE 14 MG/24 HOURS TOPICAL PATCH TD SCH (10:15)
[2022-07-19] MEDS: PRENATAL VITAMINS W/ FOLIC ACID TABLET (FP) PO SCH (10:15)
[2022-07-19] MEDS: THIAMINE HCL 100 MG TABLET (FP) PO SCH (21:16)
[2022-07-19] MEDS: MELATONIN 5 MG TABLETS PO SCH (21:16)
[2022-07-20] MEDS: amLODIPine BESYLATE 10 MG TABLET (FP) PO SCH (06:26)
[2022-07-20] MEDS: hydrALAZINE HCL 25 MG TABLET (FP) PO SCH ×3 (06:26→21:25)
[2022-07-20] MEDS: CLOPIDOGREL BISULFATE 75 MG TABLET (FP) PO SCH (10:37)
[2022-07-20] MEDS: ASPIRIN 81 MG CHEWABLE TABLETS PO SCH (10:37)
[2022-07-20] MEDS: levETIRAcetam 500 MG TABLET (FP) PO SCH ×2 (10:37→21:25)
[2022-07-20] MEDS: FERROUS SO4 325 MG TABLET (FP) PO SCH (10:37)
[2022-07-20] MEDS: PRENATAL VITAMINS W/ FOLIC ACID TABLET (FP) PO SCH (10:37)
[2022-07-20] MEDS: NICOTINE 14 MG/24 HOURS TOPICAL PATCH TD SCH (10:38)
[2022-07-20] MEDS: CARBAMIDE PEROXIDE 6.5% OTIC 15 ML BOTTLE AS SCH ×2 (10:38→21:26)
[2022-07-20] MEDS: THIAMINE HCL 100 MG TABLET (FP) PO SCH (21:25)
[2022-07-20] MEDS: MELATONIN 5 MG TABLETS PO SCH (21:26)
[2022-07-21] MEDS: hydrALAZINE HCL 25 MG TABLET (FP) PO SCH ×2 (06:44→14:20)
[2022-07-21] MEDS: amLODIPine BESYLATE 10 MG TABLET (FP) PO SCH (06:44)
[2022-07-21 07:59] VITALS: TEMP 97.5
[2022-07-21] MEDS: NICOTINE 14 MG/24 HOURS TOPICAL PATCH TD SCH (10:15)
[2022-07-21] MEDS: levETIRAcetam 500 MG TABLET (FP) PO SCH (10:15)
[2022-07-21] MEDS: ASPIRIN 81 MG CHEWABLE TABLETS PO SCH (10:15)
[2022-07-21] MEDS: PRENATAL VITAMINS W/ FOLIC ACID TABLET (FP) PO SCH (10:15)
[2022-07-21] MEDS: CLOPIDOGREL BISULFATE 75 MG TABLET (FP) PO SCH (10:15)
[2022-07-21] MEDS: FERROUS SO4 325 MG TABLET (FP) PO SCH (10:15)
[2022-07-21] MEDS: CARBAMIDE PEROXIDE 6.5% OTIC 15 ML BOTTLE AS SCH (10:16)
[2022-07-21 14:22] VITALS: BP 169/73; PULSE 57
== END 2022-07-21 15:15 | disposition home or self-care (01) | DRG 895 ==
LOC: YASAS 22:28 → Y5N 07-13 03:33
PROVIDERS: ADMIT Allergy & Immunology; ATTEND Psychiatry & Neurology Pain Medicine
PROC: HZ42ZZZ Group Counseling for Substance Abuse Treatment, Cognitive-Behavioral (ICD-10-PCS; principal; 2022-07-13)
DX: F10.20 Alcohol dependence, uncomplicated (principal); F14.20 Cocaine dependence, uncomplicated; N30.00 Acute cystitis without hematuria; F19.24 Other psychoactive substance dependence with psychoactive substance-induced mood disorder; F51.05 Insomnia due to other mental disorder; F41.9 Anxiety disorder, unspecified; F32.A Depression, unspecified; I10 Essential (primary) hypertension; J45.909 Unspecified asthma, uncomplicated; G40.909 Epilepsy, unspecified, not intractable, without status epilepticus; M54.50 Low back pain, unspecified; G89.29 Other chronic pain; R76.11 Nonspecific reaction to tuberculin skin test without active tuberculosis; Z62.810 Personal history of physical and sexual abuse in childhood; I25.2 Old myocardial infarction; Z91.14 Patient's other noncompliance with medication regimen; Z72.0 Tobacco use
CPT/HCPCS: 36415; 71046-TC-FY; 80053; 81003; 82565; 84520; 85027; 86780; 93005; 93010; C9803-CS; U0003; U0005

== ENCOUNTER 2022-07-22 13:33 | Observation (INO) | payer OTHER ==
[2022-07-22 14:00] VITALS: BMI 19.3
[2022-07-22] MEDS ORDERED: SODIUM CHLORIDE IV ONE (14:45)
[2022-07-22] MEDS ORDERED: VANCOMYCIN 1 GM in D5W (PRE-DOCKED) 1,000 MG/250 ML IVPB ONE (14:49)
[2022-07-22] MEDS ORDERED: PIPERACILLIN/TAZOB 4.5 GM 4.5 GM in DEXTROSE 5%-WATER 100 ML IVPB ONE (14:50)
[2022-07-22] MEDS ORDERED: ACETAMINOPHEN 1000 MG/100 ML BAG IVPB ONE (15:12)
[2022-07-22] MEDS ORDERED: VANCOMYCIN/WATER FOR INJ (PEG) 1,000 MG/200 ML BAG IVPB ONE (15:13)
[2022-07-22] MEDS ORDERED: PIPERACILLIN/TAZOB 4.5 GM 4.5 GM/100 ML BAG IVPB ONE (15:13)
[2022-07-22] MEDS ORDERED: ACETAMINOPHEN INJECTION 100 ML IVPB ONE (15:14)
[2022-07-22 15:33] LABS: HEMATOCRIT 31.3 % (32.4-45.2); HEMOGLOBIN 10.3 GM/dL (10.7-15.3); MCH 27.8 pg (25.7-33.7); MCHC 32.8 g/dl (32.0-36.0); MEAN CELL VOLUME 84.9 fl (80-96); MEAN PLT VOLUME 7.9 fl (7.5-11.1); PLATELET COUNT 378 10^3/uL (134-434); RBC 3.69 M/mm3 (3.60-5.2); RDW 13.2 % (11.6-15.6)
[2022-07-22 15:41] LABS: INR 1.08 (0.83-1.09); PROTHROMBIN TIME (PATIENT) 12.4 SEC (9.7-13.0)
[2022-07-22 15:43] LABS: ACTIVATED PTT 28.9 SECONDS (25.2-36.5)
[2022-07-22 15:56] LABS: VENOUS BASE EXCESS 2.9 mmol/L (-2-2); VENOUS O2 SATURATION 85.4 % (70-80); VENOUS PCO2 41.6 mmHg (38-52); VENOUS PH 7.436 (7.310-7.410)
[2022-07-22 16:02] LABS: CHLORIDE 106 mmol/L (98-107); SODIUM 143 mmol/L (136-145)
[2022-07-22 16:05] LABS: ANION GAP 9 MMOL/L (8-16); BLOOD UREA NITROGEN 33.8 mg/dL (7-18); CALCIUM 9.5 mg/dL (8.5-10.1); CO2 28 mmol/L (21-32); GLUCOSE,RANDOM 101 mg/dL (74-106); MAGNESIUM 2.5 mg/dL (1.8-2.4)
[2022-07-22 16:06] LABS: LIPASE 44 U/L (73-393)
[2022-07-22 16:08] LABS: CREATININE 2.3 mg/dL (0.55-1.3); PHOSPHOROUS 3.1 mg/dL (2.5-4.9); SGOT/AST 16 U/L (15-37); SGPT/ALT 22 U/L (13-61)
[2022-07-22 16:09] LABS: BILIRUBIN,TOTAL 0.2 mg/dL (0.2-1)
[2022-07-22 16:11] LABS: ALK PHOS 97 U/L (45-117)
[2022-07-22 16:12] LABS: LACTIC ACID 2.6 mmol/L (0.4-2.0)
[2022-07-22] MEDS ORDERED: SODIUM CHLORIDE 0.9% 500 ML INFUS.BAG IV ONE (16:35)
[2022-07-22 16:40] LABS: ANISOCYTOSIS 0; MACROCYTOSIS 0; PLATELET ESTIMATE NORMAL
[2022-07-22 16:43] LABS: ALBUMIN 3.8 g/dl (3.4-5.0); TOT PROT 8.5 g/dl (6.4-8.2)
[2022-07-22] MEDS ORDERED: NALOXONE HCL 0.4 MG/ML VIAL IVPUSH ONE (16:51)
[2022-07-22] MEDS ORDERED: NALOXONE HCL 0.4 MG/ML VIAL ONE (18:42)
[2022-07-22 20:18] LABS: LACTIC ACID 3.6 mmol/L (0.4-2.0)
[2022-07-22] MEDS ORDERED: DEXTROSE 5%-LACTATED RINGERS 1,000 ML IV SCH (22:45)
[2022-07-22 23:07] LABS: EPI CELLS 24 /uL (0-25.1); HYALINE CASTS 0 /uL (0-3.1); URINE APPEARANCE CLEAR; URINE BACTERIA 96 /uL (0-1359); URINE BILIRUBIN NEGATIVE (NEGATIVE); URINE COLOR YELLOW; URINE GLUCOSE (UA) NEGATIVE (NEGATIVE); URINE KETONE NEGATIVE (NEGATIVE); URINE LEUK ESTERASE TRACE (NEGATIVE); URINE NITRITE NEGATIVE (NEGATIVE); URINE PROTEIN 3+ (NEGATIVE); URINE RBC 5 /uL (0-23.9); URINE UROBILINOGEN 0.2 mg/dL (0.2-1.0); URINE WBC 64 /uL (0-25.8)
[2022-07-22 23:18] LABS: OPIATES, URI NEGATIVE (NEGATIVE); PHENCYCLIDINE,URINE NEGATIVE (NEGATIVE); URINE AMPHETAMINES NEGATIVE (NEGATIVE); URINE BARBITURATES NEGATIVE (NEGATIVE); URINE BENZODIAZEPINES NEGATIVE (NEGATIVE)
[2022-07-22 23:33] LABS: COCAINE, UR POSITIVE (NEGATIVE); METHADONE, UR POSITIVE (NEGATIVE)
[2022-07-23] MEDS ORDERED: PIPERACILLIN/TAZOB 3.375 GM 3.375 GM/50 ML BAG IVPB ONE ×3 (00:01→15:08)
[2022-07-23] MEDS: PIPERACILLIN/TAZOB 3.375 GM 3.375 GM in DEXTROSE 5%-WATER - 50 ML IVPB SCH ×5 (00:02→15:07)
[2022-07-23] MEDS ORDERED: hydrALAZINE HCL 20 MG/ML VIAL IVPUSH ONE ×2 (00:23→13:27)
[2022-07-23] MEDS: hydrALAZINE HCL 25 MG TABLET (FP) PO SCH ×4 (00:44→21:05)
[2022-07-23] MEDS ORDERED: amLODIPine BESYLATE 10 MG TABLET (FP) PO ONE (02:47)
[2022-07-23] MEDS: HEPARIN NA (PORCINE) 5,000 UNITS/ML 1ML VIAL SQ SCH ×3 (06:02→21:13)
[2022-07-23 07:03] LABS: BASO % 0.4 % (0-2.0); HEMOGLOBIN 10.2 GM/dL (10.7-15.3); LYMPH % 12.2 % (8-40); MCH 28.2 pg (25.7-33.7); MCHC 32.8 g/dl (32.0-36.0); MEAN CELL VOLUME 85.8 fl (80-96); MEAN PLT VOLUME 8.4 fl (7.5-11.1); MONO % 14.5 % (3.8-10.2); NEUT % 72.9 % (42.8-82.8); PLATELET COUNT 327 10^3/uL (134-434); RBC 3.61 M/mm3 (3.60-5.2); RDW 13.5 % (11.6-15.6); WHITE BLOOD COUNT 6.3 K/mm3 (4.0-10.0)
[2022-07-23 07:25] LABS: BLOOD UREA NITROGEN 31.8 mg/dL (7-18)
[2022-07-23 07:26] LABS: ALBUMIN 3.5 g/dl (3.4-5.0); MAGNESIUM 2.4 mg/dL (1.8-2.4)
[2022-07-23 07:29] LABS: CREATININE 2.2 mg/dL (0.55-1.3)
[2022-07-23 07:30] LABS: BILIRUBIN,TOTAL 0.4 mg/dL (0.2-1); TOT PROT 8.2 g/dl (6.4-8.2)
[2022-07-23] MEDS ORDERED: CLOPIDOGREL BISULFATE 75 MG TABLET (FP) ONE (08:06)
[2022-07-23] MEDS ORDERED: hydrALAZINE HCL 25 MG TABLET (FP) ONE ×2 (08:06→10:15)
[2022-07-23] MEDS: CLOPIDOGREL BISULFATE 75 MG TABLET (FP) PO SCH (08:07)
[2022-07-23] MEDS: LACTATED RINGERS SOLUTION 1,000 ML/1,000 ML INFUS.BAG IV SCH (08:19)
[2022-07-23] MEDS ORDERED: hydrALAZINE HCL 25 MG TABLET (FP) PO ONE (09:24)
[2022-07-23] MEDS ORDERED: CEFTRIAXONE 1 GM/50 ML BAG ONE (09:42)
[2022-07-23] MEDS ORDERED: VANCOMYCIN 1 GM in D5W (PRE-DOCKED) 1,000 MG/250 ML IVPB SCH (10:00)
[2022-07-23] MEDS ORDERED: methaDONE HCL 40 MG DISPERSABLE TABLET ONE (10:14)
[2022-07-23] MEDS ORDERED: methaDONE HCL 10 MG TABLET ONE (10:15)
[2022-07-23] MEDS ORDERED: LORazepam 0.5 MG TABLET PO ONE (12:17)
[2022-07-23] MEDS ORDERED: LORazepam 0.5 MG TABLET ONE (12:28)
[2022-07-23] MEDS ORDERED: hydrALAZINE HCL 50 MG TABLET (FP) ONE ×2 (13:55→20:15)
[2022-07-23] MEDS ORDERED: HEPARIN NA (PORCINE) 5,000 UNITS/ML 1ML VIAL ONE (13:56)
[2022-07-23] MEDS ORDERED: LORazepam 2 MG/ML SDV VIAL IVPUSH PRN (14:40)
[2022-07-23] MEDS ORDERED: VANCOMYCIN/WATER FOR INJ (PEG) 1,000 MG/200 ML BAG IVPB ONE (15:25)
[2022-07-23] MEDS ORDERED: VANCOMYCIN 1 GM/200 ML PREMIX BAG (RESTRICTED TO ID ONLY) IVPB SCH (16:00)
[2022-07-23] MEDS ORDERED: ALBUTEROL SO4 HFA INHALER IH PRN (17:34)
[2022-07-23] MEDS ORDERED: MELATONIN 5 MG TABLETS PO PRN (17:35)
[2022-07-23] MEDS ORDERED: hydrALAZINE HCL 20 MG/ML VIAL ONE (19:11)
[2022-07-23] MEDS ORDERED: levETIRAcetam 500 MG TABLET (FP) PO ONE (20:15)
[2022-07-23] MEDS: levETIRAcetam 500 MG TABLET (FP) PO SCH (21:04)
[2022-07-23 21:13] VITALS: RESP 18
[2022-07-24 03:36] VITALS: TEMP 98.9
[2022-07-24] MEDS ORDERED: amLODIPine BESYLATE 10 MG TABLET (FP) ONE (03:46)
[2022-07-24] MEDS ORDERED: hydrALAZINE HCL 50 MG TABLET (FP) ONE (03:46)
[2022-07-24] MEDS: hydrALAZINE HCL 25 MG TABLET (FP) PO SCH ×2 (03:57→05:14)
[2022-07-24] MEDS: amLODIPine BESYLATE 10 MG TABLET (FP) PO SCH ×2 (03:57→05:14)
[2022-07-24] MEDS: HEPARIN NA (PORCINE) 5,000 UNITS/ML 1ML VIAL SQ SCH (05:14)
[2022-07-24] MEDS ORDERED: methaDONE HCL 10 MG TABLET ONE (05:32)
[2022-07-24] MEDS ORDERED: methaDONE HCL 40 MG DISPERSABLE TABLET ONE (05:32)
[2022-07-24] MEDS ORDERED: ASPIRIN 81 MG CHEWABLE TABLETS ONE (08:03)
[2022-07-24] MEDS ORDERED: CLOPIDOGREL BISULFATE 75 MG TABLET (FP) ONE (08:03)
[2022-07-24] MEDS ORDERED: levETIRAcetam 500 MG TABLET (FP) PO ONE (08:03)
[2022-07-24] MEDS ORDERED: FERROUS SO4 325 MG TABLET (FP) ONE (08:03)
[2022-07-24] MEDS: LACTATED RINGERS SOLUTION 1,000 ML/1,000 ML INFUS.BAG IV SCH (08:27)
[2022-07-24] MEDS: levETIRAcetam 500 MG TABLET (FP) PO SCH (09:15)
[2022-07-24] MEDS: CLOPIDOGREL BISULFATE 75 MG TABLET (FP) PO SCH (09:15)
[2022-07-24] MEDS ORDERED: FERROUS SO4 325 MG TABLET (FP) PO SCH (10:00)
[2022-07-24] MEDS ORDERED: ASPIRIN 81 MG CHEWABLE TABLETS PO SCH (10:00)
[2022-07-24] MEDS ORDERED: PATIENT'S OWN MEDICATION (NON-FORMULARY) (Ferrous Sulfate [Ferrous Sulfate] 325 MG Tablet) PO SCH (10:00)
[2022-07-24 10:37] VITALS: BP 165/92; PULSE 90
== END 2022-07-24 10:58 | disposition home or self-care (01) ==
LOC: JER 13:33 → JERBED 20:07 → INTOOBSV 20:07
PROVIDERS: ADMIT Internal Medicine; ATTEND Internal Medicine
DX: U07.1 COVID-19 (principal); I13.10 Hypertensive heart and chronic kidney disease without heart failure, with stage 1 through stage 4 chronic kidney disease, or unspecified chronic kidney disease; N18.9 Chronic kidney disease, unspecified; I16.0 Hypertensive urgency; E03.9 Hypothyroidism, unspecified; M06.9 Rheumatoid arthritis, unspecified; I21.3 ST elevation (STEMI) myocardial infarction of unspecified site; Z79.891 Long term (current) use of opiate analgesic; R94.31 Abnormal electrocardiogram [ECG] [EKG]
CPT/HCPCS: 0241U-QW; 36415; 70450-TC; 71045-TC-FY; 72125-TC; 74176-TC; 80053; 80307; 81003; 82553; 82803; 82962; 83036; 83605; 83690; 83735; 84100; 84443; 84484; 85025; 85610; 85730; 86850; 86900; 86901; 87040; 93005; 93010; 96365; 96366; 96367; 96372; 96375; 96376; 99285-25; G0378; J1644

== ENCOUNTER 2022-07-25 17:00 | Emergency (ER) | payer OTHER ==
[2022-07-25] MEDS ORDERED: LOPERAMIDE HCL 2 MG CAPSULE PO ONE (18:07)
[2022-07-25 18:08] VITALS: RESP 18; TEMP 98.2; BMI 20.2
[2022-07-25] MEDS ORDERED: hydrALAZINE HCL 25 MG TABLET (FP) PO ONE (18:09)
[2022-07-25] MEDS ORDERED: amLODIPine BESYLATE 10 MG TABLET (FP) PO ONE (18:10)
[2022-07-25] MEDS ORDERED: hydrALAZINE HCL 25 MG TABLET (FP) ONE (18:15)
[2022-07-25] MEDS ORDERED: amLODIPine BESYLATE 10 MG TABLET (FP) ONE ×2 (18:15→18:16)
[2022-07-25] MEDS ORDERED: LOPERAMIDE HCL 2 MG CAPSULE ONE ×2 (18:18→19:26)
[2022-07-25 19:34] VITALS: BP 174/89; PULSE 66
== END 2022-07-25 19:35 | disposition home or self-care (01) ==
LOC: JER 17:00
DX: U07.1 COVID-19 (principal); R19.7 Diarrhea, unspecified
CPT/HCPCS: 99283-25

== ENCOUNTER 2022-10-05 05:03 | Inpatient (IN) | payer OTHER ==
[2022-10-05 05:50] LABS: BASO % 0.9 % (0-2.0); EOS % 0.4 % (0-4.5); HEMATOCRIT 30.8 % (32.4-45.2); HEMOGLOBIN 10.2 GM/dL (10.7-15.3); LYMPH % 19.3 % (8-40); MCH 28.4 pg (25.7-33.7); MEAN CELL VOLUME 86.2 fl (80-96); MEAN PLT VOLUME 8.3 fl (7.5-11.1); MONO % 3.2 % (3.8-10.2); NEUT % 76.2 % (42.8-82.8); PLATELET COUNT 305 10^3/uL (134-434); RBC 3.57 M/mm3 (3.60-5.2); RDW 13.4 % (11.6-15.6); WHITE BLOOD COUNT 5.9 K/mm3 (4.0-10.0)
[2022-10-05 06:14] LABS: CALCIUM 8.5 mg/dL (8.5-10.1)
[2022-10-05] MEDS ORDERED: levETIRAcetam 500 MG/5 ML INJECTION VIAL IVPB ONE ×2 (06:14→06:16)
[2022-10-05] MEDS ORDERED: LORazepam 2 MG/ML SDV VIAL IVPUSH ONE (06:14)
[2022-10-05 06:15] LABS: ALBUMIN 3.4 g/dl (3.4-5.0); BLOOD UREA NITROGEN 26.7 mg/dL (7-18); MAGNESIUM 2.3 mg/dL (1.8-2.4)
[2022-10-05 06:17] LABS: PHOSPHOROUS 3.8 mg/dL (2.5-4.9)
[2022-10-05 06:18] LABS: CREATININE 2.2 mg/dL (0.55-1.3)
[2022-10-05 06:19] LABS: BILIRUBIN,TOTAL 0.2 mg/dL (0.2-1); TOT PROT 7.9 g/dl (6.4-8.2)
[2022-10-05 06:20] LABS: LACTIC ACID 3.4 mmol/L (0.4-2.0)
[2022-10-05 06:27] LABS: INR 1.06 (0.83-1.09); PROTHROMBIN TIME (PATIENT) 12.3 SEC (9.7-13.0)
[2022-10-05 06:30] LABS: ACTIVATED PTT 28.6 SECONDS (25.2-36.5)
[2022-10-05] MEDS ORDERED: ALBUTEROL SO4 HFA INHALER IH PRN (07:05)
[2022-10-05] MEDS ORDERED: hydrOXYzine PAMOATE 25 MG CAPSULE (FP) PO PRN (07:05)
[2022-10-05] MEDS ORDERED: LOPERAMIDE HCL 2 MG CAPSULE PO PRN (07:15)
[2022-10-05 07:16] LABS: EPI CELLS 9 /uL (0-25.1); HYALINE CASTS 1 /uL (0-3.1); PH,URINE 6.5 (5.0-8.0); URINE APPEARANCE CLEAR; URINE BACTERIA 17 /uL (0-1359); URINE BILIRUBIN NEGATIVE (NEGATIVE); URINE COLOR YELLOW; URINE GLUCOSE (UA) NEGATIVE (NEGATIVE); URINE KETONE NEGATIVE (NEGATIVE); URINE LEUK ESTERASE NEGATIVE (NEGATIVE); URINE NITRITE NEGATIVE (NEGATIVE); URINE PROTEIN 3+ (NEGATIVE); URINE RBC 16 /uL (0-23.9); URINE UROBILINOGEN 0.2 mg/dL (0.2-1.0); URINE WBC 41 /uL (0-25.8)
[2022-10-05] MEDS ORDERED: LORazepam 2 MG/ML SDV VIAL IVPUSH PRN (07:31)
[2022-10-05 07:35] LABS: COCAINE, UR POSITIVE (NEGATIVE); METHADONE, UR POSITIVE (NEGATIVE); OPIATES, URI NEGATIVE (NEGATIVE); PHENCYCLIDINE,URINE NEGATIVE (NEGATIVE); URINE AMPHETAMINES NEGATIVE (NEGATIVE); URINE BARBITURATES NEGATIVE (NEGATIVE); URINE BENZODIAZEPINES NEGATIVE (NEGATIVE)
[2022-10-05] MEDS: SODIUM CHLORIDE 1,000 ML IV SCH ×2 (09:09→22:30)
[2022-10-05] MEDS ORDERED: HEPARIN NA (PORCINE) 5,000 UNITS/ML 1ML VIAL ONE (13:16)
[2022-10-05] MEDS ORDERED: hydrALAZINE HCL 20 MG/ML VIAL ONE ×2 (13:16→18:12)
[2022-10-05] MEDS: hydrALAZINE HCL 20 MG/ML VIAL IVPUSH PRN ×2 (13:22→18:21)
[2022-10-05] MEDS: HEPARIN NA (PORCINE) 5,000 UNITS/ML 1ML VIAL SQ SCH ×2 (13:23→22:28)
[2022-10-05] MEDS: ASPIRIN 81 MG CHEWABLE TABLETS PO SCH (15:04)
[2022-10-05] MEDS: CLOPIDOGREL BISULFATE 75 MG TABLET (FP) PO SCH (15:04)
[2022-10-05] MEDS: amLODIPine BESYLATE 10 MG TABLET (FP) PO SCH (15:04)
[2022-10-05] MEDS ORDERED: LABETALOL HCL 20 MG/4 ML VIAL IVPUSH ONE (15:37)
[2022-10-05] MEDS ORDERED: LABETALOL HCL 20 MG/4 ML VIAL ONE (16:18)
[2022-10-05] MEDS ORDERED: levETIRAcetam 500 MG TABLET (FP) PO ONE (22:00)
[2022-10-05] MEDS: hydrALAZINE HCL 25 MG TABLET (FP) PO SCH (22:28)
[2022-10-05] MEDS: levETIRAcetam 500 MG/5 ML INJECTION VIAL IVPB SCH (22:29)
[2022-10-06] MEDS: amLODIPine BESYLATE 10 MG TABLET (FP) PO SCH (06:43)
[2022-10-06] MEDS: hydrALAZINE HCL 25 MG TABLET (FP) PO SCH ×3 (06:43→21:32)
[2022-10-06] MEDS: HEPARIN NA (PORCINE) 5,000 UNITS/ML 1ML VIAL SQ SCH ×5 (06:44→21:40)
[2022-10-06] MEDS: SODIUM CHLORIDE 1,000 ML IV SCH (07:15)
[2022-10-06] MEDS ORDERED: methaDONE HCL 10 MG TABLET PO SCH (09:15)
[2022-10-06] MEDS: ASPIRIN 81 MG CHEWABLE TABLETS PO SCH (09:40)
[2022-10-06] MEDS: levETIRAcetam 500 MG/5 ML INJECTION VIAL IVPB SCH (09:40)
[2022-10-06] MEDS: CLOPIDOGREL BISULFATE 75 MG TABLET (FP) PO SCH (09:40)
[2022-10-06] MEDS ORDERED: levETIRAcetam 500 MG TABLET (FP) PO SCH (10:00)
[2022-10-06] MEDS: THIAMINE HCL 100 MG TABLET (FP) PO SCH ×2 (11:36→21:32)
[2022-10-06] MEDS ORDERED: diphenhydrAMINE HCL 25 MG CAPSULE (FP) PO SCH (11:58)
[2022-10-07] MEDS: HEPARIN NA (PORCINE) 5,000 UNITS/ML 1ML VIAL SQ SCH ×3 (05:46→13:55)
[2022-10-07] MEDS: hydrALAZINE HCL 25 MG TABLET (FP) PO SCH ×2 (05:46→13:52)
[2022-10-07] MEDS: amLODIPine BESYLATE 10 MG TABLET (FP) PO SCH (05:47)
[2022-10-07 07:54] LABS: BASO % 0.7 % (0-2.0); EOS % 1.6 % (0-4.5); HEMATOCRIT 26.2 % (32.4-45.2); HEMOGLOBIN 8.6 GM/dL (10.7-15.3); MCH 28.3 pg (25.7-33.7); MCHC 32.6 g/dl (32.0-36.0); MEAN CELL VOLUME 86.9 fl (80-96); MEAN PLT VOLUME 8.9 fl (7.5-11.1); MONO % 5.5 % (3.8-10.2); NEUT % 63.2 % (42.8-82.8); PLATELET COUNT 272 10^3/uL (134-434); RBC 3.02 M/mm3 (3.60-5.2); RDW 13.4 % (11.6-15.6); RETICULOCYTES 0.91 % (0.5-1.5); WHITE BLOOD COUNT 6.8 K/mm3 (4.0-10.0)
[2022-10-07 08:23] LABS: ALBUMIN 2.8 g/dl (3.4-5.0); BLOOD UREA NITROGEN 37.2 mg/dL (7-18); CALCIUM 8.3 mg/dL (8.5-10.1); MAGNESIUM 2.2 mg/dL (1.8-2.4)
[2022-10-07 08:28] LABS: BILIRUBIN,TOTAL 0.3 mg/dL (0.2-1); PHOSPHOROUS 3.6 mg/dL (2.5-4.9); TOT PROT 6.4 g/dl (6.4-8.2)
[2022-10-07] MEDS: ASPIRIN 81 MG CHEWABLE TABLETS PO SCH (09:31)
[2022-10-07] MEDS: THIAMINE HCL 100 MG TABLET (FP) PO SCH (09:31)
[2022-10-07] MEDS: CLOPIDOGREL BISULFATE 75 MG TABLET (FP) PO SCH (09:31)
[2022-10-07] MEDS ORDERED: SODIUM CHLORIDE 1,000 ML IV SCH (10:00)
[2022-10-07] MEDS ORDERED: LISINOPRIL 5 MG TABLET PO SCH (10:00)
[2022-10-07] MEDS ORDERED: levETIRAcetam 500 MG TABLET (FP) PO SCH (10:00)
[2022-10-07] MEDS ORDERED: SODIUM CHLORIDE 0.45% 1,000 ML IV SCH (10:00)
[2022-10-07] MEDS ORDERED: levETIRAcetam 250 MG TABLET PO SCH (10:00)
[2022-10-07 10:08] VITALS: BMI 20.1
[2022-10-07 14:37] VITALS: BP 155/71; PULSE 61; RESP 19; TEMP 98.8
== END 2022-10-07 18:20 | disposition left against medical advice (07) | DRG 101 ==
LOC: JER 05:03 → JERBED 07:53 → J4W 19:52
PROVIDERS: ADMIT Internal Medicine; ATTEND Internal Medicine
DX: G40.909 Epilepsy, unspecified, not intractable, without status epilepticus (principal); I16.1 Hypertensive emergency; E87.20 Acidosis, unspecified; F11.20 Opioid dependence, uncomplicated; I13.0 Hypertensive heart and chronic kidney disease with heart failure and stage 1 through stage 4 chronic kidney disease, or unspecified chronic kidney disease; I50.22 Chronic systolic (congestive) heart failure; F41.8 Other specified anxiety disorders; D32.9 Benign neoplasm of meninges, unspecified; F19.10 Other psychoactive substance abuse, uncomplicated; D63.1 Anemia in chronic kidney disease; M54.50 Low back pain, unspecified; I25.10 Atherosclerotic heart disease of native coronary artery without angina pectoris; R80.9 Proteinuria, unspecified; R79.89 Other specified abnormal findings of blood chemistry; R41.82 Altered mental status, unspecified; R00.1 Bradycardia, unspecified; E87.5 Hyperkalemia; F14.10 Cocaine abuse, uncomplicated; N18.9 Chronic kidney disease, unspecified; Z91.199 Patient's noncompliance with other medical treatment and regimen due to unspecified reason
CPT/HCPCS: 0241U-QW; 36415; 70450-TC; 71045-TC-FY; 80053; 80307; 81003; 82570; 82728; 83540; 83550; 83605; 83615; 83735; 84100; 84300; 84484; 85025; 85045; 85610; 85730; 86850; 86900; 86901; 87086; 93005; 93010; 99285-25; J1644

== ENCOUNTER 2022-11-04 09:14 | Emergency (ER) | payer OTHER ==
[2022-11-04 09:40] VITALS: RESP 18; TEMP 98.2; BMI 19.5
[2022-11-04] MEDS ORDERED: hydrALAZINE HCL 25 MG TABLET (FP) PO ONE (10:17)
[2022-11-04] MEDS ORDERED: amLODIPine BESYLATE 10 MG TABLET (FP) PO ONE (10:17)
[2022-11-04] MEDS ORDERED: amLODIPine BESYLATE 10 MG TABLET (FP) ONE (10:19)
[2022-11-04] MEDS ORDERED: hydrALAZINE HCL 25 MG TABLET (FP) ONE (10:19)
[2022-11-04 12:05] LABS: BASO % 0.5 % (0-2.0); EOS % 0.2 % (0-4.5); HEMATOCRIT 31.2 % (32.4-45.2); HEMOGLOBIN 10.3 GM/dL (10.7-15.3); LYMPH % 18.4 % (8-40); MEAN PLT VOLUME 8.2 fl (7.5-11.1); MONO % 4.5 % (3.8-10.2); NEUT % 76.4 % (42.8-82.8); PLATELET COUNT 319 10^3/uL (134-434); RBC 3.67 M/mm3 (3.60-5.2); RDW 13.5 % (11.6-15.6)
[2022-11-04 12:23] LABS: ALBUMIN 3.3 g/dl (3.4-5.0); BLOOD UREA NITROGEN 16.7 mg/dL (7-18); CALCIUM 8.8 mg/dL (8.5-10.1)
[2022-11-04 12:25] LABS: CREATININE 2.1 mg/dL (0.55-1.3)
[2022-11-04 12:26] LABS: PHOSPHOROUS 3.5 mg/dL (2.5-4.9)
[2022-11-04 12:27] LABS: BILIRUBIN,TOTAL 0.4 mg/dL (0.2-1); TOT PROT 7.7 g/dl (6.4-8.2)
[2022-11-04 13:09] VITALS: BP 160/90; PULSE 71
== END 2022-11-04 14:58 | disposition home or self-care (01) ==
LOC: JER 09:14
DX: R11.0 Nausea (principal)
CPT/HCPCS: 36415; 80053; 83735; 84100; 84484; 85025; 93005; 93010; 99284-25

== ENCOUNTER 2023-01-04 09:29 | Emergency (ER) | payer OTHER ==
[2023-01-04 09:47] VITALS: RESP 18; TEMP 99.1; BMI 18.2
[2023-01-04] MEDS ORDERED: levETIRAcetam 500 MG/5 ML INJECTION VIAL IVPB ONE ×2 (09:47→09:51)
[2023-01-04] MEDS ORDERED: amLODIPine BESYLATE 10 MG TABLET (FP) PO ONE (09:48)
[2023-01-04] MEDS ORDERED: amLODIPine BESYLATE 10 MG TABLET (FP) ONE (09:51)
[2023-01-04 10:34] VITALS: BP 193/117; PULSE 62
== END 2023-01-04 10:41 | disposition left against medical advice (07) ==
LOC: JER 09:29
DX: G40.909 Epilepsy, unspecified, not intractable, without status epilepticus (principal); I10 Essential (primary) hypertension
CPT/HCPCS: 93005; 93010; 99284-25

== ENCOUNTER 2023-07-03 09:30 | Inpatient (IN) | payer OTHER ==
[2023-07-03 10:49] VITALS: BMI 20.2
[2023-07-03] MEDS ORDERED: BENZONATATE 200 MG CAPSULE PO PRN (11:01)
[2023-07-03] MEDS ORDERED: BENZOCAINE/MENTHOL (CHLORASEPTIC ) LOZENGE MM PRN (11:01)
[2023-07-03] MEDS ORDERED: COLLOIDAL OATMEAL 1 BAR EACH TP PRN (11:01)
[2023-07-03] MEDS ORDERED: hydrOXYzine PAMOATE 25 MG CAPSULE (FP) PO PRN (11:01)
[2023-07-03] MEDS ORDERED: MAG HYDROX/AL HYDROX/SIMETH 30 ML UNIT-DOSE CUP PO PRN (11:01)
[2023-07-03] MEDS ORDERED: NALOXONE HCL 0.4 MG/ML VIAL IM PRN (11:01)
[2023-07-03] MEDS ORDERED: IBUPROFEN 400 MG TABLET (FP) PO PRN (11:01)
[2023-07-03] MEDS ORDERED: NICOTINE POLACRILEX 2 MG GUM BUC PRN (11:01)
[2023-07-03] MEDS ORDERED: guaiFENesin 600 MG TABLET.ER (FP) PO PRN (11:01)
[2023-07-03] MEDS ORDERED: POLYETHYLENE GLYCOL (HEALTHYLAX) 3350 17 GM PACKET PO PRN (11:01)
[2023-07-03] MEDS ORDERED: LOPERAMIDE HCL 2 MG CAPSULE PO PRN (11:01)
[2023-07-03] MEDS ORDERED: NALOXONE HCL (KLOXXADO) 8 MG SPRAY NS PRN (11:01)
[2023-07-03] MEDS ORDERED: MAGNESIUM HYDROX 2400MG/30ML ORAL SUSPENSION 30 ML CUP PO PRN (11:01)
[2023-07-03] MEDS ORDERED: IBUPROFEN 600 MG TABLET (FP) PO PRN (11:01)
[2023-07-03] MEDS ORDERED: cloNIDine HCL 0.1 MG TABLET PO ONE (11:26)
[2023-07-03] MEDS: THIAMINE HCL 100 MG TABLET (FP) PO SCH (21:21)
[2023-07-03] MEDS ORDERED: MELATONIN 5 MG TABLETS PO SCH (22:00)
[2023-07-03] MEDS ORDERED: hydrALAZINE HCL 50 MG TABLET (FP) PO SCH (22:00)
[2023-07-03] MEDS ORDERED: LISINOPRIL 10 MG TABLET PO ONE (22:22)
[2023-07-04] MEDS ORDERED: methaDONE HCL 40 MG DISPERSABLE TABLET PO SCH (06:00)
[2023-07-04] MEDS ORDERED: amLODIPine BESYLATE 10 MG TABLET (FP) PO SCH (10:00)
[2023-07-04] MEDS: PRENATAL VITAMINS W/ FOLIC ACID TABLET (FP) PO SCH (10:04)
[2023-07-04] MEDS: amLODIPine BESYLATE 10 MG TABLET (FP) PO SCH (10:04)
[2023-07-04] MEDS: ACETAMINOPHEN 325 MG TABLET (FP) PO PRN (10:04)
[2023-07-04 11:43] LABS: POTASSIUM 4.1 mmol/L (3.5-5.1)
[2023-07-04 11:46] LABS: ALBUMIN 3.4 g/dl (3.4-5.0); CALCIUM 8.2 mg/dL (8.5-10.1)
[2023-07-04 11:49] LABS: HEMATOCRIT 28.3 % (32.4-45.2); HEMOGLOBIN 9.4 GM/dL (10.7-15.3); MCH 28.6 pg (25.7-33.7); MCHC 33.1 g/dl (32.0-36.0); MEAN CELL VOLUME 86.4 fl (80-96); MEAN PLT VOLUME 8.4 fl (7.5-11.1); PLATELET COUNT 313 10^3/uL (134-434); RBC 3.28 M/mm3 (3.60-5.2); RDW 14.7 % (11.6-15.6); WHITE BLOOD COUNT 5.2 K/mm3 (4.0-10.0)
[2023-07-04 11:50] LABS: CREATININE 2.8 mg/dL (0.55-1.3)
[2023-07-04 11:52] LABS: BILIRUBIN,TOTAL 0.3 mg/dL (0.2-1); TOT PROT 7.6 g/dl (6.4-8.2)
[2023-07-04] MEDS ORDERED: hydrALAZINE HCL 50 MG TABLET (FP) PO SCH (18:00)
[2023-07-04] MEDS: hydrALAZINE HCL 25 MG TABLET (FP) PO SCH (18:27)
[2023-07-04] MEDS: MELATONIN 5 MG TABLETS PO SCH (21:01)
[2023-07-04] MEDS: THIAMINE HCL 100 MG TABLET (FP) PO SCH (21:02)
[2023-07-05] MEDS: methaDONE HCL 10 MG TABLET PO SCH (06:55)
[2023-07-05] MEDS: amLODIPine BESYLATE 10 MG TABLET (FP) PO SCH (06:55)
[2023-07-05] MEDS: hydrALAZINE HCL 25 MG TABLET (FP) PO SCH ×2 (06:55→17:29)
[2023-07-05] MEDS: PRENATAL VITAMINS W/ FOLIC ACID TABLET (FP) PO SCH (09:22)
[2023-07-05] MEDS: THIAMINE HCL 100 MG TABLET (FP) PO SCH (21:21)
[2023-07-05] MEDS: MELATONIN 5 MG TABLETS PO SCH (21:21)
[2023-07-06] MEDS: methaDONE HCL 10 MG TABLET PO SCH (05:41)
[2023-07-06] MEDS: hydrALAZINE HCL 25 MG TABLET (FP) PO SCH ×2 (05:41→17:37)
[2023-07-06] MEDS: amLODIPine BESYLATE 10 MG TABLET (FP) PO SCH (05:41)
[2023-07-06] MEDS: PRENATAL VITAMINS W/ FOLIC ACID TABLET (FP) PO SCH (09:33)
[2023-07-06] MEDS: FERROUS SO4 325 MG TABLET (FP) PO SCH (09:33)
[2023-07-06 14:08] LABS: EPI CELLS 6 /uL (0-25.1); HYALINE CASTS 0 /uL (0-3.1); URINE APPEARANCE CLEAR; URINE BACTERIA 159 /uL (0-1359); URINE BILIRUBIN NEGATIVE (NEGATIVE); URINE COLOR YELLOW; URINE GLUCOSE (UA) NEGATIVE (NEGATIVE); URINE KETONE NEGATIVE (NEGATIVE); URINE LEUK ESTERASE TRACE (NEGATIVE); URINE NITRITE NEGATIVE (NEGATIVE); URINE PROTEIN 1+ (NEGATIVE); URINE RBC 2 /uL (0-23.9); URINE UROBILINOGEN 0.2 mg/dL (0.2-1.0); URINE WBC 4 /uL (0-25.8)
[2023-07-06] MEDS: THIAMINE HCL 100 MG TABLET (FP) PO SCH (21:30)
[2023-07-06] MEDS: MELATONIN 5 MG TABLETS PO SCH (21:30)
[2023-07-07] MEDS: methaDONE HCL 10 MG TABLET PO SCH (06:25)
[2023-07-07] MEDS: amLODIPine BESYLATE 10 MG TABLET (FP) PO SCH (06:26)
[2023-07-07] MEDS: hydrALAZINE HCL 25 MG TABLET (FP) PO SCH ×2 (06:26→20:03)
[2023-07-07] MEDS: FERROUS SO4 325 MG TABLET (FP) PO SCH (07:12)
[2023-07-07] MEDS: ACETAMINOPHEN 325 MG TABLET (FP) PO PRN (08:44)
[2023-07-07] MEDS: PRENATAL VITAMINS W/ FOLIC ACID TABLET (FP) PO SCH (10:00)
[2023-07-07] MEDS ORDERED: cloNIDine HCL 0.1 MG TABLET PO ONE (15:21)
[2023-07-07] MEDS: MELATONIN 5 MG TABLETS PO SCH (21:05)
[2023-07-07] MEDS: THIAMINE HCL 100 MG TABLET (FP) PO SCH (21:05)
[2023-07-08] MEDS: hydrALAZINE HCL 25 MG TABLET (FP) PO SCH ×2 (06:12→17:42)
[2023-07-08] MEDS: methaDONE HCL 10 MG TABLET PO SCH (06:13)
[2023-07-08] MEDS: amLODIPine BESYLATE 10 MG TABLET (FP) PO SCH (06:13)
[2023-07-08] MEDS: FERROUS SO4 325 MG TABLET (FP) PO SCH (07:01)
[2023-07-08] MEDS: PRENATAL VITAMINS W/ FOLIC ACID TABLET (FP) PO SCH (09:43)
[2023-07-08] MEDS: HYDROCHLOROTHIAZIDE 12.5 MG CAPSULE (FP) PO SCH (09:43)
[2023-07-08] MEDS: THIAMINE HCL 100 MG TABLET (FP) PO SCH (21:15)
[2023-07-08] MEDS: MELATONIN 5 MG TABLETS PO SCH (21:15)
[2023-07-09] MEDS: methaDONE HCL 10 MG TABLET PO SCH (06:11)
[2023-07-09] MEDS: hydrALAZINE HCL 25 MG TABLET (FP) PO SCH ×2 (06:11→17:53)
[2023-07-09] MEDS: amLODIPine BESYLATE 10 MG TABLET (FP) PO SCH (06:13)
[2023-07-09] MEDS: FERROUS SO4 325 MG TABLET (FP) PO SCH (07:04)
[2023-07-09] MEDS: HYDROCHLOROTHIAZIDE 12.5 MG CAPSULE (FP) PO SCH (10:14)
[2023-07-09] MEDS: PRENATAL VITAMINS W/ FOLIC ACID TABLET (FP) PO SCH (10:14)
[2023-07-09] MEDS: MELATONIN 5 MG TABLETS PO SCH (21:09)
[2023-07-09] MEDS: THIAMINE HCL 100 MG TABLET (FP) PO SCH (21:09)
[2023-07-10] MEDS: methaDONE HCL 10 MG TABLET PO SCH (06:27)
[2023-07-10] MEDS: amLODIPine BESYLATE 10 MG TABLET (FP) PO SCH (06:28)
[2023-07-10] MEDS: hydrALAZINE HCL 25 MG TABLET (FP) PO SCH ×2 (06:28→17:10)
[2023-07-10] MEDS: FERROUS SO4 325 MG TABLET (FP) PO SCH (07:01)
[2023-07-10] MEDS: PRENATAL VITAMINS W/ FOLIC ACID TABLET (FP) PO SCH (09:28)
[2023-07-10] MEDS: HYDROCHLOROTHIAZIDE 12.5 MG CAPSULE (FP) PO SCH (09:28)
[2023-07-10] MEDS: MELATONIN 5 MG TABLETS PO SCH (21:12)
[2023-07-10] MEDS: THIAMINE HCL 100 MG TABLET (FP) PO SCH (21:13)
[2023-07-10 22:50] VITALS: RESP 18
[2023-07-11] MEDS: hydrALAZINE HCL 25 MG TABLET (FP) PO SCH ×2 (06:43→17:15)
[2023-07-11] MEDS: amLODIPine BESYLATE 10 MG TABLET (FP) PO SCH (06:44)
[2023-07-11] MEDS: methaDONE HCL 10 MG TABLET PO SCH (06:44)
[2023-07-11] MEDS: FERROUS SO4 325 MG TABLET (FP) PO SCH (07:16)
[2023-07-11] MEDS: PRENATAL VITAMINS W/ FOLIC ACID TABLET (FP) PO SCH (09:34)
[2023-07-11] MEDS: HYDROCHLOROTHIAZIDE 25 MG TABLET (FP) PO SCH (09:34)
[2023-07-11] MEDS: THIAMINE HCL 100 MG TABLET (FP) PO SCH (22:21)
[2023-07-11] MEDS: MELATONIN 5 MG TABLETS PO SCH (22:21)
[2023-07-12] MEDS: amLODIPine BESYLATE 10 MG TABLET (FP) PO SCH (06:43)
[2023-07-12] MEDS: hydrALAZINE HCL 25 MG TABLET (FP) PO SCH (06:43)
[2023-07-12] MEDS: FERROUS SO4 325 MG TABLET (FP) PO SCH (07:09)
[2023-07-12 07:51] VITALS: TEMP 97.7
[2023-07-12] MEDS ORDERED: methaDONE HCL 10 MG TABLET PO ONE (10:00)
[2023-07-12] MEDS: PRENATAL VITAMINS W/ FOLIC ACID TABLET (FP) PO SCH (10:03)
[2023-07-12] MEDS: HYDROCHLOROTHIAZIDE 25 MG TABLET (FP) PO SCH (10:03)
[2023-07-12 13:14] VITALS: BP 160/71; PULSE 87
[2023-07-13] MEDS ORDERED: methaDONE HCL 10 MG TABLET PO SCH (06:00)
== END 2023-07-12 11:30 | disposition home or self-care (01) | DRG 895 ==
LOC: YASAS 09:30 → Y5N 14:08
PROVIDERS: ADMIT Allergy & Immunology; ATTEND Psychiatry & Neurology Pain Medicine
PROC: HZ42ZZZ Group Counseling for Substance Abuse Treatment, Cognitive-Behavioral (ICD-10-PCS; principal; 2023-07-03)
DX: F10.20 Alcohol dependence, uncomplicated (principal); F14.20 Cocaine dependence, uncomplicated; F19.282 Other psychoactive substance dependence with psychoactive substance-induced sleep disorder; F11.10 Opioid abuse, uncomplicated; F17.210 Nicotine dependence, cigarettes, uncomplicated; F41.9 Anxiety disorder, unspecified; F32.A Depression, unspecified; D64.9 Anemia, unspecified; I13.10 Hypertensive heart and chronic kidney disease without heart failure, with stage 1 through stage 4 chronic kidney disease, or unspecified chronic kidney disease; N18.9 Chronic kidney disease, unspecified; J45.909 Unspecified asthma, uncomplicated; M54.50 Low back pain, unspecified; G89.29 Other chronic pain; Z86.11 Personal history of tuberculosis; Z87.09 Personal history of other diseases of the respiratory system
CPT/HCPCS: 36415; 80053; 80307; 81003; 85027; 86780; 87635; 87811; 93005; 93010

== ENCOUNTER 2023-07-19 11:50 | Observation (INO) | payer OTHER ==
[2023-07-19] MEDS ORDERED: NALOXONE HCL (KLOXXADO) 8 MG SPRAY NS ONE (12:13)
[2023-07-19] MEDS ORDERED: NALOXONE HCL 0.4 MG/ML VIAL IVPUSH ONE ×3 (12:15→14:23)
[2023-07-19] MEDS ORDERED: NALOXONE HCL 0.4 MG/ML VIAL ONE (12:29)
[2023-07-19 13:23] LABS: EOS % 0.6 % (0-4.5); HEMATOCRIT 26.1 % (32.4-45.2); HEMOGLOBIN 8.4 GM/dL (10.7-15.3); MCH 27.7 pg (25.7-33.7); MCHC 32.3 g/dl (32.0-36.0); MEAN CELL VOLUME 85.9 fl (80-96); MEAN PLT VOLUME 8.1 fl (7.5-11.1); MONO % 6.4 % (3.8-10.2); PLATELET COUNT 326 10^3/uL (134-434); RBC 3.04 M/mm3 (3.60-5.2); RDW 13.9 % (11.6-15.6); WHITE BLOOD COUNT 4.9 K/mm3 (4.0-10.0)
[2023-07-19 13:52] LABS: CHLORIDE 104 mmol/L (98-107); SODIUM 141 mmol/L (136-145)
[2023-07-19 13:53] LABS: CALCIUM 8.5 mg/dL (8.5-10.1)
[2023-07-19 13:54] LABS: ALBUMIN 3.7 g/dl (3.4-5.0); ANION GAP 8 mmol/L (4-13); CO2 29 mmol/L (21-32)
[2023-07-19 13:55] LABS: BLOOD UREA NITROGEN 50.9 mg/dL (7-18); GLUCOSE,RANDOM 74 mg/dL (74-106)
[2023-07-19 13:56] VITALS: BMI 20.6
[2023-07-19 13:57] LABS: CREATININE 3.1 mg/dL (0.55-1.3); SGOT/AST 18 U/L (15-37)
[2023-07-19 13:58] LABS: CHOLESTEROL 226 mg/dL (50-200); SGPT/ALT 17 U/L (13-61)
[2023-07-19 13:59] LABS: TOT PROT 7.7 g/dl (6.4-8.2)
[2023-07-19 14:00] LABS: BILIRUBIN,TOTAL 0.3 mg/dL (0.2-1); LDL CHOLESTEROL (ONLY SJRH) 131 mg/dL (5-100)
[2023-07-19 14:01] LABS: ALK PHOS 84 U/L (45-117)
[2023-07-19] MEDS ORDERED: SODIUM CHLORIDE 0.9% 500 ML INFUS.BAG IV ONE (14:23)
[2023-07-19 15:54] LABS: HDL CHOLESTEROL QNS mg/dL (40-60)
[2023-07-19] MEDS ORDERED: IRON SUCROSE INJECTION 200 MG in SODIUM CHLORIDE 90 ML IVPB ONE (22:00)
[2023-07-19] MEDS ORDERED: hydrALAZINE HCL 50 MG TABLET (FP) ONE (22:09)
[2023-07-19] MEDS ORDERED: HEPARIN NA (PORCINE) 5,000 UNITS/ML 1ML VIAL ONE (22:09)
[2023-07-19] MEDS ORDERED: ATORVASTATIN CA 40 MG TABLET (FP) ONE (22:09)
[2023-07-19] MEDS: hydrALAZINE HCL 50 MG TABLET (FP) PO SCH (22:12)
[2023-07-19] MEDS: ATORVASTATIN CA 40 MG TABLET (FP) PO SCH (22:12)
[2023-07-19] MEDS: HEPARIN NA (PORCINE) 5,000 UNITS/ML 1ML VIAL SQ SCH (22:12)
[2023-07-19] MEDS: OXcarbazepine 150 MG TABLET (UD) PO SCH (23:26)
[2023-07-20 02:01] LABS: EPI CELLS 10 /uL (0-25.1); HYALINE CASTS 0 /uL (0-3.1); PH,URINE 6.5 (5.0-8.0); URINE APPEARANCE CLEAR; URINE BACTERIA 217 /uL (0-1359); URINE BILIRUBIN NEGATIVE (NEGATIVE); URINE COLOR YELLOW; URINE GLUCOSE (UA) NEGATIVE (NEGATIVE); URINE KETONE NEGATIVE (NEGATIVE); URINE LEUK ESTERASE 1+ (NEGATIVE); URINE NITRITE NEGATIVE (NEGATIVE); URINE PROTEIN 2+ (NEGATIVE); URINE RBC 2 /uL (0-23.9); URINE UROBILINOGEN 0.2 mg/dL (0.2-1.0); URINE WBC 46 /uL (0-25.8)
[2023-07-20 02:07] LABS: OPIATES, URI NEGATIVE (NEGATIVE); PHENCYCLIDINE,URINE NEGATIVE (NEGATIVE); URINE BENZODIAZEPINES NEGATIVE (NEGATIVE)
[2023-07-20 02:21] LABS: COCAINE, UR POSITIVE (NEGATIVE); METHADONE, UR POSITIVE (NEGATIVE); URINE AMPHETAMINES NEGATIVE (NEGATIVE); URINE BARBITURATES NEGATIVE (NEGATIVE)
[2023-07-20] MEDS ORDERED: methaDONE HCL 10 MG TABLET PO SCH (06:00)
[2023-07-20] MEDS: HEPARIN NA (PORCINE) 5,000 UNITS/ML 1ML VIAL SQ SCH ×4 (06:03→21:42)
[2023-07-20 07:01] LABS: HEMATOCRIT 24.9 % (32.4-45.2); MCH 28.4 pg (25.7-33.7); MCHC 32.2 g/dl (32.0-36.0); MEAN CELL VOLUME 88.2 fl (80-96); MEAN PLT VOLUME 8.1 fl (7.5-11.1); PLATELET COUNT 264 10^3/uL (134-434); RBC 2.82 M/mm3 (3.60-5.2); RDW 13.5 % (11.6-15.6); WHITE BLOOD COUNT 4.5 K/mm3 (4.0-10.0)
[2023-07-20 07:23] LABS: POTASSIUM 4.6 mmol/L (3.5-5.1)
[2023-07-20 07:33] LABS: BLOOD UREA NITROGEN 43.2 mg/dL (7-18)
[2023-07-20 07:34] LABS: ALBUMIN 3.1 g/dl (3.4-5.0); MAGNESIUM 2.6 mg/dL (1.8-2.4)
[2023-07-20 07:35] LABS: PHOSPHOROUS 4.3 mg/dL (2.5-4.9)
[2023-07-20 07:37] LABS: BILIRUBIN,TOTAL 0.2 mg/dL (0.2-1); TOT PROT 6.7 g/dl (6.4-8.2)
[2023-07-20] MEDS: amLODIPine BESYLATE 10 MG TABLET (FP) PO SCH (10:42)
[2023-07-20] MEDS: hydrALAZINE HCL 50 MG TABLET (FP) PO SCH ×2 (10:42→21:41)
[2023-07-20] MEDS: OXcarbazepine 150 MG TABLET (UD) PO SCH ×2 (10:42→21:41)
[2023-07-20] MEDS ORDERED: methaDONE HCL 10 MG TABLET PO ONE (11:30)
[2023-07-20] MEDS: ATORVASTATIN CA 40 MG TABLET (FP) PO SCH (21:41)
[2023-07-21] MEDS: HEPARIN NA (PORCINE) 5,000 UNITS/ML 1ML VIAL SQ SCH ×4 (06:16→22:11)
[2023-07-21] MEDS ORDERED: LOSARTAN POTASSIUM 50 MG TABLET PO ONE (07:30)
[2023-07-21 08:24] LABS: HEMATOCRIT 29.2 % (32.4-45.2); HEMOGLOBIN 9.6 GM/dL (10.7-15.3); MCH 28.6 pg (25.7-33.7); MCHC 32.7 g/dl (32.0-36.0); MEAN CELL VOLUME 87.4 fl (80-96); MEAN PLT VOLUME 8.3 fl (7.5-11.1); PLATELET COUNT 319 10^3/uL (134-434); RBC 3.34 M/mm3 (3.60-5.2); RDW 13.9 % (11.6-15.6); WHITE BLOOD COUNT 5.8 K/mm3 (4.0-10.0)
[2023-07-21 09:16] LABS: POTASSIUM 4.2 mmol/L (3.5-5.1)
[2023-07-21 09:36] LABS: BLOOD UREA NITROGEN 42.4 mg/dL (7-18); CALCIUM 8.9 mg/dL (8.5-10.1)
[2023-07-21 09:37] LABS: ALBUMIN 3.6 g/dl (3.4-5.0)
[2023-07-21 09:39] LABS: CREATININE 2.6 mg/dL (0.55-1.3)
[2023-07-21 09:40] LABS: BILIRUBIN,TOTAL 0.2 mg/dL (0.2-1); TOT PROT 7.8 g/dl (6.4-8.2)
[2023-07-21] MEDS: OXcarbazepine 150 MG TABLET (UD) PO SCH ×2 (10:52→22:11)
[2023-07-21] MEDS: hydrALAZINE HCL 50 MG TABLET (FP) PO SCH ×3 (10:52→22:10)
[2023-07-21] MEDS: amLODIPine BESYLATE 10 MG TABLET (FP) PO SCH (10:54)
[2023-07-21] MEDS ORDERED: methaDONE HCL 10 MG TABLET PO ONE (15:06)
[2023-07-21] MEDS: ATORVASTATIN CA 40 MG TABLET (FP) PO SCH (22:09)
[2023-07-22] MEDS: HEPARIN NA (PORCINE) 5,000 UNITS/ML 1ML VIAL SQ SCH ×3 (06:15→22:05)
[2023-07-22] MEDS: hydrALAZINE HCL 50 MG TABLET (FP) PO SCH ×3 (06:15→22:05)
[2023-07-22 07:55] LABS: HEMATOCRIT 30.6 % (32.4-45.2); HEMOGLOBIN 10.3 GM/dL (10.7-15.3); MCH 28.8 pg (25.7-33.7); MCHC 33.6 g/dl (32.0-36.0); MEAN CELL VOLUME 85.7 fl (80-96); MEAN PLT VOLUME 8.1 fl (7.5-11.1); PLATELET COUNT 333 10^3/uL (134-434); RBC 3.57 M/mm3 (3.60-5.2); RDW 13.8 % (11.6-15.6)
[2023-07-22 08:03] LABS: CALCIUM 8.9 mg/dL (8.5-10.1)
[2023-07-22 08:04] LABS: ALBUMIN 3.5 g/dl (3.4-5.0); BLOOD UREA NITROGEN 46.1 mg/dL (7-18)
[2023-07-22 08:07] LABS: CREATININE 2.9 mg/dL (0.55-1.3)
[2023-07-22 08:08] LABS: BILIRUBIN,TOTAL 0.3 mg/dL (0.2-1); TOT PROT 7.7 g/dl (6.4-8.2)
[2023-07-22] MEDS: amLODIPine BESYLATE 10 MG TABLET (FP) PO SCH (10:36)
[2023-07-22] MEDS: OXcarbazepine 150 MG TABLET (UD) PO SCH ×2 (10:37→22:05)
[2023-07-22] MEDS: LOSARTAN POTASSIUM 50 MG TABLET PO SCH (10:37)
[2023-07-22] MEDS ORDERED: methaDONE HCL 10 MG TABLET PO ONE (11:00)
[2023-07-22] MEDS: ATORVASTATIN CA 40 MG TABLET (FP) PO SCH (22:05)
[2023-07-23] MEDS: HEPARIN NA (PORCINE) 5,000 UNITS/ML 1ML VIAL SQ SCH ×3 (05:15→22:11)
[2023-07-23] MEDS: hydrALAZINE HCL 50 MG TABLET (FP) PO SCH (05:57)
[2023-07-23 07:04] LABS: POTASSIUM 5.5 mmol/L (3.5-5.1)
[2023-07-23 07:06] LABS: CALCIUM 8.5 mg/dL (8.5-10.1)
[2023-07-23 07:07] LABS: ALBUMIN 3.3 g/dl (3.4-5.0); BLOOD UREA NITROGEN 51.8 mg/dL (7-18)
[2023-07-23 07:10] LABS: CREATININE 3.2 mg/dL (0.55-1.3)
[2023-07-23 07:11] LABS: TOT PROT 7.2 g/dl (6.4-8.2)
[2023-07-23 07:12] LABS: BILIRUBIN,TOTAL 0.3 mg/dL (0.2-1)
[2023-07-23] MEDS: amLODIPine BESYLATE 10 MG TABLET (FP) PO SCH (09:12)
[2023-07-23] MEDS: OXcarbazepine 150 MG TABLET (UD) PO SCH ×2 (09:12→22:07)
[2023-07-23] MEDS: LOSARTAN POTASSIUM 50 MG TABLET PO SCH (09:13)
[2023-07-23] MEDS ORDERED: methaDONE HCL 10 MG TABLET PO ONE (12:00)
[2023-07-23] MEDS ORDERED: methaDONE HCL 10 MG TABLET (FOR DETOX USE ONLY) PO ONE (12:00)
[2023-07-23] MEDS: SODIUM ZIRCONIUM CYCLOSILICATE (LOKELMA) 5 GM PACKET PO SCH (15:05)
[2023-07-23] MEDS: hydrALAZINE HCL 25 MG TABLET (FP) PO SCH ×2 (15:05→22:19)
[2023-07-23] MEDS: ATORVASTATIN CA 40 MG TABLET (FP) PO SCH (22:08)
[2023-07-24] MEDS: hydrALAZINE HCL 25 MG TABLET (FP) PO SCH ×2 (05:49→13:43)
[2023-07-24] MEDS: HEPARIN NA (PORCINE) 5,000 UNITS/ML 1ML VIAL SQ SCH ×2 (05:50→13:41)
[2023-07-24 06:39] LABS: HEMATOCRIT 29.3 % (32.4-45.2); HEMOGLOBIN 9.5 GM/dL (10.7-15.3); MCH 28.1 pg (25.7-33.7); MCHC 32.2 g/dl (32.0-36.0); MEAN CELL VOLUME 87.3 fl (80-96); MEAN PLT VOLUME 8.2 fl (7.5-11.1); PLATELET COUNT 314 10^3/uL (134-434); RBC 3.36 M/mm3 (3.60-5.2); RDW 13.6 % (11.6-15.6); WHITE BLOOD COUNT 5.1 K/mm3 (4.0-10.0)
[2023-07-24 07:16] LABS: MAGNESIUM 2.4 mg/dL (1.8-2.4); POTASSIUM 4.6 mmol/L (3.5-5.1)
[2023-07-24 07:20] LABS: PHOSPHOROUS 3.8 mg/dL (2.5-4.9)
[2023-07-24 07:21] LABS: CALCIUM 8.6 mg/dL (8.5-10.1)
[2023-07-24 07:22] LABS: ALBUMIN 3.3 g/dl (3.4-5.0); BLOOD UREA NITROGEN 50.1 mg/dL (7-18)
[2023-07-24 07:24] LABS: CREATININE 3.3 mg/dL (0.55-1.3)
[2023-07-24 07:25] LABS: TOT PROT 7.2 g/dl (6.4-8.2)
[2023-07-24 07:26] LABS: BILIRUBIN,TOTAL 0.2 mg/dL (0.2-1)
[2023-07-24] MEDS ORDERED: methaDONE HCL 10 MG TABLET (FOR DETOX USE ONLY) PO SCH (10:00)
[2023-07-24] MEDS ORDERED: methaDONE HCL 10 MG TABLET PO SCH (10:30)
[2023-07-24] MEDS: amLODIPine BESYLATE 10 MG TABLET (FP) PO SCH (11:08)
[2023-07-24] MEDS: OXcarbazepine 150 MG TABLET (UD) PO SCH (11:09)
[2023-07-24] MEDS: SODIUM ZIRCONIUM CYCLOSILICATE (LOKELMA) 5 GM PACKET PO SCH (11:10)
[2023-07-24 11:36] VITALS: RESP 16
[2023-07-24] MEDS ORDERED: LISINOPRIL 5 MG TABLET PO SCH (12:15)
[2023-07-24 14:40] VITALS: BP 159/72; PULSE 69; TEMP 98.2
== END 2023-07-24 15:35 | disposition home or self-care (01) ==
LOC: JER 11:50 → JERBED 18:24 → J4S 22:28
PROVIDERS: ADMIT Internal Medicine; ATTEND Internal Medicine
PROC: 3E033GC Introduction of Other Therapeutic Substance into Peripheral Vein, Percutaneous Approach (ICD-10-PCS; principal; 2023-07-19)
PROC: 3E033NZ Introduction of Analgesics, Hypnotics, Sedatives into Peripheral Vein, Percutaneous Approach (ICD-10-PCS; 2023-07-19)
PROC: 3E0337Z Introduction of Electrolytic and Water Balance Substance into Peripheral Vein, Percutaneous Approach (ICD-10-PCS; 2023-07-19)
DX: I16.0 Hypertensive urgency (principal); E87.5 Hyperkalemia; F19.10 Other psychoactive substance abuse, uncomplicated; J45.909 Unspecified asthma, uncomplicated; I50.20 Unspecified systolic (congestive) heart failure; I13.0 Hypertensive heart and chronic kidney disease with heart failure and stage 1 through stage 4 chronic kidney disease, or unspecified chronic kidney disease; N18.9 Chronic kidney disease, unspecified; R56.9 Unspecified convulsions; D32.9 Benign neoplasm of meninges, unspecified; R55 Syncope and collapse
CPT/HCPCS: 36415; 70450-TC; 80048; 80053; 80061; 80307; 81003; 82272; 82550; 82553; 82962; 83036; 83735; 84100; 84484; 85025; 85027; 86850; 86900; 86901; 93005; 93010; 96365; 96375; 96376; 97116-GP; 97162-GP; 99285-25; G0378; J1644; J1756

== ENCOUNTER 2023-07-25 11:44 | Emergency (ER) | payer OTHER ==
[2023-07-25 12:14] VITALS: BP 118/64; PULSE 65; RESP 18; TEMP 98; BMI 23.4
== END 2023-07-25 13:35 | disposition home or self-care (01) ==
LOC: JER 11:44
DX: Z00.00 Encounter for general adult medical examination without abnormal findings (principal)
CPT/HCPCS: 82962; 99283-25

== ENCOUNTER 2023-08-02 16:27 | Inpatient (IN) | payer OTHER ==
[2023-08-02 17:16] VITALS: BMI 18.3
[2023-08-02] MEDS ORDERED: hydrOXYzine PAMOATE 25 MG CAPSULE (FP) PO PRN (18:15)
[2023-08-02] MEDS ORDERED: NALOXONE HCL 0.4 MG/ML VIAL IM PRN (18:15)
[2023-08-02] MEDS ORDERED: MAGNESIUM HYDROX 2400MG/30ML ORAL SUSPENSION 30 ML CUP PO PRN (18:15)
[2023-08-02] MEDS ORDERED: BENZONATATE 200 MG CAPSULE PO PRN (18:15)
[2023-08-02] MEDS ORDERED: IBUPROFEN 600 MG TABLET (FP) PO PRN (18:15)
[2023-08-02] MEDS ORDERED: BENZOCAINE/MENTHOL (CHLORASEPTIC ) LOZENGE MM PRN (18:15)
[2023-08-02] MEDS ORDERED: NALOXONE HCL (KLOXXADO) 8 MG SPRAY NS PRN (18:15)
[2023-08-02] MEDS ORDERED: LOPERAMIDE HCL 2 MG CAPSULE PO PRN (18:15)
[2023-08-02] MEDS ORDERED: guaiFENesin 600 MG TABLET.ER (FP) PO PRN (18:15)
[2023-08-02] MEDS ORDERED: COLLOIDAL OATMEAL 1 BAR EACH TP PRN (18:15)
[2023-08-02] MEDS ORDERED: POLYETHYLENE GLYCOL (HEALTHYLAX) 3350 17 GM PACKET PO PRN (18:15)
[2023-08-02] MEDS ORDERED: MAG HYDROX/AL HYDROX/SIMETH 30 ML UNIT-DOSE CUP PO PRN (18:15)
[2023-08-02] MEDS ORDERED: IBUPROFEN 400 MG TABLET (FP) PO PRN (18:15)
[2023-08-02 21:11] VITALS: RESP 18
[2023-08-02] MEDS: ATORVASTATIN CA 40 MG TABLET (FP) PO SCH (21:12)
[2023-08-02] MEDS: THIAMINE HCL 100 MG TABLET (FP) PO SCH (21:12)
[2023-08-02] MEDS: hydrALAZINE HCL 25 MG TABLET (FP) PO SCH (21:12)
[2023-08-02] MEDS ORDERED: MELATONIN 5 MG TABLETS PO SCH (22:00)
[2023-08-02] MEDS: OXcarbazepine 150 MG TABLET (UD) PO SCH (22:06)
[2023-08-03] MEDS: hydrALAZINE HCL 25 MG TABLET (FP) PO SCH ×3 (06:29→21:35)
[2023-08-03] MEDS ORDERED: amLODIPine BESYLATE 10 MG TABLET (FP) PO SCH (10:00)
[2023-08-03] MEDS ORDERED: LISINOPRIL 5 MG TABLET PO SCH (10:00)
[2023-08-03] MEDS: amLODIPine BESYLATE 10 MG TABLET (FP) PO SCH (10:17)
[2023-08-03] MEDS: LISINOPRIL 10 MG TABLET PO SCH (10:17)
[2023-08-03] MEDS: ACETAMINOPHEN 325 MG TABLET (FP) PO PRN (10:17)
[2023-08-03] MEDS: PRENATAL VITAMINS W/ FOLIC ACID TABLET (FP) PO SCH (10:17)
[2023-08-03] MEDS: OXcarbazepine 150 MG TABLET (UD) PO SCH ×2 (10:32→21:35)
[2023-08-03] MEDS: methaDONE HCL 10 MG TABLET PO SCH (10:50)
[2023-08-03 11:03] LABS: EPI CELLS 8 /uL (0-25.1); HYALINE CASTS 0 /uL (0-3.1); PH,URINE 5.5 (5.0-8.0); URINE APPEARANCE CLEAR; URINE BACTERIA 349 /uL (0-1359); URINE BILIRUBIN NEGATIVE (NEGATIVE); URINE COLOR YELLOW; URINE GLUCOSE (UA) NEGATIVE (NEGATIVE); URINE KETONE NEGATIVE (NEGATIVE); URINE LEUK ESTERASE 1+ (NEGATIVE); URINE NITRITE NEGATIVE (NEGATIVE); URINE PROTEIN 2+ (NEGATIVE); URINE RBC 3 /uL (0-23.9); URINE UROBILINOGEN 0.2 mg/dL (0.2-1.0); URINE WBC 166 /uL (0-25.8)
[2023-08-03 11:04] LABS: CHLORIDE 107 mmol/L (98-107); HEMATOCRIT 24.2 % (32.4-45.2); MCH 28.4 pg (25.7-33.7); MCHC 32.9 g/dl (32.0-36.0); MEAN CELL VOLUME 86.2 fl (80-96); MEAN PLT VOLUME 8.3 fl (7.5-11.1); PLATELET COUNT 236 10^3/uL (134-434); POTASSIUM 3.9 mmol/L (3.5-5.1); RBC 2.81 M/mm3 (3.60-5.2); RDW 13.3 % (11.6-15.6); SODIUM 140 mmol/L (136-145); WHITE BLOOD COUNT 4.7 K/mm3 (4.0-10.0)
[2023-08-03 11:06] LABS: CALCIUM 7.5 mg/dL (8.5-10.1)
[2023-08-03 11:07] LABS: ALBUMIN 3.2 g/dl (3.4-5.0); ANION GAP 6 mmol/L (4-13); BLOOD UREA NITROGEN 45.2 mg/dL (7-18); CO2 28 mmol/L (21-32); GLUCOSE,RANDOM 96 mg/dL (74-106)
[2023-08-03 11:10] LABS: BILIRUBIN,TOTAL 0.2 mg/dL (0.2-1); CREATININE 3.4 mg/dL (0.55-1.3); SGOT/AST 21 U/L (15-37); SGPT/ALT 16 U/L (13-61); TOT PROT 6.8 g/dl (6.4-8.2)
[2023-08-03 11:12] LABS: ALK PHOS 85 U/L (45-117)
[2023-08-03] MEDS: ATORVASTATIN CA 40 MG TABLET (FP) PO SCH (21:35)
[2023-08-03] MEDS: THIAMINE HCL 100 MG TABLET (FP) PO SCH (21:35)
[2023-08-03] MEDS ORDERED: SUVOREXANT 5 MG TABLET PO PRN (22:00)
[2023-08-04] MEDS: methaDONE HCL 10 MG TABLET PO SCH (06:12)
[2023-08-04] MEDS: hydrALAZINE HCL 25 MG TABLET (FP) PO SCH ×3 (06:12→21:20)
[2023-08-04] MEDS: amLODIPine BESYLATE 10 MG TABLET (FP) PO SCH (09:48)
[2023-08-04] MEDS: LISINOPRIL 10 MG TABLET PO SCH (09:48)
[2023-08-04] MEDS: PRENATAL VITAMINS W/ FOLIC ACID TABLET (FP) PO SCH (09:48)
[2023-08-04] MEDS: OXcarbazepine 150 MG TABLET (UD) PO SCH ×2 (09:48→21:20)
[2023-08-04] MEDS: ATORVASTATIN CA 40 MG TABLET (FP) PO SCH (21:20)
[2023-08-04] MEDS: THIAMINE HCL 100 MG TABLET (FP) PO SCH (21:20)
[2023-08-05] MEDS: methaDONE HCL 10 MG TABLET PO SCH (06:39)
[2023-08-05] MEDS: hydrALAZINE HCL 25 MG TABLET (FP) PO SCH ×4 (06:39→21:18)
[2023-08-05] MEDS: ACETAMINOPHEN 325 MG TABLET (FP) PO PRN (06:39)
[2023-08-05] MEDS: PRENATAL VITAMINS W/ FOLIC ACID TABLET (FP) PO SCH (09:53)
[2023-08-05] MEDS: amLODIPine BESYLATE 10 MG TABLET (FP) PO SCH (09:54)
[2023-08-05] MEDS: LISINOPRIL 10 MG TABLET PO SCH (09:54)
[2023-08-05] MEDS: OXcarbazepine 150 MG TABLET (UD) PO SCH ×2 (09:54→21:18)
[2023-08-05] MEDS: ATORVASTATIN CA 40 MG TABLET (FP) PO SCH (21:18)
[2023-08-05] MEDS: THIAMINE HCL 100 MG TABLET (FP) PO SCH (21:19)
[2023-08-06] MEDS: methaDONE HCL 10 MG TABLET PO SCH (06:27)
[2023-08-06] MEDS: hydrALAZINE HCL 25 MG TABLET (FP) PO SCH ×2 (06:28→13:57)
[2023-08-06 07:14] VITALS: TEMP 98.3
[2023-08-06] MEDS: LISINOPRIL 10 MG TABLET PO SCH (10:04)
[2023-08-06] MEDS: PRENATAL VITAMINS W/ FOLIC ACID TABLET (FP) PO SCH (10:04)
[2023-08-06] MEDS: OXcarbazepine 150 MG TABLET (UD) PO SCH (10:04)
[2023-08-06] MEDS: amLODIPine BESYLATE 10 MG TABLET (FP) PO SCH (10:04)
[2023-08-06 14:00] VITALS: BP 162/63; PULSE 62
== END 2023-08-06 19:21 | disposition left against medical advice (07) | DRG 894 ==
LOC: YASAS 16:27 → Y5N 20:14
PROVIDERS: ADMIT Allergy & Immunology; ATTEND Psychiatry & Neurology Pain Medicine
PROC: HZ42ZZZ Group Counseling for Substance Abuse Treatment, Cognitive-Behavioral (ICD-10-PCS; principal; 2023-08-02)
DX: F14.20 Cocaine dependence, uncomplicated (principal); F11.20 Opioid dependence, uncomplicated; F19.282 Other psychoactive substance dependence with psychoactive substance-induced sleep disorder; F17.210 Nicotine dependence, cigarettes, uncomplicated; F41.9 Anxiety disorder, unspecified; F32.A Depression, unspecified; I25.10 Atherosclerotic heart disease of native coronary artery without angina pectoris; I10 Essential (primary) hypertension; I25.2 Old myocardial infarction; E78.5 Hyperlipidemia, unspecified; G40.909 Epilepsy, unspecified, not intractable, without status epilepticus; J45.909 Unspecified asthma, uncomplicated; M54.50 Low back pain, unspecified; G89.29 Other chronic pain; Z62.810 Personal history of physical and sexual abuse in childhood; Z91.410 Personal history of adult physical and sexual abuse
CPT/HCPCS: 36415; 80053; 80307; 81003; 85027; 86780; 87635

== ENCOUNTER 2023-08-18 12:11 | Inpatient (IN) | payer OTHER ==
[2023-08-18] MEDS ORDERED: SODIUM CHLORIDE 0.9% 500 ML INFUS.BAG IV ONE (12:21)
[2023-08-18] MEDS ORDERED: THIAMINE HCL 200 MG/2 ML VIAL IVPB ONE (12:21)
[2023-08-18] MEDS ORDERED: THIAMINE HCL 200 MG/2 ML VIAL ONE (13:35)
[2023-08-18 13:46] LABS: ACTIVATED PTT 29.8 SECONDS (25.2-36.5); BASO % 1.5 % (0-2.0); EOS % 2.8 % (0-4.5); HEMATOCRIT 24.9 % (32.4-45.2); HEMOGLOBIN 8.1 GM/dL (10.7-15.3); INR 1.07 (0.83-1.09); LYMPH % 37.2 % (8-40); MCH 28.6 pg (25.7-33.7); MCHC 32.5 g/dl (32.0-36.0); MEAN CELL VOLUME 88.1 fl (80-96); MEAN PLT VOLUME 8.1 fl (7.5-11.1); MONO % 7.2 % (3.8-10.2); NEUT % 51.3 % (42.8-82.8); PLATELET COUNT 240 10^3/uL (134-434); PROTHROMBIN TIME (PATIENT) 12.4 SEC (9.7-13.0); RBC 2.83 M/mm3 (3.60-5.2); RDW 13.3 % (11.6-15.6); WHITE BLOOD COUNT 4.4 K/mm3 (4.0-10.0)
[2023-08-18 13:51] LABS: CHLORIDE 116 mmol/L (98-107); POTASSIUM 4.5 mmol/L (3.5-5.1); SODIUM 146 mmol/L (136-145)
[2023-08-18 13:53] LABS: ALBUMIN 3.4 g/dl (3.4-5.0); ANION GAP 5 mmol/L (4-13); CALCIUM 8.5 mg/dL (8.5-10.1); CO2 25 mmol/L (21-32); GLUCOSE,RANDOM 63 mg/dL (74-106)
[2023-08-18 13:56] LABS: SGOT/AST 15 U/L (15-37); SGPT/ALT 22 U/L (13-61)
[2023-08-18 13:57] LABS: CREATININE 2.8 mg/dL (0.55-1.3)
[2023-08-18 13:58] LABS: BILIRUBIN,TOTAL 0.2 mg/dL (0.2-1); TOT PROT 7.2 g/dl (6.4-8.2)
[2023-08-18 13:59] LABS: ALK PHOS 89 U/L (45-117)
[2023-08-18] MEDS ORDERED: NALOXONE HCL 0.4 MG/ML VIAL IVPUSH ONE ×2 (15:49→16:29)
[2023-08-18] MEDS ORDERED: NALOXONE HCL 0.4 MG/ML VIAL ONE (16:04)
[2023-08-18] MEDS: NALOXONE HCL 2 MG in DEXTROSE 5%-WATER - 495 ML IV SCH (18:30)
[2023-08-18] MEDS: NALOXONE HCL 0.4 MG/ML VIAL IVPUSH ONE ×2 (20:14→20:16)
[2023-08-18 21:53] LABS: EPI CELLS 8 /uL (0-25.1); HYALINE CASTS 0 /uL (0-3.1); URINE APPEARANCE CLEAR; URINE BACTERIA 28 /uL (0-1359); URINE BILIRUBIN NEGATIVE (NEGATIVE); URINE COLOR YELLOW; URINE GLUCOSE (UA) NEGATIVE (NEGATIVE); URINE KETONE NEGATIVE (NEGATIVE); URINE LEUK ESTERASE NEGATIVE (NEGATIVE); URINE NITRITE NEGATIVE (NEGATIVE); URINE PROTEIN 3+ (NEGATIVE); URINE RBC 20 /uL (0-23.9); URINE UROBILINOGEN 0.2 mg/dL (0.2-1.0); URINE WBC 10 /uL (0-25.8)
[2023-08-19] MEDS ORDERED: hydrALAZINE HCL 20 MG/ML VIAL IM PRN (01:18)
[2023-08-19] MEDS ORDERED: hydrALAZINE HCL 20 MG/ML VIAL IVPUSH PRN (02:15)
[2023-08-19 02:59] VITALS: BMI 30.5
[2023-08-19] MEDS ORDERED: hydrALAZINE HCL 20 MG/ML VIAL IVPUSH ONE (03:50)
[2023-08-19] MEDS: OXcarbazepine 150 MG TABLET (UD) PO SCH ×2 (09:42→21:58)
[2023-08-19] MEDS: HEPARIN NA (PORCINE) 5,000 UNITS/ML 1ML VIAL SQ SCH ×3 (09:42→21:58)
[2023-08-19] MEDS: MUPIROCIN 2% TOPICAL OINTMENT FOR DECOLONIZATION NS SCH ×2 (09:42→22:15)
[2023-08-19] MEDS ORDERED: ASPIRIN 81 MG CHEWABLE TABLETS PO SCH (10:00)
[2023-08-19] MEDS ORDERED: amLODIPine BESYLATE 10 MG TABLET (FP) PO SCH ×2 (10:00→10:45)
[2023-08-19 10:37] LABS: BASO % 0.9 % (0-2.0); EOS % 1.3 % (0-4.5); HEMATOCRIT 24.5 % (32.4-45.2); HEMOGLOBIN 8.2 GM/dL (10.7-15.3); LYMPH % 26.9 % (8-40); MCH 29.3 pg (25.7-33.7); MCHC 33.4 g/dl (32.0-36.0); MEAN CELL VOLUME 87.8 fl (80-96); MEAN PLT VOLUME 7.9 fl (7.5-11.1); MONO % 4.4 % (3.8-10.2); NEUT % 66.5 % (42.8-82.8); PLATELET COUNT 241 10^3/uL (134-434); RBC 2.79 M/mm3 (3.60-5.2); RDW 13.5 % (11.6-15.6)
[2023-08-19] MEDS ORDERED: OXcarbazepine 150 MG TABLET (UD) PO SCH (10:45)
[2023-08-19] MEDS ORDERED: SODIUM ZIRCONIUM CYCLOSILICATE (LOKELMA) 10 GM PACKET PO SCH (10:45)
[2023-08-19 10:55] LABS: POTASSIUM 4.4 mmol/L (3.5-5.1)
[2023-08-19 10:57] LABS: CALCIUM 8.2 mg/dL (8.5-10.1)
[2023-08-19 10:58] LABS: BLOOD UREA NITROGEN 24.3 mg/dL (7-18); MAGNESIUM 2.2 mg/dL (1.8-2.4)
[2023-08-19 11:01] LABS: CREATININE 2.7 mg/dL (0.55-1.3); PHOSPHOROUS 3.6 mg/dL (2.5-4.9)
[2023-08-19] MEDS: LISINOPRIL 5 MG TABLET PO SCH (11:10)
[2023-08-19] MEDS: hydrALAZINE HCL 25 MG TABLET (FP) PO SCH ×2 (13:53→21:57)
[2023-08-19] MEDS ORDERED: hydrALAZINE HCL 25 MG TABLET (FP) PO SCH (14:00)
[2023-08-19] MEDS: NALOXONE HCL 2 MG in DEXTROSE 5%-WATER - 495 ML IV SCH (20:06)
[2023-08-19 21:21] VITALS: PULSE 59; RESP 18
[2023-08-19] MEDS ORDERED: CHLORHEXIDINE GLUCONATE 4% CLEANSER FOR DECOLONIZATION TP SCH (22:00)
[2023-08-19] MEDS ORDERED: ATORVASTATIN CA 40 MG TABLET (FP) PO SCH ×2 (22:00)
[2023-08-20] MEDS ORDERED: hydrALAZINE HCL 25 MG TABLET (FP) PO SCH (06:00)
[2023-08-20 06:39] VITALS: BP 152/78; TEMP 98.2
[2023-08-20 09:02] LABS: BASO % 1.1 % (0-2.0); EOS % 1.5 % (0-4.5); HEMATOCRIT 26.8 % (32.4-45.2); HEMOGLOBIN 8.7 GM/dL (10.7-15.3); LYMPH % 30.7 % (8-40); MCH 28.3 pg (25.7-33.7); MCHC 32.3 g/dl (32.0-36.0); MEAN CELL VOLUME 87.6 fl (80-96); MEAN PLT VOLUME 8.3 fl (7.5-11.1); MONO % 6.2 % (3.8-10.2); NEUT % 60.5 % (42.8-82.8); PLATELET COUNT 245 10^3/uL (134-434); RBC 3.06 M/mm3 (3.60-5.2); RDW 13.4 % (11.6-15.6); WHITE BLOOD COUNT 4.3 K/mm3 (4.0-10.0)
[2023-08-20 09:25] LABS: POTASSIUM 5.4 mmol/L (3.5-5.1)
[2023-08-20] MEDS: LISINOPRIL 5 MG TABLET PO SCH (09:27)
[2023-08-20 09:30] LABS: CALCIUM 8.4 mg/dL (8.5-10.1)
[2023-08-20 09:33] LABS: BLOOD UREA NITROGEN 32.6 mg/dL (7-18)
[2023-08-20 09:34] LABS: CREATININE 3.1 mg/dL (0.55-1.3)
[2023-08-20 09:35] LABS: BILIRUBIN,TOTAL 0.6 mg/dL (0.2-1); TOT PROT 6.6 g/dl (6.4-8.2)
[2023-08-20] MEDS ORDERED: HEPARIN NA (PORCINE) 5,000 UNITS/ML 1ML VIAL SQ SCH (10:00)
[2023-08-20] MEDS ORDERED: OXcarbazepine 150 MG TABLET (UD) PO SCH (10:00)
[2023-08-20] MEDS ORDERED: ASPIRIN 81 MG CHEWABLE TABLETS PO SCH (10:00)
[2023-08-20] MEDS ORDERED: amLODIPine BESYLATE 10 MG TABLET (FP) PO SCH (10:00)
[2023-08-20] MEDS ORDERED: methaDONE HCL 10 MG TABLET PO SCH (10:00)
[2023-08-20] MEDS ORDERED: ATORVASTATIN CA 40 MG TABLET (FP) PO SCH (22:00)
== END 2023-08-20 11:42 | disposition left against medical advice (07) | DRG 918 ==
LOC: JER 12:11 → JICU 17:31 → JERBED 22:59 → JICU 08-19 02:29 → J6S 08-19 20:15
PROVIDERS: ADMIT Internal Medicine Pulmonary Disease; ATTEND Internal Medicine
DX: T40.411A Poisoning by fentanyl or fentanyl analogs, accidental (unintentional), initial encounter (principal); E87.0 Hyperosmolality and hypernatremia; F11.20 Opioid dependence, uncomplicated; I13.0 Hypertensive heart and chronic kidney disease with heart failure and stage 1 through stage 4 chronic kidney disease, or unspecified chronic kidney disease; N18.4 Chronic kidney disease, stage 4 (severe); I50.22 Chronic systolic (congestive) heart failure; G93.40 Encephalopathy, unspecified; Y92.9 Unspecified place or not applicable; I25.10 Atherosclerotic heart disease of native coronary artery without angina pectoris; E78.5 Hyperlipidemia, unspecified; F41.8 Other specified anxiety disorders; G40.909 Epilepsy, unspecified, not intractable, without status epilepticus
CPT/HCPCS: 0241U-QW; 36415; 71045-TC-FY; 76775-TC; 80048; 80053; 80307; 81003; 82570; 82962; 83735; 84100; 84300; 85025; 85610; 85730; 93005; 93010; 99291; J1644

== ENCOUNTER 2023-08-21 21:11 | Emergency (ER) | payer OTHER ==
[2023-08-21 21:26] VITALS: BP 145/78; PULSE 56; RESP 18; TEMP 98.2; BMI 21.2
== END 2023-08-22 00:51 | disposition left against medical advice (07) ==
LOC: JER 21:11
DX: M54.9 Dorsalgia, unspecified (principal); W01.0XXA Fall on same level from slipping, tripping and stumbling without subsequent striking against object, initial encounter
CPT/HCPCS: 99282-25

== ENCOUNTER 2023-08-22 04:27 | Emergency (ER) | payer OTHER ==
[2023-08-22 05:09] VITALS: BP 190/72; PULSE 81; RESP 16; TEMP 97.5; BMI 29.2
== END 2023-08-22 14:48 | disposition home or self-care (01) ==
LOC: JER 04:27
DX: M54.9 Dorsalgia, unspecified (principal); W01.0XXA Fall on same level from slipping, tripping and stumbling without subsequent striking against object, initial encounter
CPT/HCPCS: 82962; 99282-25

== ENCOUNTER 2023-08-28 14:18 | Inpatient (IN) | payer OTHER ==
[2023-08-28 15:24] VITALS: BMI 19.8
[2023-08-28] MEDS ORDERED: LISINOPRIL 5 MG TABLET PO SCH (16:30)
[2023-08-28] MEDS ORDERED: amLODIPine BESYLATE 10 MG TABLET (FP) PO SCH (16:30)
[2023-08-28] MEDS ORDERED: BENZOCAINE/MENTHOL (CHLORASEPTIC ) LOZENGE MM PRN (19:54)
[2023-08-28] MEDS ORDERED: COLLOIDAL OATMEAL 1 BAR EACH TP PRN (19:54)
[2023-08-28] MEDS ORDERED: guaiFENesin 600 MG TABLET.ER (FP) PO PRN (19:54)
[2023-08-28] MEDS ORDERED: NALOXONE HCL (KLOXXADO) 8 MG SPRAY NS PRN (19:54)
[2023-08-28] MEDS ORDERED: P-EPHED 60MG/TRIPROLIDI 2.5MG TABLET PO PRN (19:54)
[2023-08-28] MEDS ORDERED: BENZONATATE 200 MG CAPSULE PO PRN (19:54)
[2023-08-28] MEDS ORDERED: IBUPROFEN 600 MG TABLET (FP) PO PRN (19:54)
[2023-08-28] MEDS ORDERED: ACETAMINOPHEN 325 MG TABLET (FP) PO PRN (19:54)
[2023-08-28] MEDS ORDERED: IBUPROFEN 400 MG TABLET (FP) PO PRN (19:54)
[2023-08-28] MEDS ORDERED: DOCUSATE SODIUM 100 MG CAPSULE (FP) PO PRN (19:54)
[2023-08-28] MEDS ORDERED: POLYETHYLENE GLYCOL (HEALTHYLAX) 3350 17 GM PACKET PO PRN (19:54)
[2023-08-28] MEDS ORDERED: NALOXONE HCL 0.4 MG/ML VIAL IVPUSH PRN (19:54)
[2023-08-28] MEDS ORDERED: MAGNESIUM HYDROX 2400MG/30ML ORAL SUSPENSION 30 ML CUP PO PRN (19:54)
[2023-08-28] MEDS ORDERED: NICOTINE POLACRILEX 2 MG GUM BUC PRN (19:54)
[2023-08-28] MEDS ORDERED: LOPERAMIDE HCL 2 MG CAPSULE PO PRN (19:54)
[2023-08-28] MEDS ORDERED: MAG HYDROX/AL HYDROX/SIMETH 30 ML UNIT-DOSE CUP PO PRN (19:54)
[2023-08-28] MEDS ORDERED: cloNIDine HCL 0.1 MG TABLET PO ONE (20:36)
[2023-08-28 20:41] VITALS: RESP 18; TEMP 98.3
[2023-08-28] MEDS ORDERED: MELATONIN 5 MG TABLETS PO SCH (22:00)
[2023-08-28] MEDS ORDERED: hydrALAZINE HCL 25 MG TABLET (FP) PO SCH (22:00)
[2023-08-28] MEDS ORDERED: THIAMINE HCL 100 MG TABLET (FP) PO SCH (22:00)
[2023-08-29 04:03] VITALS: BP 177/77; PULSE 89
[2023-08-29] MEDS ORDERED: PRENATAL VITAMINS W/ FOLIC ACID TABLET (FP) PO SCH (10:00)
== END 2023-08-29 06:50 | disposition short-term general hospital (02) | DRG 895 ==
LOC: YASAS 14:18 → Y5N 19:57
PROVIDERS: ADMIT Allergy & Immunology; ATTEND Family Medicine
PROC: HZ42ZZZ Group Counseling for Substance Abuse Treatment, Cognitive-Behavioral (ICD-10-PCS; principal; 2023-08-28)
DX: F14.20 Cocaine dependence, uncomplicated (principal); F11.20 Opioid dependence, uncomplicated; F17.210 Nicotine dependence, cigarettes, uncomplicated; F41.9 Anxiety disorder, unspecified; F32.A Depression, unspecified; I10 Essential (primary) hypertension; I25.2 Old myocardial infarction; J45.909 Unspecified asthma, uncomplicated; R56.9 Unspecified convulsions; R40.4 Transient alteration of awareness
CPT/HCPCS: 0241U-QW; 82962

== ENCOUNTER 2023-08-29 03:52 | Inpatient (IN) | payer OTHER ==
[2023-08-29] MEDS ORDERED: MIDAZOLAM HCL 2 MG/2 ML SINGLE DOSE VIAL ONE (04:32)
[2023-08-29] MEDS ORDERED: MIDAZOLAM HCL 2 MG/2 ML SINGLE DOSE VIAL IM ONE (04:45)
[2023-08-29 05:14] LABS: INR 1.02 (0.83-1.09); PROTHROMBIN TIME (PATIENT) 11.8 SEC (9.7-13.0)
[2023-08-29 05:17] LABS: ACTIVATED PTT 22.2 SECONDS (25.2-36.5)
[2023-08-29 05:23] LABS: HEMATOCRIT 31.3 % (32.4-45.2); HEMOGLOBIN 9.8 GM/dL (10.7-15.3); MCH 28.6 pg (25.7-33.7); MCHC 31.4 g/dl (32.0-36.0); MEAN PLT VOLUME 8.9 fl (7.5-11.1); PLATELET COUNT 407 10^3/uL (134-434); RBC 3.44 M/mm3 (3.60-5.2); RDW 13.8 % (11.6-15.6); WHITE BLOOD COUNT 7.9 K/mm3 (4.0-10.0)
[2023-08-29] MEDS ORDERED: RAPID SEQUENCE INTUBATION KIT NR ONE (05:24)
[2023-08-29] MEDS ORDERED: MIDAZOLAM HCL 5 MG/1 ML Single Dose Vial ONE (05:26)
[2023-08-29] MEDS ORDERED: ROCURONIUM BROMIDE 50 MG/5 ML VIAL IVPUSH ONE (05:56)
[2023-08-29] MEDS ORDERED: MIDAZOLAM HCL 5 MG/1 ML Single Dose Vial IVPUSH ONE (05:56)
[2023-08-29] MEDS ORDERED: PROPOFOL 1,000,000 MCG/100 ML VIAL IVPB SCH (06:00)
[2023-08-29] MEDS: PROPOFOL 1,000,000 MCG/100 ML VIAL IVPB SCH (06:11)
[2023-08-29] MEDS ORDERED: FENTANYL IVPB 500 MCG/100 ML BAG IVPB SCH ×2 (06:15→08:15)
[2023-08-29] MEDS ORDERED: PROPOFOL 100 ML IVPUSH SCH (06:15)
[2023-08-29 06:23] LABS: CHLORIDE 106 mmol/L (98-107); POTASSIUM 3.7 mmol/L (3.5-5.1); SODIUM 141 mmol/L (136-145)
[2023-08-29 06:25] LABS: ANION GAP 25 mmol/L (4-13); ANISOCYTOSIS 1+; BLOOD UREA NITROGEN 33.9 mg/dL (7-18); CO2 10 mmol/L (21-32); GLUCOSE,RANDOM 131 mg/dL (74-106); MACROCYTOSIS 1+; MAGNESIUM 2.7 mg/dL (1.8-2.4); TEAR DROP CELLS 1+
[2023-08-29 06:28] LABS: CREATININE 3.4 mg/dL (0.55-1.3); SGOT/AST 34 U/L (15-37); SGPT/ALT 23 U/L (13-61)
[2023-08-29 06:30] LABS: BILIRUBIN,TOTAL 0.3 mg/dL (0.2-1)
[2023-08-29 06:34] LABS: LACTIC ACID 18.7 mmol/L (0.4-2.0)
[2023-08-29 06:55] LABS: ARTERIAL BLD GAS O2 SATURATION 99.8 % (95-98); ARTERIAL BLOOD GAS BASE EXCESS -3.6 mmol/L (-2-2); ARTERIAL BLOOD GAS PO2 387.6 mmHg (80-100)
[2023-08-29 06:56] LABS: ALLENS TEST POSITIVE
[2023-08-29 06:57] LABS: VENT MODE A/C; VENT RATE 12
[2023-08-29] MEDS ORDERED: FENTANYL NS IVPB 500 MCG/100 ML BAG IVPB SCH (08:08)
[2023-08-29] MEDS: MIDAZOLAM IN 0.9 % SOD.CHLORID 100 MG/100 ML PLAST..BAG IVPB SCH (08:32)
[2023-08-29] MEDS ORDERED: hydrALAZINE HCL 20 MG/ML VIAL IVPUSH ONE (08:52)
[2023-08-29] MEDS: PANTOPRAZOLE SODIUM 40 MG VIAL IVPUSH SCH (09:28)
[2023-08-29] MEDS: HEPARIN NA (PORCINE) 5,000 UNITS/ML 1ML VIAL SQ SCH ×2 (09:28→22:34)
[2023-08-29 09:49] LABS: EPI CELLS 3 /uL (0-25.1); HYALINE CASTS 0 /uL (0-3.1); URINE APPEARANCE CLEAR; URINE BACTERIA 1 /uL (0-1359); URINE BILIRUBIN NEGATIVE (NEGATIVE); URINE COLOR YELLOW; URINE GLUCOSE (UA) NEGATIVE (NEGATIVE); URINE KETONE NEGATIVE (NEGATIVE); URINE LEUK ESTERASE NEGATIVE (NEGATIVE); URINE NITRITE NEGATIVE (NEGATIVE); URINE PROTEIN 3+ (NEGATIVE); URINE RBC 22 /uL (0-23.9); URINE UROBILINOGEN 0.2 mg/dL (0.2-1.0); URINE WBC 4 /uL (0-25.8)
[2023-08-29] MEDS: MUPIROCIN 2% TOPICAL OINTMENT FOR DECOLONIZATION NS SCH ×2 (12:28→22:35)
[2023-08-29 12:58] LABS: ALBUMIN 3.9 g/dl (3.4-5.0); ALK PHOS 127 U/L (45-117); TOT PROT 9.1 g/dl (6.4-8.2)
[2023-08-29] MEDS: LISINOPRIL 5 MG TABLET PO SCH (13:19)
[2023-08-29] MEDS: amLODIPine BESYLATE 10 MG TABLET (FP) PO SCH (13:19)
[2023-08-29] MEDS: OXcarbazepine 150 MG TABLET (UD) PO SCH ×2 (13:20→22:35)
[2023-08-29] MEDS: hydrALAZINE HCL 20 MG/ML VIAL IVPUSH PRN (18:39)
[2023-08-29 18:48] LABS: ARTERIAL BLD GAS O2 SATURATION 99.3 % (95-98); ARTERIAL BLOOD GAS PO2 178.5 mmHg (80-100); ARTERIAL BLOOD GAS pH 7.477 (7.350-7.450)
[2023-08-29 18:49] LABS: ALLENS TEST POSITIVE; VENT MODE A/C; VENT RATE 16
[2023-08-29 19:35] LABS: POTASSIUM 3.7 mmol/L (3.5-5.1)
[2023-08-29 19:37] LABS: CALCIUM 8.7 mg/dL (8.5-10.1)
[2023-08-29 19:38] LABS: ALBUMIN 3.7 g/dl (3.4-5.0); BLOOD UREA NITROGEN 32.2 mg/dL (7-18)
[2023-08-29 19:41] LABS: CREATININE 2.9 mg/dL (0.55-1.3)
[2023-08-29 19:43] LABS: BILIRUBIN,TOTAL 0.3 mg/dL (0.2-1); TOT PROT 8.1 g/dl (6.4-8.2)
[2023-08-29] MEDS: hydrALAZINE HCL 50 MG TABLET (FP) PO SCH (22:34)
[2023-08-29] MEDS: CHLORHEXIDINE GLUCONATE 4% CLEANSER FOR DECOLONIZATION TP SCH (22:35)
[2023-08-29] MEDS: ATORVASTATIN CA 40 MG TABLET (FP) PO SCH (22:35)
[2023-08-29 23:55] LABS: POTASSIUM 3.5 mmol/L (3.5-5.1)
[2023-08-29 23:58] LABS: CALCIUM 7.8 mg/dL (8.5-10.1)
[2023-08-29 23:59] LABS: MAGNESIUM 2.7 mg/dL (1.8-2.4)
[2023-08-30 00:02] LABS: CREATININE 2.5 mg/dL (0.55-1.3); PHOSPHOROUS 4.5 mg/dL (2.5-4.9)
[2023-08-30 00:24] LABS: BLOOD UREA NITROGEN 29.2 mg/dL (7-18)
[2023-08-30] MEDS: MIDAZOLAM IN 0.9 % SOD.CHLORID 100 MG/100 ML PLAST..BAG IVPB SCH ×2 (01:02→21:25)
[2023-08-30] MEDS: KCL 10 MEQ IVPB 10 MEQ/100 ML INFUS.BAG IVPB SCH ×2 (01:25→02:43)
[2023-08-30] MEDS: hydrALAZINE HCL 20 MG/ML VIAL IVPUSH PRN ×2 (02:43→18:14)
[2023-08-30 06:57] LABS: ARTERIAL BLD GAS O2 SATURATION 98.5 % (95-98); ARTERIAL BLOOD GAS BASE EXCESS -1.3 mmol/L (-2-2); ARTERIAL BLOOD GAS PO2 116.7 mmHg (80-100); ARTERIAL BLOOD GAS pH 7.462 (7.350-7.450)
[2023-08-30 07:03] LABS: ALLENS TEST POSITIVE
[2023-08-30 07:04] LABS: VENT MODE A/C; VENT RATE 16
[2023-08-30] MEDS ORDERED: POTASSIUM CHLORIDE ORAL LIQUID 20 MEQ/15 ML GT ONE (07:38)
[2023-08-30 08:29] LABS: POTASSIUM 3.9 mmol/L (3.5-5.1)
[2023-08-30 08:31] LABS: BASO % 0.3 % (0-2.0); HEMATOCRIT 31.8 % (32.4-45.2); HEMOGLOBIN 10.4 GM/dL (10.7-15.3); LYMPH % 7.2 % (8-40); MCH 28.1 pg (25.7-33.7); MCHC 32.7 g/dl (32.0-36.0); MEAN CELL VOLUME 85.8 fl (80-96); MEAN PLT VOLUME 8.6 fl (7.5-11.1); MONO % 8.1 % (3.8-10.2); NEUT % 84.4 % (42.8-82.8); PLATELET COUNT 353 10^3/uL (134-434); RDW 13.8 % (11.6-15.6); WHITE BLOOD COUNT 8.9 K/mm3 (4.0-10.0)
[2023-08-30] MEDS: CEFTRIAXONE 1 GM in DEXTROSE 5%-WATER - 50 ML IVPB SCH (08:33)
[2023-08-30] MEDS: AZITHROMYCIN IVPB 500 MG/250 ML BAG IVPB SCH (08:33)
[2023-08-30 08:36] LABS: ALBUMIN 3.6 g/dl (3.4-5.0); BLOOD UREA NITROGEN 29.9 mg/dL (7-18); MAGNESIUM 2.8 mg/dL (1.8-2.4)
[2023-08-30 08:39] LABS: CREATININE 2.6 mg/dL (0.55-1.3); PHOSPHOROUS 3.9 mg/dL (2.5-4.9)
[2023-08-30 08:40] LABS: BILIRUBIN,TOTAL 0.6 mg/dL (0.2-1); TOT PROT 8.2 g/dl (6.4-8.2)
[2023-08-30 08:48] LABS: CALCIUM 9.2 mg/dL (8.5-10.1)
[2023-08-30] MEDS: MUPIROCIN 2% TOPICAL OINTMENT FOR DECOLONIZATION NS SCH ×2 (09:00→21:26)
[2023-08-30] MEDS: hydrALAZINE HCL 50 MG TABLET (FP) PO SCH ×2 (09:00→21:25)
[2023-08-30] MEDS: OXcarbazepine 150 MG TABLET (UD) PO SCH ×2 (09:00→21:30)
[2023-08-30] MEDS: HEPARIN NA (PORCINE) 5,000 UNITS/ML 1ML VIAL SQ SCH ×2 (09:00→21:25)
[2023-08-30] MEDS: PANTOPRAZOLE SODIUM 40 MG VIAL IVPUSH SCH (09:00)
[2023-08-30] MEDS: LISINOPRIL 5 MG TABLET PO SCH (09:00)
[2023-08-30] MEDS: amLODIPine BESYLATE 10 MG TABLET (FP) PO SCH (09:00)
[2023-08-30] MEDS ORDERED: ACETAMINOPHEN 1000 MG/100 ML BAG IVPB PRN (17:41)
[2023-08-30] MEDS: PROPOFOL 1,000,000 MCG/100 ML VIAL IVPB SCH (18:48)
[2023-08-30] MEDS ORDERED: HYDROmorphone HCl 2 MG/ML VIAL IVPUSH ONE (20:57)
[2023-08-30] MEDS: ATORVASTATIN CA 40 MG TABLET (FP) PO SCH (21:25)
[2023-08-30] MEDS: CHLORHEXIDINE GLUCONATE 4% CLEANSER FOR DECOLONIZATION TP SCH (21:26)
[2023-08-31] MEDS: PROPOFOL 1,000,000 MCG/100 ML VIAL IVPB SCH (04:55)
[2023-08-31 07:00] LABS: ALLENS TEST POSITIVE; ARTERIAL BLD GAS O2 SATURATION 97.7 % (95-98); ARTERIAL BLOOD GAS BASE EXCESS -1.4 mmol/L (-2-2); ARTERIAL BLOOD GAS PO2 95.6 mmHg (80-100)
[2023-08-31 07:01] LABS: VENT MODE AC; VENT RATE 16
[2023-08-31 07:26] LABS: HEMATOCRIT 33.3 % (32.4-45.2); HEMOGLOBIN 10.7 GM/dL (10.7-15.3); MCHC 32.1 g/dl (32.0-36.0); MEAN CELL VOLUME 87.2 fl (80-96); MEAN PLT VOLUME 8.9 fl (7.5-11.1); PLATELET COUNT 356 10^3/uL (134-434); RBC 3.82 M/mm3 (3.60-5.2); RDW 13.8 % (11.6-15.6); WHITE BLOOD COUNT 14.1 K/mm3 (4.0-10.0)
[2023-08-31 07:44] LABS: POTASSIUM 4.7 mmol/L (3.5-5.1)
[2023-08-31 07:46] LABS: CALCIUM 8.6 mg/dL (8.5-10.1)
[2023-08-31 07:47] LABS: ALBUMIN 3.5 g/dl (3.4-5.0); MAGNESIUM 2.9 mg/dL (1.8-2.4)
[2023-08-31 07:50] LABS: CREATININE 2.5 mg/dL (0.55-1.3); PHOSPHOROUS 4.2 mg/dL (2.5-4.9)
[2023-08-31 07:51] LABS: TOT PROT 8.6 g/dl (6.4-8.2)
[2023-08-31 07:52] LABS: BILIRUBIN,TOTAL 0.5 mg/dL (0.2-1)
[2023-08-31] MEDS: CEFTRIAXONE 1 GM in DEXTROSE 5%-WATER - 50 ML IVPB SCH (09:21)
[2023-08-31] MEDS: AZITHROMYCIN IVPB 500 MG/250 ML BAG IVPB SCH (09:21)
[2023-08-31] MEDS: OXcarbazepine 150 MG TABLET (UD) PO SCH ×2 (09:22→21:34)
[2023-08-31] MEDS: MUPIROCIN 2% TOPICAL OINTMENT FOR DECOLONIZATION NS SCH ×2 (09:22→21:34)
[2023-08-31] MEDS: HEPARIN NA (PORCINE) 5,000 UNITS/ML 1ML VIAL SQ SCH ×2 (09:22→21:40)
[2023-08-31] MEDS: amLODIPine BESYLATE 10 MG TABLET (FP) PO SCH (09:22)
[2023-08-31] MEDS: LISINOPRIL 5 MG TABLET PO SCH (09:22)
[2023-08-31] MEDS: hydrALAZINE HCL 50 MG TABLET (FP) PO SCH ×2 (09:22→21:33)
[2023-08-31] MEDS: PANTOPRAZOLE SODIUM 40 MG VIAL IVPUSH SCH (09:58)
[2023-08-31] MEDS: CHLORHEXIDINE GLUCONATE 4% CLEANSER FOR DECOLONIZATION TP SCH (21:34)
[2023-08-31] MEDS: ACETAMINOPHEN 500 MG TABLET (FP) PO PRN (21:34)
[2023-08-31] MEDS: ATORVASTATIN CA 40 MG TABLET (FP) PO SCH (21:34)
[2023-09-01 07:12] LABS: BASO % 0.5 % (0-2.0); EOS % 0.1 % (0-4.5); HEMATOCRIT 28.7 % (32.4-45.2); HEMOGLOBIN 9.2 GM/dL (10.7-15.3); LYMPH % 12.6 % (8-40); MCH 27.8 pg (25.7-33.7); MEAN CELL VOLUME 86.9 fl (80-96); MEAN PLT VOLUME 8.8 fl (7.5-11.1); MONO % 2.6 % (3.8-10.2); NEUT % 84.2 % (42.8-82.8); PLATELET COUNT 369 10^3/uL (134-434); RDW 13.6 % (11.6-15.6); WHITE BLOOD COUNT 11.9 K/mm3 (4.0-10.0)
[2023-09-01 07:31] LABS: POTASSIUM 5.3 mmol/L (3.5-5.1)
[2023-09-01 07:34] LABS: CALCIUM 8.5 mg/dL (8.5-10.1)
[2023-09-01 07:35] LABS: ALBUMIN 3.1 g/dl (3.4-5.0); BLOOD UREA NITROGEN 51.6 mg/dL (7-18); MAGNESIUM 2.8 mg/dL (1.8-2.4)
[2023-09-01 07:38] LABS: CREATININE 3.1 mg/dL (0.55-1.3); PHOSPHOROUS 4.1 mg/dL (2.5-4.9)
[2023-09-01 07:39] LABS: BILIRUBIN,TOTAL 0.4 mg/dL (0.2-1)
[2023-09-01] MEDS ORDERED: ACETAMINOPHEN 325 MG TABLET (FP) PO ONE (08:21)
[2023-09-01] MEDS: amLODIPine BESYLATE 10 MG TABLET (FP) PO SCH (09:13)
[2023-09-01] MEDS: OXcarbazepine 150 MG TABLET (UD) PO SCH (09:13)
[2023-09-01] MEDS: LISINOPRIL 5 MG TABLET PO SCH (09:13)
[2023-09-01] MEDS: hydrALAZINE HCL 50 MG TABLET (FP) PO SCH ×2 (09:14→21:41)
[2023-09-01] MEDS: PANTOPRAZOLE SODIUM 40 MG VIAL IVPUSH SCH (09:14)
[2023-09-01] MEDS: CEFTRIAXONE 1 GM in DEXTROSE 5%-WATER - 50 ML IVPB SCH (09:14)
[2023-09-01] MEDS: AZITHROMYCIN IVPB 500 MG/250 ML BAG IVPB SCH (09:14)
[2023-09-01] MEDS: HEPARIN NA (PORCINE) 5,000 UNITS/ML 1ML VIAL SQ SCH ×2 (09:14→21:41)
[2023-09-01] MEDS: MUPIROCIN 2% TOPICAL OINTMENT FOR DECOLONIZATION NS SCH ×2 (09:15→21:41)
[2023-09-01 12:53] LABS: METHADONE, UR NEGATIVE (NEGATIVE); OPIATES, URI NEGATIVE (NEGATIVE)
[2023-09-01 12:54] LABS: PHENCYCLIDINE,URINE NEGATIVE (NEGATIVE)
[2023-09-01 12:55] LABS: URINE BARBITURATES NEGATIVE (NEGATIVE)
[2023-09-01 12:58] LABS: COCAINE, UR POSITIVE (NEGATIVE); URINE AMPHETAMINES NEGATIVE (NEGATIVE); URINE BENZODIAZEPINES POSITIVE (NEGATIVE)
[2023-09-01] MEDS ORDERED: cloNIDine HCL 0.1 MG TABLET PO PRN (14:06)
[2023-09-01] MEDS ORDERED: methaDONE HCL 10 MG TABLET PO ONE ×2 (14:45→16:10)
[2023-09-01] MEDS ORDERED: SODIUM ZIRCONIUM CYCLOSILICATE (LOKELMA) 5 GM PACKET PO ONE (19:00)
[2023-09-01] MEDS: ATORVASTATIN CA 40 MG TABLET (FP) PO SCH (21:41)
[2023-09-01] MEDS: CHLORHEXIDINE GLUCONATE 4% CLEANSER FOR DECOLONIZATION TP SCH (21:41)
[2023-09-01] MEDS: DOXYCYCLINE INJECTION 100 MG in DEXTROSE 5%-WATER 100 ML IVPB SCH ×2 (21:41→21:54)
[2023-09-01] MEDS: OXcarbazepine 300 MG TABLET (UD) PO SCH (21:41)
[2023-09-02] MEDS: ACETAMINOPHEN 500 MG TABLET (FP) PO PRN (09:17)
[2023-09-02] MEDS: OXcarbazepine 300 MG TABLET (UD) PO SCH ×2 (09:17→21:52)
[2023-09-02] MEDS: LISINOPRIL 5 MG TABLET PO SCH (09:17)
[2023-09-02] MEDS: MUPIROCIN 2% TOPICAL OINTMENT FOR DECOLONIZATION NS SCH (09:17)
[2023-09-02] MEDS: hydrALAZINE HCL 50 MG TABLET (FP) PO SCH ×2 (09:17→21:12)
[2023-09-02] MEDS: HEPARIN NA (PORCINE) 5,000 UNITS/ML 1ML VIAL SQ SCH ×2 (09:17→21:12)
[2023-09-02] MEDS: amLODIPine BESYLATE 10 MG TABLET (FP) PO SCH (09:17)
[2023-09-02] MEDS ORDERED: methaDONE HCL 10 MG TABLET PO ONE (14:00)
[2023-09-02 14:03] VITALS: BMI 18.1
[2023-09-02] MEDS: DOXYCYCLINE INJECTION 100 MG in DEXTROSE 5%-WATER 100 ML IVPB SCH ×2 (14:19→21:11)
[2023-09-02] MEDS: CEFTRIAXONE 1 GM in DEXTROSE 5%-WATER - 50 ML IVPB SCH (15:46)
[2023-09-02] MEDS: ATORVASTATIN CA 40 MG TABLET (FP) PO SCH (21:12)
[2023-09-02] MEDS: THIAMINE HCL 100 MG TABLET (FP) PO SCH (21:12)
[2023-09-02] MEDS ORDERED: CHLORHEXIDINE GLUCONATE 4% CLEANSER FOR DECOLONIZATION TP SCH (22:00)
[2023-09-02] MEDS ORDERED: MUPIROCIN 2% TOPICAL OINTMENT FOR DECOLONIZATION NS SCH (22:00)
[2023-09-03] MEDS ORDERED: methaDONE HCL 10 MG TABLET PO ONE (10:00)
[2023-09-03] MEDS: LISINOPRIL 5 MG TABLET PO SCH (10:12)
[2023-09-03] MEDS: THIAMINE HCL 100 MG TABLET (FP) PO SCH ×2 (10:12→21:26)
[2023-09-03] MEDS: amLODIPine BESYLATE 10 MG TABLET (FP) PO SCH (10:12)
[2023-09-03] MEDS: HEPARIN NA (PORCINE) 5,000 UNITS/ML 1ML VIAL SQ SCH ×2 (10:12→21:26)
[2023-09-03] MEDS: hydrALAZINE HCL 50 MG TABLET (FP) PO SCH ×2 (10:12→21:26)
[2023-09-03] MEDS: CEFTRIAXONE 1 GM in DEXTROSE 5%-WATER - 50 ML IVPB SCH (10:13)
[2023-09-03] MEDS: DOXYCYCLINE INJECTION 100 MG in DEXTROSE 5%-WATER 100 ML IVPB SCH ×2 (10:14→21:25)
[2023-09-03] MEDS: OXcarbazepine 300 MG TABLET (UD) PO SCH ×2 (10:16→21:26)
[2023-09-03] MEDS: ACETAMINOPHEN 500 MG TABLET (FP) PO PRN (12:00)
[2023-09-03] MEDS: ATORVASTATIN CA 40 MG TABLET (FP) PO SCH (21:26)
[2023-09-04 09:57] LABS: BASO % 0.9 % (0-2.0); EOS % 0.2 % (0-4.5); HEMATOCRIT 30.2 % (32.4-45.2); HEMOGLOBIN 9.8 GM/dL (10.7-15.3); MCHC 32.6 g/dl (32.0-36.0); MEAN CELL VOLUME 85.8 fl (80-96); MEAN PLT VOLUME 8.1 fl (7.5-11.1); MONO % 6.9 % (3.8-10.2); RBC 3.52 M/mm3 (3.60-5.2); RDW 13.8 % (11.6-15.6); WHITE BLOOD COUNT 6.5 K/mm3 (4.0-10.0)
[2023-09-04 09:58] LABS: PLATELET COUNT 418 10^3/uL (134-434)
[2023-09-04] MEDS: methaDONE HCL 10 MG TABLET PO SCH (10:15)
[2023-09-04] MEDS: LISINOPRIL 5 MG TABLET PO SCH (10:17)
[2023-09-04] MEDS: amLODIPine BESYLATE 10 MG TABLET (FP) PO SCH (10:17)
[2023-09-04] MEDS: hydrALAZINE HCL 50 MG TABLET (FP) PO SCH ×2 (10:17→21:35)
[2023-09-04] MEDS: THIAMINE HCL 100 MG TABLET (FP) PO SCH ×2 (10:17→21:35)
[2023-09-04] MEDS: HEPARIN NA (PORCINE) 5,000 UNITS/ML 1ML VIAL SQ SCH ×2 (10:17→21:34)
[2023-09-04] MEDS: OXcarbazepine 300 MG TABLET (UD) PO SCH ×2 (10:17→21:39)
[2023-09-04] MEDS: CEFTRIAXONE 1 GM in DEXTROSE 5%-WATER - 50 ML IVPB SCH ×3 (10:18→12:18)
[2023-09-04 10:44] LABS: POTASSIUM 5.2 mmol/L (3.5-5.1)
[2023-09-04] MEDS: DOXYCYCLINE INJECTION 100 MG in DEXTROSE 5%-WATER 100 ML IVPB SCH ×3 (11:06→21:36)
[2023-09-04 11:14] LABS: ALBUMIN 3.1 g/dl (3.4-5.0); BLOOD UREA NITROGEN 59.6 mg/dL (7-18)
[2023-09-04 11:15] LABS: CALCIUM 8.7 mg/dL (8.5-10.1)
[2023-09-04 11:17] LABS: CREATININE 2.7 mg/dL (0.55-1.3)
[2023-09-04 11:18] LABS: TOT PROT 7.8 g/dl (6.4-8.2)
[2023-09-04 11:19] LABS: BILIRUBIN,TOTAL 0.4 mg/dL (0.2-1)
[2023-09-04] MEDS: ACETAMINOPHEN 500 MG TABLET (FP) PO PRN (11:31)
[2023-09-04] MEDS: SODIUM ZIRCONIUM CYCLOSILICATE (LOKELMA) 5 GM PACKET PO SCH (14:34)
[2023-09-04] MEDS: ATORVASTATIN CA 40 MG TABLET (FP) PO SCH (21:34)
[2023-09-05] MEDS: methaDONE HCL 10 MG TABLET PO SCH (05:41)
[2023-09-05] MEDS ORDERED: methaDONE HCL 10 MG TABLET PO ONE ×2 (10:00→12:00)
[2023-09-05] MEDS: SODIUM ZIRCONIUM CYCLOSILICATE (LOKELMA) 5 GM PACKET PO SCH ×2 (10:10→14:17)
[2023-09-05] MEDS: CEFTRIAXONE 1 GM in DEXTROSE 5%-WATER - 50 ML IVPB SCH (10:11)
[2023-09-05] MEDS: amLODIPine BESYLATE 10 MG TABLET (FP) PO SCH (10:12)
[2023-09-05] MEDS: HEPARIN NA (PORCINE) 5,000 UNITS/ML 1ML VIAL SQ SCH ×2 (10:13→21:51)
[2023-09-05] MEDS: THIAMINE HCL 100 MG TABLET (FP) PO SCH ×2 (10:13→21:44)
[2023-09-05] MEDS: hydrALAZINE HCL 50 MG TABLET (FP) PO SCH ×2 (10:13→21:44)
[2023-09-05] MEDS: LISINOPRIL 5 MG TABLET PO SCH (10:13)
[2023-09-05] MEDS: DOXYCYCLINE INJECTION 100 MG in DEXTROSE 5%-WATER 100 ML IVPB SCH (10:13)
[2023-09-05] MEDS: OXcarbazepine 300 MG TABLET (UD) PO SCH ×2 (10:14→21:43)
[2023-09-05 10:17] LABS: BASO % 0.4 % (0-2.0); EOS % 0.4 % (0-4.5); HEMATOCRIT 27.1 % (32.4-45.2); LYMPH % 24.5 % (8-40); MCH 28.4 pg (25.7-33.7); MCHC 33.1 g/dl (32.0-36.0); MEAN CELL VOLUME 85.8 fl (80-96); MEAN PLT VOLUME 8.3 fl (7.5-11.1); MONO % 5.8 % (3.8-10.2); NEUT % 68.9 % (42.8-82.8); PLATELET COUNT 378 10^3/uL (134-434); RBC 3.16 M/mm3 (3.60-5.2); RDW 13.9 % (11.6-15.6); WHITE BLOOD COUNT 7.6 K/mm3 (4.0-10.0)
[2023-09-05 10:42] LABS: CALCIUM 8.7 mg/dL (8.5-10.1)
[2023-09-05 10:43] LABS: BLOOD UREA NITROGEN 74.9 mg/dL (7-18)
[2023-09-05 10:45] LABS: PHOSPHOROUS 4.4 mg/dL (2.5-4.9)
[2023-09-05 10:46] LABS: CREATININE 3.1 mg/dL (0.55-1.3)
[2023-09-05 10:47] LABS: BILIRUBIN,TOTAL 0.3 mg/dL (0.2-1); TOT PROT 7.2 g/dl (6.4-8.2)
[2023-09-05] MEDS: AMOX TR/POT CLAV 500MG/125MG TABLETS (FP) PO SCH (18:06)
[2023-09-05] MEDS: ATORVASTATIN CA 40 MG TABLET (FP) PO SCH (21:44)
[2023-09-06] MEDS: AMOX TR/POT CLAV 500MG/125MG TABLETS (FP) PO SCH ×2 (08:59→17:01)
[2023-09-06] MEDS: THIAMINE HCL 100 MG TABLET (FP) PO SCH ×2 (09:46→22:42)
[2023-09-06] MEDS: HEPARIN NA (PORCINE) 5,000 UNITS/ML 1ML VIAL SQ SCH ×2 (09:46→22:41)
[2023-09-06] MEDS: OXcarbazepine 300 MG TABLET (UD) PO SCH ×2 (09:46→22:43)
[2023-09-06] MEDS: amLODIPine BESYLATE 10 MG TABLET (FP) PO SCH (09:46)
[2023-09-06] MEDS: hydrALAZINE HCL 50 MG TABLET (FP) PO SCH ×2 (09:46→22:41)
[2023-09-06] MEDS: LISINOPRIL 5 MG TABLET PO SCH (09:46)
[2023-09-06] MEDS: methaDONE HCL 10 MG TABLET PO SCH (16:02)
[2023-09-06] MEDS: ATORVASTATIN CA 40 MG TABLET (FP) PO SCH (22:41)
[2023-09-07 05:06] LABS: EPI CELLS 2 /uL (0-25.1); HYALINE CASTS 0 /uL (0-3.1); URINE APPEARANCE CLEAR; URINE BACTERIA 0 /uL (0-1359); URINE BILIRUBIN NEGATIVE (NEGATIVE); URINE COLOR YELLOW; URINE GLUCOSE (UA) NEGATIVE (NEGATIVE); URINE KETONE NEGATIVE (NEGATIVE); URINE LEUK ESTERASE NEGATIVE (NEGATIVE); URINE NITRITE NEGATIVE (NEGATIVE); URINE PROTEIN 1+ (NEGATIVE); URINE UROBILINOGEN 0.2 mg/dL (0.2-1.0); URINE WBC 2 /uL (0-25.8)
[2023-09-07] MEDS: methaDONE HCL 10 MG TABLET PO SCH (06:35)
[2023-09-07] MEDS: AMOX TR/POT CLAV 500MG/125MG TABLETS (FP) PO SCH ×2 (08:41→17:37)
[2023-09-07] MEDS: THIAMINE HCL 100 MG TABLET (FP) PO SCH ×2 (10:59→21:52)
[2023-09-07] MEDS: hydrALAZINE HCL 50 MG TABLET (FP) PO SCH ×2 (10:59→21:53)
[2023-09-07] MEDS: LISINOPRIL 5 MG TABLET PO SCH (10:59)
[2023-09-07] MEDS: amLODIPine BESYLATE 10 MG TABLET (FP) PO SCH (11:00)
[2023-09-07] MEDS: OXcarbazepine 300 MG TABLET (UD) PO SCH ×2 (11:00→21:55)
[2023-09-07] MEDS: HEPARIN NA (PORCINE) 5,000 UNITS/ML 1ML VIAL SQ SCH ×2 (11:01→21:53)
[2023-09-07 11:18] LABS: HEMATOCRIT 26.5 % (32.4-45.2); HEMOGLOBIN 8.7 GM/dL (10.7-15.3); MCH 28.3 pg (25.7-33.7); MEAN CELL VOLUME 85.8 fl (80-96); MEAN PLT VOLUME 8.1 fl (7.5-11.1); PLATELET COUNT 415 10^3/uL (134-434); RBC 3.09 M/mm3 (3.60-5.2)
[2023-09-07 11:50] LABS: POTASSIUM 4.9 mmol/L (3.5-5.1)
[2023-09-07 11:52] LABS: CALCIUM 8.1 mg/dL (8.5-10.1)
[2023-09-07 11:53] LABS: BLOOD UREA NITROGEN 61.4 mg/dL (7-18)
[2023-09-07 11:55] LABS: CREATININE 2.7 mg/dL (0.55-1.3)
[2023-09-07 11:56] LABS: PHOSPHOROUS 4.4 mg/dL (2.5-4.9)
[2023-09-07 11:57] LABS: BILIRUBIN,TOTAL 0.4 mg/dL (0.2-1); TOT PROT 7.6 g/dl (6.4-8.2)
[2023-09-07 12:13] LABS: ANISOCYTOSIS 0; MACROCYTOSIS 0
[2023-09-07] MEDS: SODIUM ZIRCONIUM CYCLOSILICATE (LOKELMA) 5 GM PACKET PO SCH (12:59)
[2023-09-07] MEDS ORDERED: PNEUMOC 20-VAL CONJ-DIP CRM/PF 0.5 ML SYRINGE IM ONE (14:00)
[2023-09-07] MEDS ORDERED: FLU VACCINE (FLULAVAL) PF 60 MCG/0.5 ML SYRINGE 2023-2024 IM ONE (15:00)
[2023-09-07] MEDS ORDERED: DOCUSATE SODIUM 100 MG CAPSULE (FP) PO ONE (19:41)
[2023-09-07] MEDS: POLYETHYLENE GLYCOL (HEALTHYLAX) 3350 17 GM PACKET PO SCH (21:52)
[2023-09-07] MEDS: ATORVASTATIN CA 40 MG TABLET (FP) PO SCH (21:53)
[2023-09-08] MEDS: methaDONE HCL 10 MG TABLET PO SCH (06:34)
[2023-09-08] MEDS: AMOX TR/POT CLAV 500MG/125MG TABLETS (FP) PO SCH ×2 (08:41→17:17)
[2023-09-08] MEDS: OXcarbazepine 300 MG TABLET (UD) PO SCH ×2 (09:23→22:16)
[2023-09-08] MEDS: LISINOPRIL 5 MG TABLET PO SCH (09:23)
[2023-09-08] MEDS: HEPARIN NA (PORCINE) 5,000 UNITS/ML 1ML VIAL SQ SCH ×2 (09:23→22:15)
[2023-09-08] MEDS: THIAMINE HCL 100 MG TABLET (FP) PO SCH ×2 (09:23→22:16)
[2023-09-08] MEDS: POLYETHYLENE GLYCOL (HEALTHYLAX) 3350 17 GM PACKET PO SCH ×2 (09:23→22:15)
[2023-09-08] MEDS: amLODIPine BESYLATE 10 MG TABLET (FP) PO SCH (09:23)
[2023-09-08] MEDS: hydrALAZINE HCL 50 MG TABLET (FP) PO SCH ×2 (09:23→22:17)
[2023-09-08 14:21] LABS: POTASSIUM 4.9 mmol/L (3.5-5.1)
[2023-09-08 14:23] LABS: CALCIUM 8.7 mg/dL (8.5-10.1)
[2023-09-08 14:24] LABS: BLOOD UREA NITROGEN 70.4 mg/dL (7-18)
[2023-09-08 14:27] LABS: CREATININE 2.8 mg/dL (0.55-1.3)
[2023-09-08 14:54] LABS: HEMATOCRIT 24.8 % (32.4-45.2); HEMOGLOBIN 7.9 GM/dL (10.7-15.3); MCH 27.3 pg (25.7-33.7); MCHC 31.8 g/dl (32.0-36.0); MEAN PLT VOLUME 7.9 fl (7.5-11.1); PLATELET COUNT 448 10^3/uL (134-434); RBC 2.88 M/mm3 (3.60-5.2); RDW 14.2 % (11.6-15.6); WHITE BLOOD COUNT 7.7 K/mm3 (4.0-10.0)
[2023-09-08] MEDS: ATORVASTATIN CA 40 MG TABLET (FP) PO SCH (22:16)
[2023-09-09] MEDS: methaDONE HCL 10 MG TABLET PO SCH (05:16)
[2023-09-09] MEDS: AMOX TR/POT CLAV 500MG/125MG TABLETS (FP) PO SCH ×2 (08:30→17:48)
[2023-09-09] MEDS: hydrALAZINE HCL 50 MG TABLET (FP) PO SCH ×2 (09:44→22:16)
[2023-09-09] MEDS: LISINOPRIL 5 MG TABLET PO SCH (09:44)
[2023-09-09] MEDS: THIAMINE HCL 100 MG TABLET (FP) PO SCH ×2 (09:44→22:17)
[2023-09-09] MEDS: amLODIPine BESYLATE 10 MG TABLET (FP) PO SCH (09:44)
[2023-09-09] MEDS: HEPARIN NA (PORCINE) 5,000 UNITS/ML 1ML VIAL SQ SCH (10:22)
[2023-09-09] MEDS: POLYETHYLENE GLYCOL (HEALTHYLAX) 3350 17 GM PACKET PO SCH ×2 (10:22→22:17)
[2023-09-09] MEDS: SODIUM ZIRCONIUM CYCLOSILICATE (LOKELMA) 5 GM PACKET PO SCH (12:38)
[2023-09-09] MEDS: OXcarbazepine 300 MG TABLET (UD) PO SCH ×2 (12:38→22:17)
[2023-09-09] MEDS: ATORVASTATIN CA 40 MG TABLET (FP) PO SCH (22:17)
[2023-09-10] MEDS: methaDONE HCL 10 MG TABLET PO SCH (06:08)
[2023-09-10] MEDS: LISINOPRIL 5 MG TABLET PO SCH (09:07)
[2023-09-10] MEDS: THIAMINE HCL 100 MG TABLET (FP) PO SCH ×2 (09:07→22:27)
[2023-09-10] MEDS: amLODIPine BESYLATE 10 MG TABLET (FP) PO SCH (09:07)
[2023-09-10] MEDS: AMOX TR/POT CLAV 500MG/125MG TABLETS (FP) PO SCH ×2 (09:07→16:59)
[2023-09-10] MEDS: OXcarbazepine 300 MG TABLET (UD) PO SCH ×2 (09:07→22:27)
[2023-09-10] MEDS: hydrALAZINE HCL 50 MG TABLET (FP) PO SCH ×2 (09:07→22:26)
[2023-09-10] MEDS: POLYETHYLENE GLYCOL (HEALTHYLAX) 3350 17 GM PACKET PO SCH ×2 (09:08→22:26)
[2023-09-10] MEDS: ATORVASTATIN CA 40 MG TABLET (FP) PO SCH (22:26)
[2023-09-11] MEDS: methaDONE HCL 10 MG TABLET PO SCH (06:16)
[2023-09-11] MEDS: AMOX TR/POT CLAV 500MG/125MG TABLETS (FP) PO SCH (08:41)
[2023-09-11] MEDS: THIAMINE HCL 100 MG TABLET (FP) PO SCH ×2 (09:22→21:21)
[2023-09-11] MEDS: POLYETHYLENE GLYCOL (HEALTHYLAX) 3350 17 GM PACKET PO SCH ×2 (09:23→21:21)
[2023-09-11] MEDS: LISINOPRIL 5 MG TABLET PO SCH (09:23)
[2023-09-11] MEDS: amLODIPine BESYLATE 10 MG TABLET (FP) PO SCH (09:23)
[2023-09-11] MEDS: OXcarbazepine 300 MG TABLET (UD) PO SCH ×2 (09:23→21:21)
[2023-09-11] MEDS: hydrALAZINE HCL 50 MG TABLET (FP) PO SCH ×2 (09:23→21:21)
[2023-09-11] MEDS: SODIUM ZIRCONIUM CYCLOSILICATE (LOKELMA) 5 GM PACKET PO SCH (13:17)
[2023-09-11] MEDS: ATORVASTATIN CA 40 MG TABLET (FP) PO SCH (21:21)
[2023-09-12] MEDS: amLODIPine BESYLATE 10 MG TABLET (FP) PO SCH (10:46)
[2023-09-12] MEDS: THIAMINE HCL 100 MG TABLET (FP) PO SCH ×2 (10:46→21:50)
[2023-09-12] MEDS: LISINOPRIL 5 MG TABLET PO SCH (10:46)
[2023-09-12] MEDS: POLYETHYLENE GLYCOL (HEALTHYLAX) 3350 17 GM PACKET PO SCH ×2 (10:46→21:51)
[2023-09-12] MEDS: hydrALAZINE HCL 50 MG TABLET (FP) PO SCH ×2 (10:46→21:51)
[2023-09-12] MEDS: OXcarbazepine 300 MG TABLET (UD) PO SCH ×2 (10:47→21:52)
[2023-09-12] MEDS: ATORVASTATIN CA 40 MG TABLET (FP) PO SCH (21:51)
[2023-09-13] MEDS: hydrALAZINE HCL 50 MG TABLET (FP) PO SCH ×2 (06:40→21:39)
[2023-09-13] MEDS ORDERED: LIDOCAINE 4% PATCH TP SCH (10:00)
[2023-09-13] MEDS: amLODIPine BESYLATE 10 MG TABLET (FP) PO SCH (10:11)
[2023-09-13] MEDS: POLYETHYLENE GLYCOL (HEALTHYLAX) 3350 17 GM PACKET PO SCH ×2 (10:11→21:40)
[2023-09-13] MEDS: THIAMINE HCL 100 MG TABLET (FP) PO SCH ×2 (10:11→21:39)
[2023-09-13] MEDS: LISINOPRIL 5 MG TABLET PO SCH (10:12)
[2023-09-13 13:21] VITALS: RESP 18
[2023-09-13] MEDS ORDERED: methaDONE HCL 10 MG TABLET PO SCH (13:30)
[2023-09-13] MEDS: SODIUM ZIRCONIUM CYCLOSILICATE (LOKELMA) 5 GM PACKET PO SCH (15:01)
[2023-09-13] MEDS: OXcarbazepine 300 MG TABLET (UD) PO SCH ×2 (16:29→21:39)
[2023-09-13 19:01] VITALS: BP 161/74; PULSE 64; TEMP 98.2
[2023-09-13] MEDS: ATORVASTATIN CA 40 MG TABLET (FP) PO SCH (21:39)
[2023-09-13] MEDS ORDERED: LIDOCAINE PATCH REMOVAL MC SCH (22:00)
[2023-09-14] MEDS ORDERED: amLODIPine BESYLATE 10 MG TABLET (FP) PO SCH (07:00)
== END 2023-09-14 01:04 | DRG 100 ==
LOC: JER 03:52 → JERBED 05:56 → JICU 07:20 → J5S 09-02 15:37
PROVIDERS: ADMIT Internal Medicine Pulmonary Disease
PROC: 0BH17EZ Insertion of Endotracheal Airway into Trachea, Via Natural or Artificial Opening (ICD-10-PCS; principal; 2023-08-29)
PROC: 5A1945Z Respiratory Ventilation, 24-96 Consecutive Hours (ICD-10-PCS; 2023-08-29)
DX: G40.909 Epilepsy, unspecified, not intractable, without status epilepticus (principal); J69.0 Pneumonitis due to inhalation of food and vomit; J96.00 Acute respiratory failure, unspecified whether with hypoxia or hypercapnia; E87.20 Acidosis, unspecified; F11.20 Opioid dependence, uncomplicated; F14.20 Cocaine dependence, uncomplicated; E87.29 Other acidosis; I50.22 Chronic systolic (congestive) heart failure; I13.0 Hypertensive heart and chronic kidney disease with heart failure and stage 1 through stage 4 chronic kidney disease, or unspecified chronic kidney disease; R79.89 Other specified abnormal findings of blood chemistry; I16.0 Hypertensive urgency; E78.5 Hyperlipidemia, unspecified; M54.50 Low back pain, unspecified; F41.8 Other specified anxiety disorders; R00.1 Bradycardia, unspecified; I25.10 Atherosclerotic heart disease of native coronary artery without angina pectoris; R41.82 Altered mental status, unspecified; R15.9 Full incontinence of feces; R80.8 Other proteinuria; N18.9 Chronic kidney disease, unspecified; E87.5 Hyperkalemia; Z91.148 Patient's other noncompliance with medication regimen for other reason
CPT/HCPCS: 0241U-QW; 36415; 36600; 70450-TC; 71045-TC-FY; 71250-TC; 80048; 80053; 80156; 80183; 80307; 81003; 82550; 82553; 82803; 83605; 83735; 84100; 84439; 84443; 84484; 85025; 85027; 85610; 85730; 86140; 87040; 87086; 87635; 93005; 93010; 94002; 97116-GP; 99285-25; J1644

== ENCOUNTER 2023-09-27 01:26 | Inpatient (IN) | payer OTHER ==
[2023-09-27 02:01] VITALS: BMI 28.0
[2023-09-27] MEDS ORDERED: BENZOCAINE/MENTHOL (CHLORASEPTIC ) LOZENGE MM PRN (02:55)
[2023-09-27] MEDS ORDERED: POLYETHYLENE GLYCOL (HEALTHYLAX) 3350 17 GM PACKET PO PRN (02:55)
[2023-09-27] MEDS ORDERED: guaiFENesin 600 MG TABLET.ER (FP) PO PRN (02:55)
[2023-09-27] MEDS ORDERED: MAG HYDROX/AL HYDROX/SIMETH 30 ML UNIT-DOSE CUP PO PRN (02:55)
[2023-09-27] MEDS ORDERED: IBUPROFEN 400 MG TABLET (FP) PO PRN (02:55)
[2023-09-27] MEDS ORDERED: LOPERAMIDE HCL 2 MG CAPSULE PO PRN (02:55)
[2023-09-27] MEDS ORDERED: MAGNESIUM HYDROX 2400MG/30ML ORAL SUSPENSION 30 ML CUP PO PRN (02:55)
[2023-09-27] MEDS ORDERED: NALOXONE HCL 0.4 MG/ML VIAL IVPUSH PRN (02:55)
[2023-09-27] MEDS ORDERED: BENZONATATE 200 MG CAPSULE PO PRN (02:55)
[2023-09-27] MEDS ORDERED: NICOTINE POLACRILEX 2 MG GUM BUC PRN (02:55)
[2023-09-27] MEDS ORDERED: NALOXONE HCL (KLOXXADO) 8 MG SPRAY NS PRN (02:55)
[2023-09-27] MEDS ORDERED: levETIRAcetam 250 MG TABLET PO SCH (10:00)
[2023-09-27] MEDS: hydrALAZINE HCL 25 MG TABLET (FP) PO SCH (10:14)
[2023-09-27] MEDS: amLODIPine BESYLATE 10 MG TABLET (FP) PO SCH (10:14)
[2023-09-27] MEDS: LISINOPRIL 5 MG TABLET PO SCH (10:15)
[2023-09-27] MEDS: PRENATAL VITAMINS W/ FOLIC ACID TABLET (FP) PO SCH (10:15)
[2023-09-27] MEDS: OXcarbazepine 300 MG TABLET (UD) PO SCH (10:38)
[2023-09-27] MEDS: methaDONE HCL 10 MG TABLET PO SCH (11:16)
[2023-09-27] MEDS: ATORVASTATIN CA 40 MG TABLET (FP) PO SCH (21:21)
[2023-09-27] MEDS: THIAMINE HCL 100 MG TABLET (FP) PO SCH (21:21)
[2023-09-27] MEDS: SUVOREXANT 5 MG TABLET PO PRN (21:21)
[2023-09-27] MEDS ORDERED: MELATONIN 5 MG TABLETS PO SCH (22:00)
[2023-09-29] MEDS: amLODIPine BESYLATE 10 MG TABLET (FP) PO SCH (07:41)
[2023-09-29] MEDS: LISINOPRIL 5 MG TABLET PO SCH (07:41)
[2023-09-30] MEDS: IBUPROFEN 600 MG TABLET (FP) PO PRN (13:18)
[2023-10-01] MEDS: SUVOREXANT 5 MG TABLET PO PRN (21:13)
[2023-10-02] MEDS ORDERED: hydrALAZINE HCL 25 MG TABLET (FP) PO SCH (07:46)
[2023-10-02] MEDS: hydrALAZINE HCL 25 MG TABLET (FP) PO ONE (08:10)
[2023-10-02] MEDS: hydrALAZINE HCL 50 MG TABLET (FP) PO SCH (18:04)
[2023-10-03] MEDS ORDERED: BUPRENORPHINE HCL 150 MCG, BUPRENORPHINE HCL 75 MCG BC PRN (09:59)
[2023-10-03] MEDS: BUPRENORPHINE HCL 150 MCG, BUPRENORPHINE HCL 75 MCG BC ONE (10:25)
[2023-10-03] MEDS ORDERED: cloNIDine HCL 0.1 MG TABLET PO PRN (13:59)
[2023-10-04] MEDS ORDERED: BUPRENORPHINE HCL 150 MCG, BUPRENORPHINE HCL 75 MCG BC PRN
[2023-10-04] MEDS: BUPRENORPHINE HCL 150 MCG, BUPRENORPHINE HCL 75 MCG BC SCH (07:19)
[2023-10-04 14:49] LABS: POTASSIUM 5.2 mmol/L (3.5-5.1)
[2023-10-04 14:51] LABS: BASO % 1.1 % (0-2.0); EOS % 1.1 % (0-4.5); HEMATOCRIT 26.1 % (32.4-45.2); HEMOGLOBIN 8.5 GM/dL (10.7-15.3); LYMPH % 32.3 % (8-40); MCH 28.5 pg (25.7-33.7); MCHC 32.5 g/dl (32.0-36.0); MEAN CELL VOLUME 87.5 fl (80-96); MEAN PLT VOLUME 8.6 fl (7.5-11.1); MONO % 6.5 % (3.8-10.2); PLATELET COUNT 289 10^3/uL (134-434); RBC 2.98 M/mm3 (3.60-5.2); RDW 14.7 % (11.6-15.6); WHITE BLOOD COUNT 4.7 K/mm3 (4.0-10.0)
[2023-10-04 14:52] LABS: ALBUMIN 3.7 g/dl (3.4-5.0)
[2023-10-04 14:53] LABS: CALCIUM 8.6 mg/dL (8.5-10.1); MAGNESIUM 2.5 mg/dL (1.8-2.4)
[2023-10-04 14:57] LABS: CREATININE 2.4 mg/dL (0.55-1.3)
[2023-10-04 14:58] LABS: BILIRUBIN,TOTAL 0.2 mg/dL (0.2-1); TOT PROT 7.7 g/dl (6.4-8.2)
[2023-10-05] MEDS ORDERED: BUPRENORPHINE HCL 450 MCG FILM BC SCH (06:00)
[2023-10-05] MEDS: SUVOREXANT 5 MG TABLET PO PRN (21:05)
[2023-10-06] MEDS ORDERED: BUPRENORPHINE/NALOXONE 4 MG/1 MG FILM PACKET SL SCH (06:00)
[2023-10-06] MEDS: FERROUS SO4 325 MG TABLET (FP) PO SCH (10:12)
[2023-10-07] MEDS: ACETAMINOPHEN 325 MG TABLET (FP) PO PRN (09:12)
[2023-10-07] MEDS ORDERED: BUPRENORPHINE/NALOXONE 4 MG/1 MG FILM PACKET SL SCH (10:00)
[2023-10-07] MEDS: ASPIRIN COATED 81 MG TABLET.EC PO SCH (10:24)
[2023-10-07] MEDS: SERTRALINE HCL 25 MG TABLET (FP) PO SCH (10:27)
[2023-10-07 13:44] LABS: BLOOD UREA NITROGEN 44.1 mg/dL (7-18); MAGNESIUM 2.6 mg/dL (1.8-2.4)
[2023-10-07 13:48] LABS: CREATININE 2.4 mg/dL (0.55-1.3)
[2023-10-07] MEDS ORDERED: SODIUM POLYSTYRENE SULFONATE 15 GM/60 ML BOTTLE PO ONE ×2 (13:53→15:22)
[2023-10-07] MEDS: MIRTAZAPINE 15 MG TABLET (FP) PO SCH (21:31)
[2023-10-08] MEDS: CHOLECALCIFEROL (VIT D3) 400 UNIT (10 MCG) TABLET PO SCH (10:20)
[2023-10-11 07:22] VITALS: PULSE 61; RESP 18; TEMP 97.8
[2023-10-11 09:32] VITALS: BP 162/78
== END 2023-10-11 11:45 | disposition home or self-care (01) | DRG 895 ==
LOC: YASAS 01:26 → Y5N 05:15
PROVIDERS: ADMIT Allergy & Immunology; ATTEND Psychiatry & Neurology Pain Medicine
PROC: HZ42ZZZ Group Counseling for Substance Abuse Treatment, Cognitive-Behavioral (ICD-10-PCS; principal; 2023-09-27)
DX: F14.20 Cocaine dependence, uncomplicated (principal); F11.20 Opioid dependence, uncomplicated; F19.282 Other psychoactive substance dependence with psychoactive substance-induced sleep disorder; F17.210 Nicotine dependence, cigarettes, uncomplicated; F19.24 Other psychoactive substance dependence with psychoactive substance-induced mood disorder; F32.A Depression, unspecified; E87.5 Hyperkalemia; I25.10 Atherosclerotic heart disease of native coronary artery without angina pectoris; I10 Essential (primary) hypertension; I25.2 Old myocardial infarction; J45.20 Mild intermittent asthma, uncomplicated; G40.909 Epilepsy, unspecified, not intractable, without status epilepticus; R00.1 Bradycardia, unspecified; Z62.810 Personal history of physical and sexual abuse in childhood; Z91.410 Personal history of adult physical and sexual abuse; Z63.8 Other specified problems related to primary support group
CPT/HCPCS: 0241U-QW; 36415; 80053; 82565; 82652; 83735; 84132; 84484; 84520; 85025; 93005; 93010

== ENCOUNTER 2023-10-11 16:07 | Emergency (ER) | payer OTHER ==
[2023-10-11 17:15] VITALS: BP 151/62; PULSE 77; RESP 20; TEMP 97.6
[2023-10-11] MEDS: OXcarbazepine 300 MG TABLET (UD) PO ONE (18:53)
[2023-10-11 19:47] LABS: BASO % 0.5 % (0-2.0); EOS % 0.1 % (0-4.5); HEMATOCRIT 26.2 % (32.4-45.2); HEMOGLOBIN 8.7 GM/dL (10.7-15.3); LYMPH % 14.3 % (8-40); MCH 28.5 pg (25.7-33.7); MCHC 33.1 g/dl (32.0-36.0); MEAN CELL VOLUME 86.1 fl (80-96); MEAN PLT VOLUME 7.3 fl (7.5-11.1); MONO % 3.8 % (3.8-10.2); NEUT % 81.3 % (42.8-82.8); PLATELET COUNT 338 10^3/uL (134-434); RBC 3.05 M/mm3 (3.60-5.2); RDW 14.5 % (11.6-15.6); WHITE BLOOD COUNT 9.1 K/mm3 (4.0-10.0)
[2023-10-11 20:05] LABS: POTASSIUM 5.2 mmol/L (3.5-5.1)
[2023-10-11 20:07] LABS: CALCIUM 8.6 mg/dL (8.5-10.1)
[2023-10-11 20:11] LABS: CREATININE 2.8 mg/dL (0.55-1.3)
[2023-10-11 20:12] LABS: BILIRUBIN,TOTAL 0.2 mg/dL (0.2-1); TOT PROT 8.1 g/dl (6.4-8.2)
[2023-10-11] MEDS ORDERED: OXcarbazepine 300 MG TABLET (UD) PO SCH (22:00)
[2023-10-11 22:34] LABS: POTASSIUM 5.4 mmol/L (3.5-5.1)
[2023-10-11] MEDS ORDERED: SODIUM ZIRCONIUM CYCLOSILICATE (LOKELMA) 5 GM PACKET ONE (23:16)
[2023-10-12] MEDS ORDERED: SODIUM ZIRCONIUM CYCLOSILICATE (LOKELMA) 5 GM PACKET PO SCH (10:00)
== END 2023-10-11 23:30 | disposition home or self-care (01) ==
LOC: JER 16:07
DX: R56.9 Unspecified convulsions (principal); T40.1X1A Poisoning by heroin, accidental (unintentional), initial encounter
CPT/HCPCS: 36415; 80053; 84132; 84484; 85025; 93005; 93010; 99284-25

== ENCOUNTER 2023-10-16 09:01 | Emergency (ER) | payer OTHER ==
[2023-10-16 09:20] VITALS: RESP 18; TEMP 98.1; BMI 22.2
[2023-10-16] MEDS ORDERED: ACETAMINOPHEN 325 MG TABLET (FP) ONE (09:49)
[2023-10-16] MEDS: ACETAMINOPHEN 325 MG TABLET (FP) PO ONE (09:51)
[2023-10-16] MEDS ORDERED: hydrALAZINE HCL 50 MG TABLET (FP) ONE (09:53)
[2023-10-16] MEDS: hydrALAZINE HCL 50 MG TABLET (FP) PO ONE (09:58)
[2023-10-16 11:10] VITALS: BP 168/88; PULSE 71
[2023-10-16] MEDS: OXcarbazepine 300 MG/5 ML 250 ML BULK BOTTLE PO ONE (11:10)
== END 2023-10-16 11:11 | disposition home or self-care (01) ==
LOC: JER 09:01
DX: I10 Essential (primary) hypertension (principal)
CPT/HCPCS: 99283-25

== ENCOUNTER 2023-11-23 13:57 | Emergency (ER) | payer OTHER ==
[2023-11-23 14:21] VITALS: PULSE 51; RESP 17; TEMP 96.8; BMI 22.2
[2023-11-23] MEDS ORDERED: amLODIPine BESYLATE 10 MG TABLET (FP) ONE (14:50)
[2023-11-23] MEDS ORDERED: hydrALAZINE HCL 25 MG TABLET (FP) ONE (14:50)
[2023-11-23] MEDS ORDERED: ACETAMINOPHEN 325 MG TABLET (FP) ONE (14:51)
[2023-11-23] MEDS: hydrALAZINE HCL 25 MG TABLET (FP) PO ONE (15:11)
[2023-11-23] MEDS: amLODIPine BESYLATE 10 MG TABLET (FP) PO ONE (15:11)
[2023-11-23] MEDS: ACETAMINOPHEN 325 MG TABLET (FP) PO ONE (15:11)
[2023-11-23 15:48] VITALS: BP 198/101
== END 2023-11-23 18:05 | disposition home or self-care (01) ==
LOC: JER 13:57
DX: G44.209 Tension-type headache, unspecified, not intractable (principal); I10 Essential (primary) hypertension; Z76.0 Encounter for issue of repeat prescription
CPT/HCPCS: 70450-TC; 93005; 93010; 99284-25

== ENCOUNTER 2023-12-07 08:36 | Inpatient (IN) | payer OTHER ==
[2023-12-07 09:26] VITALS: BMI 20.2
[2023-12-07] MEDS ORDERED: MAGNESIUM HYDROX 2400MG/30ML ORAL SUSPENSION 30 ML CUP PO PRN (10:48)
[2023-12-07] MEDS ORDERED: IBUPROFEN 400 MG TABLET (FP) PO PRN (10:48)
[2023-12-07] MEDS ORDERED: BENZONATATE 200 MG CAPSULE PO PRN (10:48)
[2023-12-07] MEDS ORDERED: LOPERAMIDE HCL 2 MG CAPSULE PO PRN (10:48)
[2023-12-07] MEDS ORDERED: hydrOXYzine PAMOATE 25 MG CAPSULE (FP) PO PRN (10:48)
[2023-12-07] MEDS ORDERED: ACETAMINOPHEN 325 MG TABLET (FP) PO PRN (10:48)
[2023-12-07] MEDS ORDERED: BENZOCAINE/MENTHOL (CHLORASEPTIC ) LOZENGE MM PRN (10:48)
[2023-12-07] MEDS ORDERED: NALOXONE HCL 0.4 MG/ML VIAL IM PRN (10:48)
[2023-12-07] MEDS ORDERED: guaiFENesin 600 MG TABLET.ER (FP) PO PRN (10:48)
[2023-12-07] MEDS ORDERED: POLYETHYLENE GLYCOL (HEALTHYLAX) 3350 17 GM PACKET PO PRN (10:48)
[2023-12-07] MEDS ORDERED: MAG HYDROX/AL HYDROX/SIMETH 30 ML UNIT-DOSE CUP PO PRN (10:48)
[2023-12-07] MEDS ORDERED: NALOXONE HCL (KLOXXADO) 8 MG SPRAY NS PRN (10:48)
[2023-12-07] MEDS ORDERED: amLODIPine BESYLATE 5 MG TABLET (FP) ONE (11:12)
[2023-12-07] MEDS: amLODIPine BESYLATE 10 MG TABLET (FP) PO SCH (11:13)
[2023-12-07] MEDS: PRENATAL VITAMINS W/ FOLIC ACID TABLET (FP) PO SCH (11:14)
[2023-12-07] MEDS ORDERED: PRENATAL VITAMINS W/ FOLIC ACID TABLET (FP) PO ONE (11:14)
[2023-12-07] MEDS: ASPIRIN COATED 81 MG TABLET.EC PO SCH (11:56)
[2023-12-07] MEDS: LISINOPRIL 5 MG TABLET PO SCH (11:56)
[2023-12-07] MEDS: CHOLECALCIFEROL (VIT D3) 400 UNIT (10 MCG) TABLET PO SCH (11:57)
[2023-12-07] MEDS: hydrALAZINE HCL 50 MG TABLET (FP) PO SCH (11:57)
[2023-12-07] MEDS: OXcarbazepine 300 MG TABLET (UD) PO SCH (14:40)
[2023-12-07] MEDS: cloNIDine-TTS 0.1 MG/24 HRS PATCH.TDWK TD SCH (14:40)
[2023-12-07 17:42] LABS: EPI CELLS 23 /uL (0-25.1); HYALINE CASTS 0 /uL (0-3.1); URINE APPEARANCE CLEAR; URINE BACTERIA 946 /uL (0-1359); URINE BILIRUBIN NEGATIVE (NEGATIVE); URINE COLOR YELLOW; URINE GLUCOSE (UA) NEGATIVE (NEGATIVE); URINE KETONE NEGATIVE (NEGATIVE); URINE LEUK ESTERASE 1+ (NEGATIVE); URINE NITRITE NEGATIVE (NEGATIVE); URINE PROTEIN 2+ (NEGATIVE); URINE RBC 3 /uL (0-23.9); URINE UROBILINOGEN 0.2 mg/dL (0.2-1.0); URINE WBC 51 /uL (0-25.8)
[2023-12-07] MEDS: THIAMINE HCL 100 MG TABLET (FP) PO SCH (21:24)
[2023-12-07] MEDS: MELATONIN 5 MG TABLETS PO SCH (21:24)
[2023-12-07] MEDS: ATORVASTATIN CA 40 MG TABLET (FP) PO SCH (21:24)
[2023-12-08] MEDS: methaDONE 40 MG, methaDONE 30 MG PO SCH (06:42)
[2023-12-08] MEDS ORDERED: methaDONE HCL 40 MG DISPERSABLE TABLET PO SCH (10:00)
[2023-12-08 11:56] LABS: HEMATOCRIT 25.2 % (32.4-45.2); HEMOGLOBIN 7.9 GM/dL (10.7-15.3); MCH 26.7 pg (25.7-33.7); MCHC 31.4 g/dl (32.0-36.0); MEAN PLT VOLUME 8.9 fl (7.5-11.1); PLATELET COUNT 270 10^3/uL (134-434); RBC 2.97 M/mm3 (3.60-5.2); RDW 14.2 % (11.6-15.6); WHITE BLOOD COUNT 3.4 K/mm3 (4.0-10.0)
[2023-12-08 12:19] LABS: SYPHILIS W/ RPR CONF NON-REACTIVE (NONREACTIVE)
[2023-12-08 15:44] LABS: POTASSIUM 4.8 mmol/L (3.5-5.1)
[2023-12-08 15:46] LABS: ALBUMIN 3.4 g/dl (3.4-5.0); CALCIUM 8.3 mg/dL (8.5-10.1)
[2023-12-08 15:50] LABS: CREATININE 3.5 mg/dL (0.55-1.3)
[2023-12-08 15:52] LABS: BILIRUBIN,TOTAL 0.2 mg/dL (0.2-1); TOT PROT 7.2 g/dl (6.4-8.2)
[2023-12-09] MEDS: FERROUS SO4 325 MG TABLET (FP) PO SCH (10:10)
[2023-12-10] MEDS: hydrALAZINE HCL 50 MG TABLET (FP) PO SCH (18:16)
[2023-12-10] MEDS ORDERED: ATORVASTATIN CA 20 MG TABLET (FP) ONE (18:56)
[2023-12-11] MEDS: IBUPROFEN 600 MG TABLET (FP) PO PRN (06:28)
[2023-12-12 07:54] VITALS: TEMP 97.4
[2023-12-13 07:01] VITALS: RESP 17
[2023-12-13 11:11] VITALS: BP 139/70; PULSE 63
== END 2023-12-13 16:53 | disposition left against medical advice (07) | DRG 894 ==
LOC: YASAS 08:36 → Y5N 10:52
PROVIDERS: ADMIT Allergy & Immunology; ATTEND Psychiatry & Neurology Pain Medicine
PROC: HZ42ZZZ Group Counseling for Substance Abuse Treatment, Cognitive-Behavioral (ICD-10-PCS; principal; 2023-12-07)
DX: F14.20 Cocaine dependence, uncomplicated (principal); F11.20 Opioid dependence, uncomplicated; F13.20 Sedative, hypnotic or anxiolytic dependence, uncomplicated; F17.210 Nicotine dependence, cigarettes, uncomplicated; F41.9 Anxiety disorder, unspecified; F32.A Depression, unspecified; I12.9 Hypertensive chronic kidney disease with stage 1 through stage 4 chronic kidney disease, or unspecified chronic kidney disease; N18.9 Chronic kidney disease, unspecified; E78.5 Hyperlipidemia, unspecified; G40.909 Epilepsy, unspecified, not intractable, without status epilepticus
CPT/HCPCS: 36415; 80053; 80307; 81003; 85027; 86780; 86803; 87811

== ENCOUNTER 2023-12-15 08:49 | Observation (INO) | payer OTHER ==
[2023-12-15 10:25] LABS: BASO % 0.9 % (0-2.0); EOS % 0.8 % (0-4.5); HEMATOCRIT 26.4 % (32.4-45.2); HEMOGLOBIN 8.7 GM/dL (10.7-15.3); LYMPH % 24.1 % (8-40); MCH 27.5 pg (25.7-33.7); MCHC 32.9 g/dl (32.0-36.0); MEAN CELL VOLUME 83.7 fl (80-96); MEAN PLT VOLUME 7.2 fl (7.5-11.1); MONO % 5.5 % (3.8-10.2); NEUT % 68.7 % (42.8-82.8); PLATELET COUNT 345 10^3/uL (134-434); RBC 3.15 M/mm3 (3.60-5.2); RDW 14.7 % (11.6-15.6); WHITE BLOOD COUNT 6.3 K/mm3 (4.0-10.0)
[2023-12-15 10:31] LABS: INR 1.03 (0.83-1.09); PROTHROMBIN TIME (PATIENT) 11.9 SEC (9.7-13.0)
[2023-12-15 10:34] LABS: ACTIVATED PTT 21.6 SECONDS (25.2-36.5)
[2023-12-15 10:43] LABS: POTASSIUM 5.5 mmol/L (3.5-5.1)
[2023-12-15 10:44] LABS: CALCIUM 9.2 mg/dL (8.5-10.1)
[2023-12-15 10:46] LABS: ALBUMIN 3.7 g/dl (3.4-5.0); BLOOD UREA NITROGEN 48.1 mg/dL (7-18); MAGNESIUM 3.1 mg/dL (1.8-2.4)
[2023-12-15 10:49] LABS: BILIRUBIN,TOTAL 0.3 mg/dL (0.2-1); CREATININE 2.6 mg/dL (0.55-1.3); PHOSPHOROUS 4.3 mg/dL (2.5-4.9); TOT PROT 8.4 g/dl (6.4-8.2)
[2023-12-15] MEDS ORDERED: LISINOPRIL 5 MG TABLET ONE (11:53)
[2023-12-15] MEDS ORDERED: hydrALAZINE HCL 50 MG TABLET (FP) ONE (11:53)
[2023-12-15] MEDS ORDERED: amLODIPine BESYLATE 10 MG TABLET (FP) ONE (11:53)
[2023-12-15] MEDS: hydrALAZINE HCL 50 MG TABLET (FP) PO ONE (11:58)
[2023-12-15] MEDS: LISINOPRIL 5 MG TABLET PO ONE (11:58)
[2023-12-15] MEDS: amLODIPine BESYLATE 10 MG TABLET (FP) PO ONE (11:58)
[2023-12-15] MEDS ORDERED: SODIUM ZIRCONIUM CYCLOSILICATE (LOKELMA) 10 GM PACKET ONE (13:11)
[2023-12-15] MEDS: SODIUM ZIRCONIUM CYCLOSILICATE (LOKELMA) 5 GM PACKET PO ONE (13:27)
[2023-12-15] MEDS: SODIUM CHLORIDE 0.9% 500 ML INFUS.BAG IV ONE (14:31)
[2023-12-15 17:33] VITALS: BMI 18.6
[2023-12-15] MEDS: OXcarbazepine 300 MG TABLET (UD) PO SCH (21:30)
[2023-12-15] MEDS: ATORVASTATIN CA 40 MG TABLET (FP) PO SCH (21:30)
[2023-12-16] MEDS: SODIUM ZIRCONIUM CYCLOSILICATE (LOKELMA) 5 GM PACKET PO SCH (10:13)
[2023-12-16] MEDS: ASPIRIN COATED 81 MG TABLET.EC PO SCH (10:13)
[2023-12-16] MEDS: amLODIPine BESYLATE 10 MG TABLET (FP) PO SCH (10:13)
[2023-12-16 10:25] LABS: HEMATOCRIT 26.1 % (32.4-45.2); HEMOGLOBIN 8.5 GM/dL (10.7-15.3); MCH 27.2 pg (25.7-33.7); MCHC 32.4 g/dl (32.0-36.0); MEAN CELL VOLUME 83.9 fl (80-96); MEAN PLT VOLUME 8.4 fl (7.5-11.1); PLATELET COUNT 352 10^3/uL (134-434); RBC 3.11 M/mm3 (3.60-5.2); RDW 14.3 % (11.6-15.6)
[2023-12-16 10:37] LABS: POTASSIUM 5.2 mmol/L (3.5-5.1)
[2023-12-16 10:39] LABS: CALCIUM 8.4 mg/dL (8.5-10.1)
[2023-12-16 10:41] LABS: ALBUMIN 3.3 g/dl (3.4-5.0); BLOOD UREA NITROGEN 53.2 mg/dL (7-18); MAGNESIUM 2.9 mg/dL (1.8-2.4)
[2023-12-16 10:43] LABS: CREATININE 2.8 mg/dL (0.55-1.3); PHOSPHOROUS 4.4 mg/dL (2.5-4.9)
[2023-12-16 10:45] LABS: BILIRUBIN,TOTAL 0.3 mg/dL (0.2-1)
[2023-12-16 10:46] LABS: TOT PROT 7.4 g/dl (6.4-8.2)
[2023-12-16] MEDS: methaDONE HCL 40 MG DISPERSABLE TABLET PO SCH (11:23)
[2023-12-16] MEDS: hydrALAZINE HCL 25 MG TABLET (FP) PO SCH (13:45)
[2023-12-17 09:16] LABS: BASO % 1.1 % (0-2.0); EOS % 1.4 % (0-4.5); HEMATOCRIT 27.5 % (32.4-45.2); HEMOGLOBIN 8.7 GM/dL (10.7-15.3); LYMPH % 34.2 % (8-40); MCH 27.1 pg (25.7-33.7); MCHC 31.7 g/dl (32.0-36.0); MEAN CELL VOLUME 85.4 fl (80-96); MEAN PLT VOLUME 8.2 fl (7.5-11.1); MONO % 5.7 % (3.8-10.2); NEUT % 57.6 % (42.8-82.8); PLATELET COUNT 369 10^3/uL (134-434); RBC 3.22 M/mm3 (3.60-5.2); RDW 14.8 % (11.6-15.6); WHITE BLOOD COUNT 5.3 K/mm3 (4.0-10.0)
[2023-12-17 09:50] LABS: CALCIUM 8.4 mg/dL (8.5-10.1)
[2023-12-17 09:51] LABS: BLOOD UREA NITROGEN 58.3 mg/dL (7-18)
[2023-12-17 09:54] LABS: CREATININE 3.1 mg/dL (0.55-1.3)
[2023-12-17] MEDS: hydrALAZINE HCL 50 MG TABLET (FP) PO SCH (14:39)
[2023-12-18 09:40] LABS: BASO % 0.9 % (0-2.0); EOS % 1.4 % (0-4.5); HEMATOCRIT 27.9 % (32.4-45.2); HEMOGLOBIN 8.9 GM/dL (10.7-15.3); MCH 27.3 pg (25.7-33.7); MEAN CELL VOLUME 85.3 fl (80-96); MEAN PLT VOLUME 8.4 fl (7.5-11.1); MONO % 5.8 % (3.8-10.2); NEUT % 62.9 % (42.8-82.8); PLATELET COUNT 362 10^3/uL (134-434); RBC 3.27 M/mm3 (3.60-5.2); RDW 14.5 % (11.6-15.6); WHITE BLOOD COUNT 5.6 K/mm3 (4.0-10.0)
[2023-12-18 10:00] LABS: POTASSIUM 4.5 mmol/L (3.5-5.1)
[2023-12-18 10:03] LABS: BLOOD UREA NITROGEN 53.1 mg/dL (7-18); CALCIUM 8.9 mg/dL (8.5-10.1)
[2023-12-18 10:06] LABS: CREATININE 2.8 mg/dL (0.55-1.3)
[2023-12-18 14:44] VITALS: BP 157/60; PULSE 63; RESP 18; TEMP 99
== END 2023-12-18 18:55 | disposition left against medical advice (07) ==
LOC: JER 08:49 → JERBED 15:06 → J8W 16:41
PROVIDERS: ADMIT Internal Medicine; ATTEND Internal Medicine
DX: N17.9 Acute kidney failure, unspecified (principal); I16.0 Hypertensive urgency; E78.5 Hyperlipidemia, unspecified; F19.90 Other psychoactive substance use, unspecified, uncomplicated; F10.90 Alcohol use, unspecified, uncomplicated; I10 Essential (primary) hypertension
CPT/HCPCS: 36415; 71045-TC-FY; 76775-TC; 80048; 80053; 83735; 84100; 84484; 85025; 85027; 85610; 85730; 93005; 93010; 93970-TC; 97116-GP; 97161-GP; 99285-25; G0378

== ENCOUNTER 2023-12-20 08:30 | Emergency (ER) | payer OTHER ==
[2023-12-20 08:42] VITALS: RESP 18; TEMP 98.3; BMI 20.2
[2023-12-20] MEDS ORDERED: LISINOPRIL 5 MG TABLET ONE (10:50)
[2023-12-20] MEDS ORDERED: amLODIPine BESYLATE 10 MG TABLET (FP) ONE (10:50)
[2023-12-20] MEDS: LISINOPRIL 5 MG TABLET PO ONE (10:51)
[2023-12-20] MEDS: amLODIPine BESYLATE 10 MG TABLET (FP) PO ONE (10:51)
[2023-12-20 11:29] LABS: EOS % 1.3 % (0-4.5); HEMATOCRIT 25.9 % (32.4-45.2); HEMOGLOBIN 8.1 GM/dL (10.7-15.3); LYMPH % 25.2 % (8-40); MCH 27.1 pg (25.7-33.7); MCHC 31.5 g/dl (32.0-36.0); MEAN CELL VOLUME 86.1 fl (80-96); MEAN PLT VOLUME 8.3 fl (7.5-11.1); MONO % 5.8 % (3.8-10.2); NEUT % 66.7 % (42.8-82.8); PLATELET COUNT 307 10^3/uL (134-434); WHITE BLOOD COUNT 5.8 K/mm3 (4.0-10.0)
[2023-12-20 11:33] LABS: POTASSIUM 4.5 mmol/L (3.5-5.1)
[2023-12-20 11:35] LABS: BLOOD UREA NITROGEN 49.5 mg/dL (7-18)
[2023-12-20 11:36] LABS: CALCIUM 9.1 mg/dL (8.5-10.1)
[2023-12-20 11:38] LABS: CREATININE 2.8 mg/dL (0.55-1.3)
[2023-12-20 11:39] LABS: BILIRUBIN,TOTAL 0.3 mg/dL (0.2-1); TOT PROT 8.8 g/dl (6.4-8.2)
[2023-12-20 12:13] VITALS: PULSE 57
[2023-12-20] MEDS ORDERED: hydrALAZINE HCL 50 MG TABLET (FP) ONE (12:45)
[2023-12-20] MEDS: hydrALAZINE HCL 50 MG TABLET (FP) PO ONE (12:46)
[2023-12-20 13:16] VITALS: BP 167/71
== END 2023-12-20 14:23 | disposition home or self-care (01) ==
LOC: JER 08:30
DX: I10 Essential (primary) hypertension (principal)
CPT/HCPCS: 36415; 80053; 84484; 85025; 93005; 93010; 99284-25

== ENCOUNTER 2023-12-20 18:26 | Emergency (ER) | payer OTHER ==
[2023-12-20 18:33] VITALS: BP 157/76; PULSE 56; RESP 18; TEMP 98.3; BMI 22.2
[2023-12-20] MEDS ORDERED: MAG HYDROX/AL HYDROX/SIMETH 30 ML UNIT-DOSE CUP ONE (20:02)
[2023-12-20] MEDS ORDERED: ACETAMINOPHEN 325 MG TABLET (FP) ONE (20:02)
[2023-12-20] MEDS ORDERED: ONDANSETRON 4 MG TABLET PO ONE (20:02)
[2023-12-20] MEDS: ACETAMINOPHEN 325 MG TABLET (FP) PO ONE (20:07)
[2023-12-20] MEDS: MAG HYDROX/AL HYDROX/SIMETH 30 ML UNIT-DOSE CUP PO ONE (20:07)
[2023-12-20] MEDS: ONDANSETRON *ODT* 4 MG TABLET SL ONE (20:07)
[2023-12-20 21:16] LABS: EPI CELLS 9 /uL (0-25.1); HYALINE CASTS 0 /uL (0-3.1); URINE APPEARANCE CLEAR; URINE BACTERIA 189 /uL (0-1359); URINE BILIRUBIN NEGATIVE (NEGATIVE); URINE COLOR YELLOW; URINE GLUCOSE (UA) NEGATIVE (NEGATIVE); URINE KETONE NEGATIVE (NEGATIVE); URINE LEUK ESTERASE TRACE (NEGATIVE); URINE NITRITE NEGATIVE (NEGATIVE); URINE PROTEIN 2+ (NEGATIVE); URINE RBC 12 /uL (0-23.9); URINE UROBILINOGEN 0.2 mg/dL (0.2-1.0); URINE WBC 24 /uL (0-25.8)
== END 2023-12-20 21:52 | disposition home or self-care (01) ==
LOC: JER 18:26
DX: M54.50 Low back pain, unspecified (principal); R11.11 Vomiting without nausea; R10.84 Generalized abdominal pain
CPT/HCPCS: 81003; 99283-25; Q0162

== ENCOUNTER 2024-01-01 08:01 | Emergency (ER) | payer OTHER ==
[2024-01-01] MEDS ORDERED: ACETAMINOPHEN 1000 MG/100 ML BAG IVPB ONE (08:51)
[2024-01-01 09:16] VITALS: RESP 16; BMI 30.7
[2024-01-01] MEDS ORDERED: LISINOPRIL 5 MG TABLET ONE (09:22)
[2024-01-01] MEDS ORDERED: hydrALAZINE HCL 50 MG TABLET (FP) ONE (09:22)
[2024-01-01] MEDS ORDERED: amLODIPine BESYLATE 5 MG TABLET (FP) ONE (09:22)
[2024-01-01] MEDS: LISINOPRIL 5 MG TABLET PO ONE (09:27)
[2024-01-01] MEDS: amLODIPine BESYLATE 10 MG TABLET (FP) PO ONE (09:27)
[2024-01-01] MEDS: hydrALAZINE HCL 50 MG TABLET (FP) PO ONE (09:27)
[2024-01-01] MEDS ORDERED: ACETAMINOPHEN 325 MG TABLET (FP) ONE (09:42)
[2024-01-01] MEDS: ACETAMINOPHEN 325 MG TABLET (FP) PO ONE (09:44)
[2024-01-01 12:27] VITALS: TEMP 99.2
[2024-01-01 12:43] VITALS: PULSE 54
[2024-01-01 13:18] VITALS: BP 189/74
== END 2024-01-01 13:15 | disposition left against medical advice (07) ==
LOC: JER 08:01
DX: R51.9 Headache, unspecified (principal); I10 Essential (primary) hypertension
CPT/HCPCS: 70450-TC; 93005; 93010; 99284-25

== ENCOUNTER 2024-01-26 15:48 | Observation (INO) | payer OTHER ==
[2024-01-26] MEDS ORDERED: ACETAMINOPHEN 325 MG TABLET (FP) ONE (19:05)
[2024-01-26] MEDS: ACETAMINOPHEN 325 MG TABLET (FP) PO ONE (20:33)
[2024-01-26 23:23] LABS: BASO % 0.9 % (0-2.0); HEMATOCRIT 26.4 % (32.4-45.2); HEMOGLOBIN 8.8 GM/dL (10.7-15.3); LYMPH % 44.6 % (8-40); MCHC 33.4 g/dl (32.0-36.0); MEAN CELL VOLUME 83.9 fl (80-96); MEAN PLT VOLUME 7.9 fl (7.5-11.1); MONO % 8.3 % (3.8-10.2); NEUT % 44.2 % (42.8-82.8); PLATELET COUNT 259 10^3/uL (134-434); RBC 3.15 M/mm3 (3.60-5.2); RDW 15.4 % (11.6-15.6); WHITE BLOOD COUNT 5.4 K/mm3 (4.0-10.0)
[2024-01-26 23:39] LABS: POTASSIUM 4.4 mmol/L (3.5-5.1)
[2024-01-26 23:41] LABS: ALBUMIN 3.7 g/dl (3.4-5.0); BLOOD UREA NITROGEN 45.8 mg/dL (7-18); CALCIUM 8.2 mg/dL (8.5-10.1)
[2024-01-26 23:44] LABS: CREATININE 3.7 mg/dL (0.55-1.3)
[2024-01-26 23:46] LABS: BILIRUBIN,TOTAL 0.2 mg/dL (0.2-1); TOT PROT 7.8 g/dl (6.4-8.2)
[2024-01-27] MEDS: SODIUM CHLORIDE 0.9% 500 ML INFUS.BAG IV ONE (03:04)
[2024-01-27] MEDS: NALOXONE HCL 0.4 MG/ML VIAL IVPUSH ONE (03:50)
[2024-01-27] MEDS: NALOXONE (NYS OPIOID OVERDOSE PROGRAM) 4 MG/0.1 ML SPRAY NS ONE (03:50)
[2024-01-27] MEDS: SODIUM CHLORIDE 0.45% 1,000 ML IV SCH (04:30)
[2024-01-27 04:49] VITALS: BMI 20.2
[2024-01-27] MEDS: HEPARIN NA (PORCINE) 5,000 UNITS/ML 1ML VIAL SQ SCH (05:12)
[2024-01-27] MEDS ORDERED: methaDONE HCL 40 MG DISPERSABLE TABLET PO ONE (07:51)
[2024-01-27 09:15] LABS: POTASSIUM 4.5 mmol/L (3.5-5.1)
[2024-01-27 09:19] LABS: ALBUMIN 3.3 g/dl (3.4-5.0); CALCIUM 8.2 mg/dL (8.5-10.1); MAGNESIUM 2.2 mg/dL (1.8-2.4)
[2024-01-27 09:20] LABS: BASO % 0.6 % (0-2.0); EOS % 1.8 % (0-4.5); HEMATOCRIT 24.3 % (32.4-45.2); LYMPH % 40.7 % (8-40); MCH 27.7 pg (25.7-33.7); MCHC 33.1 g/dl (32.0-36.0); MEAN CELL VOLUME 83.8 fl (80-96); MEAN PLT VOLUME 8.1 fl (7.5-11.1); MONO % 8.2 % (3.8-10.2); NEUT % 48.7 % (42.8-82.8); PLATELET COUNT 218 10^3/uL (134-434); RDW 15.5 % (11.6-15.6); WHITE BLOOD COUNT 4.5 K/mm3 (4.0-10.0)
[2024-01-27 09:21] LABS: BLOOD UREA NITROGEN 45.7 mg/dL (7-18); CREATININE 3.6 mg/dL (0.55-1.3)
[2024-01-27 09:23] LABS: PHOSPHOROUS 4.4 mg/dL (2.5-4.9)
[2024-01-27 09:24] LABS: BILIRUBIN,TOTAL 0.2 mg/dL (0.2-1); TOT PROT 7.1 g/dl (6.4-8.2)
[2024-01-27] MEDS: amLODIPine BESYLATE 10 MG TABLET (FP) PO SCH (09:56)
[2024-01-27] MEDS: ASPIRIN COATED 81 MG TABLET.EC PO SCH (09:56)
[2024-01-27] MEDS: hydrALAZINE HCL 50 MG TABLET (FP) PO SCH (09:56)
[2024-01-27] MEDS: OXcarbazepine 300 MG TABLET (UD) PO SCH (10:12)
[2024-01-27] MEDS: NICOTINE 14 MG/24 HOURS TOPICAL PATCH TD SCH (10:12)
[2024-01-27] MEDS: ATORVASTATIN CA 40 MG TABLET (FP) PO SCH (22:28)
[2024-01-28 09:53] LABS: HEMATOCRIT 27.9 % (32.4-45.2); MCH 27.4 pg (25.7-33.7); MCHC 32.2 g/dl (32.0-36.0); MEAN CELL VOLUME 85.1 fl (80-96); PLATELET COUNT 268 10^3/uL (134-434); RBC 3.28 M/mm3 (3.60-5.2); RDW 15.6 % (11.6-15.6); WHITE BLOOD COUNT 5.6 K/mm3 (4.0-10.0)
[2024-01-28 12:44] LABS: BLOOD UREA NITROGEN 50.7 mg/dL (7-18); CALCIUM 8.7 mg/dL (8.5-10.1); CREATININE 3.2 mg/dL (0.55-1.3); MAGNESIUM 2.3 mg/dL (1.8-2.4); PHOSPHOROUS 3.4 mg/dL (2.5-4.9); POTASSIUM 4.6 mmol/L (3.5-5.1)
[2024-01-28] MEDS: DEXTROSE 5%-0.45% SALINE 1,000 ML IV SCH (13:46)
[2024-01-28 14:15] LABS: EPI CELLS 3 /uL (0-25.1); HYALINE CASTS 0 /uL (0-3.1); PH,URINE 6.5 (5.0-8.0); URINE APPEARANCE CLEAR; URINE BACTERIA 69 /uL (0-1359); URINE BILIRUBIN NEGATIVE (NEGATIVE); URINE COLOR YELLOW; URINE GLUCOSE (UA) NEGATIVE (NEGATIVE); URINE KETONE NEGATIVE (NEGATIVE); URINE LEUK ESTERASE NEGATIVE (NEGATIVE); URINE NITRITE NEGATIVE (NEGATIVE); URINE PROTEIN 1+ (NEGATIVE); URINE RBC 1 /uL (0-23.9); URINE UROBILINOGEN 0.2 mg/dL (0.2-1.0); URINE WBC 11 /uL (0-25.8)
[2024-01-29 11:18] VITALS: RESP 16
[2024-01-29] MEDS: hydrALAZINE HCL 10 MG TABLET PO ONE (16:07)
[2024-01-30 13:18] VITALS: BP 154/80; PULSE 54; TEMP 98.4
== END 2024-01-30 11:06 | disposition home or self-care (01) ==
LOC: JER 15:48 → JERBED 01-27 01:29 → J5S 01-27 03:32
PROVIDERS: ADMIT Internal Medicine
PROC: 3E0337Z Introduction of Electrolytic and Water Balance Substance into Peripheral Vein, Percutaneous Approach (ICD-10-PCS; principal; 2024-01-27)
DX: T40.1X4A Poisoning by heroin, undetermined, initial encounter (principal); F41.9 Anxiety disorder, unspecified; N18.9 Chronic kidney disease, unspecified; R56.9 Unspecified convulsions; X58.XXXA Exposure to other specified factors, initial encounter; Y93.89 Activity, other specified; Y92.230 Patient room in hospital as the place of occurrence of the external cause; F17.200 Nicotine dependence, unspecified, uncomplicated; G92.8 Other toxic encephalopathy; R53.1 Weakness
CPT/HCPCS: 36415; 70450-TC; 80048; 80053; 81003; 82550; 82728; 83540; 83550; 83735; 84100; 84466; 85025; 85027; 85045; 93005; 93010; 96360; 97116-GP; 97161-GP; 99285-25; G0378; J1644

== ENCOUNTER 2024-01-30 12:12 | Emergency (ER) | payer OTHER ==
[2024-01-30 12:24] VITALS: BP 156/75; PULSE 62; RESP 18; TEMP 98.1; BMI 20.9
[2024-01-30] MEDS ORDERED: ACETAMINOPHEN 325 MG TABLET (FP) ONE (12:45)
[2024-01-30] MEDS ORDERED: FAMOTIDINE 20 MG TABLET ONE (12:45)
[2024-01-30] MEDS ORDERED: ONDANSETRON *ODT* 4 MG TABLET ONE (12:45)
[2024-01-30] MEDS ORDERED: MAG HYDROX/AL HYDROX/SIMETH 30 ML UNIT-DOSE CUP ONE (12:46)
[2024-01-30] MEDS: MAG HYDROX/AL HYDROX/SIMETH 30 ML UNIT-DOSE CUP PO ONE (12:47)
[2024-01-30] MEDS: FAMOTIDINE 20 MG TABLET PO ONE (12:48)
[2024-01-30] MEDS: ACETAMINOPHEN 500 MG TABLET (FP) PO ONE (12:48)
[2024-01-30] MEDS: ONDANSETRON *ODT* 4 MG TABLET SL ONE (12:48)
== END 2024-01-30 13:35 | disposition home or self-care (01) ==
LOC: JER 12:12
DX: R11.2 Nausea with vomiting, unspecified (principal)
CPT/HCPCS: 99283-25; Q0162

== ENCOUNTER 2024-03-11 14:45 | Emergency (ER) | payer OTHER ==
[2024-03-11 15:00] VITALS: TEMP 99; BMI 18.1
[2024-03-11 15:46] VITALS: BP 203/72; PULSE 80; RESP 14
== END 2024-03-11 17:15 | disposition left against medical advice (07) ==
LOC: JER 14:45
DX: I10 Essential (primary) hypertension (principal); R00.8 Other abnormalities of heart beat; F17.210 Nicotine dependence, cigarettes, uncomplicated
CPT/HCPCS: 93005; 93010; 99283-25

== ENCOUNTER 2024-03-25 17:34 | Observation (INO) | payer OTHER ==
[2024-03-25 19:02] LABS: EOS % 1.3 % (0-4.5); HEMATOCRIT 25.9 % (32.4-45.2); HEMOGLOBIN 8.6 GM/dL (10.7-15.3); LYMPH % 35.8 % (8-40); MCH 27.8 pg (25.7-33.7); MCHC 33.1 g/dl (32.0-36.0); MEAN CELL VOLUME 83.8 fl (80-96); MEAN PLT VOLUME 8.1 fl (7.5-11.1); MONO % 6.7 % (3.8-10.2); NEUT % 55.2 % (42.8-82.8); PLATELET COUNT 205 10^3/uL (134-434); RBC 3.09 M/mm3 (3.60-5.2); RDW 14.4 % (11.6-15.6); WHITE BLOOD COUNT 5.3 K/mm3 (4.0-10.0)
[2024-03-25 19:46] LABS: POTASSIUM 3.6 mmol/L (3.5-5.1)
[2024-03-25 19:50] LABS: ALBUMIN 3.4 g/dl (3.4-5.0); BLOOD UREA NITROGEN 46.8 mg/dL (7-18); CALCIUM 8.4 mg/dL (8.5-10.1)
[2024-03-25 19:54] LABS: BILIRUBIN,TOTAL 0.2 mg/dL (0.2-1); CREATININE 3.5 mg/dL (0.55-1.3); TOT PROT 7.3 g/dl (6.4-8.2)
[2024-03-26 01:40] VITALS: RESP 18
[2024-03-26 01:50] VITALS: BMI 19.1
[2024-03-26] MEDS: SODIUM CHLORIDE 1,000 ML IV SCH (03:00)
[2024-03-26] MEDS: HEPARIN NA (PORCINE) 5,000 UNITS/ML 1ML VIAL SQ SCH (05:44)
[2024-03-26] MEDS: IRON SUCROSE INJECTION 200 MG in SODIUM CHLORIDE 100 ML IVPB ONE (05:45)
[2024-03-26 07:48] LABS: BASO % 1.3 % (0-2.0); EOS % 2.4 % (0-4.5); HEMATOCRIT 24.8 % (32.4-45.2); HEMOGLOBIN 8.3 GM/dL (10.7-15.3); MCH 28.2 pg (25.7-33.7); MCHC 33.7 g/dl (32.0-36.0); MEAN CELL VOLUME 83.7 fl (80-96); MEAN PLT VOLUME 8.6 fl (7.5-11.1); MONO % 7.3 % (3.8-10.2); PLATELET COUNT 195 10^3/uL (134-434); RBC 2.96 M/mm3 (3.60-5.2); RDW 14.1 % (11.6-15.6); WHITE BLOOD COUNT 5.1 K/mm3 (4.0-10.0)
[2024-03-26 08:03] LABS: POTASSIUM 3.2 mmol/L (3.5-5.1)
[2024-03-26 08:12] LABS: ALBUMIN 3.1 g/dl (3.4-5.0); BLOOD UREA NITROGEN 42.8 mg/dL (7-18); CALCIUM 7.7 mg/dL (8.5-10.1)
[2024-03-26 08:13] LABS: COCAINE, UR NEGATIVE (NEGATIVE); OPIATES, URI NEGATIVE (NEGATIVE); PHENCYCLIDINE,URINE NEGATIVE (NEGATIVE); URINE BARBITURATES NEGATIVE (NEGATIVE)
[2024-03-26 08:15] LABS: URINE AMPHETAMINES NEGATIVE (NEGATIVE)
[2024-03-26 08:16] LABS: CREATININE 3.5 mg/dL (0.55-1.3)
[2024-03-26 08:17] LABS: BILIRUBIN,TOTAL 0.4 mg/dL (0.2-1); TOT PROT 6.9 g/dl (6.4-8.2)
[2024-03-26 08:17] LABS: EPI CELLS 17 /uL (0-25.1); HYALINE CASTS 0 /uL (0-3.1); PH,URINE 5.5 (5.0-8.0); URINE APPEARANCE CLEAR; URINE BACTERIA 462 /uL (0-1359); URINE BILIRUBIN NEGATIVE (NEGATIVE); URINE COLOR YELLOW; URINE GLUCOSE (UA) NEGATIVE (NEGATIVE); URINE KETONE NEGATIVE (NEGATIVE); URINE LEUK ESTERASE TRACE (NEGATIVE); URINE NITRITE NEGATIVE (NEGATIVE); URINE PROTEIN 2+ (NEGATIVE); URINE RBC 7 /uL (0-23.9); URINE UROBILINOGEN 0.2 mg/dL (0.2-1.0); URINE WBC 51 /uL (0-25.8)
[2024-03-26 08:30] LABS: METHADONE, UR POSITIVE (NEGATIVE); URINE BENZODIAZEPINES POSITIVE (NEGATIVE)
[2024-03-26] MEDS ORDERED: PATIENT'S OWN MEDICATION (NON-FORMULARY) (Ferrous Sulfate [Ferrous Sulfate] 325 MG Tablet) PO SCH (10:00)
[2024-03-26] MEDS: hydrALAZINE HCL 50 MG TABLET (FP) PO SCH (11:46)
[2024-03-26] MEDS: NICOTINE 7 MG/24 HOURS TOPICAL PATCH TD SCH (11:46)
[2024-03-26] MEDS: amLODIPine BESYLATE 10 MG TABLET (FP) PO SCH (11:46)
[2024-03-26] MEDS: FERROUS SO4 325 MG TABLET (FP) PO SCH (11:46)
[2024-03-26] MEDS: ASPIRIN COATED 81 MG TABLET.EC PO SCH (11:46)
[2024-03-26] MEDS: OXcarbazepine 300 MG TABLET (UD) PO SCH (11:47)
[2024-03-26] MEDS: methaDONE HCL 40 MG DISPERSABLE TABLET PO SCH (11:48)
[2024-03-26] MEDS ORDERED: ACETAMINOPHEN 500 MG TABLET (FP) PO PRN (14:50)
[2024-03-26] MEDS: ACETAMINOPHEN 500 MG TABLET (FP) PO PRN (15:12)
[2024-03-26 15:23] VITALS: BP 114/66; PULSE 65; TEMP 98.4
[2024-03-26] MEDS ORDERED: ATORVASTATIN CA 40 MG TABLET (FP) PO SCH (22:00)
== END 2024-03-26 17:45 | disposition home health service (06) ==
LOC: JER 17:34 → JERBED 03-26 00:01 → J4S 03-26 01:30
PROVIDERS: ADMIT Internal Medicine; ATTEND Internal Medicine
PROC: 3E033GC Introduction of Other Therapeutic Substance into Peripheral Vein, Percutaneous Approach (ICD-10-PCS; principal; 2024-03-26)
PROC: 3E0337Z Introduction of Electrolytic and Water Balance Substance into Peripheral Vein, Percutaneous Approach (ICD-10-PCS; 2024-03-26)
DX: G93.41 Metabolic encephalopathy (principal); F19.90 Other psychoactive substance use, unspecified, uncomplicated; I12.9 Hypertensive chronic kidney disease with stage 1 through stage 4 chronic kidney disease, or unspecified chronic kidney disease; N18.9 Chronic kidney disease, unspecified; G40.909 Epilepsy, unspecified, not intractable, without status epilepticus; I11.0 Hypertensive heart disease with heart failure; R40.0 Somnolence; D64.9 Anemia, unspecified; N17.9 Acute kidney failure, unspecified; Z79.891 Long term (current) use of opiate analgesic; J45.909 Unspecified asthma, uncomplicated; E78.5 Hyperlipidemia, unspecified; Z72.0 Tobacco use
CPT/HCPCS: 0241U-QW; 36415; 70450-TC; 71045-TC-FY; 80053; 80307; 81003; 82962; 84484; 85025; 87086; 93005; 93010; 93308; 96361; 96365; 99285-25; G0378; J1644; J1756

== ENCOUNTER 2024-04-01 15:07 | Observation (INO) | payer OTHER ==
[2024-04-01] MEDS: LACTATED RINGERS SOLUTION 1000 ML INFUS.BAG IV ONE (16:40)
[2024-04-01 16:55] LABS: EOS % 1.8 % (0-4.5); HEMATOCRIT 25.3 % (32.4-45.2); HEMOGLOBIN 8.3 GM/dL (10.7-15.3); LYMPH % 35.8 % (8-40); MCH 27.7 pg (25.7-33.7); MCHC 32.9 g/dl (32.0-36.0); MEAN CELL VOLUME 84.1 fl (80-96); MEAN PLT VOLUME 8.1 fl (7.5-11.1); MONO % 9.4 % (3.8-10.2); PLATELET COUNT 225 10^3/uL (134-434); RBC 3.01 M/mm3 (3.60-5.2); RDW 14.9 % (11.6-15.6); WHITE BLOOD COUNT 4.5 K/mm3 (4.0-10.0)
[2024-04-01 17:20] LABS: POTASSIUM 4.6 mmol/L (3.5-5.1)
[2024-04-01 17:22] LABS: INR 0.97 (0.83-1.09); PROTHROMBIN TIME (PATIENT) 11.2 SEC (9.7-13.0)
[2024-04-01 17:23] LABS: BLOOD UREA NITROGEN 44.3 mg/dL (7-18); MAGNESIUM 2.5 mg/dL (1.8-2.4)
[2024-04-01 17:25] LABS: ACTIVATED PTT 29.3 SECONDS (25.2-36.5)
[2024-04-01 17:26] LABS: CREATININE 4.5 mg/dL (0.55-1.3)
[2024-04-01 17:27] LABS: BILIRUBIN,TOTAL 0.2 mg/dL (0.2-1); TOT PROT 6.8 g/dl (6.4-8.2)
[2024-04-02] MEDS: SODIUM CHLORIDE 1,000 ML IV STA (01:06)
[2024-04-02] MEDS: OXcarbazepine 300 MG TABLET (UD) PO SCH (01:06)
[2024-04-02 09:07] VITALS: BP 154/72; PULSE 58; RESP 16; TEMP 98.4; BMI 19.3
[2024-04-02] MEDS: ASPIRIN COATED 81 MG TABLET.EC PO SCH (09:58)
[2024-04-02] MEDS: amLODIPine BESYLATE 10 MG TABLET (FP) PO SCH (09:58)
[2024-04-02] MEDS: hydrALAZINE HCL 50 MG TABLET (FP) PO SCH (09:58)
[2024-04-02] MEDS ORDERED: ATORVASTATIN CA 40 MG TABLET (FP) PO SCH (22:00)
== END 2024-04-02 12:01 | disposition left against medical advice (07) ==
LOC: JER 15:07 → JERBED 21:54 → J5S 04-02 06:10
PROVIDERS: ADMIT Internal Medicine
PROC: 3E0337Z Introduction of Electrolytic and Water Balance Substance into Peripheral Vein, Percutaneous Approach (ICD-10-PCS; principal; 2024-04-01)
DX: R42 Dizziness and giddiness (principal); E78.5 Hyperlipidemia, unspecified; I11.0 Hypertensive heart disease with heart failure; I12.9 Hypertensive chronic kidney disease with stage 1 through stage 4 chronic kidney disease, or unspecified chronic kidney disease; N18.9 Chronic kidney disease, unspecified; F19.90 Other psychoactive substance use, unspecified, uncomplicated; I25.2 Old myocardial infarction; J45.909 Unspecified asthma, uncomplicated; D64.9 Anemia, unspecified; F41.8 Other specified anxiety disorders; R56.9 Unspecified convulsions; Z72.0 Tobacco use
CPT/HCPCS: 36415; 71045-TC-FY; 80053; 83735; 84484; 85025; 85610; 85730; 93005; 93010; 96360; 96361; 99285-25; G0378

== ENCOUNTER 2024-04-02 16:25 | Emergency (ER) | payer OTHER ==
[2024-04-02 16:53] VITALS: TEMP 99.3; BMI 41.8
[2024-04-02 17:47] VITALS: BP 136/90; PULSE 89; RESP 20
== END 2024-04-02 18:45 | disposition home or self-care (01) ==
LOC: JER 16:25
DX: R41.82 Altered mental status, unspecified (principal); Z74.8 Other problems related to care provider dependency
CPT/HCPCS: 99282-25

== ENCOUNTER 2024-04-15 18:17 | Emergency (ER) | payer OTHER ==
[2024-04-15 18:59] VITALS: BP 216/106; PULSE 72; RESP 18; TEMP 97.8; BMI 20.2
== END 2024-04-15 20:09 | disposition left against medical advice (07) ==
LOC: JER 18:17
DX: Z53.21 Procedure and treatment not carried out due to patient leaving prior to being seen by health care provider (principal)
CPT/HCPCS: 99281-25

== ENCOUNTER 2024-04-17 15:13 | Observation (INO) | payer OTHER ==
[2024-04-17 15:26] VITALS: BMI 20.4
[2024-04-17] MEDS ORDERED: ACETAMINOPHEN 325 MG TABLET (FP) ONE (16:02)
[2024-04-17] MEDS ORDERED: amLODIPine BESYLATE 10 MG TABLET (FP) ONE (16:02)
[2024-04-17] MEDS: ACETAMINOPHEN 325 MG TABLET (FP) PO ONE (16:06)
[2024-04-17] MEDS: amLODIPine BESYLATE 10 MG TABLET (FP) PO ONE (16:06)
[2024-04-17 16:33] LABS: HEMATOCRIT 27.2 % (32.4-45.2); HEMOGLOBIN 8.9 GM/dL (10.7-15.3); MCH 27.7 pg (25.7-33.7); MCHC 32.8 g/dl (32.0-36.0); MEAN CELL VOLUME 84.3 fl (80-96); MEAN PLT VOLUME 7.1 fl (7.5-11.1); PLATELET COUNT 317 10^3/uL (134-434); RBC 3.22 M/mm3 (3.60-5.2); RDW 14.8 % (11.6-15.6)
[2024-04-17] MEDS ORDERED: hydrALAZINE HCL 50 MG TABLET (FP) ONE (17:17)
[2024-04-17] MEDS: hydrALAZINE HCL 50 MG TABLET (FP) PO ONE (17:20)
[2024-04-17 17:41] LABS: POTASSIUM 4.8 mmol/L (3.5-5.1)
[2024-04-17 17:43] LABS: ALBUMIN 4.1 g/dl (3.4-5.0); BLOOD UREA NITROGEN 43.1 mg/dL (7-18); CALCIUM 9.2 mg/dL (8.5-10.1)
[2024-04-17 17:49] LABS: BILIRUBIN,TOTAL 0.3 mg/dL (0.2-1); TOT PROT 8.1 g/dl (6.4-8.2)
[2024-04-17] MEDS ORDERED: LABETALOL HCL 20 MG/4 ML VIAL ONE (19:11)
[2024-04-17] MEDS: LABETALOL HCL 5 MG/1 ML (100MG/20 ML VIAL) IVPUSH ONE (19:19)
[2024-04-18] MEDS: hydrALAZINE HCL 50 MG TABLET (FP) PO ONE (02:10)
[2024-04-18] MEDS: LACTATED RINGERS SOLUTION 1,000 ML/1,000 ML INFUS.BAG IV SCH (02:33)
[2024-04-18] MEDS ORDERED: HEPARIN NA (PORCINE) 5,000 UNITS/ML 1ML VIAL ONE (05:44)
[2024-04-18] MEDS ORDERED: hydrALAZINE HCL 50 MG TABLET (FP) ONE (05:45)
[2024-04-18] MEDS: hydrALAZINE HCL 50 MG TABLET (FP) PO SCH ×2 (05:52→21:19)
[2024-04-18] MEDS: HEPARIN NA (PORCINE) 5,000 UNITS/ML 1ML VIAL SQ SCH (05:52)
[2024-04-18 07:04] LABS: BASO % 1.8 % (0-2.0); EOS % 1.1 % (0-4.5); HEMATOCRIT 26.6 % (32.4-45.2); LYMPH % 33.2 % (8-40); MCHC 33.6 g/dl (32.0-36.0); MEAN CELL VOLUME 83.4 fl (80-96); MEAN PLT VOLUME 7.1 fl (7.5-11.1); MONO % 5.3 % (3.8-10.2); NEUT % 58.6 % (42.8-82.8); PLATELET COUNT 303 10^3/uL (134-434); RBC 3.19 M/mm3 (3.60-5.2); WHITE BLOOD COUNT 5.1 K/mm3 (4.0-10.0)
[2024-04-18] MEDS ORDERED: hydrALAZINE HCL 20 MG/ML VIAL IVPUSH PRN ×2 (07:04→10:36)
[2024-04-18 07:27] LABS: CHLORIDE 104 mmol/L (98-107); POTASSIUM 3.6 mmol/L (3.5-5.1); SODIUM 140 mmol/L (136-145)
[2024-04-18 07:28] LABS: ALBUMIN 3.7 g/dl (3.4-5.0); CALCIUM 8.5 mg/dL (8.5-10.1)
[2024-04-18 07:29] LABS: ANION GAP 11 mmol/L (4-13); BLOOD UREA NITROGEN 42.6 mg/dL (7-18); CO2 25 mmol/L (21-32); GLUCOSE,RANDOM 81 mg/dL (74-106); MAGNESIUM 2.4 mg/dL (1.8-2.4)
[2024-04-18 07:32] LABS: CREATININE 4.2 mg/dL (0.55-1.3); PHOSPHOROUS 4.5 mg/dL (2.5-4.9)
[2024-04-18 07:34] LABS: BILIRUBIN,TOTAL 0.4 mg/dL (0.2-1); SGOT/AST 19 U/L (15-37); SGPT/ALT 17 U/L (13-61)
[2024-04-18 07:35] LABS: ALK PHOS 84 U/L (45-117); TOT PROT 7.3 g/dl (6.4-8.2)
[2024-04-18 08:20] LABS: OPIATES, URI NEGATIVE (NEGATIVE); URINE BARBITURATES NEGATIVE (NEGATIVE); URINE BENZODIAZEPINES NEGATIVE (NEGATIVE)
[2024-04-18 08:21] LABS: PHENCYCLIDINE,URINE NEGATIVE (NEGATIVE)
[2024-04-18 08:30] LABS: COCAINE, UR POSITIVE (NEGATIVE); METHADONE, UR POSITIVE (NEGATIVE); URINE AMPHETAMINES POSITIVE (NEGATIVE)
[2024-04-18 08:46] LABS: PH,URINE 5.5 (5.0-8.0); URINE APPEARANCE CLEAR; URINE BILIRUBIN NEGATIVE (NEGATIVE); URINE COLOR YELLOW; URINE GLUCOSE (UA) NEGATIVE (NEGATIVE); URINE KETONE NEGATIVE (NEGATIVE); URINE LEUK ESTERASE NEGATIVE (NEGATIVE); URINE NITRITE NEGATIVE (NEGATIVE); URINE PROTEIN 2+ (NEGATIVE); URINE UROBILINOGEN 0.2 mg/dL (0.2-1.0)
[2024-04-18 08:51] LABS: LDL CHOLESTEROL (ONLY SJRH) 145 mg/dL (5-100)
[2024-04-18 08:53] LABS: CHOLESTEROL 228 mg/dL (50-200); HDL CHOLESTEROL 67 mg/dL (40-60)
[2024-04-18 08:58] LABS: EPI CELLS 3 /uL (0-25.1); HYALINE CASTS 0 /uL (0-3.1); URINE BACTERIA 20 /uL (0-1359); URINE RBC 7 /uL (0-23.9); URINE WBC 9 /uL (0-25.8)
[2024-04-18] MEDS ORDERED: ASPIRIN COATED 81 MG TABLET.EC ONE (09:43)
[2024-04-18] MEDS ORDERED: FERROUS SO4 325 MG TABLET (FP) ONE (09:44)
[2024-04-18] MEDS ORDERED: NICOTINE 7 MG/24 HOURS TOPICAL PATCH TD ONE (09:44)
[2024-04-18] MEDS ORDERED: amLODIPine BESYLATE 10 MG TABLET (FP) ONE (09:44)
[2024-04-18] MEDS ORDERED: hydrALAZINE HCL 50 MG TABLET (FP) PO SCH (10:00)
[2024-04-18] MEDS ORDERED: methaDONE HCL 10 MG TABLET ONE (11:43)
[2024-04-18] MEDS: ASPIRIN COATED 81 MG TABLET.EC PO SCH (11:53)
[2024-04-18] MEDS: amLODIPine BESYLATE 10 MG TABLET (FP) PO SCH (11:54)
[2024-04-18] MEDS: methaDONE HCL 40 MG DISPERSABLE TABLET PO ONE (11:54)
[2024-04-18] MEDS: FERROUS SO4 325 MG TABLET (FP) PO SCH (11:54)
[2024-04-18] MEDS: NICOTINE 7 MG/24 HOURS TOPICAL PATCH TD SCH (12:00)
[2024-04-18 12:58] LABS: ERYTHROCYTE SEDIMENTATION RATE 42 mm/hr (0-30)
[2024-04-18] MEDS: ATORVASTATIN CA 40 MG TABLET (FP) PO SCH (21:19)
[2024-04-19 09:09] LABS: POTASSIUM 4.3 mmol/L (3.5-5.1)
[2024-04-19 09:12] LABS: BASO % 0.5 % (0-2.0); HEMATOCRIT 27.5 % (32.4-45.2); HEMOGLOBIN 9.2 GM/dL (10.7-15.3); LYMPH % 14.4 % (8-40); MCH 27.6 pg (25.7-33.7); MCHC 33.2 g/dl (32.0-36.0); MEAN PLT VOLUME 8.3 fl (7.5-11.1); MONO % 3.5 % (3.8-10.2); NEUT % 81.6 % (42.8-82.8); PLATELET COUNT 332 10^3/uL (134-434); RBC 3.32 M/mm3 (3.60-5.2); RDW 15.1 % (11.6-15.6); WHITE BLOOD COUNT 7.5 K/mm3 (4.0-10.0)
[2024-04-19 09:19] LABS: ALBUMIN 3.6 g/dl (3.4-5.0); BLOOD UREA NITROGEN 39.8 mg/dL (7-18); MAGNESIUM 2.6 mg/dL (1.8-2.4)
[2024-04-19 09:22] LABS: CREATININE 3.4 mg/dL (0.55-1.3)
[2024-04-19 09:23] LABS: PHOSPHOROUS 3.4 mg/dL (2.5-4.9)
[2024-04-19 09:24] LABS: BILIRUBIN,TOTAL 0.5 mg/dL (0.2-1); TOT PROT 7.2 g/dl (6.4-8.2)
[2024-04-19] MEDS: ACETAMINOPHEN 325 MG TABLET (FP) PO PRN (10:29)
[2024-04-19 14:26] VITALS: BP 130/73; PULSE 60; RESP 16; TEMP 99
== END 2024-04-19 17:45 | disposition home or self-care (01) ==
LOC: JER 15:13 → JERBED 17:57 → J7W 04-18 12:23
PROVIDERS: ADMIT Internal Medicine; ATTEND Internal Medicine
PROC: 3E0337Z Introduction of Electrolytic and Water Balance Substance into Peripheral Vein, Percutaneous Approach (ICD-10-PCS; principal; 2024-04-17)
DX: I16.0 Hypertensive urgency (principal); N17.9 Acute kidney failure, unspecified; R51.9 Headache, unspecified; R94.4 Abnormal results of kidney function studies; I11.0 Hypertensive heart disease with heart failure; R56.9 Unspecified convulsions; J45.909 Unspecified asthma, uncomplicated; N18.9 Chronic kidney disease, unspecified; I25.2 Old myocardial infarction; E78.5 Hyperlipidemia, unspecified; F19.90 Other psychoactive substance use, unspecified, uncomplicated; F17.200 Nicotine dependence, unspecified, uncomplicated
CPT/HCPCS: 36415; 71045-TC-FY; 80053; 80061; 80307; 81003; 82436; 82570; 83735; 83935; 84100; 84133; 84300; 84484; 85025; 85027; 85651; 86140; 87086; 93005; 93010; 96360; 99285-25; G0378; J1644

== ENCOUNTER 2024-05-14 21:51 | Observation (INO) | payer OTHER ==
[2024-05-14] MEDS: ACETAMINOPHEN 1000 MG/100 ML BAG IVPB ONE (23:35)
[2024-05-15 00:36] LABS: BASO % 1.2 % (0-2.0); EOS % 1.4 % (0-4.5); HEMOGLOBIN 8.1 GM/dL (10.7-15.3); LYMPH % 38.8 % (8-40); MCH 27.6 pg (25.7-33.7); MCHC 32.5 g/dl (32.0-36.0); MEAN PLT VOLUME 7.8 fl (7.5-11.1); MONO % 5.7 % (3.8-10.2); NEUT % 52.9 % (42.8-82.8); PLATELET COUNT 260 10^3/uL (134-434); RBC 2.95 M/mm3 (3.60-5.2); RDW 15.9 % (11.6-15.6); WHITE BLOOD COUNT 4.5 K/mm3 (4.0-10.0)
[2024-05-15 00:46] LABS: INR 1.05 (0.83-1.09); PROTHROMBIN TIME (PATIENT) 11.9 SEC (9.7-13.0)
[2024-05-15 00:56] LABS: POTASSIUM 4.6 mmol/L (3.5-5.1)
[2024-05-15 00:58] LABS: ALBUMIN 3.5 g/dl (3.4-5.0); CALCIUM 8.9 mg/dL (8.5-10.1)
[2024-05-15 00:59] LABS: MAGNESIUM 2.7 mg/dL (1.8-2.4)
[2024-05-15 01:02] LABS: CREATININE 3.7 mg/dL (0.55-1.3)
[2024-05-15 01:03] LABS: BILIRUBIN,TOTAL 0.3 mg/dL (0.2-1); TOT PROT 7.1 g/dl (6.4-8.2)
[2024-05-15 01:07] LABS: N-TERMINAL BNP 2325.2 pg/ml (5-125)
[2024-05-15 01:56] LABS: EPI CELLS 9 /uL (0-25.1); HYALINE CASTS 0 /uL (0-3.1); PH,URINE 6.5 (5.0-8.0); URINE APPEARANCE CLEAR; URINE BACTERIA 86 /uL (0-1359); URINE BILIRUBIN NEGATIVE (NEGATIVE); URINE COLOR YELLOW; URINE GLUCOSE (UA) NEGATIVE (NEGATIVE); URINE KETONE NEGATIVE (NEGATIVE); URINE LEUK ESTERASE NEGATIVE (NEGATIVE); URINE NITRITE NEGATIVE (NEGATIVE); URINE PROTEIN 3+ (NEGATIVE); URINE RBC 7 /uL (0-23.9); URINE WBC 16 /uL (0-25.8)
[2024-05-15 03:40] LABS: PHENCYCLIDINE,URINE NEGATIVE (NEGATIVE); URINE BARBITURATES NEGATIVE (NEGATIVE); URINE BENZODIAZEPINES NEGATIVE (NEGATIVE)
[2024-05-15 04:08] LABS: COCAINE, UR POSITIVE (NEGATIVE); METHADONE, UR POSITIVE (NEGATIVE); OPIATES, URI POSITIVE (NEGATIVE); URINE AMPHETAMINES NEGATIVE (NEGATIVE)
[2024-05-15] MEDS ORDERED: ACETAMINOPHEN 325 MG TABLET (FP) PO PRN ×3 (05:54→06:05)
[2024-05-15] MEDS ORDERED: INSULIN ASPART SLIDING SCALE (NOVOLOG) 1 VIAL SQ SCH (07:00)
[2024-05-15] MEDS ORDERED: ALBUTEROL SO4 2.5/IPRATROPIUM 0.5 INH SOL 3 ML VIAL.NEB. NEB ONE (08:14)
[2024-05-15] MEDS: ALBUTEROL SO4 2.5/IPRATROPIUM 0.5 INH SOL 3 ML VIAL.NEB. NEB SCH (08:25)
[2024-05-15] MEDS: LACTATED RINGERS SOLUTION 1,000 ML/1,000 ML INFUS.BAG IV SCH (08:29)
[2024-05-15 08:50] LABS: HEMATOCRIT 27.4 % (32.4-45.2); MCHC 32.7 g/dl (32.0-36.0); MEAN CELL VOLUME 85.7 fl (80-96); MEAN PLT VOLUME 8.3 fl (7.5-11.1); PLATELET COUNT 281 10^3/uL (134-434); RDW 15.6 % (11.6-15.6); WHITE BLOOD COUNT 3.9 K/mm3 (4.0-10.0)
[2024-05-15 09:09] LABS: ALBUMIN 3.6 g/dl (3.4-5.0); BLOOD UREA NITROGEN 38.6 mg/dL (7-18); CALCIUM 9.1 mg/dL (8.5-10.1); MAGNESIUM 2.7 mg/dL (1.8-2.4)
[2024-05-15 09:12] LABS: CREATININE 3.4 mg/dL (0.55-1.3)
[2024-05-15 09:13] LABS: BILIRUBIN,TOTAL 0.5 mg/dL (0.2-1); PHOSPHOROUS 4.4 mg/dL (2.5-4.9)
[2024-05-15 09:14] LABS: TOT PROT 7.2 g/dl (6.4-8.2)
[2024-05-15] MEDS: ASPIRIN COATED 81 MG TABLET.EC PO SCH (09:39)
[2024-05-15] MEDS: predniSONE 20 MG TABLET (UD) PO SCH (09:39)
[2024-05-15] MEDS: amLODIPine BESYLATE 10 MG TABLET (FP) PO SCH (09:39)
[2024-05-15] MEDS ORDERED: hydrALAZINE HCL 50 MG TABLET (FP) PO SCH (10:00)
[2024-05-15] MEDS: hydrALAZINE HCL 50 MG TABLET (FP) PO SCH (10:37)
[2024-05-15] MEDS: ATORVASTATIN CA 40 MG TABLET (FP) PO SCH (21:12)
[2024-05-16 16:36] VITALS: BMI 18.1
[2024-05-17] MEDS: hydrALAZINE HCL 20 MG/ML VIAL IVPUSH PRN (02:42)
[2024-05-17] MEDS ORDERED: hydrALAZINE HCL 50 MG TABLET (FP) PO SCH ×2 (08:08→14:00)
[2024-05-17 11:02] VITALS: RESP 18
[2024-05-17 11:03] VITALS: BP 182/76; PULSE 70; TEMP 98
[2024-05-17] MEDS ORDERED: cloNIDine-TTS 0.1 MG/24 HRS PATCH.TDWK TD SCH ×2 (13:54→14:15)
[2024-05-24] MEDS ORDERED: cloNIDine-TTS 0.1 MG/24 HRS PATCH.TDWK TD SCH ×2 (10:00)
== END 2024-05-17 14:37 | disposition left against medical advice (07) ==
LOC: JER 21:51 → JERBED 05-15 01:06 → J4W 05-15 04:32
PROVIDERS: ADMIT Internal Medicine; ATTEND Internal Medicine
PROC: 3E0F7GC Introduction of Other Therapeutic Substance into Respiratory Tract, Via Natural or Artificial Opening (ICD-10-PCS; principal; 2024-05-15)
PROC: 3E033GC Introduction of Other Therapeutic Substance into Peripheral Vein, Percutaneous Approach (ICD-10-PCS; 2024-05-15)
DX: G44.89 Other headache syndrome (principal); F19.90 Other psychoactive substance use, unspecified, uncomplicated; R00.1 Bradycardia, unspecified; R56.9 Unspecified convulsions; Z91.148 Patient's other noncompliance with medication regimen for other reason; N17.9 Acute kidney failure, unspecified; I11.0 Hypertensive heart disease with heart failure; I25.2 Old myocardial infarction; N18.9 Chronic kidney disease, unspecified; I12.9 Hypertensive chronic kidney disease with stage 1 through stage 4 chronic kidney disease, or unspecified chronic kidney disease; E78.5 Hyperlipidemia, unspecified; F41.9 Anxiety disorder, unspecified; J45.909 Unspecified asthma, uncomplicated
CPT/HCPCS: 0241U-QW; 36415; 70450-TC; 71045-TC-FY; 80053; 80307; 81003; 82570; 83605; 83735; 83880; 83935; 84100; 84300; 84484; 85025; 85027; 85610; 85730; 86850; 86900; 86901; 87086; 93005; 93010; 94640; 96374; 97116-GP; 97161-GP; 99285-25; G0378

== ENCOUNTER 2024-05-17 19:00 | Emergency (ER) | payer OTHER ==
[2024-05-17 19:11] VITALS: BP 158/91; PULSE 85; RESP 18; TEMP 99.4; BMI 20.4
[2024-05-17] MEDS ORDERED: VALSARTAN 80 MG TABLET PO ONE (21:47)
[2024-05-17] MEDS ORDERED: ACETAMINOPHEN 500 MG TABLET (FP) PO ONE (21:47)
== END 2024-05-17 22:13 | disposition left against medical advice (07) ==
LOC: JER 19:00
DX: R51.9 Headache, unspecified (principal)
CPT/HCPCS: 99283-25; 99284-25

== ENCOUNTER 2024-07-07 11:37 | Emergency (ER) | payer OTHER ==
[2024-07-07 12:29] VITALS: PULSE 65; RESP 13; TEMP 97.5; BMI 20.4
[2024-07-07] MEDS ORDERED: ACETAMINOPHEN 325 MG TABLET (FP) ONE (12:43)
[2024-07-07] MEDS ORDERED: METOCLOPRAMIDE HCL 10 MG TABLET (FP) PO ONE (12:44)
[2024-07-07] MEDS: ACETAMINOPHEN 500 MG TABLET (FP) PO ONE (12:53)
[2024-07-07] MEDS: METOCLOPRAMIDE HCL 10 MG TABLET (FP) PO ONE (12:56)
[2024-07-07] MEDS: hydrALAZINE HCL 50 MG TABLET (FP) PO ONE (13:00)
[2024-07-07] MEDS: amLODIPine BESYLATE 10 MG TABLET (FP) PO ONE (13:00)
[2024-07-07] MEDS ORDERED: amLODIPine BESYLATE 10 MG TABLET (FP) ONE (13:02)
[2024-07-07] MEDS ORDERED: hydrALAZINE HCL 50 MG TABLET (FP) ONE (13:02)
[2024-07-07 13:46] VITALS: BP 164/68
== END 2024-07-07 17:17 | disposition left against medical advice (07) ==
LOC: JER 11:37
DX: R51.9 Headache, unspecified (principal); R41.0 Disorientation, unspecified
CPT/HCPCS: 70450-TC; 99284-25

== ENCOUNTER 2024-07-20 01:05 | Emergency (ER) | payer OTHER ==
[2024-07-20 01:24] VITALS: PULSE 60; BMI 21.6
[2024-07-20] MEDS ORDERED: ACETAMINOPHEN 325 MG TABLET (FP) ONE (03:11)
[2024-07-20] MEDS: ACETAMINOPHEN 325 MG TABLET (FP) PO ONE (03:14)
[2024-07-20 03:16] LABS: INR 1.03 (0.83-1.09); PROTHROMBIN TIME (PATIENT) 11.8 SEC (9.7-13.0)
[2024-07-20 03:17] LABS: BASO % 0.5 % (0-2.0); HEMATOCRIT 24.4 % (32.4-45.2); LYMPH % 30.7 % (8-40); MCH 28.1 pg (25.7-33.7); MCHC 32.7 g/dl (32.0-36.0); MEAN CELL VOLUME 85.8 fl (80-96); MEAN PLT VOLUME 8.4 fl (7.5-11.1); MONO % 7.7 % (3.8-10.2); NEUT % 59.1 % (42.8-82.8); PLATELET COUNT 172 10^3/uL (134-434); RBC 2.84 M/mm3 (3.60-5.2); RDW 14.2 % (11.6-15.6); WHITE BLOOD COUNT 5.4 K/mm3 (4.0-10.0)
[2024-07-20 03:26] LABS: CHLORIDE 109 mmol/L (98-107); POTASSIUM 4.6 mmol/L (3.5-5.1); SODIUM 144 mmol/L (136-145)
[2024-07-20 03:28] LABS: ALBUMIN 3.5 g/dl (3.4-5.0); CALCIUM 8.2 mg/dL (8.5-10.1)
[2024-07-20 03:29] LABS: ANION GAP 7 mmol/L (4-13); BLOOD UREA NITROGEN 58.9 mg/dL (7-18); CO2 28 mmol/L (21-32); GLUCOSE,RANDOM 76 mg/dL (74-106)
[2024-07-20 03:32] LABS: CREATININE 4.4 mg/dL (0.55-1.3); SGOT/AST 17 U/L (15-37); SGPT/ALT 18 U/L (13-61)
[2024-07-20 03:33] LABS: BILIRUBIN,TOTAL < 0.1 mg/dL (0.2-1); TOT PROT 6.9 g/dl (6.4-8.2)
[2024-07-20 03:34] LABS: ALK PHOS 73 U/L (45-117)
[2024-07-20 04:41] VITALS: TEMP 98.4
[2024-07-20 07:26] VITALS: BP 185/62; RESP 20
== END 2024-07-20 07:28 | disposition home or self-care (01) ==
LOC: JER 01:05
DX: I13.0 Hypertensive heart and chronic kidney disease with heart failure and stage 1 through stage 4 chronic kidney disease, or unspecified chronic kidney disease (principal); I50.20 Unspecified systolic (congestive) heart failure; N18.9 Chronic kidney disease, unspecified; R07.9 Chest pain, unspecified; R51.9 Headache, unspecified
CPT/HCPCS: 36415; 80053; 84484; 85025; 85610; 93005; 93010; 99284-25

== ENCOUNTER 2024-10-27 14:20 | Emergency (ER) | payer OTHER ==
[2024-10-27 14:53] VITALS: TEMP 98.8; BMI 20.6
[2024-10-27] MEDS ORDERED: methaDONE HCL 40 MG DISPERSABLE TABLET ONE (15:25)
[2024-10-27] MEDS: methaDONE HCL 40 MG DISPERSABLE TABLET PO ONE (15:35)
[2024-10-27] MEDS ORDERED: amLODIPine BESYLATE 10 MG TABLET (FP) ONE (15:38)
[2024-10-27] MEDS: amLODIPine BESYLATE 10 MG TABLET (FP) PO ONE (15:41)
[2024-10-27 15:57] VITALS: BP 188/74; PULSE 55; RESP 20
== END 2024-10-27 16:13 | disposition home or self-care (01) ==
LOC: JER 14:20
DX: F11.20 Opioid dependence, uncomplicated (principal); R53.1 Weakness
CPT/HCPCS: 93005; 93010; 99283-25

== ENCOUNTER 2024-11-19 09:59 | Emergency (ER) | payer OTHER ==
[2024-11-19 10:58] VITALS: RESP 16; TEMP 97.9; BMI 17.4
[2024-11-19 12:21] VITALS: BP 116/48; PULSE 55
== END 2024-11-19 14:45 | disposition home or self-care (01) ==
LOC: JER 09:59
DX: R42 Dizziness and giddiness (principal); R53.1 Weakness; F14.921 Cocaine use, unspecified with intoxication delirium; F11.921 Opioid use, unspecified with intoxication delirium
CPT/HCPCS: 93005; 93010; 99283-25

== ENCOUNTER 2024-11-28 12:08 | Emergency (ER) | payer OTHER ==
[2024-11-28 12:30] VITALS: BP 177/70; PULSE 63; RESP 18; TEMP 97.3; BMI 18.1
[2024-11-28] MEDS ORDERED: hydrALAZINE HCL 50 MG TABLET (FP) ONE (13:58)
[2024-11-28] MEDS: hydrALAZINE HCL 50 MG TABLET (FP) PO ONE (13:59)
== END 2024-11-28 14:00 | disposition left against medical advice (07) ==
LOC: JER 12:08
DX: R51.9 Headache, unspecified (principal); I11.0 Hypertensive heart disease with heart failure; I50.20 Unspecified systolic (congestive) heart failure
CPT/HCPCS: 99283-25

== ENCOUNTER 2025-01-08 10:38 | Observation (INO) | payer OTHER ==
[2025-01-08] MEDS ORDERED: DEXTROSE 50%-WATER 25 GM/50 ML DISP.SYRIN ONE (11:06)
[2025-01-08] MEDS: DEXTROSE 50%-WATER - 25 GM/50 ML VIAL IVPUSH ONE (11:08)
[2025-01-08 11:15] VITALS: BMI 18.1
[2025-01-08 11:52] LABS: ABSOLUTE IMMATURE GRANULOCYTES 0.01 x10^3/uL (0.0-0.031); BASOPHILS # 0.02 x10^3/uL (0.01-0.08); EOSINOPHIL % 3.1 % (0.7-5.8); EOSINOPHILS # 0.12 x10^3/uL (0.04-0.36); HEMATOCRIT 21.2 % (34.1-44.9); HEMOGLOBIN 6.7 g/dL (11.2-15.7); MCHC 31.6 g/dl (32.2-35.5); MEAN PLT VOLUME 10.1 fl (9.4-12.3); MONOCYTE # 0.17 x10^3/uL (0.24-0.86); MONOCYTE % 4.3 % (4.7-12.5); PLATELET COUNT 193 x10^3/uL (182-369); RDW 14.6 % (12.4-16.6)
[2025-01-08 12:11] LABS: POTASSIUM 4.2 mmol/L (3.5-5.1)
[2025-01-08 12:14] LABS: ALBUMIN 3.4 g/dl (3.4-5.0); BLOOD UREA NITROGEN 61.1 mg/dL (7-18); CALCIUM 8.2 mg/dL (8.5-10.1)
[2025-01-08 12:17] LABS: CREATININE 4.1 mg/dL (0.55-1.3)
[2025-01-08 12:18] LABS: PHOSPHOROUS 4.8 mg/dL (2.5-4.9)
[2025-01-08 12:19] LABS: BILIRUBIN,TOTAL 0.3 mg/dL (0.2-1); TOT PROT 7.1 g/dl (6.4-8.2)
[2025-01-08] MEDS: DEXTROSE 5%-0.45% SALINE 1,000 ML IV SCH ×2 (13:52→17:40)
[2025-01-08 16:10] LABS: HEMATOCRIT 22.2 % (34.1-44.9); HEMOGLOBIN 6.9 g/dL (11.2-15.7); MCHC 31.1 g/dl (32.2-35.5); MEAN CELL VOLUME 87.7 fl (79.4-94.8); MEAN PLT VOLUME 9.4 fl (9.4-12.3); PLATELET COUNT 205 x10^3/uL (182-369); RDW 14.6 % (12.4-16.6)
[2025-01-08] MEDS ORDERED: NIFEdipine E.R 60 MG TABLET PO ONE (16:18)
[2025-01-08] MEDS ORDERED: levETIRAcetam 500 MG TABLET (FP) PO ONE (16:18)
[2025-01-08 16:31] LABS: Reticulocyte % 1.59 % (0.5-1.7)
[2025-01-08] MEDS: NIFEdipine E.R 60 MG TABLET PO SCH (16:31)
[2025-01-08] MEDS: levETIRAcetam 500 MG TABLET (FP) PO ONE (16:31)
[2025-01-08] MEDS: hydrALAZINE HCL 50 MG TABLET (FP) PO ONE ×2 (17:39→17:54)
[2025-01-08] MEDS: cloNIDine HCL 0.1 MG TABLET PO ONE (18:35)
[2025-01-08] MEDS: ACETAMINOPHEN 325 MG TABLET (FP) PO PRN (18:35)
[2025-01-08] MEDS: hydrALAZINE HCL 50 MG TABLET (FP) PO SCH (21:16)
[2025-01-08] MEDS: ATORVASTATIN CA 40 MG TABLET (FP) PO SCH (21:16)
[2025-01-08] MEDS: levETIRAcetam 500 MG TABLET (FP) PO SCH (21:17)
[2025-01-08] MEDS: CALCIUM (OYSTER SHELL) 500 MG TABLET (FP) PO SCH (21:20)
[2025-01-08] MEDS ORDERED: DEXTROSE 50%-WATER 25 GM/50 ML DISP.SYRIN IVPUSH PRN (21:27)
[2025-01-08] MEDS ORDERED: DOXAZOSIN MESYLATE 4 MG TABLET PO SCH (22:00)
[2025-01-09 02:41] LABS: HEMOGLOBIN 8.3 g/dL (11.2-15.7); MCHC 31.9 g/dl (32.2-35.5); MEAN PLT VOLUME 9.6 fl (9.4-12.3); PLATELET COUNT 207 x10^3/uL (182-369); RDW 14.3 % (12.4-16.6)
[2025-01-09] MEDS: cloNIDine HCL 0.1 MG TABLET PO SCH (08:09)
[2025-01-09] MEDS: ASPIRIN COATED 81 MG TABLET.EC PO SCH (09:06)
[2025-01-09] MEDS: VITAMIN B COMP W-C 1 EA TABLET (NEPHRO-VITE) PO SCH (09:06)
[2025-01-09] MEDS: FERROUS SO4 325 MG TABLET (FP) PO SCH (09:07)
[2025-01-09] MEDS: SERTRALINE HCL 50 MG TABLET (FP) PO SCH (09:07)
[2025-01-09] MEDS: CYANOCOBALAMIN 1,000 MCG TABLET (FP) PO SCH (09:07)
[2025-01-09 09:36] LABS: ABSOLUTE IMMATURE GRANULOCYTES 0.02 x10^3/uL (0.0-0.031); BASOPHILS # 0.03 x10^3/uL (0.01-0.08); EOSINOPHIL % 1.2 % (0.7-5.8); EOSINOPHILS # 0.08 x10^3/uL (0.04-0.36); HEMATOCRIT 27.9 % (34.1-44.9); HEMOGLOBIN 8.7 g/dL (11.2-15.7); MCHC 31.2 g/dl (32.2-35.5); MEAN CELL VOLUME 87.7 fl (79.4-94.8); MEAN PLT VOLUME 9.9 fl (9.4-12.3); MONOCYTE # 0.32 x10^3/uL (0.24-0.86); PLATELET COUNT 225 x10^3/uL (182-369); RDW 14.6 % (12.4-16.6)
[2025-01-09 09:55] LABS: EPI CELLS 6 /uL (0-25.1); HYALINE CASTS 0 /uL (0-3.1); PH,URINE 7.5 (5.0-8.0); URINE APPEARANCE CLEAR; URINE BACTERIA 54 /uL (0-1359); URINE BILIRUBIN NEGATIVE (NEGATIVE); URINE COLOR YELLOW; URINE GLUCOSE (UA) NEGATIVE (NEGATIVE); URINE KETONE NEGATIVE (NEGATIVE); URINE LEUK ESTERASE TRACE (NEGATIVE); URINE NITRITE NEGATIVE (NEGATIVE); URINE PROTEIN 2+ (NEGATIVE); URINE RBC 1 /uL (0-23.9); URINE UROBILINOGEN 0.2 mg/dL (0.2-1.0); URINE WBC 11 /uL (0-25.8)
[2025-01-09] MEDS ORDERED: DOXAZOSIN MESYLATE 2 MG TABLET PO SCH (10:00)
[2025-01-09 10:44] LABS: POTASSIUM 4.2 mmol/L (3.5-5.1)
[2025-01-09 10:59] LABS: URINE AMPHETAMINES NEGATIVE (NEGATIVE); URINE BARBITURATES NEGATIVE (NEGATIVE)
[2025-01-09 11:00] LABS: COCAINE, UR NEGATIVE (NEGATIVE); PHENCYCLIDINE,URINE NEGATIVE (NEGATIVE)
[2025-01-09 11:02] LABS: ALBUMIN 3.2 g/dl (3.4-5.0); BLOOD UREA NITROGEN 55.5 mg/dL (7-18); CALCIUM 8.3 mg/dL (8.5-10.1); MAGNESIUM 2.8 mg/dL (1.8-2.4)
[2025-01-09 11:04] LABS: METHADONE, UR POSITIVE (NEGATIVE); OPIATES, URI POSITIVE (NEGATIVE); URINE BENZODIAZEPINES POSITIVE (NEGATIVE)
[2025-01-09 11:05] LABS: BILIRUBIN,TOTAL 0.8 mg/dL (0.2-1); CREATININE 3.6 mg/dL (0.55-1.3)
[2025-01-09 11:06] LABS: PHOSPHOROUS 4.3 mg/dL (2.5-4.9); TOT PROT 6.9 g/dl (6.4-8.2)
[2025-01-09] MEDS ORDERED: methaDONE HCL 40 MG DISPERSABLE TABLET PO SCH (13:15)
[2025-01-09] MEDS: levETIRAcetam 250 MG TABLET PO SCH (21:09)
[2025-01-10 02:55] VITALS: RESP 18
[2025-01-10 09:31] LABS: HEMATOCRIT 26.3 % (34.1-44.9); HEMOGLOBIN 8.5 g/dL (11.2-15.7); MCHC 32.3 g/dl (32.2-35.5); MEAN CELL VOLUME 86.2 fl (79.4-94.8); MEAN PLT VOLUME 9.6 fl (9.4-12.3); PLATELET COUNT 228 x10^3/uL (182-369); RDW 14.6 % (12.4-16.6)
[2025-01-10 09:54] LABS: POTASSIUM 3.9 mmol/L (3.5-5.1)
[2025-01-10 09:56] LABS: CALCIUM 8.7 mg/dL (8.5-10.1)
[2025-01-10 09:57] LABS: BLOOD UREA NITROGEN 42.4 mg/dL (7-18); MAGNESIUM 2.5 mg/dL (1.8-2.4)
[2025-01-10 09:59] LABS: CREATININE 3.3 mg/dL (0.55-1.3)
[2025-01-10 10:00] LABS: PHOSPHOROUS 4.4 mg/dL (2.5-4.9)
[2025-01-10 10:01] LABS: BILIRUBIN,TOTAL 0.5 mg/dL (0.2-1); TOT PROT 6.6 g/dl (6.4-8.2)
[2025-01-10] MEDS ORDERED: INSULIN ASPART SLIDING SCALE (NOVOLOG) 1 VIAL SQ ONE (10:15)
[2025-01-10] MEDS ORDERED: ACETAMINOPHEN 1000 MG/100 ML BAG IVPB PRN (10:58)
[2025-01-10] MEDS: LIDOCAINE 5% TOPICAL PATCH TP SCH (11:19)
[2025-01-10] MEDS: ACETAMINOPHEN 1000 MG/100 ML BAG IVPB PRN (11:32)
[2025-01-10 12:37] VITALS: BP 172/67; PULSE 52; TEMP 98.4
[2025-01-10] MEDS ORDERED: LIDOCAINE PATCH REMOVAL MC SCH (22:00)
== END 2025-01-10 15:05 | disposition other institution (70) ==
LOC: JER 10:38 → JERBED 13:44 → J6S 17:13
PROVIDERS: ADMIT Internal Medicine; ATTEND Internal Medicine
PROC: 3E033NZ Introduction of Analgesics, Hypnotics, Sedatives into Peripheral Vein, Percutaneous Approach (ICD-10-PCS; principal; 2025-01-08)
PROC: 3E033GC Introduction of Other Therapeutic Substance into Peripheral Vein, Percutaneous Approach (ICD-10-PCS; 2025-01-08)
PROC: 3E0337Z Introduction of Electrolytic and Water Balance Substance into Peripheral Vein, Percutaneous Approach (ICD-10-PCS; 2025-01-08)
DX: F19.99 Other psychoactive substance use, unspecified with unspecified psychoactive substance-induced disorder (principal); R55 Syncope and collapse; G93.40 Encephalopathy, unspecified; I25.10 Atherosclerotic heart disease of native coronary artery without angina pectoris; D64.9 Anemia, unspecified; I11.0 Hypertensive heart disease with heart failure; E16.2 Hypoglycemia, unspecified; I16.0 Hypertensive urgency; I10 Essential (primary) hypertension; I25.2 Old myocardial infarction; G40.909 Epilepsy, unspecified, not intractable, without status epilepticus; E78.5 Hyperlipidemia, unspecified; F17.200 Nicotine dependence, unspecified, uncomplicated
CPT/HCPCS: 36415; 36430; 71045-TC-FY; 80053; 80307; 81003; 82728; 82962; 83036; 83540; 83550; 83735; 84100; 84484; 85025; 85027; 86850; 86900; 86901; 86922; 93005; 93010; 97116-GP; 97161-GP; 99285-25; G0378; J0131; P9058

== ENCOUNTER 2025-01-16 16:49 | Inpatient (IN) | payer OTHER ==
[2025-01-16 17:06] VITALS: BMI 18.3
[2025-01-16] MEDS ORDERED: BENZOCAINE/MENTHOL (CHLORASEPTIC ) LOZENGE MM PRN (17:23)
[2025-01-16] MEDS ORDERED: guaiFENesin 600 MG TABLET.ER (FP) PO PRN (17:23)
[2025-01-16] MEDS ORDERED: MAGNESIUM HYDROX 2400MG/30ML ORAL SUSPENSION 30 ML CUP PO PRN (17:23)
[2025-01-16] MEDS ORDERED: POLYETHYLENE GLYCOL (HEALTHYLAX) 3350 17 GM PACKET PO PRN (17:23)
[2025-01-16] MEDS ORDERED: NALOXONE HCL 0.4 MG/ML VIAL IVPUSH PRN (17:23)
[2025-01-16] MEDS ORDERED: NICOTINE POLACRILEX 2 MG LOZENGE BC PRN (17:23)
[2025-01-16] MEDS ORDERED: ACETAMINOPHEN 325 MG TABLET (FP) PO PRN (17:23)
[2025-01-16] MEDS ORDERED: MAG HYDROX/AL HYDROX/SIMETH 30 ML UNIT-DOSE CUP PO PRN (17:23)
[2025-01-16] MEDS ORDERED: NALOXONE (NARCAN) HCL 4 MG/0.1 ML SPRAY NS PRN (17:23)
[2025-01-16] MEDS ORDERED: BENZONATATE 200 MG CAPSULE PO PRN (17:23)
[2025-01-16] MEDS ORDERED: LOPERAMIDE HCL 2 MG CAPSULE PO PRN (17:23)
[2025-01-16] MEDS ORDERED: NICOTINE POLACRILEX 2 MG GUM BUC PRN (17:23)
[2025-01-16] MEDS: cloNIDine HCL 0.1 MG TABLET PO ONE (19:07)
[2025-01-16] MEDS: DOXAZOSIN MESYLATE 4 MG TABLET PO SCH (22:09)
[2025-01-16] MEDS: hydrALAZINE HCL 50 MG TABLET (FP) PO SCH (22:09)
[2025-01-16] MEDS: THIAMINE 100 MG TABLET PO SCH (22:10)
[2025-01-16] MEDS: levETIRAcetam 500 MG TABLET (FP) PO SCH (22:10)
[2025-01-16] MEDS: ATORVASTATIN CA 40 MG TABLET (FP) PO SCH (22:10)
[2025-01-16] MEDS: MELATONIN 5 MG TABLETS PO SCH (22:10)
[2025-01-17] MEDS ORDERED: methaDONE HCL 10 MG TABLET PO SCH (07:45)
[2025-01-17] MEDS: NIFEdipine E.R 60 MG TABLET PO SCH (08:14)
[2025-01-17] MEDS: ASPIRIN COATED 81 MG TABLET.EC PO SCH (10:24)
[2025-01-17] MEDS: PRENATAL VITAMINS W/ FOLIC ACID TABLET (FP) PO SCH (10:24)
[2025-01-17] MEDS: CYANOCOBALAMIN 1,000 MCG TABLET (FP) PO SCH (10:28)
[2025-01-17] MEDS: VITAMIN B COMP W-C 1 EA TABLET (NEPHRO-VITE) PO SCH (10:28)
[2025-01-17] MEDS: FERROUS SO4 325 MG TABLET (FP) PO SCH (14:53)
[2025-01-17] MEDS: MELATONIN 5 MG TABLETS PO SCH (21:13)
[2025-01-19 06:00] VITALS: TEMP 97.7
[2025-01-19] MEDS: SODIUM ZIRCONIUM CYCLOSILICATE (LOKELMA) 10 GM PACKET PO SCH (09:56)
[2025-01-19 14:03] VITALS: BP 167/93; PULSE 68; RESP 17
== END 2025-01-19 16:40 | disposition left against medical advice (07) | DRG 894 ==
LOC: YASAS 16:49 → Y3NR 18:11 → Y5N 01-17 16:51
PROVIDERS: ADMIT Psychiatry & Neurology Pain Medicine; ATTEND Psychiatry & Neurology Pain Medicine
PROC: HZ42ZZZ Group Counseling for Substance Abuse Treatment, Cognitive-Behavioral (ICD-10-PCS; principal; 2025-01-16)
DX: F11.20 Opioid dependence, uncomplicated (principal); F14.20 Cocaine dependence, uncomplicated; F19.282 Other psychoactive substance dependence with psychoactive substance-induced sleep disorder; I13.2 Hypertensive heart and chronic kidney disease with heart failure and with stage 5 chronic kidney disease, or end stage renal disease; N18.5 Chronic kidney disease, stage 5; I25.10 Atherosclerotic heart disease of native coronary artery without angina pectoris; I50.9 Heart failure, unspecified; E78.5 Hyperlipidemia, unspecified; J45.909 Unspecified asthma, uncomplicated; G40.909 Epilepsy, unspecified, not intractable, without status epilepticus; Z86.73 Personal history of transient ischemic attack (TIA), and cerebral infarction without residual deficits
CPT/HCPCS: 80305; 80307

== ENCOUNTER 2025-01-21 13:24 | Emergency (ER) | payer OTHER ==
[2025-01-21 13:42] VITALS: BP 135/48; PULSE 59; RESP 17; TEMP 98.1; BMI 20.6
[2025-01-21] MEDS ORDERED: OXYMETAZOLINE 0.05% NASAL SOLUTION 15 ML BOTTLE NS ONE (15:06)
[2025-01-21 15:39] LABS: ABSOLUTE IMMATURE GRANULOCYTES 0.01 x10^3/uL (0.0-0.031); BASOPHILS # 0.06 x10^3/uL (0.01-0.08); EOSINOPHIL % 3.4 % (0.7-5.8); HEMOGLOBIN 8.1 g/dL (11.2-15.7); MCHC 31.2 g/dl (32.2-35.5); MEAN CELL VOLUME 89.3 fl (79.4-94.8); MEAN PLT VOLUME 9.2 fl (9.4-12.3); MONOCYTE # 0.46 x10^3/uL (0.24-0.86); MONOCYTE % 7.8 % (4.7-12.5); PLATELET COUNT 247 x10^3/uL (182-369); RDW 14.3 % (12.4-16.6)
[2025-01-21 16:08] LABS: POTASSIUM 4.4 mmol/L (3.5-5.1)
[2025-01-21 16:11] LABS: ALBUMIN 3.7 g/dl (3.4-5.0); BLOOD UREA NITROGEN 52.7 mg/dL (7-18); CALCIUM 8.6 mg/dL (8.5-10.1); MAGNESIUM 2.9 mg/dL (1.8-2.4)
[2025-01-21 16:14] LABS: CREATININE 4.2 mg/dL (0.55-1.3)
[2025-01-21 16:16] LABS: BILIRUBIN,TOTAL 0.3 mg/dL (0.2-1); TOT PROT 7.6 g/dl (6.4-8.2)
== END 2025-01-21 16:30 | disposition left against medical advice (07) ==
LOC: JER 13:24
DX: R42 Dizziness and giddiness (principal)
CPT/HCPCS: 36415; 71046-TC-FY; 80053; 83735; 84484; 85025; 99284-25

== ENCOUNTER 2025-03-01 08:08 | Emergency (ER) | payer OTHER ==
[2025-03-01 08:33] VITALS: BMI 20.2
[2025-03-01 11:23] VITALS: PULSE 62; RESP 18; TEMP 98.4
[2025-03-01 12:44] VITALS: BP 175/69
[2025-03-01] MEDS ORDERED: IBUPROFEN 600 MG TABLET (FP) PO ONE (13:11)
[2025-03-01] MEDS: IBUPROFEN 600 MG TABLET (FP) PO ONE (13:15)
== END 2025-03-01 14:42 | disposition home or self-care (01) ==
LOC: JER 08:08
DX: M79.10 Myalgia, unspecified site (principal); F11.20 Opioid dependence, uncomplicated
CPT/HCPCS: 93970-TC; 99284-25

== ENCOUNTER 2025-04-04 18:13 | Observation (INO) | payer OTHER ==
[2025-04-04] MEDS ORDERED: amLODIPine BESYLATE 10 MG TABLET (FP) ONE (18:44)
[2025-04-04] MEDS ORDERED: ACETAMINOPHEN 325 MG TABLET (FP) ONE (18:44)
[2025-04-04] MEDS: amLODIPine BESYLATE 10 MG TABLET (FP) PO ONE (19:05)
[2025-04-04] MEDS: ACETAMINOPHEN 500 MG TABLET (FP) PO ONE (19:05)
[2025-04-04 19:10] LABS: ABSOLUTE IMMATURE GRANULOCYTES 0.02 x10^3/uL (0.0-0.031); BASOPHILS # 0.03 x10^3/uL (0.01-0.08); EOSINOPHIL % 2.9 % (0.7-5.8); EOSINOPHILS # 0.18 x10^3/uL (0.04-0.36); MCHC 31.8 g/dl (32.2-35.5); MEAN CELL VOLUME 88.4 fl (79.4-94.8); MEAN PLT VOLUME 10.3 fl (9.4-12.3); MONOCYTE # 0.46 x10^3/uL (0.24-0.86); MONOCYTE % 7.4 % (4.7-12.5); RDW 12.8 % (12.4-16.6)
[2025-04-04 19:29] LABS: CO2 28.0 mmol/L (21-32); GLUCOSE,RANDOM 91.0 mg/dL (74-106)
[2025-04-04 19:32] LABS: CREATININE 4.6 mg/dL (0.55-1.3)
[2025-04-04 19:33] LABS: SGOT/AST 11.0 U/L (15-37)
[2025-04-04 19:34] LABS: TOT PROT 7.4 g/dl (6.4-8.2)
[2025-04-04 19:35] LABS: ALK PHOS 85.0 U/L (45-117)
[2025-04-04 19:39] LABS: SGPT/ALT 11.0 U/L (13-61)
[2025-04-04] MEDS ORDERED: SODIUM ZIRCONIUM CYCLOSILICATE (LOKELMA) 10 GM PACKET ONE (19:48)
[2025-04-04] MEDS: SODIUM ZIRCONIUM CYCLOSILICATE (LOKELMA) 5 GM PACKET PO ONE (19:53)
[2025-04-04] MEDS ORDERED: CALCIUM GLUC IN NACL, ISO-OSM 1 GM/50 ML BAG IVPB ONE (21:23)
[2025-04-04] MEDS: CALCIUM GLUCONATE 10% - 1,000 MG/10 ML VIAL IVPB ONE (21:34)
[2025-04-04] MEDS ORDERED: DEXTROSE 50%-WATER 25 GM/50 ML DISP.SYRIN ONE (21:43)
[2025-04-04] MEDS: INSULIN REGULAR HUMAN 100 UNITS/ML *VIAL IVPUSH ONE (21:53)
[2025-04-04] MEDS: DEXTROSE 50%-WATER - 25 GM/50 ML VIAL IVPUSH ONE (21:53)
[2025-04-05] MEDS: SODIUM ZIRCONIUM CYCLOSILICATE (LOKELMA) 5 GM PACKET PO SCH (00:51)
[2025-04-05 01:07] VITALS: BMI 17.2
[2025-04-05] MEDS: HEPARIN NA (PORCINE) 5,000 UNITS/ML 1ML VIAL SQ SCH (06:24)
[2025-04-05] MEDS: hydrALAZINE HCL 50 MG TABLET (FP) PO SCH (06:25)
[2025-04-05] MEDS: ASPIRIN COATED 81 MG TABLET.EC PO SCH (09:37)
[2025-04-05] MEDS: VITAMIN B COMP W-C 1 EA TABLET (NEPHRO-VITE) PO SCH (09:37)
[2025-04-05] MEDS: FERROUS SO4 325 MG TABLET (FP) PO SCH (09:37)
[2025-04-05] MEDS: CYANOCOBALAMIN 1,000 MCG TABLET (FP) PO SCH (09:37)
[2025-04-05] MEDS: levETIRAcetam 500 MG TABLET (FP) PO SCH (09:37)
[2025-04-05] MEDS: SERTRALINE HCL 25 MG TABLET (FP) PO SCH (09:37)
[2025-04-05] MEDS: NIFEdipine E.R 60 MG TABLET PO SCH (09:37)
[2025-04-05] MEDS: CALCIUM (OYSTER SHELL) 500 MG TABLET (FP) PO SCH (09:37)
[2025-04-05] MEDS: cloNIDine-TTS 0.1 MG/24 HRS PATCH.TDWK TD SCH (09:38)
[2025-04-05] MEDS ORDERED: SODIUM ZIRCONIUM CYCLOSILICATE (LOKELMA) 5 GM PACKET PO SCH (10:00)
[2025-04-05 10:47] LABS: ABSOLUTE IMMATURE GRANULOCYTES 0.02 x10^3/uL (0.0-0.031); BASOPHILS # 0.04 x10^3/uL (0.01-0.08); EOSINOPHIL % 2.0 % (0.7-5.8); EOSINOPHILS # 0.11 x10^3/uL (0.04-0.36); MCHC 32.0 g/dl (32.2-35.5); MEAN CELL VOLUME 86.6 fl (79.4-94.8); MEAN PLT VOLUME 10.9 fl (9.4-12.3); MONOCYTE # 0.25 x10^3/uL (0.24-0.86); MONOCYTE % 4.5 % (4.7-12.5); RDW 12.7 % (12.4-16.6)
[2025-04-05 10:58] LABS: CO2 26.0 mmol/L (21-32); GLUCOSE,RANDOM 121.0 mg/dL (74-106)
[2025-04-05 11:01] LABS: CREATININE 4.3 mg/dL (0.55-1.3); SGOT/AST 14.0 U/L (15-37); SGPT/ALT 11.0 U/L (13-61)
[2025-04-05 11:02] LABS: TOT PROT 7.1 g/dl (6.4-8.2)
[2025-04-05 11:04] LABS: ALK PHOS 86.0 U/L (45-117)
[2025-04-05 11:17] LABS: CO2 25.0 mmol/L (21-32); GLUCOSE,RANDOM 130.0 mg/dL (74-106)
[2025-04-05 11:20] LABS: CREATININE 4.1 mg/dL (0.55-1.3)
[2025-04-05 11:21] LABS: SGOT/AST 9.0 U/L (15-37); SGPT/ALT 10.0 U/L (13-61)
[2025-04-05 11:22] LABS: TOT PROT 7.0 g/dl (6.4-8.2)
[2025-04-05 11:23] LABS: ALK PHOS 85.0 U/L (45-117)
[2025-04-05] MEDS: DIVALPROEX NA *ER* EXTEND REL 500 MG TABLET.SA (FP) PO SCH (21:15)
[2025-04-05] MEDS: ATORVASTATIN CA 40 MG TABLET (FP) PO SCH (21:15)
[2025-04-05] MEDS: DOXAZOSIN MESYLATE 4 MG TABLET PO SCH (21:15)
[2025-04-05] MEDS: PRAMIPEXOLE DIHYDROCHLORIDE 0.25 MG TABLET PO SCH (21:16)
[2025-04-05] MEDS ORDERED: DOXAZOSIN MESYLATE 2 MG TABLET PO SCH (22:00)
[2025-04-06 01:16] LABS: HCV DIAGNOSTIC IN-HOUSE W/RFLX NON-REACTIVE (NONREACTIVE); HIV INTERPRETATION NEGATIVE (NEGATIVE)
[2025-04-06 15:07] LABS: EPI CELLS 5 /uL (0-25.1); HYALINE CASTS 0 /uL (0-3.1); URINE APPEARANCE CLEAR; URINE BACTERIA 281 /uL (0-1359); URINE BILIRUBIN NEGATIVE (NEGATIVE); URINE COLOR YELLOW; URINE GLUCOSE (UA) NEGATIVE (NEGATIVE); URINE KETONE NEGATIVE (NEGATIVE); URINE LEUK ESTERASE 3+ (NEGATIVE); URINE NITRITE NEGATIVE (NEGATIVE); URINE PROTEIN 1+ (NEGATIVE); URINE RBC 6 /uL (0-23.9); URINE UROBILINOGEN 0.2 mg/dL (0.2-1.0); URINE WBC 390 /uL (0-25.8)
[2025-04-06] MEDS: ACETAMINOPHEN 325 MG TABLET (FP) PO PRN (17:11)
[2025-04-06] MEDS: MELATONIN 5 MG TABLETS PO PRN (21:48)
[2025-04-08 12:06] LABS: ABSOLUTE IMMATURE GRANULOCYTES 0.02 x10^3/uL (0.0-0.031); BASOPHILS # 0.02 x10^3/uL (0.01-0.08); EOSINOPHIL % 0.3 % (0.7-5.8); EOSINOPHILS # 0.02 x10^3/uL (0.04-0.36); MCHC 31.2 g/dl (32.2-35.5); MEAN CELL VOLUME 88.9 fl (79.4-94.8); MEAN PLT VOLUME 10.9 fl (9.4-12.3); MONOCYTE # 0.20 x10^3/uL (0.24-0.86); MONOCYTE % 3.4 % (4.7-12.5); RDW 13.0 % (12.4-16.6)
[2025-04-08 14:48] LABS: GLUCOSE,RANDOM 144 mg/dL (74-106); TOT PROT 7.7 g/dl (6.4-8.2)
[2025-04-08 14:49] LABS: CO2 21 mmol/L (21-32)
[2025-04-08 14:51] LABS: ALK PHOS 83 U/L (40-150)
[2025-04-08 14:54] LABS: CREATININE 3.70 mg/dL (0.55-1.3); IRON SERUM 57 ug/dL (50-175); SGOT/AST 15 U/L (5-34); SGPT/ALT 9 U/L (0-55)
[2025-04-08 21:08] VITALS: RESP 16
[2025-04-08] MEDS: CEFTRIAXONE 1 GM in DEXTROSE 5%-WATER - 50 ML IVPB SCH (22:44)
[2025-04-09 10:32] LABS: GLUCOSE,RANDOM 153.0 mg/dL (74-106); TOT PROT 7.0 g/dl (6.4-8.2)
[2025-04-09 10:33] LABS: CO2 22.0 mmol/L (21-32)
[2025-04-09 10:35] LABS: ALK PHOS 76.0 U/L (40-150)
[2025-04-09 10:37] LABS: SGOT/AST 14.0 U/L (5-34); SGPT/ALT 7.0 U/L (0-55)
[2025-04-09 10:38] LABS: CREATININE 3.73 mg/dL (0.55-1.3)
[2025-04-09 14:55] VITALS: BP 165/63; PULSE 53; TEMP 98.2
== END 2025-04-09 15:55 ==
LOC: JER 18:13 → JERBED 20:14 → OBSVTOIN 22:17 → J6W TELE 04-05 00:45 → J4S 04-05 02:30
PROVIDERS: ADMIT Family Medicine; ATTEND Internal Medicine
PROC: 3E03329 Introduction of Other Anti-infective into Peripheral Vein, Percutaneous Approach (ICD-10-PCS; principal; 2025-04-04)
PROC: 3E033GC Introduction of Other Therapeutic Substance into Peripheral Vein, Percutaneous Approach (ICD-10-PCS; 2025-04-04)
PROC: 3E0337Z Introduction of Electrolytic and Water Balance Substance into Peripheral Vein, Percutaneous Approach (ICD-10-PCS; 2025-04-04)
PROC: 3E033VG Introduction of Insulin into Peripheral Vein, Percutaneous Approach (ICD-10-PCS; 2025-04-04)
DX: I16.0 Hypertensive urgency (principal); F11.90 Opioid use, unspecified, uncomplicated; E87.5 Hyperkalemia; I50.20 Unspecified systolic (congestive) heart failure; D64.9 Anemia, unspecified; F19.90 Other psychoactive substance use, unspecified, uncomplicated; I25.10 Atherosclerotic heart disease of native coronary artery without angina pectoris; N18.9 Chronic kidney disease, unspecified; I45.81 Long QT syndrome; R56.9 Unspecified convulsions; R00.1 Bradycardia, unspecified
CPT/HCPCS: 36415; 70450-TC; 80053; 81003; 82728; 83540; 83550; 83735; 84100; 85025; 86803; 87086; 87389; 93005; 93010; 93975; 96361; 96365; 96366; 96375; 96376; 97116-GP; 97161-GP; 99285-25; G0378

== ENCOUNTER 2025-04-19 13:11 | Emergency (ER) | payer OTHER ==
[2025-04-19 13:26] VITALS: PULSE 63; RESP 19; TEMP 97.9; BMI 20.2
[2025-04-19] MEDS ORDERED: hydrALAZINE HCL 50 MG TABLET (FP) ONE (13:50)
[2025-04-19] MEDS ORDERED: ACETAMINOPHEN INJECTION 100 ML ONE (13:50)
[2025-04-19] MEDS ORDERED: levETIRAcetam 500 MG/5 ML INJECTION VIAL IVPB ONE (13:50)
[2025-04-19] MEDS ORDERED: levETIRAcetam 500 MG TABLET (FP) PO ONE (14:08)
[2025-04-19] MEDS ORDERED: ACETAMINOPHEN 325 MG TABLET (FP) ONE (14:09)
[2025-04-19] MEDS: ACETAMINOPHEN 500 MG TABLET (FP) PO ONE (14:15)
[2025-04-19] MEDS: hydrALAZINE HCL 50 MG TABLET (FP) PO ONE (14:15)
[2025-04-19] MEDS: levETIRAcetam 500 MG TABLET (FP) PO ONE (14:18)
[2025-04-19] MEDS: ACETAMINOPHEN 1000 MG/100 ML BAG IVPB ONE (14:19)
[2025-04-19] MEDS: levETIRAcetam 500 MG/5 ML INJECTION VIAL IVPB ONE (14:19)
[2025-04-19 14:21] VITALS: BP 208/87
== END 2025-04-19 14:50 | disposition left against medical advice (07) ==
LOC: JER 13:11
DX: R51.9 Headache, unspecified (principal); I10 Essential (primary) hypertension; R53.83 Other fatigue
CPT/HCPCS: 71045-TC-FY; 93005; 93010; 99284-25

== ENCOUNTER 2025-04-20 07:51 | Emergency (ER) | payer OTHER ==
[2025-04-20 08:04] VITALS: TEMP 97.9; BMI 20.2
[2025-04-20] MEDS ORDERED: DIVALPROEX SODIUM 500 MG TABLET E.C. ONE (08:17)
[2025-04-20] MEDS ORDERED: ATORVASTATIN CA 40 MG TABLET (FP) ONE (08:17)
[2025-04-20] MEDS ORDERED: hydrALAZINE HCL 50 MG TABLET (FP) ONE (08:18)
[2025-04-20] MEDS: hydrALAZINE HCL 50 MG TABLET (FP) PO ONE (08:27)
[2025-04-20] MEDS: ATORVASTATIN CA 40 MG TABLET (FP) PO ONE (08:27)
[2025-04-20] MEDS: DIVALPROEX NA *ER* EXTEND REL 500 MG TABLET.SA (FP) PO ONE (08:29)
[2025-04-20 08:50] LABS: ABSOLUTE IMMATURE GRANULOCYTES 0.02 x10^3/uL (0.0-0.031); BASOPHILS # 0.03 x10^3/uL (0.01-0.08); EOSINOPHIL % 1.9 % (0.7-5.8); EOSINOPHILS # 0.11 x10^3/uL (0.04-0.36); MCHC 31.5 g/dl (32.2-35.5); MEAN CELL VOLUME 88.5 fl (79.4-94.8); MEAN PLT VOLUME 10.2 fl (9.4-12.3); MONOCYTE # 0.40 x10^3/uL (0.24-0.86); MONOCYTE % 7.0 % (4.7-12.5); RDW 12.2 % (12.4-16.6)
[2025-04-20 08:58] LABS: INR 1.04 (0.83-1.09); PROTHROMBIN TIME (PATIENT) 11.4 SEC (9.7-13.0)
[2025-04-20 09:01] LABS: ACTIVATED PTT 27.8 SECONDS (25.2-36.5)
[2025-04-20 09:37] LABS: GLUCOSE,RANDOM 82 mg/dL (74-106); TOT PROT 7.2 g/dl (6.4-8.2)
[2025-04-20 09:38] LABS: CO2 26 mmol/L (21-32)
[2025-04-20 09:42] LABS: SGPT/ALT 15 U/L (0-55)
[2025-04-20 09:43] LABS: CREATININE 3.44 mg/dL (0.55-1.3); SGOT/AST 25 U/L (5-34)
[2025-04-20 09:51] LABS: ALK PHOS 87 U/L (40-150)
[2025-04-20] MEDS ORDERED: NIFEdipine E.R 60 MG TABLET PO ONE (11:51)
[2025-04-20] MEDS: NIFEdipine E.R 60 MG TABLET PO ONE (11:57)
[2025-04-20] MEDS: OXYMETAZOLINE 0.05% NASAL SOLUTION 15 ML BOTTLE NS ONE (12:08)
[2025-04-20 14:16] VITALS: BP 138/66; PULSE 68; RESP 18
[2025-04-20] MEDS ORDERED: PRAMIPEXOLE DIHYDROCHLORIDE 0.25 MG TABLET PO SCH (22:00)
[2025-04-20] MEDS ORDERED: DOXAZOSIN MESYLATE 4 MG TABLET PO SCH (22:00)
== END 2025-04-20 16:06 | disposition home or self-care (01) ==
LOC: JER 07:51
DX: R04.0 Epistaxis (principal); I10 Essential (primary) hypertension; R51.9 Headache, unspecified
CPT/HCPCS: 36415; 70450-TC; 71045-TC-FY; 71250-TC; 76775-TC; 80053; 83735; 84484; 85025; 85610; 85730; 99285-25

== ENCOUNTER 2025-06-09 07:57 | Emergency (ER) | payer OTHER ==
[2025-06-09 08:32] VITALS: BP 197/103; PULSE 75; RESP 16; TEMP 99.6; BMI 18.1
== END 2025-06-09 11:56 | disposition home or self-care (01) ==
LOC: JER 07:57
DX: R42 Dizziness and giddiness (principal); F51.3 Sleepwalking [somnambulism]
CPT/HCPCS: 71045-TC-FY; 93005; 93010; 99284-25